=== PATIENT | male | born 1955 | race Caucasian/White ===

== ENCOUNTER 2018-08-06 02:43 | Day surgery (SDC) | payer OTHER ==
[~2018-08-06] VITALS: Ht 188 cm; Wt 107.0 kg
[~2018-08-06 02:43] MED LIST: ALBU90OI6; ASPI81CH; ATOR40TA; ATOR40TA PO; Apidra Sol100 UNIT/1; BUDE6HFA; BUME2; HYDCHL25; Humulin N100 UNIT/1 SC; INSR10I SC; INSULANPEN; Klor-Con 1010 MEQ PO; LEVSOD125 PO; METF500C PO; METO25ER; NORT25; Omeprazole20 M1; POTCHL10ER PO; PREG300; Requip3 MG PO; TAMS.4ER; TAMS.4ER PO; TRAZ50 PO
--- NOTE | 2018-08-06 08:44 | NUR ---
RIGHT GROIN SITE SOFT NON-TENDER WITH NO HEMATOMA AND NO PULSATILE BLEEDING. SLIGHT OOZING NOTED ON INTACT DRESSING. PT DENIES CP. PT A&O X 3. CALL LIGHT IN REACH.
[2018-08-06] MEDS ORDERED: METO25ER PO (09:15)
[2018-08-06] MEDS ORDERED: CLOP75 PO (09:58)
[2018-08-06] MEDS ORDERED: Isosorbide Mono30 MG PO (09:59)
--- NOTE | 2018-08-06 10:40 | NUR ---
PT DENIES CP. PT DESCRIBES "TENDERNESS" AT RIGHT GROIN SITE WITH PALPITATION, BUT DENIES ANY SHARP PAIN OTHERWISE RIGHT GROIN SITE SOFT WITH NO HEMATOMA AND NO PULSATILE BLEEDING. CALL LIGHT IN REACH.
--- NOTE | 2018-08-06 11:05 | NUR ---
HOB UP TO 30 DEGREES.
--- NOTE | 2018-08-06 11:52 | NUR ---
DR. CERVANTES HERE TO SEE PATIENT.
--- NOTE | 2018-08-06 12:23 | NUR ---
AT 0830 LANG HAD HEMOSTASIS THIS MORNING AFTER HOLDING MANUAL PRESSURE TO RIGHT FEMORAL GROIN SITE IN RECOVERY ROOM.
--- NOTE | 2018-08-06 12:35 | NUR ---
PT AMBULATED TO TO VOID. RIGHT GROIN SITE SOFT WITH NO HEMATOMA AND NO PULSATILE BLEEDING AND INTACT DRESSING. PT DENIES ANY SHARP PAIN IN RIGHT GROIN AREA OR RIGHT FLANK.
--- NOTE | 2018-08-06 13:14 | NUR ---
DISCHARGE INSTRUCTIONS REVIEWED AND ALL QUESTIONS ANSWERED.
--- NOTE | 2018-08-06 13:21 | NUR ---
20 G IV DISCONTINUED FROM LEFT FOREARM WITH INTACT CANNULA. NO CHANGES TO RIGHT GROIN SITE: SOFT WITH NO HEMATOMA AND NO PULSATILE BLEEDING.
--- NOTE | 2018-08-06 13:30 | NUR ---
PT ESCORTED OUT VIA WHEELCHAIR ESCORT.
[2018-08-07] MEDS ORDERED: Hydrocodone-Ap1 EA23 PO (15:25)
== END 2018-08-06 14:06 | disposition home or self-care (01) ==
LOC: MHTC 02:43
DX: I25.119 Atherosclerotic heart disease of native coronary artery with unspecified angina pectoris (principal); R94.39 Abnormal result of other cardiovascular function study; E11.42 Type 2 diabetes mellitus with diabetic polyneuropathy; I10 Essential (primary) hypertension; E78.5 Hyperlipidemia, unspecified; G25.81 Restless legs syndrome; E03.9 Hypothyroidism, unspecified; F32.9 Major depressive disorder, single episode, unspecified; J45.909 Unspecified asthma, uncomplicated; N40.0 Benign prostatic hyperplasia without lower urinary tract symptoms; Z79.4 Long term (current) use of insulin; Z87.891 Personal history of nicotine dependence; G47.33 Obstructive sleep apnea (adult) (pediatric); Z86.711 Personal history of pulmonary embolism
CPT/HCPCS: 82947; 93458; 99152; 99153; C1769; C1894; J0360; J0461; J1644; J2250; J3010; J7030; Q9967

== ENCOUNTER 2018-08-07 10:53 | Emergency (ER) | payer OTHER ==
[~2018-08-07] VITALS: Ht 180.3 cm; Wt 104.3 kg
[~2018-08-07 10:53] MED LIST changes: +CLOP75 PO; +Isosorbide Mono30 MG PO; +METO25ER PO
[2018-08-07 12:07] LABS: BASOPHILS ABSOLUTE AUTO 0.06 K/mm3 (0.00-0.23); BASOPHILS PERCENT AUTO 1 % (0-2); EOSINOPHILS ABSOLUTE AUTO 0.09 K/mm3 (0.00-0.68); EOSINOPHILS PERCENT AUTO 1 % (0-6); Hematocrit 35.8 % (37.0-53.0); IMMATURE GRAN ABSOLUTE AUTO 0.03 K/mm3 (0.00-0.10); IMMATURE GRAN PERCENT AUTO 0 % (0-1); LYMPHOCYTES ABSOLUTE AUTO 0.97 K/mm3 (0.84-5.20); LYMPHOCYTES PERCENT AUTO 12 % (21-46); MONOCYTES ABSOLUTE AUTO 0.37 K/mm3 (0.16-1.47); MONOCYTES PERCENT AUTO 5 % (4-13); Mean Corpuscular HGB 27.8 pg (26.0-34.0); Mean Corpuscular HGB Conc 33.5 g/dL (31.5-36.5); Mean Corpuscular Volume 83 fL (80-100); Mean Platelet Volume 10.8 fL (9.1-12.4); NEUTROPHILS ABSOLUTE AUTO 6.58 K/mm3 (1.96-9.15); NEUTROPHILS PERCENT AUTO 81 % (41-73); Platelet Count 173 K/mm3 (150-400); RDW Coefficient Variation 12.8 % (11.7-14.2); RDW Standard Deviation 38.7 fL (35.1-46.3); Red Blood Cell Count 4.32 M/mm3 (4.30-5.90)
[2018-08-07 12:25] LABS: International Normalized Ratio 1.08; Prothrombin Time Results 11.4 Sec (9.7-11.5)
[2018-08-07 12:29] LABS: Alanine Aminotransfer (ALT/SGP 56 U/L (12-78); Albumin, Blood 3.6 g/dL (3.4-5.0); Albumin/Globulin Ratio 1.1 (0.8-1.8); Alk Phos 140 U/L (50-136); Anion Gap 7 mmol/L (6-16); Aspartate Aminotrans (AST/SGOT 30 U/L (12-37); Bilirubin, Total 0.4 mg/dL (0.1-1.0); Blood Urea Nitrogen 29 mg/dL (8-24); Bun/Creatinine Ratio 25.4 (12.0-20.0); CO2, Blood 31 mmol/L (21-32); Calcium, Blood 9.3 mg/dL (8.5-10.1); Chloride, Blood 97 mmol/L (98-108); Creatinine, Blood 1.14 mg/dL (0.60-1.20); Globulin, Blood 3.4 g/dL (2.2-4.0); Glomerular Filtration Rate >60 (60-); Glucose, Blood 510 mg/dL (70-99); Potassium, Blood 4.1 mmol/L (3.5-5.5); Sodium, Blood 135 mmol/L (136-145); Troponin I <0.015 ng/mL (0.000-0.040)
[2018-08-07] MEDS ORDERED: Hydrocodone-Ap1 EA23 PO (15:25)
== END 2018-08-07 15:47 | disposition home or self-care (01) ==
LOC: ER 10:53
PROVIDERS: Emergency Medicine
DX: M54.5 Low back pain (principal); E11.65 Type 2 diabetes mellitus with hyperglycemia; I10 Essential (primary) hypertension; Z88.5 Allergy status to narcotic agent; Z88.8 Allergy status to other drugs, medicaments and biological substances; Z79.899 Other long term (current) drug therapy; Z79.4 Long term (current) use of insulin; Z79.82 Long term (current) use of aspirin; Z87.891 Personal history of nicotine dependence
CPT/HCPCS: 36415; 71275; 74175; 80053; 82947; 83880; 84484; 85025; 85610; 93005; 93010; 96360-59; 99284-25; J1815; J7030; Q9967

== ENCOUNTER 2018-08-13 12:00 | Emergency (ER) | payer OTHER ==
[~2018-08-13] VITALS: Ht 188 cm; Wt 108.9 kg
[~2018-08-13 12:00] MED LIST changes: +Hydrocodone-Ap1 EA23 PO
[2018-08-13] MEDS ORDERED: Norco 5-325 Ta1 EACH PO (14:07)
[2018-08-13] MEDS ORDERED: Naprosyn500 MG PO (14:07)
== END 2018-08-13 14:15 | disposition home or self-care (01) ==
LOC: ER 12:00
DX: R22.2 Localized swelling, mass and lump, trunk (principal); Z88.5 Allergy status to narcotic agent; Z88.8 Allergy status to other drugs, medicaments and biological substances; Z79.899 Other long term (current) drug therapy; Z79.4 Long term (current) use of insulin; Z79.82 Long term (current) use of aspirin; I10 Essential (primary) hypertension; E11.9 Type 2 diabetes mellitus without complications; Z87.891 Personal history of nicotine dependence
CPT/HCPCS: 93926

== ENCOUNTER 2018-10-21 15:50 | Inpatient (IN) | payer OTHER ==
[~2018-10-21] VITALS: Ht 188 cm; Wt 114.0 kg
[~2018-10-21 15:50] MED LIST changes: -ASPI81CH; +Aspirin EC81 MG PO; -BUME2; +BUME2 PO; +Glucophage1000 MG PO; +HUMULIN N100 UNIT/1 SC; -HYDCHL25; +HYDCHL25 PO; -Humulin N100 UNIT/1 SC; -METF500C PO; +Naprosyn500 MG PO; +Norco 5-325 Ta1 EACH PO; -PREG300; +PREG300 PO
[2018-10-21 17:07] LABS: BASOPHILS ABSOLUTE AUTO 0.07 K/mm3 (0.00-0.23); BASOPHILS PERCENT AUTO 1 % (0-2); EOSINOPHILS PERCENT AUTO 1 % (0-6); Hematocrit 26.8 % (37.0-53.0); Hemoglobin 8.8 g/dL (13.5-17.5); IMMATURE GRAN ABSOLUTE AUTO 0.21 K/mm3 (0.00-0.10); IMMATURE GRAN PERCENT AUTO 2 % (0-1); LYMPHOCYTES ABSOLUTE AUTO 1.23 K/mm3 (0.84-5.20); LYMPHOCYTES PERCENT AUTO 10 % (21-46); MONOCYTES ABSOLUTE AUTO 0.72 K/mm3 (0.16-1.47); MONOCYTES PERCENT AUTO 6 % (4-13); Mean Corpuscular HGB 28.5 pg (26.0-34.0); Mean Corpuscular HGB Conc 32.8 g/dL (31.5-36.5); Mean Corpuscular Volume 87 fL (80-100); Mean Platelet Volume 9.4 fL (9.1-12.4); NEUTROPHILS ABSOLUTE AUTO 10.46 K/mm3 (1.96-9.15); NEUTROPHILS PERCENT AUTO 82 % (41-73); NRBC ABSOLUTE 0.02 K/mm3 (0.00-0.02); NRBC Auto 0.2 /100 WBC (0.0-0.2); Platelet Count 345 K/mm3 (150-400); RDW Coefficient Variation 13.8 % (11.7-14.2); Red Blood Cell Count 3.09 M/mm3 (4.30-5.90); White Blood Cell Count 12.79 K/mm3 (4.00-11.30)
[2018-10-21 17:33] LABS: Albumin, Blood 2.8 g/dL (3.4-5.0); Albumin/Globulin Ratio 0.8 (0.8-1.8); Bilirubin, Total 0.5 mg/dL (0.1-1.0); Calcium, Blood 8.4 mg/dL (8.5-10.1); Creatinine, Blood 1.3 mg/dL (0.60-1.20); Globulin, Blood 3.6 g/dL (2.2-4.0); Potassium, Blood 3.9 mmol/L (3.5-5.5); Total Protein, Blood 6.4 g/dL (6.4-8.2); Troponin I 0.089 ng/mL (0.000-0.040)
[2018-10-21] MEDS ORDERED: Amiodarone HCl200 MG PO ×2 (17:35)
[2018-10-21] MEDS ORDERED: ELIQUIS5 MG PO ×2 (17:36)
[2018-10-21] MEDS ORDERED: METO50 PO ×2 (17:36)
[2018-10-21] MEDS ORDERED: ROXICODONE5 MG PO (17:37)
[2018-10-21] MEDS ORDERED: C Complex1000 MG PO ×2 (17:38)
[2018-10-21] MEDS ORDERED: Ferrous Sulfat325 MG PO ×2 (17:41)
[2018-10-21] MEDS ORDERED: FOLIC ACID0.8 MG PO ×2 (17:43)
[2018-10-21] MEDS ORDERED: MAGOXI400 PO ×2 (17:58)
[2018-10-21] MEDS ORDERED: BUDE6HFA INH ×4 (18:01→19:39)
[2018-10-21] MEDS ORDERED: ALBU90OI61 INH ×2 (18:02)
--- NOTE | 2018-10-22 04:12 | NUR ---
SHIFT SUMMARY: PT IS ALERT AND ORIENTED. PT IS CALM AND COOPERATIVE WITH CARE. PT CALLS APPROPRIATELY. PT IS INDEPENDENT IN THE ROOM. PT REPORTS LLE PAIN, MEDICATING PER EMAR. PT DENIES NAUSEA, VOMITING, AND SOB. PT SLEPT MUCH OF THE NIGHT WHEN NOT DISTURBED. NO ACUTE CHANGES OR COMPLICATIONS THIS SHIFT. BED IN LOW POSITION, CALL LIGHT WITHIN REACH. WILL REPORT TO DAY NURSE.
[2018-10-22 04:43] LABS: BASOPHILS PERCENT AUTO 1 % (0-2); EOSINOPHILS ABSOLUTE AUTO 0.22 K/mm3 (0.00-0.68); EOSINOPHILS PERCENT AUTO 2 % (0-6); Hematocrit 32.2 % (37.0-53.0); Hemoglobin 10.2 g/dL (13.5-17.5); IMMATURE GRAN ABSOLUTE AUTO 0.22 K/mm3 (0.00-0.10); IMMATURE GRAN PERCENT AUTO 2 % (0-1); LYMPHOCYTES ABSOLUTE AUTO 1.42 K/mm3 (0.84-5.20); LYMPHOCYTES PERCENT AUTO 11 % (21-46); MONOCYTES ABSOLUTE AUTO 0.69 K/mm3 (0.16-1.47); MONOCYTES PERCENT AUTO 6 % (4-13); Mean Corpuscular HGB 27.8 pg (26.0-34.0); Mean Corpuscular HGB Conc 31.7 g/dL (31.5-36.5); Mean Corpuscular Volume 88 fL (80-100); Mean Platelet Volume 9.4 fL (9.1-12.4); NEUTROPHILS PERCENT AUTO 79 % (41-73); NRBC ABSOLUTE 0.02 K/mm3 (0.00-0.02); NRBC Auto 0.2 /100 WBC (0.0-0.2); Platelet Count 382 K/mm3 (150-400); RDW Standard Deviation 43.2 fL (35.1-46.3); Red Blood Cell Count 3.67 M/mm3 (4.30-5.90); White Blood Cell Count 12.55 K/mm3 (4.00-11.30)
[2018-10-22 04:59] LABS: Alanine Aminotransfer (ALT/SGP 173 U/L (12-78); Albumin, Blood 3.1 g/dL (3.4-5.0); Albumin/Globulin Ratio 0.8 (0.8-1.8); Alk Phos 181 U/L (50-136); Anion Gap 7 mmol/L (6-16); Aspartate Aminotrans (AST/SGOT 38 U/L (12-37); Bilirubin, Total 0.6 mg/dL (0.1-1.0); Blood Urea Nitrogen 31 mg/dL (8-24); Bun/Creatinine Ratio 26.5 (12.0-20.0); CO2, Blood 33 mmol/L (21-32); Calcium, Blood 9.3 mg/dL (8.5-10.1); Chloride, Blood 97 mmol/L (98-108); Creatinine, Blood 1.17 mg/dL (0.60-1.20); Globulin, Blood 3.9 g/dL (2.2-4.0); Glomerular Filtration Rate >60 (60-); Glucose, Blood 236 mg/dL (70-99); Potassium, Blood 3.6 mmol/L (3.5-5.5); Sodium, Blood 137 mmol/L (136-145)
--- NOTE | 2018-10-22 18:12 | NUR ---
PATIENT A/O X4, UP INDEPENDENTLY IN ROOM. VSS THIS SHIFT. PAIN CONTROLLED WITH 2 OXYCODONE Q4 HOURS. PAIN IS IN CHEST FROM RECENT OPEN HEART SURGERY AND LLE CELLULITIS. VANCOMYCIN BID. ACHS BLOOD SUGARS, ADA DIET. TAKES PILLS WHOLE WITH WATER. CALM AND COOPERATIVW WITH CARE, CALLS APPROPRIATELY FOR ASSISTANCE.
[2018-10-23 04:51] LABS: BASOPHILS ABSOLUTE AUTO 0.08 K/mm3 (0.00-0.23); BASOPHILS PERCENT AUTO 1 % (0-2); EOSINOPHILS ABSOLUTE AUTO 0.22 K/mm3 (0.00-0.68); EOSINOPHILS PERCENT AUTO 2 % (0-6); Hematocrit 31.9 % (37.0-53.0); Hemoglobin 10.1 g/dL (13.5-17.5); IMMATURE GRAN ABSOLUTE AUTO 0.12 K/mm3 (0.00-0.10); IMMATURE GRAN PERCENT AUTO 1 % (0-1); LYMPHOCYTES ABSOLUTE AUTO 1.41 K/mm3 (0.84-5.20); LYMPHOCYTES PERCENT AUTO 10 % (21-46); MONOCYTES ABSOLUTE AUTO 0.75 K/mm3 (0.16-1.47); MONOCYTES PERCENT AUTO 5 % (4-13); Mean Corpuscular HGB 27.5 pg (26.0-34.0); Mean Corpuscular HGB Conc 31.7 g/dL (31.5-36.5); Mean Corpuscular Volume 87 fL (80-100); Mean Platelet Volume 9.5 fL (9.1-12.4); NEUTROPHILS ABSOLUTE AUTO 11.56 K/mm3 (1.96-9.15); NEUTROPHILS PERCENT AUTO 82 % (41-73); Platelet Count 396 K/mm3 (150-400); RDW Coefficient Variation 13.9 % (11.7-14.2); RDW Standard Deviation 42.7 fL (35.1-46.3); Red Blood Cell Count 3.67 M/mm3 (4.30-5.90); White Blood Cell Count 14.14 K/mm3 (4.00-11.30)
[2018-10-23 05:11] LABS: Anion Gap 6 mmol/L (6-16); Blood Urea Nitrogen 31 mg/dL (8-24); Bun/Creatinine Ratio 24.2 (12.0-20.0); CO2, Blood 33 mmol/L (21-32); Chloride, Blood 99 mmol/L (98-108); Creatinine, Blood 1.28 mg/dL (0.60-1.20); Glomerular Filtration Rate >60 (60-); Glucose, Blood 103 mg/dL (70-99); Phosphorus, Blood 3.6 mg/dL (2.5-4.9); Potassium, Blood 3.4 mmol/L (3.5-5.5); Sodium, Blood 138 mmol/L (136-145)
[2018-10-23 05:35] LABS: Vancomycin, Trough 21.5 ug/mL (5.0-10.0)
--- NOTE | 2018-10-23 07:16 | NUR ---
a+o, leg pain poorly controled with medication, call light in reach, saline locked, room air, walking rounds completed with day staff
--- NOTE | 2018-10-23 14:57 | NUR ---
NOTED TO HAVE PUSS COMING FROM THE INCISION SITE ON THE LEFT LEG. STATES THIS IS NEW. INFORMED
--- NOTE | 2018-10-23 17:02 | NUR ---
SHIFT SUMMARY PATIENT IS AMBULATING FONSECA. ABLE TO MAKE HIS NEEDS KNOWN. TOLERATING ANTIBIOTICS. WOUND CULTURE TAKEN OF OOZING SITE, PER DR. CORCORAN.
--- NOTE | 2018-10-24 18:30 | NUR ---
SHIFT SUMMARY PATIENT HAS ROSA ESPINOZA APPLIED. AMBULATES SELF THROUGHOUT FACILITY. SHOWERED TODAY.
--- NOTE | 2018-10-25 07:15 | NUR ---
a+o, walking in arndt, leg remains painful but improving, call light in reach, saline locked btwn abx, room air, walking rounds completed with day staff
[2018-10-25 08:17] LABS: BASOPHILS ABSOLUTE AUTO 0.08 K/mm3 (0.00-0.23); BASOPHILS PERCENT AUTO 1 % (0-2); EOSINOPHILS PERCENT AUTO 2 % (0-6); Hemoglobin 9.9 g/dL (13.5-17.5); IMMATURE GRAN ABSOLUTE AUTO 0.06 K/mm3 (0.00-0.10); IMMATURE GRAN PERCENT AUTO 1 % (0-1); LYMPHOCYTES PERCENT AUTO 10 % (21-46); MONOCYTES ABSOLUTE AUTO 0.71 K/mm3 (0.16-1.47); MONOCYTES PERCENT AUTO 6 % (4-13); Mean Corpuscular HGB 28.1 pg (26.0-34.0); Mean Corpuscular HGB Conc 31.9 g/dL (31.5-36.5); Mean Corpuscular Volume 88 fL (80-100); Mean Platelet Volume 9.4 fL (9.1-12.4); NEUTROPHILS PERCENT AUTO 81 % (41-73); Platelet Count 319 K/mm3 (150-400); RDW Coefficient Variation 14.1 % (11.7-14.2); RDW Standard Deviation 44.4 fL (35.1-46.3); Red Blood Cell Count 3.52 M/mm3 (4.30-5.90); White Blood Cell Count 11.85 K/mm3 (4.00-11.30)
[2018-10-25 08:55] LABS: Anion Gap 7 mmol/L (6-16); Blood Urea Nitrogen 32 mg/dL (8-24); Bun/Creatinine Ratio 24.6 (12.0-20.0); CO2, Blood 34 mmol/L (21-32); Chloride, Blood 95 mmol/L (98-108); Glomerular Filtration Rate 60 (60-); Glucose, Blood 122 mg/dL (70-99); Phosphorus, Blood 3.7 mg/dL (2.5-4.9); Potassium, Blood 3.5 mmol/L (3.5-5.5); Sodium, Blood 136 mmol/L (136-145)
[2018-10-25 08:58] LABS: Vancomycin, Trough 19.3 ug/mL (5.0-10.0)
--- NOTE | 2018-10-25 11:20 | NUR ---
PT C/O NONRADIATING CHESTPAIN REPRODUCIBLE WITH DEEP BREATH AND INCREASES WITH WALKING. DENIES SOB, NAUSEA NO DIAPHORESIS.
--- NOTE | 2018-10-25 15:45 | NUR ---
SWELLING NOTED TO RLE, COLOR WNL, PT DENIES PAIN TO SITE. STATES "IT DIDN'T LOOK THIS WAY YESTERDAY" DR. FAIR AWARE DOPPLER ORDERED.
--- NOTE | 2018-10-25 18:46 | NUR ---
SHIFT SUMMARY PATIENT REMAINS ALERT AND ORIENTED AND IN NO DISTRESS. HIS CHEST PAIN HAS IMPROVED AND RIGHT NOW HE IS IN BED WITH EYES CLOSED BREATHING DEEPLY. HE EATS WELL. HE HAS SOME INCREASED SWELLING IN HIS RIGHT LEG THAT HAS BEEN CHECKED BY DR. FAIR AND HE HAD A VENOUS DOPPLER DONE TO CHECK FOR DVT WHICH WAS RULED OUT.
--- NOTE | 2018-10-26 04:46 | NUR ---
SHIFT SUMMARY PT SLEPT WELL T/O NIGHT. AOX4. VSS. TELE STRETCHER OPERATOR REPORTS PT A. FLUTTER W/HR 69. DENIES SOB, NAUSEA, PALPATIONS OR DIZZINESS. REPORTS 7/10 PAIN IN BLE & CHEST @SURGICAL INCISION, MEDICATED 1X W/OXYCODONE PER ORDERS & NO FURTHER COMPLAINTS OF DISCOMFORT. RLE IS +3 W/PITTING EDEMA & LLE IS RED, WARM/TENDER TO TOUCH & HAS +2 PITTING EDEMA, REDNESS HAS NO GROWN OUT MARKED LINE. THIS AM PT ASKED FOR CBG TO BE CHECKED BEFORE A WALK & CBG WAS 68, OJ & SNACKS WERE PROVIDED. CALL LIGHT IN REACH & I WILL CONTINUE TO MONITOR.
[2018-10-26 04:53] LABS: BASOPHILS ABSOLUTE AUTO 0.07 K/mm3 (0.00-0.23); BASOPHILS PERCENT AUTO 1 % (0-2); EOSINOPHILS ABSOLUTE AUTO 0.21 K/mm3 (0.00-0.68); EOSINOPHILS PERCENT AUTO 2 % (0-6); Hematocrit 26.8 % (37.0-53.0); Hemoglobin 8.5 g/dL (13.5-17.5); IMMATURE GRAN ABSOLUTE AUTO 0.03 K/mm3 (0.00-0.10); IMMATURE GRAN PERCENT AUTO 0 % (0-1); LYMPHOCYTES ABSOLUTE AUTO 0.97 K/mm3 (0.84-5.20); LYMPHOCYTES PERCENT AUTO 10 % (21-46); MONOCYTES ABSOLUTE AUTO 0.64 K/mm3 (0.16-1.47); MONOCYTES PERCENT AUTO 7 % (4-13); Mean Corpuscular HGB 27.5 pg (26.0-34.0); Mean Corpuscular HGB Conc 31.7 g/dL (31.5-36.5); Mean Corpuscular Volume 87 fL (80-100); Mean Platelet Volume 9.5 fL (9.1-12.4); NEUTROPHILS ABSOLUTE AUTO 7.48 K/mm3 (1.96-9.15); NEUTROPHILS PERCENT AUTO 80 % (41-73); Platelet Count 276 K/mm3 (150-400); RDW Coefficient Variation 14.1 % (11.7-14.2); RDW Standard Deviation 42.9 fL (35.1-46.3); Red Blood Cell Count 3.09 M/mm3 (4.30-5.90)
[2018-10-26 05:08] LABS: Albumin, Blood 2.6 g/dL (3.4-5.0); Anion Gap 7 mmol/L (6-16); Blood Urea Nitrogen 32 mg/dL (8-24); Bun/Creatinine Ratio 24.4 (12.0-20.0); CO2, Blood 34 mmol/L (21-32); Calcium, Blood 8.5 mg/dL (8.5-10.1); Chloride, Blood 97 mmol/L (98-108); Creatinine, Blood 1.31 mg/dL (0.60-1.20); Glomerular Filtration Rate 59 (60-); Glucose, Blood 68 mg/dL (70-99); Magnesium, Blood 2.2 mg/dL (1.6-2.4); Phosphorus, Blood 4.2 mg/dL (2.5-4.9); Potassium, Blood 3.3 mmol/L (3.5-5.5); Sodium, Blood 138 mmol/L (136-145)
--- NOTE | 2018-10-26 18:23 | NUR ---
SHIFT SUMMARY PT AXO, PLEASANT AND COOPERATIVE WITH CARE. RUNNING A-FLUTTER IN 60'S PER SOLE BLACKER. PT COMPLAINED OF PAIN IN LEGS AND CHEST SIMILAR TO YESTERDAY AND STATED THAT THE CHEST PAIN WAS R/T INCISION. PT UP AD KEY IN HALLWAYS MULTIPLE TIMES THIS SHIFT. NURSE EDUCATED PT ON FALL PREVENTION AND PT AGREES TO CALL IF HE FEELS DIZZY, WEAK, ETC. NO ACUTE CHANGES THIS SHIFT. BED IN LOW POSITION, CALL LIGHT WITHIN REACH.
--- NOTE | 2018-10-27 04:55 | NUR ---
SHIFT SUMMARY PT SLEPT WELL T/O NIGHT. NO ACUTE CHANGES THIS SHIFT. VSS. AOX4. DENIES NAUSEA OR SOB. REPORTS PAIN/TENDERNESS IN LLE CALF & CHEST @SURGICAL INCISION, MEDICATED 2X W/OXYCODONE PER ORDERS. CBG THIS AM IS 160, BETTER THAN THE PAST 2 MORNINGS WHERE IT WAS IN THE 60'S. PT REPORTS SWELLING HAS GONE DOWN IN BLE & UPON ASSESSMENT LLE IS NO LONGER BRIGHT RED OR HOT TO TOUCH. PT STATES HE'S SCARED BECAUSE HE CAN'T FEEL TOUCH ON LLE & WONDERS IF HIS LEGS WILL EVER BE BACK TO "NORMAL," ENCOURAGED PT TO DISCUSS HIS CONCERNS. INDEPENDENT IN ROOM & CALL LIGHT IS IN REACH.
[2018-10-27 08:14] LABS: BASOPHILS PERCENT AUTO 1 % (0-2); EOSINOPHILS ABSOLUTE AUTO 0.25 K/mm3 (0.00-0.68); EOSINOPHILS PERCENT AUTO 3 % (0-6); Hematocrit 28.8 % (37.0-53.0); Hemoglobin 9.1 g/dL (13.5-17.5); IMMATURE GRAN ABSOLUTE AUTO 0.05 K/mm3 (0.00-0.10); IMMATURE GRAN PERCENT AUTO 1 % (0-1); LYMPHOCYTES ABSOLUTE AUTO 1.01 K/mm3 (0.84-5.20); LYMPHOCYTES PERCENT AUTO 11 % (21-46); MONOCYTES ABSOLUTE AUTO 0.72 K/mm3 (0.16-1.47); MONOCYTES PERCENT AUTO 8 % (4-13); Mean Corpuscular HGB 27.8 pg (26.0-34.0); Mean Corpuscular HGB Conc 31.6 g/dL (31.5-36.5); Mean Corpuscular Volume 88 fL (80-100); Mean Platelet Volume 9.5 fL (9.1-12.4); NEUTROPHILS ABSOLUTE AUTO 7.53 K/mm3 (1.96-9.15); NEUTROPHILS PERCENT AUTO 78 % (41-73); Platelet Count 258 K/mm3 (150-400); RDW Coefficient Variation 14.1 % (11.7-14.2); RDW Standard Deviation 44.2 fL (35.1-46.3); Red Blood Cell Count 3.27 M/mm3 (4.30-5.90); White Blood Cell Count 9.66 K/mm3 (4.00-11.30)
[2018-10-27 08:34] LABS: Albumin, Blood 2.9 g/dL (3.4-5.0); Anion Gap 2 mmol/L (6-16); Blood Urea Nitrogen 31 mg/dL (8-24); Bun/Creatinine Ratio 22.8 (12.0-20.0); CO2, Blood 36 mmol/L (21-32); Calcium, Blood 8.5 mg/dL (8.5-10.1); Chloride, Blood 97 mmol/L (98-108); Creatinine, Blood 1.36 mg/dL (0.60-1.20); Glomerular Filtration Rate 57 (60-); Glucose, Blood 178 mg/dL (70-99); Magnesium, Blood 2.2 mg/dL (1.6-2.4); Phosphorus, Blood 3.3 mg/dL (2.5-4.9); Potassium, Blood 3.6 mmol/L (3.5-5.5); Sodium, Blood 135 mmol/L (136-145); Troponin I 0.061 ng/mL (0.000-0.040)
[2018-10-27 08:44] LABS: Vancomycin, Trough 19.4 ug/mL (5.0-10.0)
--- NOTE | 2018-10-27 17:26 | NUR ---
SHIFT SUMMARY PT AXO, PLEASANT AND COOPERATIVE WITH CARE. PT CONTINUES TO COMPLAIN OF PAIN AT INCISION AND LLL. THOUGH REDNESS IMPROVING IN LLL. PT MEDICATED PER EMAR. IV PATENT AND SALINE LOCKED. PT AND SPOUSE ANXIOUS ABOUT IMPENDING DISCHARGE. DR FAIR AWARE. PT ABULATED AROUND UNIT WITH SBA DUE TO PT HAVING CONCERNS ABOUT THE TINGLING IN HIS FEET. PT CONTINUES TO RUN A-AFLUTTER IN THE 60'S SPOUSE PRESENT IN THE ROOM AT THIS TIME. BED IN LOW POSITION, CALL LIGHT WITHIN REACH.
--- NOTE | 2018-10-28 05:08 | NUR ---
SHIFT SUMMARY PT SLEPT WELL T/O NIGHT. NO ACUTE CHANGES THIS SHIFT. AOX4. VSS. DENIES SOB OR NAUSEA. REPORTS 7/10 PAIN IN BLE & MID-CHEST @SURGICAL INSICION, MEDICATED W/OXYCODONE PER ORDERS. PT REPORTS BLE EDEMA HAS GOTTEN BETTER, LLE DOES NOT APPEAR RED/HOT PREVIOUSLY ASSESSED. PER PCU TANYARD WORKER PT IS A. FLUTTER W/HR 61. CALL LIGHT IS IN REACH.
[2018-10-28 05:27] LABS: BASOPHILS ABSOLUTE AUTO 0.09 K/mm3 (0.00-0.23); BASOPHILS PERCENT AUTO 1 % (0-2); EOSINOPHILS ABSOLUTE AUTO 0.22 K/mm3 (0.00-0.68); EOSINOPHILS PERCENT AUTO 2 % (0-6); Hematocrit 30.6 % (37.0-53.0); Hemoglobin 9.5 g/dL (13.5-17.5); IMMATURE GRAN ABSOLUTE AUTO 0.06 K/mm3 (0.00-0.10); IMMATURE GRAN PERCENT AUTO 1 % (0-1); LYMPHOCYTES ABSOLUTE AUTO 1.15 K/mm3 (0.84-5.20); LYMPHOCYTES PERCENT AUTO 12 % (21-46); MONOCYTES ABSOLUTE AUTO 0.67 K/mm3 (0.16-1.47); MONOCYTES PERCENT AUTO 7 % (4-13); Mean Corpuscular HGB 27.3 pg (26.0-34.0); Mean Corpuscular Volume 88 fL (80-100); Mean Platelet Volume 9.6 fL (9.1-12.4); NEUTROPHILS ABSOLUTE AUTO 7.08 K/mm3 (1.96-9.15); NEUTROPHILS PERCENT AUTO 76 % (41-73); Platelet Count 265 K/mm3 (150-400); RDW Coefficient Variation 14.2 % (11.7-14.2); RDW Standard Deviation 45.1 fL (35.1-46.3); Red Blood Cell Count 3.48 M/mm3 (4.30-5.90); White Blood Cell Count 9.27 K/mm3 (4.00-11.30)
[2018-10-28 05:41] LABS: Anion Gap 6 mmol/L (6-16); Blood Urea Nitrogen 33 mg/dL (8-24); Bun/Creatinine Ratio 25.2 (12.0-20.0); CO2, Blood 35 mmol/L (21-32); Calcium, Blood 8.8 mg/dL (8.5-10.1); Chloride, Blood 98 mmol/L (98-108); Creatinine, Blood 1.31 mg/dL (0.60-1.20); Glomerular Filtration Rate 59 (60-); Glucose, Blood 98 mg/dL (70-99); Phosphorus, Blood 3.6 mg/dL (2.5-4.9); Potassium, Blood 3.6 mmol/L (3.5-5.5); Sodium, Blood 139 mmol/L (136-145)
[2018-10-28] MEDS ORDERED: DULERA 200 MCG/13 GM INH ×2 (10:08)
[2018-10-28] MEDS ORDERED: CHLO25B PO ×2 (10:17)
[2018-10-28] MEDS ORDERED: SPIR25 PO ×2 (10:27)
[2018-10-28] MEDS ORDERED: Cefpodoxime Pr200 MG PO ×2 (10:27)
[2018-10-28] MEDS ORDERED: VANCOMYCIN HCL750 MG IV ×2 (10:28)
[2018-10-28] MEDS ORDERED: BUDE6HFA INH ×2 (12:02)
--- NOTE | 2018-10-28 13:40 | NUR ---
PT BEING DISCHARGED HOME, WILL SEE PT TOMORROW IN [place] FOR DAILY VANCOMYCIN. TERRIE FAROOQ RN NOTIFIED OF PICC PLACEMENT.
--- NOTE | 2018-10-28 14:16 | NUR ---
DISCHARGE DISCHARGE INSTRUCTIONS, MEDICATION LIST AND FOLLOW UP APPOINTMENTS REVIEWED WITH PT AND SPOUSE. QUESTIONS/CONCERNS ANSWERED. BOTH PT AND SPOUSE VERBALLY INDICATED UNDERSTANDING OF ALL INSTRUCTIONS RECEIVED. APPOINT AT [facility] AT 1530 TOMORROW 10/29/18 SET WITH PT APPROVAL. ESCORTED OUT VIA W/C BY VOLUNTEER.
== END 2018-10-28 14:04 | disposition home or self-care (01) | DRG 863 ==
LOC: ER 15:50 → ERHOLD 19:11 → MEDS 19:11 → ENPENDDIS 10-28 07:37 → MEDS 10-28 14:04
PROVIDERS: Family Medicine; Internal Medicine Gastroenterology; Pharmacist; Physician Assistant; ADMIT Internal Medicine
DX: T81.49XA Infection following a procedure, other surgical site, initial encounter (principal); L03.116 Cellulitis of left lower limb; I48.92 Unspecified atrial flutter; Z95.1 Presence of aortocoronary bypass graft; I25.10 Atherosclerotic heart disease of native coronary artery without angina pectoris; E03.9 Hypothyroidism, unspecified; Z87.891 Personal history of nicotine dependence; E11.42 Type 2 diabetes mellitus with diabetic polyneuropathy; E78.5 Hyperlipidemia, unspecified; G25.81 Restless legs syndrome; J45.909 Unspecified asthma, uncomplicated; N40.0 Benign prostatic hyperplasia without lower urinary tract symptoms; Z79.82 Long term (current) use of aspirin; Z79.4 Long term (current) use of insulin; Z86.711 Personal history of pulmonary embolism; E78.00 Pure hypercholesterolemia, unspecified; G47.9 Sleep disorder, unspecified
CPT/HCPCS: 36415; 36569; 71045; 71260; 80053; 80069; 80202; 82947; 83735; 83880; 84484; 85025; 87040; 87070; 87205; 93005; 93010; 93971; 94640; 94760; 96365-59; 96366-59; 96375-59; 99285-25; A9270-GY; C1751; J0696; J1170; J1815; J2270; J3370; J7050; Q9967

== ENCOUNTER 2018-10-29 00:30 | Day surgery (SDC) | payer OTHER ==
[~2018-10-29 00:30] MED LIST changes: +ALBU90OI61 INH; +Amiodarone HCl200 MG PO; +BUDE6HFA INH; +C Complex1000 MG PO; +CHLO25B PO; +Cefpodoxime Pr200 MG PO; +DULERA 200 MCG/13 GM INH; +ELIQUIS5 MG PO; +FOLIC ACID0.8 MG PO; +Ferrous Sulfat325 MG PO; +MAGOXI400 PO; +METO50 PO; +ROXICODONE5 MG PO; +SPIR25 PO; +VANCOMYCIN HCL750 MG IV
== END 2018-10-29 22:48 | disposition home or self-care (01) ==
LOC: ATC 00:30
DX: L03.116 Cellulitis of left lower limb (principal); E11.42 Type 2 diabetes mellitus with diabetic polyneuropathy; I10 Essential (primary) hypertension; E03.9 Hypothyroidism, unspecified; E78.5 Hyperlipidemia, unspecified; F32.9 Major depressive disorder, single episode, unspecified; J45.909 Unspecified asthma, uncomplicated; Z79.899 Other long term (current) drug therapy; Z79.82 Long term (current) use of aspirin
CPT/HCPCS: J3370; J7050

== ENCOUNTER 2018-10-30 00:22 | Day surgery (SDC) | payer OTHER ==
[2018-10-30 11:13] LABS: Creatinine, Blood 1.17 mg/dL (0.60-1.20); Vancomycin, Trough 15.9 ug/mL (5.0-10.0)
== END 2018-10-30 22:48 | disposition home or self-care (01) ==
LOC: ATC 00:22
PROVIDERS: Family Medicine
DX: L03.116 Cellulitis of left lower limb (principal); I10 Essential (primary) hypertension; E11.42 Type 2 diabetes mellitus with diabetic polyneuropathy; F32.9 Major depressive disorder, single episode, unspecified; F41.9 Anxiety disorder, unspecified; E03.9 Hypothyroidism, unspecified; E78.5 Hyperlipidemia, unspecified; J45.909 Unspecified asthma, uncomplicated; Z79.899 Other long term (current) drug therapy; Z79.82 Long term (current) use of aspirin; Z79.4 Long term (current) use of insulin
CPT/HCPCS: 80202; 82565; 96365; 96366; J3370; J7050

== ENCOUNTER 2018-11-01 00:12 | Day surgery (SDC) | payer OTHER | END 2018-11-01 15:53 | disposition home or self-care (01) | LOC: ATC 00:12 | DX: L03.116 Cellulitis of left lower limb (principal); E11.40 Type 2 diabetes mellitus with diabetic neuropathy, unspecified; I10 Essential (primary) hypertension; I48.92 Unspecified atrial flutter; E03.9 Hypothyroidism, unspecified; E78.5 Hyperlipidemia, unspecified; F32.9 Major depressive disorder, single episode, unspecified; J45.909 Unspecified asthma, uncomplicated; N40.0 Benign prostatic hyperplasia without lower urinary tract symptoms; Z95.1 Presence of aortocoronary bypass graft | CPT/HCPCS: 96365; 96366; J3370; J7050 ==

== ENCOUNTER 2018-11-02 13:59 | Day surgery (SDC) | payer OTHER | END 2018-11-02 16:30 | disposition home or self-care (01) | LOC: ATC 13:59 | DX: L03.116 Cellulitis of left lower limb (principal); I10 Essential (primary) hypertension; E11.40 Type 2 diabetes mellitus with diabetic neuropathy, unspecified; J45.909 Unspecified asthma, uncomplicated; E03.9 Hypothyroidism, unspecified; E78.5 Hyperlipidemia, unspecified; F32.9 Major depressive disorder, single episode, unspecified; Z79.899 Other long term (current) drug therapy; Z79.82 Long term (current) use of aspirin; Z79.4 Long term (current) use of insulin; Z88.8 Allergy status to other drugs, medicaments and biological substances; Z88.5 Allergy status to narcotic agent | CPT/HCPCS: 96365; 96366; J3370; J7050 ==

== ENCOUNTER 2018-11-03 13:22 | Day surgery (SDC) | payer OTHER ==
[2018-11-03 14:36] LABS: Creatinine, Blood 1.36 mg/dL (0.60-1.20); Vancomycin, Trough 21.2 ug/mL (5.0-10.0)
--- NOTE | 2018-11-03 16:36 | NUR ---
INFUSION STOP TIME 1634. SWAB CAP PLACED, LINE FLUSHES EASILY
--- NOTE | 2018-11-03 16:51 | NUR ---
PT TEACHING ON FOLLOW UP WITH GROIN INFECTION. REPORTED TO PT THAT [facility] IS AN INFUSION CLINIC AND THAT WE DEAL WITH IV INFUSIONS, BUT WILL THAT WE MONITOR PT FOR ANY CHANGES IN SYMPTOMS, SUCH INCREASED PAIN/DIFFICULTY AMBULATING/FEVER AND SUCH AND WILL LOOK AT WOUND IF REQUESTED. PT/SPOUSE REPORTS THAT "NOBODY EVEN LOOKS @ HIS WOUND". TODAY IS THE FIRST DAY THIS RN HAS NOTED THAT WOUND HE WAS WEARING SHORTS TODAY. NO NOTED REDNESS/DRAINAGE AND INCISION APPEARS WELL APPROXIMATED. CHECKED INTO HIS DISCHARGE INSTRUCTIONS FROM LAST HOSPITAL STAY, AND IN DR NOTES, HE WAS TO FOLLOW UP WITH PCP IN 1-2 WEEKS. PT REPORTS THAT HE JUST SAW JENNY ARIAS CONTRACT NEGOTIATION SPECIALIST LAST WEEK BUT SHE DIDNT ADDRESS HIS WOUND. PT/SPOUSE REPORT THEY WILL CALL PCP IN AM TO ASK HER FOR FURTHER DIRECTION.
== END 2018-11-03 16:34 | disposition home or self-care (01) ==
LOC: ATC 13:22
PROVIDERS: Internal Medicine Gastroenterology
DX: L03.116 Cellulitis of left lower limb (principal); I10 Essential (primary) hypertension; E11.40 Type 2 diabetes mellitus with diabetic neuropathy, unspecified; J45.909 Unspecified asthma, uncomplicated; E03.9 Hypothyroidism, unspecified; E78.5 Hyperlipidemia, unspecified; F32.9 Major depressive disorder, single episode, unspecified; Z79.899 Other long term (current) drug therapy; Z79.82 Long term (current) use of aspirin
CPT/HCPCS: 80202; 82565; 96365; J3370; J7050

== ENCOUNTER 2018-11-04 14:41 | Day surgery (SDC) | payer OTHER | END 2018-11-04 16:35 | disposition home or self-care (01) | LOC: ATC 14:41 | DX: L03.116 Cellulitis of left lower limb (principal); I10 Essential (primary) hypertension; E11.40 Type 2 diabetes mellitus with diabetic neuropathy, unspecified; E03.9 Hypothyroidism, unspecified; E78.5 Hyperlipidemia, unspecified; F32.9 Major depressive disorder, single episode, unspecified; J45.909 Unspecified asthma, uncomplicated; N40.0 Benign prostatic hyperplasia without lower urinary tract symptoms; Z79.899 Other long term (current) drug therapy; Z79.82 Long term (current) use of aspirin | CPT/HCPCS: J3370; J7050 ==

== ENCOUNTER 2018-11-09 10:56 | Emergency (ER) | payer OTHER ==
[~2018-11-09] VITALS: Ht 182.9 cm; Wt 90.7 kg
[2018-11-09 11:35] LABS: BASOPHILS ABSOLUTE AUTO 0.04 K/mm3 (0.00-0.23); BASOPHILS PERCENT AUTO 1 % (0-2); EOSINOPHILS ABSOLUTE AUTO 0.01 K/mm3 (0.00-0.68); EOSINOPHILS PERCENT AUTO 0 % (0-6); Hematocrit 36.4 % (37.0-53.0); Hemoglobin 11.4 g/dL (13.5-17.5); IMMATURE GRAN ABSOLUTE AUTO 0.06 K/mm3 (0.00-0.10); IMMATURE GRAN PERCENT AUTO 1 % (0-1); LYMPHOCYTES ABSOLUTE AUTO 0.59 K/mm3 (0.84-5.20); LYMPHOCYTES PERCENT AUTO 8 % (21-46); MONOCYTES PERCENT AUTO 8 % (4-13); Mean Corpuscular HGB 27.6 pg (26.0-34.0); Mean Corpuscular HGB Conc 31.3 g/dL (31.5-36.5); Mean Corpuscular Volume 88 fL (80-100); NEUTROPHILS ABSOLUTE AUTO 6.13 K/mm3 (1.96-9.15); NEUTROPHILS PERCENT AUTO 83 % (41-73); Platelet Count 162 K/mm3 (150-400); RDW Coefficient Variation 14.4 % (11.7-14.2); RDW Standard Deviation 46.4 fL (35.1-46.3); Red Blood Cell Count 4.13 M/mm3 (4.30-5.90); White Blood Cell Count 7.43 K/mm3 (4.00-11.30)
[2018-11-09 11:53] LABS: Alanine Aminotransfer (ALT/SGP 43 U/L (12-78); Albumin, Blood 3.3 g/dL (3.4-5.0); Albumin/Globulin Ratio 0.8 (0.8-1.8); Alk Phos 104 U/L (50-136); Anion Gap 7 mmol/L (6-16); Aspartate Aminotrans (AST/SGOT 31 U/L (12-37); Bilirubin, Total 0.8 mg/dL (0.1-1.0); Blood Urea Nitrogen 33 mg/dL (8-24); Bun/Creatinine Ratio 29.7 (12.0-20.0); CO2, Blood 35 mmol/L (21-32); Calcium, Blood 9.1 mg/dL (8.5-10.1); Chloride, Blood 94 mmol/L (98-108); Creatinine, Blood 1.11 mg/dL (0.60-1.20); Globulin, Blood 4.2 g/dL (2.2-4.0); Glomerular Filtration Rate >60 (60-); Glucose, Blood 308 mg/dL (70-99); Potassium, Blood 3.6 mmol/L (3.5-5.5); Sodium, Blood 136 mmol/L (136-145); Total Protein, Blood 7.5 g/dL (6.4-8.2)
[2018-11-09] MEDS ORDERED: Zithromax250 MG PO (13:34)
== END 2018-11-09 13:52 | disposition home or self-care (01) ==
LOC: ER 10:56
PROVIDERS: Emergency Medicine
DX: J18.9 Pneumonia, unspecified organism (principal); I25.10 Atherosclerotic heart disease of native coronary artery without angina pectoris; E03.9 Hypothyroidism, unspecified; E11.42 Type 2 diabetes mellitus with diabetic polyneuropathy; E78.5 Hyperlipidemia, unspecified; E32.9 Disease of thymus, unspecified; J45.909 Unspecified asthma, uncomplicated; N40.0 Benign prostatic hyperplasia without lower urinary tract symptoms; Z88.5 Allergy status to narcotic agent; Z88.8 Allergy status to other drugs, medicaments and biological substances; Z79.82 Long term (current) use of aspirin; Z79.899 Other long term (current) drug therapy; Z79.84 Long term (current) use of oral hypoglycemic drugs; Z86.711 Personal history of pulmonary embolism; Z86.718 Personal history of other venous thrombosis and embolism; Z87.891 Personal history of nicotine dependence
CPT/HCPCS: 36415; 71045; 80053; 85025; 93005; 93010; 94640; 96365; 99284-25; J0696

== ENCOUNTER 2019-01-31 02:08 | Day surgery (SDC) | payer OTHER ==
[~2019-01-31 02:08] MED LIST changes: +Zithromax250 MG PO
== END 2019-02-01 00:21 | disposition home or self-care (01) ==
LOC: WOUND 02:08
DX: E11.622 Type 2 diabetes mellitus with other skin ulcer (principal); L97.821 Non-pressure chronic ulcer of other part of left lower leg limited to breakdown of skin; E11.42 Type 2 diabetes mellitus with diabetic polyneuropathy; I87.2 Venous insufficiency (chronic) (peripheral); Z79.4 Long term (current) use of insulin
CPT/HCPCS: G0463

== ENCOUNTER 2019-02-07 13:48 | Day surgery (SDC) | payer OTHER | END 2019-02-07 23:18 | disposition home or self-care (01) | LOC: WOUND 13:48 | DX: E11.622 Type 2 diabetes mellitus with other skin ulcer (principal); L97.821 Non-pressure chronic ulcer of other part of left lower leg limited to breakdown of skin; I87.2 Venous insufficiency (chronic) (peripheral); E11.40 Type 2 diabetes mellitus with diabetic neuropathy, unspecified; E03.9 Hypothyroidism, unspecified; I10 Essential (primary) hypertension; E78.5 Hyperlipidemia, unspecified; I25.10 Atherosclerotic heart disease of native coronary artery without angina pectoris; Z95.1 Presence of aortocoronary bypass graft | CPT/HCPCS: G0463 ==

== ENCOUNTER → 2019-04-01 | Outpatient (CLI) | payer OTHER | END | disposition home or self-care (01) | LOC: LAB EV 15:00 → LAB SHORT 15:00 | DX: S81.801A Unspecified open wound, right lower leg, initial encounter (principal) | CPT/HCPCS: 87070; 87205 ==

== ENCOUNTER 2019-04-04 14:17 | Day surgery (SDC) | payer OTHER | END 2019-04-04 23:52 | disposition home or self-care (01) | LOC: WOUND 14:17 | DX: E11.622 Type 2 diabetes mellitus with other skin ulcer (principal); L97.811 Non-pressure chronic ulcer of other part of right lower leg limited to breakdown of skin; L97.821 Non-pressure chronic ulcer of other part of left lower leg limited to breakdown of skin; E11.40 Type 2 diabetes mellitus with diabetic neuropathy, unspecified; I25.10 Atherosclerotic heart disease of native coronary artery without angina pectoris; Z95.1 Presence of aortocoronary bypass graft; Z88.5 Allergy status to narcotic agent; Z88.8 Allergy status to other drugs, medicaments and biological substances; Z87.891 Personal history of nicotine dependence | CPT/HCPCS: G0463 ==

== ENCOUNTER 2019-04-11 00:49 | Day surgery (SDC) | payer OTHER | END 2019-04-11 23:27 | disposition home or self-care (01) | LOC: WOUND 00:49 | DX: R23.4 Changes in skin texture (principal); I87.2 Venous insufficiency (chronic) (peripheral); E78.5 Hyperlipidemia, unspecified; E03.9 Hypothyroidism, unspecified; I10 Essential (primary) hypertension; E13.40 Other specified diabetes mellitus with diabetic neuropathy, unspecified; E13.59 Other specified diabetes mellitus with other circulatory complications; J44.9 Chronic obstructive pulmonary disease, unspecified; I25.10 Atherosclerotic heart disease of native coronary artery without angina pectoris; Z95.1 Presence of aortocoronary bypass graft | CPT/HCPCS: 11104; 88305; 88312; G0463 ==

== ENCOUNTER 2019-04-29 12:50 | Day surgery (SDC) | payer OTHER | END 2019-04-29 22:47 | disposition home or self-care (01) | LOC: WOUND | DX: E11.622 Type 2 diabetes mellitus with other skin ulcer (principal); L97.821 Non-pressure chronic ulcer of other part of left lower leg limited to breakdown of skin; E11.40 Type 2 diabetes mellitus with diabetic neuropathy, unspecified; I87.2 Venous insufficiency (chronic) (peripheral); E11.59 Type 2 diabetes mellitus with other circulatory complications; I10 Essential (primary) hypertension; J45.909 Unspecified asthma, uncomplicated; E78.5 Hyperlipidemia, unspecified; E03.9 Hypothyroidism, unspecified; Z79.82 Long term (current) use of aspirin; Z79.899 Other long term (current) drug therapy; Z79.4 Long term (current) use of insulin | CPT/HCPCS: G0463 ==

== ENCOUNTER 2019-05-06 14:00 | Day surgery (SDC) | payer OTHER | END 2019-05-06 22:45 | disposition home or self-care (01) | LOC: WOUND | DX: E11.622 Type 2 diabetes mellitus with other skin ulcer (principal); L97.822 Non-pressure chronic ulcer of other part of left lower leg with fat layer exposed; E11.59 Type 2 diabetes mellitus with other circulatory complications; E11.40 Type 2 diabetes mellitus with diabetic neuropathy, unspecified; I10 Essential (primary) hypertension; E78.5 Hyperlipidemia, unspecified; J45.909 Unspecified asthma, uncomplicated; E03.9 Hypothyroidism, unspecified; I87.2 Venous insufficiency (chronic) (peripheral); Z79.899 Other long term (current) drug therapy; Z79.82 Long term (current) use of aspirin; Z79.4 Long term (current) use of insulin | CPT/HCPCS: G0463 ==

== ENCOUNTER → 2019-06-16 | Outpatient (CLI) | payer OTHER ==
[~2019-06-16] MED LIST changes: +HUMULIN 70100 UNIT/2 SC; +HUMULIN 70100 UNIT/2 SQ
[2019-06-16 14:21] LABS: BASOPHILS ABSOLUTE AUTO 0.05 K/mm3 (0.00-0.23); BASOPHILS PERCENT AUTO 1 % (0-2); EOSINOPHILS ABSOLUTE AUTO 0.14 K/mm3 (0.00-0.68); EOSINOPHILS PERCENT AUTO 2 % (0-6); Hematocrit 38.7 % (37.0-53.0); Hemoglobin 12.9 g/dL (13.5-17.5); IMMATURE GRAN ABSOLUTE AUTO 0.05 K/mm3 (0.00-0.10); IMMATURE GRAN PERCENT AUTO 1 % (0-1); LYMPHOCYTES ABSOLUTE AUTO 1.05 K/mm3 (0.84-5.20); LYMPHOCYTES PERCENT AUTO 13 % (21-46); MONOCYTES PERCENT AUTO 5 % (4-13); Mean Corpuscular HGB 27.7 pg (26.0-34.0); Mean Corpuscular HGB Conc 33.3 g/dL (31.5-36.5); Mean Corpuscular Volume 83 fL (80-100); Mean Platelet Volume 10.3 fL (9.1-12.4); NEUTROPHILS ABSOLUTE AUTO 6.36 K/mm3 (1.96-9.15); NEUTROPHILS PERCENT AUTO 79 % (41-73); Platelet Count 202 K/mm3 (150-400); RDW Coefficient Variation 12.9 % (11.7-14.2); RDW Standard Deviation 39.3 fL (35.1-46.3); Red Blood Cell Count 4.65 M/mm3 (4.30-5.90); White Blood Cell Count 8.05 K/mm3 (4.00-11.30)
[2019-06-16 14:32] LABS: Alanine Aminotransfer (ALT/SGP 33 U/L (12-78); Albumin, Blood 3.5 g/dL (3.4-5.0); Alk Phos 146 U/L (40-126); Anion Gap 11 mmol/L (6-16); Aspartate Aminotrans (AST/SGOT 25 U/L (12-37); Bilirubin, Total 0.4 mg/dL (0.1-1.0); Blood Urea Nitrogen 20 mg/dL (8-24); Bun/Creatinine Ratio 17.2 (12.0-20.0); CO2, Blood 28 mmol/L (21-32); Chloride, Blood 99 mmol/L (98-108); Creatinine, Blood 1.16 mg/dL (0.60-1.20); Globulin, Blood 3.5 g/dL (2.2-4.0); Glomerular Filtration Rate >60 (60-); Glucose, Blood 360 mg/dL (70-99); Potassium, Blood 4.8 mmol/L (3.5-5.5); Sodium, Blood 138 mmol/L (136-145)
== END ==
LOC: LAB EV 14:17 → LAB SHORT 14:17
PROVIDERS: Emergency Medicine
DX: L03.116 Cellulitis of left lower limb (principal)
CPT/HCPCS: 80053; 85025

== ENCOUNTER 2019-06-24 07:30 | Day surgery (SDC) | payer OTHER ==
[~2019-06-24 07:30] MED LIST changes: -HUMULIN 70100 UNIT/2 SC; -HUMULIN 70100 UNIT/2 SQ
== END 2019-06-24 22:46 | disposition home or self-care (01) ==
LOC: WOUND 07:30
DX: E11.622 Type 2 diabetes mellitus with other skin ulcer (principal); L97.821 Non-pressure chronic ulcer of other part of left lower leg limited to breakdown of skin; I87.2 Venous insufficiency (chronic) (peripheral); I89.0 Lymphedema, not elsewhere classified; E11.40 Type 2 diabetes mellitus with diabetic neuropathy, unspecified; E11.36 Type 2 diabetes mellitus with diabetic cataract; H26.9 Unspecified cataract; E11.39 Type 2 diabetes mellitus with other diabetic ophthalmic complication; H40.9 Unspecified glaucoma; H42 Glaucoma in diseases classified elsewhere; D64.9 Anemia, unspecified; G47.30 Sleep apnea, unspecified; M19.90 Unspecified osteoarthritis, unspecified site; E78.5 Hyperlipidemia, unspecified; I10 Essential (primary) hypertension; J45.909 Unspecified asthma, uncomplicated; E03.9 Hypothyroidism, unspecified; I25.10 Atherosclerotic heart disease of native coronary artery without angina pectoris; Z86.718 Personal history of other venous thrombosis and embolism; Z79.01 Long term (current) use of anticoagulants; Z79.82 Long term (current) use of aspirin; Z79.4 Long term (current) use of insulin; Z79.899 Other long term (current) drug therapy; Z95.1 Presence of aortocoronary bypass graft
CPT/HCPCS: G0463

== ENCOUNTER 2019-06-27 14:10 | Emergency (ER) | payer OTHER ==
[~2019-06-27] VITALS: Ht 188 cm; Wt 112.0 kg
[2019-06-27] MEDS ORDERED: HUMULIN 70100 UNIT/2 SQ (14:47)
[2019-06-27] MEDS ORDERED: HUMULIN 70100 UNIT/2 SC (14:48)
[2019-06-27 15:22] LABS: BASOPHILS ABSOLUTE AUTO 0.09 K/mm3 (0.00-0.23); BASOPHILS PERCENT AUTO 1 % (0-2); EOSINOPHILS ABSOLUTE AUTO 0.13 K/mm3 (0.00-0.68); EOSINOPHILS PERCENT AUTO 1 % (0-6); Hematocrit 39.5 % (37.0-53.0); Hemoglobin 12.8 g/dL (13.5-17.5); IMMATURE GRAN ABSOLUTE AUTO 0.07 K/mm3 (0.00-0.10); IMMATURE GRAN PERCENT AUTO 1 % (0-1); LYMPHOCYTES ABSOLUTE AUTO 1.55 K/mm3 (0.84-5.20); LYMPHOCYTES PERCENT AUTO 17 % (21-46); MONOCYTES ABSOLUTE AUTO 0.53 K/mm3 (0.16-1.47); MONOCYTES PERCENT AUTO 6 % (4-13); Mean Corpuscular HGB 27.2 pg (26.0-34.0); Mean Corpuscular HGB Conc 32.4 g/dL (31.5-36.5); Mean Corpuscular Volume 84 fL (80-100); Mean Platelet Volume 10.7 fL (9.1-12.4); NEUTROPHILS ABSOLUTE AUTO 6.83 K/mm3 (1.96-9.15); NEUTROPHILS PERCENT AUTO 74 % (41-73); Platelet Count 192 K/mm3 (150-400); RDW Coefficient Variation 12.7 % (11.7-14.2); RDW Standard Deviation 38.7 fL (35.1-46.3)
[2019-06-27 15:36] LABS: Alanine Aminotransfer (ALT/SGP 33 U/L (12-78); Albumin, Blood 3.5 g/dL (3.4-5.0); Albumin/Globulin Ratio 0.9 (0.8-1.8); Alk Phos 147 U/L (50-136); Anion Gap 5 mmol/L (6-16); Aspartate Aminotrans (AST/SGOT 27 U/L (12-37); Bilirubin, Total 0.3 mg/dL (0.1-1.0); Blood Urea Nitrogen 28 mg/dL (8-24); Bun/Creatinine Ratio 28.1 (12.0-20.0); CO2, Blood 30 mmol/L (21-32); Calcium, Blood 9.3 mg/dL (8.5-10.1); Chloride, Blood 101 mmol/L (98-108); Globulin, Blood 3.7 g/dL (2.2-4.0); Glomerular Filtration Rate >60 (60-); Glucose, Blood 156 mg/dL (70-99); Potassium, Blood 4.5 mmol/L (3.5-5.5); Sodium, Blood 136 mmol/L (136-145); Total Protein, Blood 7.2 g/dL (6.4-8.2); Troponin I <0.015 ng/mL (0.000-0.040)
== END 2019-06-27 18:16 | disposition home or self-care (01) ==
LOC: ER 14:10
PROVIDERS: Physician Assistant
DX: R07.9 Chest pain, unspecified (principal); R09.89 Other specified symptoms and signs involving the circulatory and respiratory systems; I11.0 Hypertensive heart disease with heart failure; I50.9 Heart failure, unspecified; E11.9 Type 2 diabetes mellitus without complications; I25.10 Atherosclerotic heart disease of native coronary artery without angina pectoris; I48.92 Unspecified atrial flutter; Z88.5 Allergy status to narcotic agent; Z88.8 Allergy status to other drugs, medicaments and biological substances; Z79.82 Long term (current) use of aspirin; Z79.899 Other long term (current) drug therapy; Z79.4 Long term (current) use of insulin; Z95.1 Presence of aortocoronary bypass graft
CPT/HCPCS: 71046; 80053; 84484; 85025; 93005; 93010; 99285-25

== ENCOUNTER → 2019-07-08 | Outpatient (CLI) | payer OTHER ==
[~2019-07-08] MED LIST changes: +HUMULIN 70100 UNIT/2 SC; +HUMULIN 70100 UNIT/2 SQ
== END | disposition home or self-care (01) ==
LOC: LAB 18:16 → LAB SHORT 18:16
DX: L02.92 Furuncle, unspecified (principal)
CPT/HCPCS: 87070; 87075; 87205

== ENCOUNTER → 2019-07-30 | Outpatient (CLI) | payer OTHER ==
[2019-07-30 13:25] LABS: BASOPHILS ABSOLUTE AUTO 0.04 K/mm3 (0.00-0.23); BASOPHILS PERCENT AUTO 1 % (0-2); EOSINOPHILS ABSOLUTE AUTO 0.16 K/mm3 (0.00-0.68); EOSINOPHILS PERCENT AUTO 2 % (0-6); Hematocrit 34.5 % (37.0-53.0); Hemoglobin 11.3 g/dL (13.5-17.5); IMMATURE GRAN ABSOLUTE AUTO 0.04 K/mm3 (0.00-0.10); IMMATURE GRAN PERCENT AUTO 1 % (0-1); LYMPHOCYTES ABSOLUTE AUTO 1.26 K/mm3 (0.84-5.20); LYMPHOCYTES PERCENT AUTO 18 % (21-46); MONOCYTES PERCENT AUTO 6 % (4-13); Mean Corpuscular HGB 27.2 pg (26.0-34.0); Mean Corpuscular HGB Conc 32.8 g/dL (31.5-36.5); Mean Corpuscular Volume 83 fL (80-100); Mean Platelet Volume 9.7 fL (9.1-12.4); NEUTROPHILS ABSOLUTE AUTO 5.16 K/mm3 (1.96-9.15); NEUTROPHILS PERCENT AUTO 73 % (41-73); Platelet Count 185 K/mm3 (150-400); RDW Coefficient Variation 14.1 % (11.7-14.2); RDW Standard Deviation 43.2 fL (35.1-46.3); Red Blood Cell Count 4.15 M/mm3 (4.30-5.90); White Blood Cell Count 7.06 K/mm3 (4.00-11.30)
[2019-07-30 13:36] LABS: Alanine Aminotransfer (ALT/SGP 66 U/L (12-78); Albumin, Blood 3.4 g/dL (3.4-5.0); Albumin/Globulin Ratio 0.9 (0.8-1.8); Alk Phos 124 U/L (40-126); Anion Gap 5 mmol/L (6-16); Aspartate Aminotrans (AST/SGOT 44 U/L (12-37); Bilirubin, Total 0.4 mg/dL (0.1-1.0); Blood Urea Nitrogen 25 mg/dL (8-24); Bun/Creatinine Ratio 22.5 (12.0-20.0); CO2, Blood 32 mmol/L (21-32); Calcium, Blood 9.4 mg/dL (8.5-10.1); Chloride, Blood 102 mmol/L (98-108); Creatinine, Blood 1.11 mg/dL (0.60-1.20); Globulin, Blood 3.8 g/dL (2.2-4.0); Glomerular Filtration Rate >60 (60-); Glucose, Blood 139 mg/dL (70-99); Potassium, Blood 4.3 mmol/L (3.5-5.5); Sodium, Blood 139 mmol/L (136-145); Total Protein, Blood 7.2 g/dL (6.4-8.2)
[2019-07-30 14:28] LABS: Thyroid Stimulating Hormone 0.825 uIU/mL (0.360-4.800)
== END ==
LOC: LAB EV 13:21 → LAB SHORT 13:21
PROVIDERS: Physician Assistant
DX: E03.9 Hypothyroidism, unspecified (principal); R05 Cough
CPT/HCPCS: 80053; 83880; 84443; 85025

== ENCOUNTER 2019-09-25 22:58 | Emergency (ER) | payer OTHER ==
[~2019-09-25] VITALS: Ht 188 cm; Wt 131.5 kg
[2019-09-26 00:08] LABS: Source, Urine Clean Catch
[2019-09-26 00:13] LABS: Bilirubin, Urine Neg (Neg); Blood, Urine 2+ (Neg); Glucose Qualitative, Urine 4+ (Neg); Ketones, Urine Neg (Neg); Leukocyte Esterase, Urine Neg (Neg); Nitrite, Urine Neg (Neg); Protein, Urine Neg (Neg); Urobilinogen, Urine NORM (Normal)
[2019-09-26 00:20] LABS: Appearance, Urine Clear (Clear); Color, Urine Pale Yellow (P-Yellow)
[2019-09-26 00:21] LABS: Bacteria Not Seen /hpf; Squamous Epithelial Cells Few /hpf (Few); White Blood Cells, Urine Not Seen /hpf (0-5)
== END 2019-09-26 01:35 | disposition home or self-care (01) ==
LOC: ER 22:58
PROVIDERS: Emergency Medicine
DX: R31.9 Hematuria, unspecified (principal); I11.0 Hypertensive heart disease with heart failure; I50.9 Heart failure, unspecified; E11.9 Type 2 diabetes mellitus without complications; Z87.891 Personal history of nicotine dependence; Z79.82 Long term (current) use of aspirin; Z79.4 Long term (current) use of insulin; Z79.899 Other long term (current) drug therapy; Z88.5 Allergy status to narcotic agent; Z88.8 Allergy status to other drugs, medicaments and biological substances
CPT/HCPCS: 81001; 99283

== ENCOUNTER 2019-11-25 00:16 | Day surgery (SDC) | payer OTHER | END 2019-11-25 23:09 | disposition home or self-care (01) | LOC: WOUND 00:16 | DX: E11.622 Type 2 diabetes mellitus with other skin ulcer (principal); E11.40 Type 2 diabetes mellitus with diabetic neuropathy, unspecified; L97.821 Non-pressure chronic ulcer of other part of left lower leg limited to breakdown of skin; I87.2 Venous insufficiency (chronic) (peripheral); J45.909 Unspecified asthma, uncomplicated; E03.9 Hypothyroidism, unspecified; E78.5 Hyperlipidemia, unspecified; Z79.82 Long term (current) use of aspirin; Z79.01 Long term (current) use of anticoagulants; Z79.4 Long term (current) use of insulin | CPT/HCPCS: G0463 ==

== ENCOUNTER 2019-12-03 08:36 | Day surgery (SDC) | payer OTHER | END 2019-12-03 23:04 | disposition home or self-care (01) | LOC: WOUND 08:36 | DX: L97.822 Non-pressure chronic ulcer of other part of left lower leg with fat layer exposed (principal); L97.819 Non-pressure chronic ulcer of other part of right lower leg with unspecified severity; I87.2 Venous insufficiency (chronic) (peripheral); I25.10 Atherosclerotic heart disease of native coronary artery without angina pectoris; I10 Essential (primary) hypertension; E78.5 Hyperlipidemia, unspecified; E03.9 Hypothyroidism, unspecified; E11.40 Type 2 diabetes mellitus with diabetic neuropathy, unspecified | CPT/HCPCS: G0463 ==

== ENCOUNTER 2020-08-05 13:45 | Emergency (ER) | payer OTHER, SELFPAY ==
[~2020-08-05] VITALS: Ht 188 cm; Wt 113.4 kg
[~2020-08-05 13:45] MED LIST changes: +C COMPLEX PO; -C Complex1000 MG PO; +EUTHYROX125 MCG PO; -Glucophage1000 MG PO; -HUMULIN 70100 UNIT/2 SC; +HUMULIN 70100 UNIT/4 SC; -LEVSOD125 PO; +METF500 PO
[2020-08-05 15:19] LABS: BASOPHILS ABSOLUTE AUTO 0.01 K/mm3 (0.00-0.23); BASOPHILS PERCENT AUTO 0 % (0-2); EOSINOPHILS PERCENT AUTO 0 % (0-6); Hematocrit 35.5 % (37.0-53.0); Hemoglobin 11.3 g/dL (13.5-17.5); IMMATURE GRAN ABSOLUTE AUTO 0.04 K/mm3 (0.00-0.10); IMMATURE GRAN PERCENT AUTO 1 % (0-1); LYMPHOCYTES PERCENT AUTO 11 % (21-46); MONOCYTES ABSOLUTE AUTO 0.35 K/mm3 (0.16-1.47); MONOCYTES PERCENT AUTO 8 % (4-13); Mean Corpuscular HGB 24.7 pg (26.0-34.0); Mean Corpuscular HGB Conc 31.8 g/dL (31.5-36.5); Mean Corpuscular Volume 78 fL (80-100); Mean Platelet Volume 9.6 fL (9.1-12.4); NEUTROPHILS ABSOLUTE AUTO 3.47 K/mm3 (1.96-9.15); NEUTROPHILS PERCENT AUTO 80 % (41-73); Platelet Count 149 K/mm3 (150-400); RDW Coefficient Variation 15.6 % (11.7-14.2); RDW Standard Deviation 44.3 fL (35.1-46.3); Red Blood Cell Count 4.57 M/mm3 (4.30-5.90); White Blood Cell Count 4.37 K/mm3 (4.00-11.30)
[2020-08-05] MEDS ORDERED: Bystolic2.5 MG PO (15:20)
[2020-08-05] MEDS ORDERED: ZOLP5 PO (15:21)
[2020-08-05] MEDS ORDERED: ELIQUIS5 M3 PO (15:22)
[2020-08-05] MEDS ORDERED: IPRATROPIUM BRO30 ML (15:22)
[2020-08-05 15:50] LABS: Alanine Aminotransfer (ALT/SGP 38 U/L (12-78); Albumin, Blood 2.9 g/dL (3.4-5.0); Albumin/Globulin Ratio 0.6 (0.8-1.8); Alk Phos 149 U/L (50-136); Anion Gap 5 mmol/L (6-16); Aspartate Aminotrans (AST/SGOT 54 U/L (12-37); Bilirubin, Total 0.5 mg/dL (0.1-1.0); Blood Urea Nitrogen 25 mg/dL (8-24); Bun/Creatinine Ratio 22.3 (12.0-20.0); CO2, Blood 29 mmol/L (21-32); Calcium, Blood 8.7 mg/dL (8.5-10.1); Chloride, Blood 102 mmol/L (98-108); Creatinine, Blood 1.12 mg/dL (0.60-1.20); Globulin, Blood 4.7 g/dL (2.2-4.0); Glomerular Filtration Rate >60 (60-); Glucose, Blood 90 mg/dL (70-99); Potassium, Blood 3.8 mmol/L (3.5-5.5); Sodium, Blood 136 mmol/L (136-145); Total Protein, Blood 7.6 g/dL (6.4-8.2)
== END 2020-08-05 16:28 | disposition home or self-care (01) ==
LOC: ER 13:45
PROVIDERS: Emergency Medicine
DX: U07.1 COVID-19 (principal); J12.82 Pneumonia due to coronavirus disease 2019; I48.20 Chronic atrial fibrillation, unspecified; I10 Essential (primary) hypertension; E78.5 Hyperlipidemia, unspecified; E11.42 Type 2 diabetes mellitus with diabetic polyneuropathy; Z86.718 Personal history of other venous thrombosis and embolism
CPT/HCPCS: 36415; 71045; 80053; 84145; 85025; 86140; 99285-25

== ENCOUNTER 2020-08-18 21:50 | Emergency (ER) | payer OTHER, SELFPAY ==
[~2020-08-18] VITALS: Ht 175.3 cm; Wt 108.9 kg
[~2020-08-18 21:50] MED LIST changes: +Bystolic2.5 MG PO; +ELIQUIS5 M3 PO; +IPRATROPIUM BRO30 ML; +ZOLP5 PO
[2020-08-18 22:23] LABS: BASOPHILS ABSOLUTE AUTO 0.08 K/mm3 (0.00-0.23); BASOPHILS PERCENT AUTO 1 % (0-2); EOSINOPHILS ABSOLUTE AUTO 0.04 K/mm3 (0.00-0.68); EOSINOPHILS PERCENT AUTO 0 % (0-6); Hematocrit 30.4 % (37.0-53.0); Hemoglobin 9.6 g/dL (13.5-17.5); IMMATURE GRAN ABSOLUTE AUTO 0.12 K/mm3 (0.00-0.10); IMMATURE GRAN PERCENT AUTO 1 % (0-1); LYMPHOCYTES ABSOLUTE AUTO 0.85 K/mm3 (0.84-5.20); LYMPHOCYTES PERCENT AUTO 8 % (21-46); MONOCYTES ABSOLUTE AUTO 0.79 K/mm3 (0.16-1.47); MONOCYTES PERCENT AUTO 8 % (4-13); Mean Corpuscular HGB 24.5 pg (26.0-34.0); Mean Corpuscular HGB Conc 31.6 g/dL (31.5-36.5); Mean Corpuscular Volume 78 fL (80-100); Mean Platelet Volume 9.8 fL (9.1-12.4); NEUTROPHILS ABSOLUTE AUTO 8.57 K/mm3 (1.96-9.15); NEUTROPHILS PERCENT AUTO 82 % (41-73); Platelet Count 313 K/mm3 (150-400); RDW Coefficient Variation 15.5 % (11.7-14.2); RDW Standard Deviation 43.2 fL (35.1-46.3); Red Blood Cell Count 3.92 M/mm3 (4.30-5.90); White Blood Cell Count 10.45 K/mm3 (4.00-11.30)
[2020-08-18 22:43] LABS: Alanine Aminotransfer (ALT/SGP 39 U/L (12-78); Albumin, Blood 2.4 g/dL (3.4-5.0); Albumin/Globulin Ratio 0.6 (0.8-1.8); Alk Phos 210 U/L (50-136); Anion Gap 5 mmol/L (6-16); Aspartate Aminotrans (AST/SGOT 17 U/L (12-37); Bilirubin, Total 0.3 mg/dL (0.1-1.0); Blood Urea Nitrogen 22 mg/dL (8-24); Bun/Creatinine Ratio 21.2 (12.0-20.0); CO2, Blood 29 mmol/L (21-32); Calcium, Blood 8.6 mg/dL (8.5-10.1); Chloride, Blood 100 mmol/L (98-108); Creatinine, Blood 1.04 mg/dL (0.60-1.20); Globulin, Blood 4.3 g/dL (2.2-4.0); Glomerular Filtration Rate >60 (60-); Glucose, Blood 534 mg/dL (70-99); Potassium, Blood 5.3 mmol/L (3.5-5.5); Sodium, Blood 134 mmol/L (136-145); Total Protein, Blood 6.7 g/dL (6.4-8.2); Troponin I <0.015 ng/mL (0.000-0.040)
[2020-08-18] MEDS ORDERED: Levaquin750 MG PO (23:00)
== END 2020-08-19 00:48 | disposition home or self-care (01) ==
LOC: ER 21:50
PROVIDERS: Emergency Medicine
DX: R06.02 Shortness of breath (principal); E11.9 Type 2 diabetes mellitus without complications; I11.0 Hypertensive heart disease with heart failure; I50.9 Heart failure, unspecified; Z88.5 Allergy status to narcotic agent; Z79.4 Long term (current) use of insulin; Z79.01 Long term (current) use of anticoagulants; Z79.899 Other long term (current) drug therapy; Z87.891 Personal history of nicotine dependence
CPT/HCPCS: 71045; 80053; 84484; 85025; 93005; 93010; 96360; 99285-25; A9270; J7030

== ENCOUNTER 2020-09-14 17:34 | Inpatient (IN) | payer OTHER, MEDICARE ==
[~2020-09-14] VITALS: Ht 188 cm; Wt 100.9 kg
[~2020-09-14 17:34] MED LIST changes: +Levaquin750 MG PO
[2020-09-14 18:44] LABS: BASOPHILS ABSOLUTE AUTO 0.04 K/mm3 (0.00-0.23); BASOPHILS PERCENT AUTO 1 % (0-2); EOSINOPHILS ABSOLUTE AUTO 0.09 K/mm3 (0.00-0.68); EOSINOPHILS PERCENT AUTO 1 % (0-6); Hematocrit 31.1 % (37.0-53.0); Hemoglobin 9.8 g/dL (13.5-17.5); IMMATURE GRAN ABSOLUTE AUTO 0.08 K/mm3 (0.00-0.10); IMMATURE GRAN PERCENT AUTO 1 % (0-1); LYMPHOCYTES ABSOLUTE AUTO 0.89 K/mm3 (0.84-5.20); LYMPHOCYTES PERCENT AUTO 11 % (21-46); MONOCYTES ABSOLUTE AUTO 0.58 K/mm3 (0.16-1.47); MONOCYTES PERCENT AUTO 7 % (4-13); Mean Corpuscular HGB 24.7 pg (26.0-34.0); Mean Corpuscular HGB Conc 31.5 g/dL (31.5-36.5); Mean Corpuscular Volume 79 fL (80-100); Mean Platelet Volume 9.5 fL (9.1-12.4); NEUTROPHILS ABSOLUTE AUTO 6.34 K/mm3 (1.96-9.15); NEUTROPHILS PERCENT AUTO 79 % (41-73); Platelet Count 271 K/mm3 (150-400); RDW Coefficient Variation 16.9 % (11.7-14.2); RDW Standard Deviation 48.8 fL (35.1-46.3); Red Blood Cell Count 3.96 M/mm3 (4.30-5.90); White Blood Cell Count 8.02 K/mm3 (4.00-11.30)
[2020-09-14 19:23] LABS: Alanine Aminotransfer (ALT/SGP 42 U/L (12-78); Albumin, Blood 2.5 g/dL (3.4-5.0); Albumin/Globulin Ratio 0.5 (0.8-1.8); Alk Phos 192 U/L (50-136); Anion Gap 4 mmol/L (6-16); Aspartate Aminotrans (AST/SGOT 28 U/L (12-37); Bilirubin, Total 0.7 mg/dL (0.1-1.0); Blood Urea Nitrogen 25 mg/dL (8-24); Bun/Creatinine Ratio 26.4 (12.0-20.0); CO2, Blood 29 mmol/L (21-32); Calcium, Blood 8.9 mg/dL (8.5-10.1); Chloride, Blood 98 mmol/L (98-108); Creatinine, Blood 0.95 mg/dL (0.60-1.20); Globulin, Blood 4.8 g/dL (2.2-4.0); Glomerular Filtration Rate >60 (60-); Glucose, Blood 387 mg/dL (70-99); Potassium, Blood 4.6 mmol/L (3.5-5.5); Sodium, Blood 131 mmol/L (136-145); Total Protein, Blood 7.3 g/dL (6.4-8.2)
[2020-09-14 21:58] LABS: Influenza A, PCR NEGATIVE (NEGATIVE); Influenza B, PCR NEGATIVE (NEGATIVE); Resp Syncytial Virus, PCR NEGATIVE (NEGATIVE); SARS-Cov-2 (COVID-19) PCR, MMC NEGATIVE (NEGATIVE)
--- NOTE | 2020-09-15 04:05 | NUR ---
PT ADMITTED FROM ER AT APPROX 0045 FOR INFECTED DIABETIC FOOT ULCERS TO RT FOOT. PHOTOS TAKEN OF ULCERS AND PLACED IN CHART. FOOT WRAPPED IN GAUZE, KERLEX AND BAILEY WRAP. WOUNDS DRAINING A SMALL AMOUNT OF SS FLUID. PT A&O X4. VS WNL. PLAN FOR ANGIOGRAM AND POSS STENT PLACEMENT LATER TODAY.
--- NOTE | 2020-09-15 09:51 | NUR ---
PT TO [facility] [place] [id number]
--- NOTE | 2020-09-15 13:14 | NUR ---
ICU ARRIVAL PT ARRIVES TO ICU FROM [facility] AT 1220. REPORT FROM TANIA RN, REPORTED BALLOONING TO DP, NO OTHER INTERVENTIONS. PT c LEFT GROIN ACCESS, ANGIOSEAL. CHG DRESSING IN PLACE. NO SWELLING, BRUISING OR PAIN. REMINDED PT TO KEEP LEFT LEG STRAIGHT. PEDAL PULSES DOPPLERED. BILATERAL FEET P/W/D. WOUNDS ON RIGHT FOOT PHOTOGRAPHED, SEE CHART. DRESSING PLACED. VSS. WILL MAINTAIN PT SUPINE FOR 2 HOURS POST PROCEDURE AND MONITOR GROIN SITE.
--- NOTE | 2020-09-15 16:20 | NUR ---
GROIN REMAINS SOFT, NON TENDER. PT DENIES PAIN. PEDAL PULSES BY DOPPLER. HOB ELEVATED TO 45 DEGREES s DIFFICULTY. PLAN TO GO TO OR TOMORROW AM. PT TRANSFERRED TO SURGICAL FLOOR. ALL BELONGINGS c PT.
--- NOTE | 2020-09-15 18:39 | NUR ---
SHIFT SUMMARY PT POD 0 FOR ANGIOGRAM W/INTERVENTION TO RLE. ARTERIAL SITE L GROIN COVERED WITH TEGADERM, NO SWELLING OR BLEEDING NOTED OF 1834. PT IS A/O X'S 4. HAS MOMENTS WHERE HE BECOMES AGGITATED REGARDING RESTRICTIONS ON INDEPENDENTLY AMBULATING, EDUCATED ON THE NEED TO CALL FOR ASSISTANCE FOR SAFETY. PLAN FOR OR TOMORROW WITH DR SUMNER FOR I&D R FOOT FOR DM ULCERS X'S 2.
--- NOTE | 2020-09-16 04:03 | NUR ---
SHIFT SUMMARY: PT POD#1 FOR REVASCULARIZATION TO RLE. OPSITE TO LEFT GROIN APPEARS WNL W/O SIGNS OF BLEEDING. KERLEX TO RIGHT FOOT C/D/I. ULCER ON BOTTOM OF FOOT DRAINING A SMALL AMOUNT OF SEROUS FLUID. PT SBA TO BATHROOM PRN. VOIDING WELL. DENIES PAIN T/O SHIFT. PT HAS BEEN NPO SINCE MIDNIGHT FOR PLANNED I&D LATER TODAY.
[2020-09-16 04:35] LABS: BASOPHILS ABSOLUTE AUTO 0.06 K/mm3 (0.00-0.23); BASOPHILS PERCENT AUTO 1 % (0-2); EOSINOPHILS ABSOLUTE AUTO 0.13 K/mm3 (0.00-0.68); EOSINOPHILS PERCENT AUTO 2 % (0-6); Hematocrit 33.1 % (37.0-53.0); Hemoglobin 10.3 g/dL (13.5-17.5); IMMATURE GRAN ABSOLUTE AUTO 0.07 K/mm3 (0.00-0.10); IMMATURE GRAN PERCENT AUTO 1 % (0-1); LYMPHOCYTES ABSOLUTE AUTO 1.02 K/mm3 (0.84-5.20); LYMPHOCYTES PERCENT AUTO 13 % (21-46); MONOCYTES ABSOLUTE AUTO 0.67 K/mm3 (0.16-1.47); MONOCYTES PERCENT AUTO 9 % (4-13); Mean Corpuscular HGB 25.2 pg (26.0-34.0); Mean Corpuscular HGB Conc 31.1 g/dL (31.5-36.5); Mean Corpuscular Volume 81 fL (80-100); Mean Platelet Volume 9.4 fL (9.1-12.4); NEUTROPHILS ABSOLUTE AUTO 5.92 K/mm3 (1.96-9.15); NEUTROPHILS PERCENT AUTO 75 % (41-73); Platelet Count 288 K/mm3 (150-400); RDW Coefficient Variation 17.3 % (11.7-14.2); RDW Standard Deviation 50.7 fL (35.1-46.3); Red Blood Cell Count 4.09 M/mm3 (4.30-5.90); White Blood Cell Count 7.87 K/mm3 (4.00-11.30)
[2020-09-16 04:54] LABS: Anion Gap 3 mmol/L (6-16); Blood Urea Nitrogen 17 mg/dL (8-24); Bun/Creatinine Ratio 20.2 (12.0-20.0); CO2, Blood 30 mmol/L (21-32); Calcium, Blood 8.7 mg/dL (8.5-10.1); Chloride, Blood 105 mmol/L (98-108); Creatinine, Blood 0.84 mg/dL (0.60-1.20); Glomerular Filtration Rate >60 (60-); Glucose, Blood 158 mg/dL (70-99); Potassium, Blood 4.2 mmol/L (3.5-5.5); Sodium, Blood 138 mmol/L (136-145)
--- NOTE | 2020-09-16 15:23 | NUR ---
PATIENT TO OR AT APROX 1510.
--- NOTE | 2020-09-16 15:43 | NUR ---
Patient is sitting on EOB and alert. PAtient complains about his how hungry he is and how frustrated about the delays in surgery times. Patient gets emotional in talking about how he has had to be seperated from his for three months because of medical issues (she is in rehab. recovering from COVID-19). While patient was going around to complain about the delays again staff come to pick him up for surgery and hour and a half early. I provide therapeutic listening and pre-surgery prayer. I will continue to remain available to patient and family.
--- NOTE | 2020-09-16 18:25 | NUR ---
PATIENT RETURNED TO UNIT FROM THE OR. VITALS TAKEN. PATIENT WAS ABLE TO PIVOT TO TRANSFER FROM THE GERNY TO THE BED. PATIENT REPORTS NO NAUSEA OR PAIN AT THIS TIME. PATIENT ABLE TO WIGGLE TOES.
--- NOTE | 2020-09-16 18:42 | NUR ---
SHIFT SUMMARY PATIENT LEFT FOR I&D AT APROX 1530 RETURNED AT APROX 1800. NO ACUTE CHANGES SINCE PATIENT ARRIVED BACKTO THE UNIT. PATIENT IS NOT REPORTING ANY PAIN AT THIS TIME. PATIENT IS CURRENTLY EATING DINNER AND DOES NOT REPORT ANY NAUSEA AT THIS TIME. DRESSING REMAINS C/D/I AT THIS TIME. WILL GIVE REPORT TO THE ONCOMING RN.
--- NOTE | 2020-09-17 00:37 | NUR ---
PT IS AGREEABLE TO STUDENT PARTICIPATION IN CARE
--- NOTE | 2020-09-17 04:54 | NUR ---
SHIFT SUMMARY: PT A&OX4 UP ADLIB W/ BRP, VS WNL, RESPIRATIONS 14-16 T/O UNCHAGED EVEN UNLABORED, REPORTS INCREASED PAIN TO RLE TOES "PINS AND NEEDLES" 8/10W ELEVATED RLE ABOVE HIP PER PROVIDERS ORDER CAP REFILL PRESENT <3 SEC BLANCHES W/ TOUCH ABLE TO MOVE FREELY STATES LOSS OF SENSATION, RIGHT CALF WARM TO TOUCH, BAILEY WRAP TO RLE C/D/I, UP ADLIB W/ BRP USES FWW, SLOW STEADY GAITPT AWARE OF LIMITED WT BEARING WITH AMBULATION
--- NOTE | 2020-09-17 07:40 | NUR ---
pt stated he has questions for dr maldonado told him to write them down and i will call the office when it opens
--- NOTE | 2020-09-17 12:18 | NUR ---
Patient continues to express frustration about the his preceived lack of communication with his surgeon and about the COVID restrictions that his 's rehab. facility have in place. I listen empathically and then his calls him on the phone and I leave and let him take the call. I will continue to remain available to patient and family.
--- NOTE | 2020-09-17 17:10 | NUR ---
PT STATED EARLIER DR VOGEL CAME TO SEE HIM AND ANSWERED HIS QUESTIONS
--- NOTE | 2020-09-17 17:40 | NUR ---
meds given as sched pt eating dinner no insulin given
--- NOTE | 2020-09-18 08:00 | NUR ---
SHIFT SUMMARY: PT S/P REVASCULARIZATION AND I&D TO RLE. BULKY BAILEY WRAP DRESSING TO RT FOOT C/D/I. PT DENIES PAIN THROUGHOUT SHIFT. PRELIMINARY WOUND CULTURES GROWING MRSA-HOSPITALIST NOTIFIED AND PT NOW ON IV VANCO. SALINE LOCKED BETWEEN IV ABX. TOLERATING PO. DENIES N/V. VOIDING WELL. INDEPENDENT IN ROOM AND OCC AMBULATING HALLWAY. PLAN FOR A DRESSING CHANGE PER DR. SUMNER.
--- NOTE | 2020-09-18 18:18 | NUR ---
SUMMARY NO ACUTE CHANGES T/O SHIFT. PT INDEPENDENT IN ROOM. DRESSING TO RLE CDI. COVERED CBGS PER ORDERS. CALL LIGHT IN REACH.
[2020-09-18 21:11] LABS: Vancomycin, Trough 22.8 ug/mL (5.0-10.0)
--- NOTE | 2020-09-19 06:46 | NUR ---
SUMMARY PT VERB HIS DAUGHTER IS UPSET SHE HAS MANY QUESTIONS THAT NEED ANSWERING AND SHE HAS NOT RECEIVED PHONE CALL PER DOCTOR SHE HAS REQUESTED.MY CHARGE NURSE IS AND ADVISES PT AND DAUGHTER TO HAVE QUESTIONS WRITTEN OOUT TO PREPARE AND WHEN DR ARRIVES PT IS TO CALL DAUGHTER AND PLACE HER ON SPEAKERPHONE TO COMMUNICATE WITH DR.TIMA VERB UNDERSTANDING OF THIS.
--- NOTE | 2020-09-19 08:37 | NUR ---
PT TO CT
--- NOTE | 2020-09-19 13:57 | NUR ---
SPOKE TO DR SUMNER PLANNING TO ROUND ON PT ON 09/20/20. INSTRUCTED TO LEAVE SURGICAL DRESSING IN PLACE.
--- NOTE | 2020-09-19 18:17 | NUR ---
SUMMARY PT VERY PAINFUL WHEN CAME OF SHIFT. NOC RN OBTAINED ORDERS AND MEDICATED FOR PAIN. PT TO CT. PT REPORTED PAIN IMPROVED WHEN CAME BACK AND RESTED OFF AND ON T/O MORNING. THIS AFTERNOON, PAIN BEGAN INCREASING. PROVIDED ICE PACKS FOR COMFORT. MEDICATED PER ORDERS FOR PAIN. PT SITTING UP IN BED, EATING DINNER W/RLE ELEVATED ON PILLOWS AND ICE PACKS IN PLACE. HAD TELEPHONE CONVERSATION W/BODY BUILDER REGARDING DIABETIC MANAGEMENT AND WAS PROVIDED PRINTOUTS. PT STATED VERY HELPFUL. CALL LIGHT IN REACH.
--- NOTE | 2020-09-19 18:24 | NUR ---
PT GAVE STUDENT NURSE PERMISSION FOR CARE ON 09/19/20 AT 0700.
--- NOTE | 2020-09-20 04:51 | NUR ---
SHIFT ASSESSMENT POD4 I&D 4TH METATARSAL SPACE, A/O X4, VSS, TOLERATING PO, INDEPENDENT IN ROOM, C/O PAIN IN RLE INTERMITTENTLY W/ MINIMAL BENEFIT FROM ADMINISTERED SUBLIMAZE, ENCOURAGED TO KEEP LIMB ELEVATED WHICH APPEARS TO OFFER ADDITIONAL COMFORT/PAIN RELIEF. BAILEY WRAP REMOVED AND RE-WRAPPED WHICH ALSO APPEARED TO HAVE SOME LEVEL OF INCREASED COMFORT, ICE PROVIDED WELL THOUGH PT REPORTS NOT BEING ABLE TO TOLERATE IT FOR LONG. VOIDING WELL, PASSING FLATUS, NO ACUTE EVENTS THIS SHIFT. PT REPORTS DAUGHTER WANTING TO TALK TO DR SUMNER WHEN HE ROUNDS IN THE MORNING, WILL PASS ON TO DAY NURSE. CALL LIGHT IN REACH, WILL CONTINUE TO MONITOR AND REPORT TO ONCOMING DAY RN.
--- NOTE | 2020-09-20 07:31 | NUR ---
ASSUMED CARE: PT RESTING QUIETLY AT THIS TIME. NO ACUTE NEEDS OR CONCERNS IDENTIFIED
[2020-09-20 11:34] LABS: Creatinine, Blood 0.71 mg/dL (0.60-1.20)
--- NOTE | 2020-09-20 18:35 | NUR ---
SHIFT SUMMARY: DR SUMNER CAME TO SEE PT AND REVIEWED CT SCAN. PLAN IS FOR XRAY AND INFLAMMATORY MARKER LABS FOR TOMORROW TO DETERMINE FURTHER ACTION. STATES HE WILL BE BACK AFTER OFFICE HOURS TOMORROW TO REVIEW RESULTS. DR OTERO HAS BEEN UPDATED REGARDING DR SUMNER PLANS. PT'S DAUGHTER WAS AT BEDSIDE AND HAS BEEN UPDATED WELL.
--- NOTE | 2020-09-21 05:04 | NUR ---
SHIFT SUMMARY PT RESTED WELL T/O NIGHT. AAOX4. DISCOMFORT CONTROLLED WITH 2 PERCOCET Q4H. NO NAUSEA/EMESIS. DRESSING TO RIGHT FOOT C/D/I. UP TO RESTROOM HEAL TOUCH WEIGHT BEARING RLE WITH FWW. IVF + ABX PER ORDERS. NO ACUTE CHANGES OVERNIGHT. PT CURRENTLY RESTING IN BED WITH CALL LIGHT IN REACH.
--- NOTE | 2020-09-21 13:36 | NUR ---
TRANSFER TO MEDICAL FLOOR PATIENT TRANSFERED TO MEDICAL FLOOR VIA WHEELCHAIR. REPORT CALLED TO ANEL ALVAREZ.
--- NOTE | 2020-09-21 13:59 | NUR ---
TRANSFER PT TRANSFERRED UP TO ROOM 355 FROM SURGICAL FLOOR, ORIENTED PT TO ROOM AND CALL SYSTEM
--- NOTE | 2020-09-21 17:34 | NUR ---
SUMMARY PT AWAKE IN BED VISITING WITH HIS DAUGHTER, BURAK JUST CAME IN TO SEE THE PT, PT HAS BEEN ALERT AND ORIENTED, COOPERATIVE WITH CARE, INDEPENDENT IN THE ROOM, MED PER EMAR FOR PAIN, PT HAD A LOW CBG THIS AFTERNOON, SNACKS GIVEN, VSS, NO ACUTE CHANGES, WILL CONT TO MONITOR
--- NOTE | 2020-09-22 08:16 | NUR ---
SYSTEMS SOFTWARE MANAGER SUMMARY PATIENT WAS ANXIOUS AND QUITE LABILE MOST OF THE NIGHT. GIANFRANCO WAS VERY UPSET ABOUT NOT GETTING HIS POCKET KNIFE AND CLIPPERS BACK LAST NIGHT. AFTER GOING ROUND AND ROUND WITH THIS GENTLEMAN, HE AGREED TO TAKE SOME PAIN MEDICINE AND AN ATIVAN FROM THIS RN WITH A PROMISE THAT HE WOULD NOT HAVE TO BE BOTHERED ANY MORE UNTIL MORNING. MARCEL ONLY TOOK PAIN MEDICINE ONCE FOR ME LASTNIGHT, AND THE COMBINATION WITH HIS ANTIANXIETY ALLOWED HIM TO GET SOME REST. RIGHT FOOT DRESSING CLEAN DRY AND INTACT
[2020-09-22 09:06] LABS: Creatinine, Blood 0.71 mg/dL (0.60-1.20); Vancomycin, Trough 16.9 ug/mL (5.0-10.0)
--- NOTE | 2020-09-22 17:16 | NUR ---
SUMMARY PT RESTING QUIETLY IN BED, WAITING TO HAVE SURGERY, PT HAS BEEN NPO SINCE BREAKFAST FOR SURGERY, PT MED PER EMAR FOR PAIN, PT INDEPENDENT IN THE ROOM, DRESSING TO THE R FOOT CHANGED, PT CAMERON WELL, VSS, WILL CONT TO MONITOR
--- NOTE | 2020-09-22 17:26 | NUR ---
DR SUMNER HERE TO SEE THE PT
--- NOTE | 2020-09-22 17:46 | NUR ---
PT SURGERY CHANGED TO TOMORROW MORNING, PT TO BE NPO AFTER MIDNIGHT TONIGHT
--- NOTE | 2020-09-22 22:09 | NUR ---
CBG 406. PATIENT REPORTS HE ATE TWO DINNERS. HOSPITALIST KALIE SANTANA ORDERED ADDITIONAL HUMILIN R 5 UNITS X ONE. SCHEDULE HUMILIN 70-30 50 UNITS GIVEN PER EMAR.
--- NOTE | 2020-09-23 00:54 | NUR ---
CBG 304 ON RECHECK DOWN FROM 406. WILL CONTINUE TO MONITOR.
--- NOTE | 2020-09-23 04:03 | NUR ---
SHIFT SUMMARY PATIENT CBG 406 REPORTING HE ATE TWO DINNERS AND HAS HX OF NONCOMPLIANT WITH HIS DIABETES. RECHECK OF CBG 306 AFTER HUMILIN R 5 UNITS GIVEN X ONE PER HOSPITALIST KALIE [address] LANDSCAPE ARCHITECT. AXOX 4 AND INDEPENDENT. NPO FOR PROCEDURE. REPORTED RIGHT FOOT PAIN X TWO AND PERCOCET GIVEN PER EMAR. PIV REMAINS INTACT. LR INFUSING AT 75 mL/HR. IV ABXS INFUSED. CALL LIGHT IN REACH. BED IN LOWEST POSITION. WILL CONTINUE TO MONITOR UNTIL DAY SHIFT NURSE ASSUMES CARE.
--- NOTE | 2020-09-23 17:29 | NUR ---
PT STATED 20 GAUGE IV IN LEFT WRIST THAT HAS "BEEN IN FOR A LONG TIME" IS HURTING AND UNCOMFORTABLE. NEW IV INSERTED IN RIGHT WRIST 20 GAUGE AND LEFT WRIST IV WAS DC'D WN.L
--- NOTE | 2020-09-23 17:38 | NUR ---
SHIFT SUMMARY PT ALLOWED CLEAR LIQUID DIET FOR BREAKFAST & LUNCH TODAY IN PREP FOR SURGERY. NPO AFTER THIS. PT TAKEN TO DAY SURGERY AT 1645 FOR AMPUTATION OF 4TH&5TH TOES. NO ACUTE CHANGES IN ASSESSMENT PRIOR TO PT LEAVING THE FLOOR. VS REVIEWED & AFTERNOON COREG GIVEN PRIOR TO PT LEAVING THE UNIT. PT STATED HE UPDATED HIS DAUGHTER ON THE PLAN FOR THE DAY. PT ANXIOUS T/O THE DAY ABOUT SURGERY. THIS RN LISTENED TO PTS CONCERNS, WHICH SEEMED TO HELP ANXIETY. PLAN FOR PT TO RETURN TO UNIT AFTER RECOVERED IN PACU.
--- NOTE | 2020-09-23 19:26 | NUR ---
09/23/201925 Mariana Foy PT ON SCHEDULED ANTIBIOTICS
--- NOTE | 2020-09-23 20:14 | NUR ---
REPORT RECIEVED REPORT FROM DAY SURGERY ANTONIO PRAKASH. TRANSPORTED FROM PACU TO ROOM [facility]. MINIMAL ASSISTANCE WITH TX REQUIRED. RUNNING LR BY GRAVITY TO NEW 20G IV IN LFA. REPORTEDLY VERY HUNGRY. NO N/V NOTED BY SFrancois ALVAREZ.
--- NOTE | 2020-09-24 06:01 | NUR ---
SHIFT SUMMARY A/O, ABLE TO MAKE NEEDS KNOWN. COOPERATIVE WITH CARE. CALLS AND ANSWERS QUESTIONS APPROPRIATELY. C/O PAIN/DISCOMFORT TO RLE X2; MEDICATED PER EMAR. UP /c 1P ASSIST /c FWW TO BR; REMINDED TO HAVE MINIMAL WEIGHT BEARING TO R LEG. NOTED TO HAVE MINIMAL LEAKING FROM SX SITE. ELEVATED EXTREMITY. VSS/AFEBRILE. CONTINUES TO INFUSE LR WITHOUT COMPLICATIONS TO RFA. RECIEVED IV ABX. APPEARED TO HAVE MINIMAL SLEEP. NO ACUTE CHANGES NOTED OVERNIGHT. BED REMAINS IN LOWEST POSITION. CALL LIGHT AND BELONGINGS WITHIN REACH. CONTINUE WITH CURRENT PLAN OF CARE. REPORT TO ONCOMING RN.
[2020-09-24 08:52] LABS: Creatinine, Blood 0.82 mg/dL (0.60-1.20); Vancomycin, Trough 16.4 ug/mL (5.0-10.0)
--- NOTE | 2020-09-24 16:16 | NUR ---
SHIFT SUMMARY PT AWAKE DURING SHIFT REPORT. ASSISTED TO BTHRM TO VOID. 1P ASSIST WITH IV PUMP WHEN UP. PT C/O CONSTIPATION. DR MARCUS NOTIFIED FOR MIRALAX PER PT REQUEST. ORDERED AND GIVEN. PT MEDICATED FOR C/O PAIN TO R FOOT; D/T TOE AMPUTATIONS. DR MARCUS AND SURVEYOR HELPER IN TO SEE PT AND DISCUSS PLAN OF CARE. PT NOT WANTING TO GO HOME TODAY. DR SUMNER HERE TO ASSESS FOOT AND CHANGE DRSMargarita. PAULINE'S D/C'D. PT ABLE TO BE INDEPENDENT TO BTHRM USING FWW NOW THAT HE IS SL. CALL LT IN REACH. ABLE TO MAKE NEEDS KNOWN.
[2020-09-25 05:20] LABS: BASOPHILS PERCENT AUTO 1 % (0-2); EOSINOPHILS ABSOLUTE AUTO 0.27 K/mm3 (0.00-0.68); EOSINOPHILS PERCENT AUTO 3 % (0-6); Hematocrit 32.9 % (37.0-53.0); Hemoglobin 10.3 g/dL (13.5-17.5); IMMATURE GRAN ABSOLUTE AUTO 0.03 K/mm3 (0.00-0.10); IMMATURE GRAN PERCENT AUTO 0 % (0-1); LYMPHOCYTES ABSOLUTE AUTO 1.26 K/mm3 (0.84-5.20); LYMPHOCYTES PERCENT AUTO 15 % (21-46); MONOCYTES ABSOLUTE AUTO 0.68 K/mm3 (0.16-1.47); MONOCYTES PERCENT AUTO 8 % (4-13); Mean Corpuscular HGB 25.1 pg (26.0-34.0); Mean Corpuscular HGB Conc 31.3 g/dL (31.5-36.5); Mean Corpuscular Volume 80 fL (80-100); Mean Platelet Volume 9.2 fL (9.1-12.4); NEUTROPHILS ABSOLUTE AUTO 6.11 K/mm3 (1.96-9.15); NEUTROPHILS PERCENT AUTO 72 % (41-73); Platelet Count 255 K/mm3 (150-400); RDW Coefficient Variation 17.9 % (11.7-14.2); RDW Standard Deviation 51.8 fL (35.1-46.3); Red Blood Cell Count 4.11 M/mm3 (4.30-5.90); White Blood Cell Count 8.45 K/mm3 (4.00-11.30)
[2020-09-25 05:51] LABS: Alanine Aminotransfer (ALT/SGP 21 U/L (12-78); Albumin, Blood 2.5 g/dL (3.4-5.0); Albumin/Globulin Ratio 0.6 (0.8-1.8); Alk Phos 105 U/L (50-136); Anion Gap 4 mmol/L (6-16); Aspartate Aminotrans (AST/SGOT 21 U/L (12-37); Bilirubin, Total 0.4 mg/dL (0.1-1.0); Blood Urea Nitrogen 20 mg/dL (8-24); Bun/Creatinine Ratio 21.6 (12.0-20.0); CO2, Blood 28 mmol/L (21-32); Chloride, Blood 105 mmol/L (98-108); Creatinine, Blood 0.93 mg/dL (0.60-1.20); Globulin, Blood 4.5 g/dL (2.2-4.0); Glomerular Filtration Rate >60 (60-); Glucose, Blood 103 mg/dL (70-99); Potassium, Blood 3.7 mmol/L (3.5-5.5); Sodium, Blood 137 mmol/L (136-145)
--- NOTE | 2020-09-25 05:57 | NUR ---
SHIFT SUMMARY- PT. S/P AMPUTATION OF R FOOT 4TH&5TH TOES, POD2. A&O, PLEASANT AND COOPERATIVE WITH CARE. C/O PAIN TO R FOOT SEVERAL TIMES T/O THE NIGHT. MEDICATED PER EMAR WITH GOOD EFFECT. PT. ABLE TO ABULATE INDEPENDENTLY W/WALKER TO THE BATHROOM, TOLERATING WELL. NEW WOUND CARE ORDERS IN PLACE AND PT. TOLERATING IV ABXS WELL. PLAN FOR POSS D/C TO HOME ON PO ABX'S IN THE NEXT FEW DAYS. VSS. CALL LIGHT WITHIN REACH AND SIDE RAILS UPX2. WILL CONT TO MONITOR.
--- NOTE | 2020-09-25 14:01 | NUR ---
FOLLOWING DR WARD'S ORDER IN [facility], I CHANGED PT'S DRESSING THIS MORNING AROUND 1130. CLEANED WOUND, REPACKED, WRAPPED WITH ABD PAD, KERLIX, AND BAILEY WRAP. C/D/I, THEN PT WALKED TO AROUND 1300, STARTED LEAKING BLOOD THROUGH DRESSING ONTO FLOOR. DR MARCUS CALLED, HE ORDERED STOPPING LOVENOX. HE STATES TO KEEP PRESSURE ON IT AND MONITOR AND CALL DR SUMNER IF BLEEDING DOESN'T STOP. REDRESSED WOUND AT 1345, ELEVATED LEG, PT WILL ONLY USE URINAL IN BED FOR NOW. REINFORCED THE FACT THAT HE NEEDS TO MAINTAIN 50% WEIGHT BEARING ON RLE. HE STATES HE ONLY PUTS PRESSURE ON HIS HEEL. TM
--- NOTE | 2020-09-25 18:52 | NUR ---
SHIFT SUMMARY CHRISTINE REQUIRED OXY FOR PAIN THIS SHIFT. UP INDEPENDENTLY IN ROOM PRIOR TO DRESSING CHANGE. AFTER DRESSING CHANGE, WOUND BLEEDING THROUGH BANDAGING (SEE PREVIOUS NOTE), USING URINAL IN BED. PT TEARFUL THIS SHIFT, ANXIOUS. REASSURANCE GIVEN, PT CALMER THIS EVENING. TOOK MEDS PRESCRIBED, WCTM
--- NOTE | 2020-09-26 05:24 | NUR ---
SHIFT SUMMARY- PT. HAD NO ACUTE EVENTS OVERNIGHT. WOUND DSG C/D/I, NO BLEEDING NOTED. RLE ELEVATED ON PILLOWS ALL SHIFT. PT. C/O PAIN TO R FOOT, MEDICATED PER EMAR MULTIPLE TIMES THIS SHIFT WITH GOOD EFFECT, USING URINAL AT THE BEDSIDE. PT. STATED CONCERN THIS AM ABOUT BEING D/C TO HOME TOO SOON. INFORMED PT. D/C WILL HAPPEN WHEN STABLE AND PROPER ARRANGEMENTS IN PLACE. VERBALIZED UNDERSTANDING. DENIED ANY OTHER NEEDS DURING THE NIGHT, VSS. CALL LIGHT WITHIN REACH AND SIDE RAILS UPX2. WILL CONT TO MONITOR.
--- NOTE | 2020-09-26 19:12 | NUR ---
SHIFT SUMMARY CHRISTINE WAS UPSET THIS SHIFT DUE TO NOT FEELING SAFE TO DISCHARGE. DR MARCUS HELD DISCHARGE UNTIL TOMORROW WHEN HE CAN GET HIS DRESSING CHANGE DONE IN THE MORNING AND MAKE SURE IT WON'T BLEED MUCH IT HAD YESTERDAY NOW THAT HE IS OFF THE BLOOD THINNERS. DAUGHTER UPDATED ON PHONE. DRESSING C/D/I THIS SHIFT, PER ORDER, IT IS ONLY TO BE CHANGED EVERY OTHER DAY, AND IT WAS CHANGED YESTERDAY. ABX CHANGED TO PO, NO LONGER HAS A PIV. INDEP IN ROOM WITH WALKER, PT AWARE OF WEIGHT LIMITATIONS OF FOOT, HE WEARS THE POST-OP SHOE. PERCOCET GIVEN FOR PAIN. CALL LIGHT IN REACH, REPORT GIVEN TO NIGHT NURSE
--- NOTE | 2020-09-27 04:44 | NUR ---
SHIFT SUMMARY- PT. HAD NO ACUTE CHANGES DURING THE NIGHT. MEDICATED FOR PAIN TO R FOOT 2X WITH GOOD EFFECT. AMBULATED IN HALLWAY W/WALKER W/O DIFFICULTY. APEARED TO HAVE RESTED COMFORTABLY T/O THE NIGHT, NO APPARENT DISTRTESS NOTED. VSS, PLAN FOR D/C TODAY. CALL LIGHT WITHIN REACH AND SIDE RAILS UPX2. WILL CONT TO MONITOR.
[2020-09-27] MEDS ORDERED: Percocet 5-3251 EACH PO (15:48)
[2020-09-27] MEDS ORDERED: LINE600 PO (15:48)
--- NOTE | 2020-09-27 15:48 | NUR ---
Patient is sitting on EOB and alert. Patient immediately tells me about the frustrations he has had in his communication with doctors and staff members and prior communication with the wound center. I try to point patient to the positive things he has seen and the things he is able to do. He also tells me his struggles with orthodox and with [place]. I do find a softer side and a sense of humor which I try to draw out more. I reinforce helpful attitudes and provide therapeutic listening. Patient responds well and states that the visit was meaningful to him. I will continue to remain available to patient and family.
[2020-09-27] MEDS ORDERED: VISBIOME 112.51 EACH PO (15:49)
--- NOTE | 2020-09-27 18:43 | NUR ---
183 PT DISHCARGED HOME VIA PERSONAL VEHICLE ACCOMPANIED AND DRIVEN BY DAUGHTER. TRANSPORTED TO ENTRANCE VIA W/C BY CHEMISTRY TEACHER. D/C INSTRUCTIONS REVIEWED WITH PT AND COPY PROVIDED, HARD SCRIPT FOR PERCOCET WITH PT. EVENING DOSE OF PO ABX GIVEN PRIOR TO D/C PER DR. WILEY'S OK, ABX WONT BE AVAILABLE FROM OUTPATIENT PHARMACY TILL TOMORROW. DRESSING TO R FOOT CHANGED, WOUND MEASURED AND PHOTOGRAGHED, NO BLEEDING, SMALL AMOUNT OF SEROSANGANEOUS DRAINAGE, PT TOLERATED WELL. PAIN DURING SHIFT MANAGED WELL. NO SOB, N/V. DR. SUMNER IN TO SEE PT PRIOR TO D/C. NO OTHER CHANGES OR CONCERNS.
== END 2020-09-27 18:40 | disposition home health service (06) | DRG 240 ==
LOC: ER 17:34 → ICUE 09-15 00:33 → SURS 09-15 00:33 → ICUE 09-15 12:17 → SURS 09-15 16:35 → MEDS 09-17 14:58 → SURS 09-17 14:58 → MEDS 09-21 13:37 → ENPENDDIS 09-27 15:16 → MEDS 09-27 18:40
PROVIDERS: Emergency Medicine; Hospitalist; Internal Medicine; Pharmacist; Physician Assistant; Podiatrist; ADMIT Family Medicine
PROC: 047V3ZZ Dilation of Right Foot Artery, Percutaneous Approach (ICD-10-PCS; 2020-09-16)
PROC: B41F1ZZ Fluoroscopy of Right Lower Extremity Arteries using Low Osmolar Contrast (ICD-10-PCS; 2020-09-16)
PROC: 0J9Q3ZZ Drainage of Right Foot Subcutaneous Tissue and Fascia, Percutaneous Approach (ICD-10-PCS; 2020-09-16)
PROC: 0K9V0ZZ Drainage of Right Foot Muscle, Open Approach (ICD-10-PCS; 2020-09-16)
PROC: 0Y6M0ZF Detachment at Right Foot, Partial 5th Ray, Open Approach (ICD-10-PCS; 2020-09-23)
PROC: 0Y6N0ZD Detachment at Left Foot, Partial 4th Ray, Open Approach (ICD-10-PCS; principal; 2020-09-23 08:30)
DX: E11.52 Type 2 diabetes mellitus with diabetic peripheral angiopathy with gangrene (principal); L03.115 Cellulitis of right lower limb; E87.1 Hypo-osmolality and hyponatremia; R65.10 Systemic inflammatory response syndrome (SIRS) of non-infectious origin without acute organ dysfunction; I50.42 Chronic combined systolic (congestive) and diastolic (congestive) heart failure; L02.611 Cutaneous abscess of right foot; M86.8X7 Other osteomyelitis, ankle and foot; M84.674A Pathological fracture in other disease, right foot, initial encounter for fracture; E11.69 Type 2 diabetes mellitus with other specified complication; E11.628 Type 2 diabetes mellitus with other skin complications; I25.10 Atherosclerotic heart disease of native coronary artery without angina pectoris; E03.9 Hypothyroidism, unspecified; E11.42 Type 2 diabetes mellitus with diabetic polyneuropathy; E78.5 Hyperlipidemia, unspecified; Z20.822 Contact with and (suspected) exposure to COVID-19; G25.81 Restless legs syndrome; F32.9 Major depressive disorder, single episode, unspecified; J45.909 Unspecified asthma, uncomplicated; N40.0 Benign prostatic hyperplasia without lower urinary tract symptoms; E11.621 Type 2 diabetes mellitus with foot ulcer; E11.65 Type 2 diabetes mellitus with hyperglycemia; E11.649 Type 2 diabetes mellitus with hypoglycemia without coma; D63.8 Anemia in other chronic diseases classified elsewhere; B96.6 Bacteroides fragilis [B. fragilis] as the cause of diseases classified elsewhere; I11.0 Hypertensive heart disease with heart failure; L97.512 Non-pressure chronic ulcer of other part of right foot with fat layer exposed; B95.62 Methicillin resistant Staphylococcus aureus infection as the cause of diseases classified elsewhere; J44.9 Chronic obstructive pulmonary disease, unspecified; Z95.1 Presence of aortocoronary bypass graft; Z88.5 Allergy status to narcotic agent; Z88.8 Allergy status to other drugs, medicaments and biological substances; Z86.718 Personal history of other venous thrombosis and embolism; Z86.711 Personal history of pulmonary embolism; Z79.4 Long term (current) use of insulin; Z98.890 Other specified postprocedural states; Z87.891 Personal history of nicotine dependence; Z79.01 Long term (current) use of anticoagulants
CPT/HCPCS: 0241U; 36415; 37228; 73630; 73700; 75625; 75716; 75774; 76937; 80048; 80053; 80202; 82565; 82947; 85025; 85651; 87070; 87071; 87075; 87077; 87147; 87185; 87186; 87205; 88305; 88311; 88312; 93005; 93010; 94640; 94760; 96365; 97116; 97129; 97162; 97165; 97530; 97535; 99152; 99153; 99285-25; A9270; C1725; C1760; C1769; C1887; C1894; J0690; J0696; J1170; J1610; J1644; J1650; J1815; J2250; J2543; J2704; J3010; J3370; J7030; J7050; J7120; Q9967

== ENCOUNTER 2020-10-28 11:34 | Inpatient (IN) | payer OTHER, MEDICARE ==
[~2020-10-28] VITALS: Ht 188 cm; Wt 98.7 kg
[~2020-10-28 11:34] MED LIST changes: +LINE600 PO; +Percocet 5-3251 EACH PO; +VISBIOME 112.51 EACH PO
[2020-10-28] MEDS ORDERED: GLUCOPHAGE1000 M5 PO (12:02)
[2020-10-28] MEDS ORDERED: Loratadine10 MG PO (12:02)
[2020-10-28] MEDS ORDERED: BUPR75 PO (12:03)
[2020-10-28] MEDS ORDERED: OXYC5 PO (12:03)
[2020-10-28] MEDS ORDERED: MONT10T PO (12:04)
[2020-10-28] MEDS ORDERED: OMEP20ER PO (12:04)
[2020-10-28 12:28] LABS: BASOPHILS ABSOLUTE AUTO 0.03 K/mm3 (0.00-0.23); BASOPHILS PERCENT AUTO 1 % (0-2); Hemoglobin 7.3 g/dL (13.5-17.5); LYMPHOCYTES ABSOLUTE AUTO 0.65 K/mm3 (0.84-5.20); LYMPHOCYTES PERCENT AUTO 13 % (21-46); MONOCYTES ABSOLUTE AUTO 0.18 K/mm3 (0.16-1.47); MONOCYTES PERCENT AUTO 4 % (4-13); Mean Corpuscular HGB 25.7 pg (26.0-34.0); Mean Corpuscular HGB Conc 31.7 g/dL (31.5-36.5); Mean Corpuscular Volume 81 fL (80-100); Mean Platelet Volume 11.2 fL (9.1-12.4); RDW Coefficient Variation 16.7 % (11.7-14.2); RDW Standard Deviation 49.7 fL (35.1-46.3); Red Blood Cell Count 2.84 M/mm3 (4.30-5.90); White Blood Cell Count 4.96 K/mm3 (4.00-11.30)
[2020-10-28 12:39] LABS: International Normalized Ratio 1.51; Prothrombin Time Results 15.9 Sec (9.7-11.5)
[2020-10-28 12:50] LABS: Albumin, Blood 3.4 g/dL (3.4-5.0); Albumin/Globulin Ratio 0.9 (0.8-1.8); Bilirubin, Total 0.4 mg/dL (0.1-1.0); Bun/Creatinine Ratio 36.4 (12.0-20.0); Calcium, Blood 9.1 mg/dL (8.5-10.1); Creatinine, Blood 1.73 mg/dL (0.60-1.20); Globulin, Blood 3.8 g/dL (2.2-4.0); Potassium, Blood 5.6 mmol/L (3.5-5.5); Total Protein, Blood 7.2 g/dL (6.4-8.2)
[2020-10-28 12:53] LABS: EOSINOPHILS ABSOLUTE AUTO 0.02 K/mm3 (0.00-0.68); EOSINOPHILS PERCENT AUTO 0 % (0-6); IMMATURE GRAN ABSOLUTE AUTO 0.02 K/mm3 (0.00-0.10); IMMATURE GRAN PERCENT AUTO 0 % (0-1); NEUTROPHILS ABSOLUTE AUTO 4.06 K/mm3 (1.96-9.15); NEUTROPHILS PERCENT AUTO 82 % (41-73); Platelet Count 43 K/mm3 (150-400)
[2020-10-28 17:21] LABS: Hematocrit 21.4 % (37.0-53.0); Hemoglobin 6.9 g/dL (13.5-17.5)
[2020-10-28 17:45] LABS: Bun/Creatinine Ratio 36.7 (12.0-20.0); Calcium, Blood 8.6 mg/dL (8.5-10.1); Creatinine, Blood 1.58 mg/dL (0.60-1.20); Potassium, Blood 5.2 mmol/L (3.5-5.5)
[2020-10-28 19:04] LABS: Adenovirus F 40/41 Not Detected (NOT DETECT); Astrovirus Not Detected (NOT DETECT); Campylobacter Sp Not Detected (NOT DETECT); Cryptosporidium Not Detected (NOT DETECT); Cyclospora Cayetanensis Not Detected (NOT DETECT); E. Coli O157 Not Detected (NOT DETECT); Entamoeba Histolytica Not Detected (NOT DETECT); Enteroaggregative E. coli-EAEC Not Detected (NOT DETECT); Enteropathogenic E. coli-EPEC Not Detected (NOT DETECT); Enterotoxigenic E. coli-ETEC Not Detected (NOT DETECT); Giardia Lamblia Not Detected (NOT DETECT); Norovirus GI/GII Not Detected (NOT DETECT); Plesiomonas Shigelloides Not Detected (NOT DETECT); Rotavirus A Not Detected (NOT DETECT); Salmonella Sp Not Detected (NOT DETECT); Sapovirus Not Detected (NOT DETECT); Shiga Toxin-prod E. coli-STEC Not Detected (NOT DETECT); Shigella/Enteroin E. coli-EIEC Not Detected (NOT DETECT); Vibrio Cholerae Not Detected (NOT DETECT); Vibrio Sp Not Detected (NOT DETECT); Yersinia Enterocolitica Not Detected (NOT DETECT)
--- NOTE | 2020-10-28 19:26 | NUR ---
ADMIT PT ARRIVED TO ICU 15 VIA ER BED AT 181. PT IS AWAKE, ALERT, AND ORIENTED. PT STOOD UP TO TRANSFER TO ICU BED. PT DENIES DIZZINESS. VITAL SIGNS STABLE AT THIS TIME. SBP 90'S. PT WITH PROTONIX INFUSING AT 10 ML/HR AND SANDOSTATIN AT 25 ML/HR. PT WITH RECENT TOE AMPUTATIONS TO RIGHT FOOT. DRESSING IS C/D/I. PICC LINE PLACED SHORTLY AFTER ARRIVAL TO [facility]. WILL CONTINUE TO MONITOR AND REPORT OFF TO ONCOMING RN.
--- NOTE | 2020-10-28 20:00 | NUR ---
ASSUMED CARE OF PT AT 1915. REPORT RECEIVED AT BEDSIDE. PT PRESENTS IN BED. REQUESTING TO BE UP TO COMMODE FOR BM. REFUSES BEDSIDE COMMODE BECAUSE HE STATES IS TO UNCOMFORTABLE ON THE SEAT OF COMMODE. COMPLAINS OF BEING COLD AND WANTING MULTIPLE BLANKETS AND FOR THE TEMP IN THE ROOM TO BE PLACE TO HIGHEST. ALL THIS DONE FOR THE PT. UP TO COMMODE WITH 1 PERSON ASSIST. PT NEEDS ASSISTS WITH LINES. PT HAS HAD RECENT AMPUTATION OF SEVERAL DIGITS FROM RIGHT FOOT. HE STATES THAT HE HAS HAD DRESSING CHANGED YESTERDAY BY HOME HEALTH. WILL REMOVE DRESSING AND ASSESS WHEN ABLE. PT GOOD HISTORIAN WITH ADMISSION PROCESS. WILL REVIEW CHART AND PLAN OF CARE FOR THIS PT.
[2020-10-28] MEDS ORDERED: FOLI1 PO (20:04)
[2020-10-28 22:03] LABS: Hematocrit 20.7 % (37.0-53.0); Hemoglobin 6.8 g/dL (13.5-17.5)
--- NOTE | 2020-10-28 22:58 | NUR ---
CALL RECEIVED FROM INCIDENT MANAGER - HOSPITALIST ESTHER SCRUGGS UPDATE GIVEN. ORDERS RECEIVED. PT IN PROCESS OF RECEIVING A UNIT OF PRBC'S. AT THIS TIME, THERE IS NO S/S RANSFUSION REACTION. PT HAS BEEN UP TO TOILET FOUR TIMES SINCE ASSUMING CARE. ORDER RECEIVED FOR IMMODIUM TO BE GIVEN. DID ADMINISTER 4 MG IMMODIUM. EACH STOOL WAS LOOSE AND HAD NO COREY BLOOD. WILL CONTINUE TO MONITOR. PT HAS HAD MULTIPLE REQUESTS FOR SMALL TASKS.
--- NOTE | 2020-10-29 01:23 | NUR ---
PT HAS COMPLETED UNIT OF PRBC'S. NO S/S TRANSFUSION REACTIONS TO NOTE. PT TO HAVE 1 HOUR POST LACTIC ACID DRAWN PER ORDERS. WILL INCORPORATE AM LABS WITH DRAW. PT HAS HAD DECREASE IN AMOUNT OF LOOSE STOOL AFTER RECEIVING IMMODIUM. WILL CONTINUE TO MONITOR PT.
[2020-10-29 02:32] LABS: BASOPHILS ABSOLUTE AUTO 0.02 K/mm3 (0.00-0.23); BASOPHILS PERCENT AUTO 1 % (0-2); Hematocrit 21.1 % (37.0-53.0); Hemoglobin 7.1 g/dL (13.5-17.5); LYMPHOCYTES ABSOLUTE AUTO 0.42 K/mm3 (0.84-5.20); LYMPHOCYTES PERCENT AUTO 10 % (21-46); MONOCYTES ABSOLUTE AUTO 0.26 K/mm3 (0.16-1.47); MONOCYTES PERCENT AUTO 6 % (4-13); Mean Corpuscular HGB 26.5 pg (26.0-34.0); Mean Corpuscular HGB Conc 33.6 g/dL (31.5-36.5); Mean Corpuscular Volume 79 fL (80-100); Mean Platelet Volume 11.6 fL (9.1-12.4); Platelet Count 55 K/mm3 (150-400); RDW Standard Deviation 45.7 fL (35.1-46.3); Red Blood Cell Count 2.68 M/mm3 (4.30-5.90)
[2020-10-29 02:34] LABS: EOSINOPHILS ABSOLUTE AUTO 0.09 K/mm3 (0.00-0.68); EOSINOPHILS PERCENT AUTO 2 % (0-6); IMMATURE GRAN ABSOLUTE AUTO 0.01 K/mm3 (0.00-0.10); IMMATURE GRAN PERCENT AUTO 0 % (0-1); NEUTROPHILS PERCENT AUTO 81 % (41-73)
[2020-10-29 02:44] LABS: International Normalized Ratio 1.4; Prothrombin Time Results 14.8 Sec (9.7-11.5)
[2020-10-29 02:48] LABS: Albumin, Blood 2.8 g/dL (3.4-5.0); Albumin/Globulin Ratio 0.9 (0.8-1.8); Bilirubin, Total 0.5 mg/dL (0.1-1.0); Bun/Creatinine Ratio 36.4 (12.0-20.0); Creatinine, Blood 1.4 mg/dL (0.60-1.20); Globulin, Blood 3.1 g/dL (2.2-4.0); Magnesium, Blood 1.6 mg/dL (1.6-2.4); Potassium, Blood 4.7 mmol/L (3.5-5.5); Total Protein, Blood 5.9 g/dL (6.4-8.2)
[2020-10-29 03:33] LABS: Source, Urine Clean Catch
[2020-10-29 03:36] LABS: Bilirubin, Urine Neg (Neg); Blood, Urine Neg (Neg); Glucose Qualitative, Urine Neg (Neg); Ketones, Urine Neg (Neg); Leukocyte Esterase, Urine Neg (Neg); Nitrite, Urine Neg (Neg); Protein, Urine 1+ (Neg); Specific Gravity, Urine 1.015 (1.003-1.022); Urobilinogen, Urine NORM (Normal)
[2020-10-29 03:44] LABS: Appearance, Urine Clear (Clear); Color, Urine Yellow (P-Yellow)
--- NOTE | 2020-10-29 06:30 | NUR ---
PT HAS DROP IN HIS BLOOD GLUCOSE LEVEL THIS MORNING. LOWEST VALUE BEING 28. DID ADMINISTER 1 AMP D50W. PT'S BLOOD GLUCOSE INCREASES. TEACHING DONE WITH PT ON DIABETES. PT HAS HAD DECREASE IN STOOLING AFTER IMMODIUM. WILL CONTINUE TO MONITOR PT, AND WILL REPORT OFF TO ONCOMING RN.
[2020-10-29 10:19] LABS: SARS-Cov-2 (COVID-19) PCR, MMC NEGATIVE (NEGATIVE)
--- NOTE | 2020-10-29 12:45 | NUR ---
REASSESSMENT PT ALERT AND ORIENTEDx4. TOLERATING 1PERSON ASSIST TO TOILET. CONTINUES TO HAVE DIARRHEA REDDISH BROWN. PRN IMODIUM GIVEN. CBG IMPROVED AFTER INITIAL LOWS THIS AM. MONITOR SHOWS A-FIB/FLUTTER. VITALS REMAIN STABLE.
--- NOTE | 2020-10-29 15:52 | NUR ---
IN ICU ROOM 15 PREPARING FOR EGD VSS
--- NOTE | 2020-10-29 16:00 | NUR ---
REASSESMENT EGD AND FLEX SIGNMOID AT BEDSIDE BY DAY SURGERY, ANESTHESIA, AND DR GUILLEN. PROCEDURAL SEDATION HYPOTENSION NOTED, ANESTHESIA MANAGING. PRIOR TO PROCEDURE PT HAD MULTIPLE EPISODES OF DIRRHEA. BP STABLE PRIOR TO PROCEDURE. MONITOR SHOWS PT TO BE IN A-FIB/FLUTTER, RATES 70'S.
--- NOTE | 2020-10-29 16:09 | NUR ---
10/29/20 1609 Brandon Murphy See Anesthesia record. Bite Block Placed. History, Chart, Medications and Allergies reviewed before start of procedure. MONITOR INTACT WITH CONTINUOUS PULSE OXIMETRY AND INTERMITTENT BP.
--- NOTE | 2020-10-29 18:32 | NUR ---
SHIFT SUMMARY PT ALERT AND ORIENTEDx4. CHANGED TO PCU STATUS THIS EVENING. DR GUILLEN REPORTED NO SIGNS OF ACTIVE BLEEDING DURING SCOPES. VITALS HAVE REMAINED STABLE. CBG INTIALLY LOW THIS MORNING, HAS IMRPOVED AND MAINTAINED SINCE MID MORNING. PT HAS TOLERATED FULL LIQUID DINNER AND HAS REQUESTED TO ADVANCE PER ORDERS. TRAY REQUESTED. PROCEDURAL HYPOTENSION HAS RESOLVED. PT HAS TOLERATED UP TO BATHROOM WITH ONE PERSON ASSIST. PT STILL C/O DIARRHEA, SEE EMAR FOR PRN IMODIUM. FOOT DRESSING C/D/I. MONITOR SHOWS A-FLUTTER ON THE MONITOR.
[2020-10-29 18:44] LABS: Anion Gap 9 mmol/L (6-16); Blood Urea Nitrogen 36 mg/dL (8-24); Bun/Creatinine Ratio 28.3 (12.0-20.0); CO2, Blood 21 mmol/L (21-32); Calcium, Blood 8.7 mg/dL (8.5-10.1); Chloride, Blood 110 mmol/L (98-108); Creatinine, Blood 1.27 mg/dL (0.60-1.20); Glomerular Filtration Rate >60 (60-); Glucose, Blood 226 mg/dL (70-99); Potassium, Blood 4.7 mmol/L (3.5-5.5); Sodium, Blood 140 mmol/L (136-145)
--- NOTE | 2020-10-29 20:00 | NUR ---
ASSUMED CARE OF PT AT 1915. REPORT RECEIVED AT BEDSIDE. PT PRESENTS IN ROOM. ALERT AND ORIENTED. ALERT AND ORIENTED. PLEASANT AND COOPERATIVE WITH CARE AND ASSESSMENT. PT STATES HE NEEDED TO BE UP TO TOILET. HAD PT DEMONSTRATE GETTING UP OUT OF BED ON HIS OWN WHILE PROTECTING IV LINE AND CORDS. PT DEMONSTRATES GOOD TECHNIQUE AND WAS SAFE WHILE DOING THIS. WILL ALLOW PT TO GET UP INDEPENDENTLY. EXPRESSED TO PT THAT IF HE FELT THAT HE WAS DIZZY, OR HAD ISSUES WITH LINES HE SHOULD CALL FOR ASSISTANCE. PT VERBALIZES UNDERSTANDING. WILL REVIEW CHART AND PLAN OF CARE FOR THIS PT.
--- NOTE | 2020-10-30 | NUR ---
DRESSING CHANGE DONE TO RIGHT FOOT AMPUTATION SITE. AFTER REMOVING DRESSING NOTED HAD NU-GAUZE TYPE PACKING INTO WOUND BED AT ANTERIOR LATERAL ASPECT OF TARSAL. SURROUNDING EDGES NOT ATTACHED. AFTER CLEANSING WITH WOUND CLENSER, AND NORMAL SALINE RINSE, NOTED THAT WOUND BED WITH GRANULATION. APPLIED 3 M NO STING BARRIER TO SURROUNDING SKIN. PLACE NEW PACKING OF NU-GAUZE IN WOUND BED. COVERED WITH TEGRADERM DRESSING. EXUDERM DRESSING APPLIED TO DORSAL ASPECT OF FOOT WHERE SMALL WOUND EXISTS. NO S/S INFECTION. NO FOUL ODORS TO NOTE. WRAPPED AND SECURED WITH 4 INCH CONFORM GAUZE. BAILEY BANDAGE APPLIED TO HOLD ALL THIS IN PLACE. PT TOLERATES DRESSING CHANGE WELL. HAVE MEDICATED PT WITH OXYCODONE 5 MG PRIOR TO DRESSING CHANGE.
[2020-10-30 05:39] LABS: BASOPHILS ABSOLUTE AUTO 0.03 K/mm3 (0.00-0.23); BASOPHILS PERCENT AUTO 1 % (0-2); Hematocrit 22.2 % (37.0-53.0); Hemoglobin 7.4 g/dL (13.5-17.5); LYMPHOCYTES ABSOLUTE AUTO 0.68 K/mm3 (0.84-5.20); LYMPHOCYTES PERCENT AUTO 25 % (21-46); MONOCYTES ABSOLUTE AUTO 0.17 K/mm3 (0.16-1.47); MONOCYTES PERCENT AUTO 6 % (4-13); Mean Corpuscular HGB 26.9 pg (26.0-34.0); Mean Corpuscular HGB Conc 33.3 g/dL (31.5-36.5); Mean Corpuscular Volume 81 fL (80-100); Mean Platelet Volume 11.5 fL (9.1-12.4); RDW Coefficient Variation 16.3 % (11.7-14.2); RDW Standard Deviation 48.2 fL (35.1-46.3); Red Blood Cell Count 2.75 M/mm3 (4.30-5.90); White Blood Cell Count 2.77 K/mm3 (4.00-11.30)
[2020-10-30 05:54] LABS: EOSINOPHILS ABSOLUTE AUTO 0.12 K/mm3 (0.00-0.68); EOSINOPHILS PERCENT AUTO 4 % (0-6); IMMATURE GRAN ABSOLUTE AUTO 0.01 K/mm3 (0.00-0.10); IMMATURE GRAN PERCENT AUTO 0 % (0-1); NEUTROPHILS ABSOLUTE AUTO 1.76 K/mm3 (1.96-9.15); NEUTROPHILS PERCENT AUTO 64 % (41-73)
[2020-10-30 05:55] LABS: Platelet Count 46 K/mm3 (150-400)
--- NOTE | 2020-10-30 06:31 | NUR ---
PT HAS BEEN UP INDEPENDENTLY IN ROOM. DENIES COMPLAINTS EXCEPT FOR HAVING MORE LOOSE STOOLS. DID ADMINISTER 2MG IMMODIUM. PENDING RESULTS. NO S/S BLEEDING. WILL CONTINUE TO MONITOR PT, AND WILL REPORT OFF TO ONCOMING RN.
[2020-10-30 07:09] LABS: HBSAG SCREEN Negative (Negative); HEP A AB, IGM Negative (Negative); HEP B CORE AB, IGM Negative (Negative); HEP B CORE AB, TOT Positive (Negative); HEP C VIRUS AB <0.1 (0.0-0.9)
--- NOTE | 2020-10-30 07:40 | NUR ---
ASSUMED CARE RECEIVED REPORT FROM ANTONIO QUIÑONEZ. PT IS AWAKE, SITTING UPRIGHT IN THE BED, DANGLING HIS FEET - ALERT AND ORIENTED X 4. VSS, MAP > 65. AFLUTTER WITH CONTROLLED RATE 70s. DRESSING/WRAP AROUND FOOT LOOKS CDI. PT DENIES PAIN OR ANY DISCOMFORT IN FOOT CURRENTLY. HE IS INDEPENDENT IN THE ROOM. BED LOW AND LOCKED. CALL LIGHT WITHIN REACH.
[2020-10-30 07:43] LABS: Vancomycin, Trough 18.6 ug/mL (5.0-10.0)
--- NOTE | 2020-10-30 10:01 | NUR ---
PERIPHERAL IV PT HAS A 20G P-IV IN LEFT HAND AND ITS INSERTION WAS NEVER CHARTED ON. FLUSHES WITHOUT RESISTANCE, NO SIGNS OF INFILTRATION. SITE WNL.
--- NOTE | 2020-10-30 10:37 | NUR ---
UPDATE-INSULIN DUE TO PT HAVING ISSUES WITH LOW BLOOD SUGARS, THIS AM IT WAS 98 AND HIS 70/30 HUMILIN AT [address] HOLBROOK, INSTEAD 5 UNITS OF NPH WAS GIVEN X 1 DOSE. SUGAR TO BE REEVALUATED BEFORE LUNCH. PT ASYMPTOMATIC OF HYPOGLYCEMIA CURRNETLY. BED LOW AND LOCKED. PT TO BE TRANSFERRED TO THE MEDICAL FLOOR. REPORT GIVEN TO ANTONIO SIM.
--- NOTE | 2020-10-30 18:30 | NUR ---
SHIFT SUMMARY PT IS A&O AND ABLE TO MAKE NEEDS KNOWN. PT IS INDEPENDENT IN ROOM. HE COMPLAINED OF PICC LINE BEING UNCOMFORTABLE, KENJI RN LOOKED AT DRESSING AND CHANGED IT, PT STATED IT DID HELP. PT COMPLAINED OF BED BEING TO SHORT FOR HIM, NOTIFED CHARGE NURSE OF REQUEST OF LONGER BED ONE IS NOT AVAILABLE. PT COMPLAINED OF PAIN IN FOOT AND WAS MEDICATED WITH PRN ROXICODONE. PT STATED IT DID HELP BUT PAIN WAS STILL PRESENT BUT MIGHT BE DUE TO HIM UP AND MOVING AROUND. PT CURENTLY SITTING IN CHAIR NEXT TO WINDOW. WILL CONTINUE TO MONITOR UNTIL SHIFT CHANGE.
--- NOTE | 2020-10-30 19:20 | NUR ---
ASSUMED CARE RECEIVED REPORT FROM ANTONIO KRAMER. PT RESTING IN CHAIR, IN NO ACUTE DISTRESS. DENIES NEEDS AT THIS TIME. CALL LIGHT, POSSESSIONS IN REACH.
--- NOTE | 2020-10-31 07:15 | NUR ---
RANGE MASTER SUMMARY PT UP IN ROOM AD KEY, IN NO ACUTE DISTRESS. VS REVIEWED,WNL. PAIN MANAGED WITH MEDS PER EMAR, WITH GOOD RELIEF. DRSG TO RT LEG C/D/I, NO DRAINAGE NOTED. PT INDEPENDENT T/O NIGHT, SLEPT ON AND OFF. NO ACUTE CHANGES IN CONDITION TO REPORT OVERNIGHT. DENIES NEEDS. CALL LIGHT, POSSESSIONS IN REACH. REPORT GIVEN TO ANTONIO FRANK.
[2020-10-31 08:13] LABS: Hematocrit 21.4 % (37.0-53.0); Hemoglobin 7.1 g/dL (13.5-17.5)
[2020-10-31] MEDS ORDERED: SULTRIDS PO (12:40)
--- NOTE | 2020-10-31 15:05 | NUR ---
SHIFT SUMMARY PT DISCHARGED @ APPROX 1450 VIA WHEELCHAIR. DISCHARGE INSTRUCTIONS REVIEWED WITH PT, HE HAD NO FURTHER QUESTIONS @ THIS TIME. IV AND PICC LINE BOTH REMOVED PRIOR TO DC, BOTH WNL. PICC NO LONGER BLEEDING AT TIME OF DC. NEEDED RX FAXED TO PHARMACY. PT STATED HE HAD ALL OF HIS BELONGINGS.
== END 2020-10-31 14:51 | disposition home or self-care (01) | DRG 378 ==
LOC: ER 11:34 → ICUW 14:53 → MEDS 10-30 10:50
PROVIDERS: Emergency Medicine; Family Medicine; Nurse Practitioner Acute Care; Pharmacist; Physician Assistant; Student in an Organized Health Care Education/Training Program; ADMIT Hospitalist
PROC: 30233R1 Transfusion of Nonautologous Platelets into Peripheral Vein, Percutaneous Approach (ICD-10-PCS; 2020-10-28)
PROC: 30233N1 Transfusion of Nonautologous Red Blood Cells into Peripheral Vein, Percutaneous Approach (ICD-10-PCS; 2020-10-28)
PROC: 02HV33Z Insertion of Infusion Device into Superior Vena Cava, Percutaneous Approach (ICD-10-PCS; 2020-10-28)
PROC: 0DJ08ZZ Inspection of Upper Intestinal Tract, Via Natural or Artificial Opening Endoscopic (ICD-10-PCS; principal; 2020-10-29 16:45)
PROC: 0DJD8ZZ Inspection of Lower Intestinal Tract, Via Natural or Artificial Opening Endoscopic (ICD-10-PCS; 2020-10-29 16:45)
DX: K62.5 Hemorrhage of anus and rectum (principal); D62 Acute posthemorrhagic anemia; N17.9 Acute kidney failure, unspecified; E87.2 Acidosis; M86.171 Other acute osteomyelitis, right ankle and foot; K52.1 Toxic gastroenteritis and colitis; D69.59 Other secondary thrombocytopenia; Z20.822 Contact with and (suspected) exposure to COVID-19; I25.10 Atherosclerotic heart disease of native coronary artery without angina pectoris; E11.65 Type 2 diabetes mellitus with hyperglycemia; E78.5 Hyperlipidemia, unspecified; E03.9 Hypothyroidism, unspecified; F32.9 Major depressive disorder, single episode, unspecified; G25.81 Restless legs syndrome; M79.7 Fibromyalgia; F41.1 Generalized anxiety disorder; I48.91 Unspecified atrial fibrillation; E11.69 Type 2 diabetes mellitus with other specified complication; B95.62 Methicillin resistant Staphylococcus aureus infection as the cause of diseases classified elsewhere; E86.0 Dehydration; K70.31 Alcoholic cirrhosis of liver with ascites; E11.51 Type 2 diabetes mellitus with diabetic peripheral angiopathy without gangrene; J45.909 Unspecified asthma, uncomplicated; T36.8X5A Adverse effect of other systemic antibiotics, initial encounter; N40.0 Benign prostatic hyperplasia without lower urinary tract symptoms; I11.0 Hypertensive heart disease with heart failure; T36.95XA Adverse effect of unspecified systemic antibiotic, initial encounter; E11.42 Type 2 diabetes mellitus with diabetic polyneuropathy; I50.9 Heart failure, unspecified; Z86.711 Personal history of pulmonary embolism; Z86.718 Personal history of other venous thrombosis and embolism; Z95.1 Presence of aortocoronary bypass graft; Z98.890 Other specified postprocedural states; Z88.5 Allergy status to narcotic agent; Z88.8 Allergy status to other drugs, medicaments and biological substances; Z79.4 Long term (current) use of insulin; Z79.01 Long term (current) use of anticoagulants; Z79.82 Long term (current) use of aspirin; Z79.899 Other long term (current) drug therapy
CPT/HCPCS: 0097U; 36415; 36430; 36569; 71045; 76705; 80048; 80053; 80074; 80202; 82550; 82947; 83605; 83735; 83880; 85014; 85018; 85025; 85610; 86317; 86704; 86708; 86803; 86850; 86900; 86901; 86923; 87040; 87340; 93005; 93010; 96365; 96366; 96375; 96376; 99285-25; A9270; C1751; C9113; J0171; J0696; J1430; J1815; J2354; J2704; J3370; J3475; J7030; J7040; J7042; J7050; J7120; P9016; P9035; U0004

== ENCOUNTER 2021-06-10 11:49 | Emergency (ER) | payer OTHER ==
[~2021-06-10] VITALS: Ht 188 cm; Wt 100.2 kg
[~2021-06-10 11:49] MED LIST changes: +BUPR75 PO; +FOLI1 PO; +GLUCOPHAGE1000 M5 PO; +Loratadine10 MG PO; +MONT10T PO; +OMEP20ER PO; +OXYC5 PO; +SULTRIDS PO
[2021-06-10 12:31] LABS: BASOPHILS ABSOLUTE AUTO 0.07 K/mm3 (0.00-0.23); BASOPHILS PERCENT AUTO 1 % (0-2); EOSINOPHILS ABSOLUTE AUTO 0.14 K/mm3 (0.00-0.68); EOSINOPHILS PERCENT AUTO 2 % (0-6); Hematocrit 34.1 % (37.0-53.0); Hemoglobin 10.5 g/dL (13.5-17.5); IMMATURE GRAN ABSOLUTE AUTO 0.03 K/mm3 (0.00-0.10); IMMATURE GRAN PERCENT AUTO 0 % (0-1); LYMPHOCYTES ABSOLUTE AUTO 0.94 K/mm3 (0.84-5.20); LYMPHOCYTES PERCENT AUTO 11 % (21-46); MONOCYTES ABSOLUTE AUTO 0.58 K/mm3 (0.16-1.47); MONOCYTES PERCENT AUTO 7 % (4-13); Mean Corpuscular HGB 24.2 pg (26.0-34.0); Mean Corpuscular HGB Conc 30.8 g/dL (31.5-36.5); Mean Corpuscular Volume 79 fL (80-100); Mean Platelet Volume 9.8 fL (9.1-12.4); NEUTROPHILS ABSOLUTE AUTO 6.94 K/mm3 (1.96-9.15); NEUTROPHILS PERCENT AUTO 80 % (41-73); Platelet Count 135 K/mm3 (150-400); RDW Standard Deviation 48.3 fL (35.1-46.3); Red Blood Cell Count 4.34 M/mm3 (4.30-5.90)
[2021-06-10] MEDS ORDERED: KLOR-CON 1010 ME5 PO (12:36)
[2021-06-10] MEDS ORDERED: DULOXETINE HCL60 M1 PO (12:37)
[2021-06-10 13:12] LABS: Alanine Aminotransfer (ALT/SGP 34 U/L (12-78); Albumin, Blood 3.3 g/dL (3.4-5.0); Alk Phos 172 U/L (50-136); Anion Gap 6 mmol/L (6-16); Aspartate Aminotrans (AST/SGOT 26 U/L (12-37); Bilirubin, Total 0.5 mg/dL (0.1-1.0); Blood Urea Nitrogen 25 mg/dL (8-24); Bun/Creatinine Ratio 25.8 (12.0-20.0); CO2, Blood 29 mmol/L (21-32); Calcium, Blood 9.4 mg/dL (8.5-10.1); Chloride, Blood 104 mmol/L (98-108); Creatinine, Blood 0.97 mg/dL (0.60-1.20); Globulin, Blood 3.4 g/dL (2.2-4.0); Glomerular Filtration Rate >60 (60-); Glucose, Blood 222 mg/dL (70-99); Potassium, Blood 4.9 mmol/L (3.5-5.5); Sodium, Blood 139 mmol/L (136-145); Total Protein, Blood 6.7 g/dL (6.4-8.2)
[2021-06-10] MEDS ORDERED: SULTRIDS PO (19:44)
== END 2021-06-10 20:24 | disposition home or self-care (01) ==
LOC: ER 11:49
PROVIDERS: Physician Assistant
DX: S92.324A Nondisplaced fracture of second metatarsal bone, right foot, initial encounter for closed fracture (principal); S92.334A Nondisplaced fracture of third metatarsal bone, right foot, initial encounter for closed fracture; L03.116 Cellulitis of left lower limb; L03.115 Cellulitis of right lower limb; E11.621 Type 2 diabetes mellitus with foot ulcer; L97.519 Non-pressure chronic ulcer of other part of right foot with unspecified severity; E11.40 Type 2 diabetes mellitus with diabetic neuropathy, unspecified; X58.XXXA Exposure to other specified factors, initial encounter
CPT/HCPCS: 36415; 73701; 80053; 85025; A9270; J0696; J3370; J7030; J7050; Q9967

== ENCOUNTER 2021-06-21 09:32 | Inpatient (IN) | payer OTHER ==
[~2021-06-21] VITALS: Ht 188 cm; Wt 110.0 kg
[~2021-06-21 09:32] MED LIST changes: +DULOXETINE HCL60 M1 PO; +GLUCOPHAGE1000 M3 PO; -GLUCOPHAGE1000 M5 PO; +KLOR-CON 1010 ME5 PO
[2021-06-21 10:54] LABS: BASOPHILS ABSOLUTE AUTO 0.09 K/mm3 (0.00-0.23); BASOPHILS PERCENT AUTO 1 % (0-2); EOSINOPHILS PERCENT AUTO 2 % (0-6); Hematocrit 33.5 % (37.0-53.0); Hemoglobin 10.4 g/dL (13.5-17.5); IMMATURE GRAN ABSOLUTE AUTO 0.07 K/mm3 (0.00-0.10); IMMATURE GRAN PERCENT AUTO 1 % (0-1); LYMPHOCYTES ABSOLUTE AUTO 0.94 K/mm3 (0.84-5.20); LYMPHOCYTES PERCENT AUTO 12 % (21-46); MONOCYTES ABSOLUTE AUTO 0.44 K/mm3 (0.16-1.47); MONOCYTES PERCENT AUTO 5 % (4-13); Mean Corpuscular HGB 24.5 pg (26.0-34.0); Mean Corpuscular Volume 79 fL (80-100); Mean Platelet Volume 10.1 fL (9.1-12.4); NEUTROPHILS ABSOLUTE AUTO 6.44 K/mm3 (1.96-9.15); NEUTROPHILS PERCENT AUTO 79 % (41-73); Platelet Count 171 K/mm3 (150-400); RDW Coefficient Variation 17.2 % (11.7-14.2); Red Blood Cell Count 4.25 M/mm3 (4.30-5.90); White Blood Cell Count 8.18 K/mm3 (4.00-11.30)
[2021-06-21 11:15] LABS: C-REACTIVE PROTEIN, EXT RANGE 0.459 mg/dL (0.000-0.300); Magnesium, Blood 2.2 mg/dL (1.6-2.4)
[2021-06-21 11:23] LABS: Alanine Aminotransfer (ALT/SGP 41 U/L (12-78); Albumin, Blood 3.4 g/dL (3.4-5.0); Albumin/Globulin Ratio 0.8 (0.8-1.8); Alk Phos 159 U/L (50-136); Anion Gap 2 mmol/L (6-16); Aspartate Aminotrans (AST/SGOT 33 U/L (12-37); Bilirubin, Total 0.4 mg/dL (0.1-1.0); Blood Urea Nitrogen 23 mg/dL (8-24); Bun/Creatinine Ratio 19.3 (12.0-20.0); CO2, Blood 25 mmol/L (21-32); Calcium, Blood 9.6 mg/dL (8.5-10.1); Chloride, Blood 108 mmol/L (98-108); Creatinine, Blood 1.19 mg/dL (0.60-1.20); Globulin, Blood 4.1 g/dL (2.2-4.0); Glomerular Filtration Rate >60 (60-); Glucose, Blood 210 mg/dL (70-99); Sodium, Blood 135 mmol/L (136-145); Total Protein, Blood 7.5 g/dL (6.4-8.2)
[2021-06-21 11:24] LABS: Potassium, Blood 6.8 mmol/L (3.5-5.5)
[2021-06-21 11:40] LABS: Calcium, Ionized (POC) 1.24 mmol/L (1.10-1.46); Chloride (POC) 105 mmol/L (98-108); Creatinine (POC) 1.2 mg/dL (0.8-1.3); Glucose (ISTAT POC) 193 mg/dL (70-99); Hemoglobin (POC) 10.2 g/dL (13.5-17.5); Potassium (POC) 6.8 mmol/L (3.5-5.5); Sodium (POC) 134 mmol/L (135-148); Total CO2 (POC) 23 mmol/L (21-32)
[2021-06-21] MEDS ORDERED: ROPINIROLE HCL3 M3 PO (21:50)
[2021-06-21] MEDS ORDERED: IPRATROPIUM BRO30 ML (21:53)
[2021-06-21] MEDS ORDERED: ELIQUIS5 M2 PO (21:58)
[2021-06-21] MEDS ORDERED: Loratadine10 MG PO (22:00)
--- NOTE | 2021-06-22 05:49 | NUR ---
PATIENT WAS ALERT AND ORIENTED X4, STABLE VITAL SIGNS, NO ACUTE CHANGES. PATIENT DENIES ANY PAIN. PATIENT DID NOT SLEPT MUCH. CALL LIGHT WITHIN REACH, BED DOWN TO THE LOWEST POSITION. WILL CONTINUE TO MONITOR UNTIL HAND OFF
[2021-06-22 05:51] LABS: Alanine Aminotransfer (ALT/SGP 37 U/L (12-78); Albumin, Blood 3.3 g/dL (3.4-5.0); Albumin/Globulin Ratio 0.9 (0.8-1.8); Alk Phos 143 U/L (50-136); Anion Gap 7 mmol/L (6-16); Aspartate Aminotrans (AST/SGOT 35 U/L (12-37); Bilirubin, Total 0.5 mg/dL (0.1-1.0); Blood Urea Nitrogen 24 mg/dL (8-24); Bun/Creatinine Ratio 20.2 (12.0-20.0); CO2, Blood 23 mmol/L (21-32); Calcium, Blood 9.6 mg/dL (8.5-10.1); Chloride, Blood 107 mmol/L (98-108); Creatinine, Blood 1.19 mg/dL (0.60-1.20); Globulin, Blood 3.8 g/dL (2.2-4.0); Glomerular Filtration Rate >60 (60-); Glucose, Blood 249 mg/dL (70-99); Potassium, Blood 5.7 mmol/L (3.5-5.5); Sodium, Blood 137 mmol/L (136-145); Total Protein, Blood 7.1 g/dL (6.4-8.2)
[2021-06-22 05:56] LABS: BASOPHILS PERCENT AUTO 1 % (0-2); EOSINOPHILS ABSOLUTE AUTO 0.21 K/mm3 (0.00-0.68); EOSINOPHILS PERCENT AUTO 3 % (0-6); Hematocrit 33.7 % (37.0-53.0); Hemoglobin 10.6 g/dL (13.5-17.5); IMMATURE GRAN ABSOLUTE AUTO 0.05 K/mm3 (0.00-0.10); IMMATURE GRAN PERCENT AUTO 1 % (0-1); LYMPHOCYTES ABSOLUTE AUTO 0.86 K/mm3 (0.84-5.20); LYMPHOCYTES PERCENT AUTO 10 % (21-46); MONOCYTES ABSOLUTE AUTO 0.47 K/mm3 (0.16-1.47); MONOCYTES PERCENT AUTO 6 % (4-13); Mean Corpuscular HGB 24.4 pg (26.0-34.0); Mean Corpuscular HGB Conc 31.5 g/dL (31.5-36.5); Mean Corpuscular Volume 78 fL (80-100); Mean Platelet Volume 10.1 fL (9.1-12.4); NEUTROPHILS ABSOLUTE AUTO 6.85 K/mm3 (1.96-9.15); NEUTROPHILS PERCENT AUTO 80 % (41-73); Platelet Count 183 K/mm3 (150-400); RDW Coefficient Variation 17.1 % (11.7-14.2); RDW Standard Deviation 47.7 fL (35.1-46.3); Red Blood Cell Count 4.35 M/mm3 (4.30-5.90); White Blood Cell Count 8.54 K/mm3 (4.00-11.30)
[2021-06-23 01:07] LABS: BASOPHILS ABSOLUTE AUTO 0.09 K/mm3 (0.00-0.23); BASOPHILS PERCENT AUTO 1 % (0-2); EOSINOPHILS ABSOLUTE AUTO 0.22 K/mm3 (0.00-0.68); EOSINOPHILS PERCENT AUTO 3 % (0-6); Hematocrit 34.4 % (37.0-53.0); Hemoglobin 10.8 g/dL (13.5-17.5); IMMATURE GRAN ABSOLUTE AUTO 0.04 K/mm3 (0.00-0.10); IMMATURE GRAN PERCENT AUTO 1 % (0-1); LYMPHOCYTES ABSOLUTE AUTO 1.18 K/mm3 (0.84-5.20); LYMPHOCYTES PERCENT AUTO 15 % (21-46); MONOCYTES ABSOLUTE AUTO 0.63 K/mm3 (0.16-1.47); MONOCYTES PERCENT AUTO 8 % (4-13); Mean Corpuscular HGB 24.1 pg (26.0-34.0); Mean Corpuscular HGB Conc 31.4 g/dL (31.5-36.5); Mean Corpuscular Volume 77 fL (80-100); Mean Platelet Volume 9.5 fL (9.1-12.4); NEUTROPHILS ABSOLUTE AUTO 5.58 K/mm3 (1.96-9.15); NEUTROPHILS PERCENT AUTO 72 % (41-73); Platelet Count 210 K/mm3 (150-400); RDW Standard Deviation 46.8 fL (35.1-46.3); Red Blood Cell Count 4.49 M/mm3 (4.30-5.90); White Blood Cell Count 7.74 K/mm3 (4.00-11.30)
[2021-06-23 01:24] LABS: Albumin, Blood 3.2 g/dL (3.4-5.0); Anion Gap 7 mmol/L (6-16); Blood Urea Nitrogen 29 mg/dL (8-24); CO2, Blood 27 mmol/L (21-32); Calcium, Blood 9.1 mg/dL (8.5-10.1); Chloride, Blood 105 mmol/L (98-108); Creatinine, Blood 1.38 mg/dL (0.60-1.20); Glomerular Filtration Rate 52 (60-); Glucose, Blood 179 mg/dL (70-99); Phosphorus, Blood 4.5 mg/dL (2.5-4.9); Potassium, Blood 4.6 mmol/L (3.5-5.5); Sodium, Blood 139 mmol/L (136-145)
[2021-06-23 01:26] LABS: Vancomycin, Trough 19.4 ug/mL (5.0-10.0)
--- NOTE | 2021-06-23 04:27 | NUR ---
PATIENT WAS ALERT AND OREIENTED X4, STABLE VITAL SIGNS, NO ACUTE CHANGES. PATIENT COMPLAINED AND WAS TREATED. PATIENT ONLY SLEPT A FEW HOURS. CALL LIGHT WITH IN REACH AND BED DOWN TO THE LOWEST POSITION. WILL CONTINUE TO MONITOR UNTIL HAND OFF.
[2021-06-23 20:43] LABS: Vancomycin, Trough 14.2 ug/mL (5.0-10.0)
[2021-06-24 05:08] LABS: BASOPHILS ABSOLUTE AUTO 0.11 K/mm3 (0.00-0.23); BASOPHILS PERCENT AUTO 1 % (0-2); EOSINOPHILS ABSOLUTE AUTO 0.24 K/mm3 (0.00-0.68); EOSINOPHILS PERCENT AUTO 2 % (0-6); Hematocrit 37.6 % (37.0-53.0); Hemoglobin 11.6 g/dL (13.5-17.5); IMMATURE GRAN ABSOLUTE AUTO 0.07 K/mm3 (0.00-0.10); IMMATURE GRAN PERCENT AUTO 1 % (0-1); LYMPHOCYTES ABSOLUTE AUTO 0.99 K/mm3 (0.84-5.20); LYMPHOCYTES PERCENT AUTO 9 % (21-46); MONOCYTES PERCENT AUTO 7 % (4-13); Mean Corpuscular HGB 23.9 pg (26.0-34.0); Mean Corpuscular HGB Conc 30.9 g/dL (31.5-36.5); Mean Corpuscular Volume 78 fL (80-100); NEUTROPHILS ABSOLUTE AUTO 9.48 K/mm3 (1.96-9.15); NEUTROPHILS PERCENT AUTO 81 % (41-73); Platelet Count 242 K/mm3 (150-400); RDW Coefficient Variation 16.9 % (11.7-14.2); RDW Standard Deviation 47.2 fL (35.1-46.3); Red Blood Cell Count 4.85 M/mm3 (4.30-5.90); White Blood Cell Count 11.69 K/mm3 (4.00-11.30)
--- NOTE | 2021-06-24 05:31 | NUR ---
PATIENT WAS ALERT AND ORIENTED X4, STABLE VITAL SIGNS, NO ACUTE CHANGES. PATIENT DENIES ANY PAIN. PATIENT WAS AWAKE MOST OF THE NIGHT. CALL LIGHT WITHIN REACH AND BED DOWN TO THE LOWEST POSITION. WILL CONTINUE TO MONITOL UNTIL HAND OFF.
[2021-06-24 06:31] LABS: Albumin, Blood 3.6 g/dL (3.4-5.0); Anion Gap 9 mmol/L (6-16); Blood Urea Nitrogen 30 mg/dL (8-24); Bun/Creatinine Ratio 23.4 (12.0-20.0); CO2, Blood 26 mmol/L (21-32); Calcium, Blood 9.8 mg/dL (8.5-10.1); Chloride, Blood 106 mmol/L (98-108); Creatinine, Blood 1.28 mg/dL (0.60-1.20); Glomerular Filtration Rate 57 (60-); Glucose, Blood 36 mg/dL (70-99); Phosphorus, Blood 5.1 mg/dL (2.5-4.9); Sodium, Blood 141 mmol/L (136-145)
[2021-06-24] MEDS ORDERED: AMOCLA875 PO (16:05)
[2021-06-24] MEDS ORDERED: ATOR40TA PO (16:05)
[2021-06-24] MEDS ORDERED: Acidophilus1 EAC1 PO (16:06)
--- NOTE | 2021-06-24 17:15 | NUR ---
DISCHARGE SUMMARY PATIENT DISCHARGED HOME WITH HOME HEALTH. DISCHARGE PAPERWORK REVEIWED WITH PATIENT AND ALL QUESTIONS ANSWERED. PHARMACY REVIEWED MEDICATIONS WITH PATIENT AND PATIENT'S . PATIENT AND BELONGINGS TAKEN VIA WHEELCHAIR TO PERSONAL VEHICLE. MEDICATIONS FAXED TO PATIENT'S PREFERRED PHARMACY.
== END 2021-06-24 17:11 | disposition home health service (06) | DRG 565 ==
LOC: ER 09:32 → MEDS 12:52 → ERHOLD 12:52 → MEDS 18:16
PROVIDERS: Nurse Practitioner Acute Care; Student in an Organized Health Care Education/Training Program; ADMIT Internal Medicine
DX: T87.43 Infection of amputation stump, right lower extremity (principal); L02.611 Cutaneous abscess of right foot; L03.115 Cellulitis of right lower limb; L03.116 Cellulitis of left lower limb; I48.20 Chronic atrial fibrillation, unspecified; F11.20 Opioid dependence, uncomplicated; N17.9 Acute kidney failure, unspecified; E11.42 Type 2 diabetes mellitus with diabetic polyneuropathy; E78.5 Hyperlipidemia, unspecified; E03.9 Hypothyroidism, unspecified; E87.5 Hyperkalemia; I25.10 Atherosclerotic heart disease of native coronary artery without angina pectoris; J45.909 Unspecified asthma, uncomplicated; G25.81 Restless legs syndrome; Z23 Encounter for immunization; N40.0 Benign prostatic hyperplasia without lower urinary tract symptoms; I11.0 Hypertensive heart disease with heart failure; I50.9 Heart failure, unspecified; F32.A Depression, unspecified; K74.60 Unspecified cirrhosis of liver; K75.81 Nonalcoholic steatohepatitis (NASH); G89.4 Chronic pain syndrome; Z88.5 Allergy status to narcotic agent; Z88.8 Allergy status to other drugs, medicaments and biological substances; Z86.718 Personal history of other venous thrombosis and embolism; Z86.711 Personal history of pulmonary embolism; Z79.01 Long term (current) use of anticoagulants; Z79.4 Long term (current) use of insulin; Z79.899 Other long term (current) drug therapy; Z98.890 Other specified postprocedural states; Z95.1 Presence of aortocoronary bypass graft; Z89.421 Acquired absence of other right toe(s); Y83.8 Other surgical procedures as the cause of abnormal reaction of the patient, or of later complication, without mention of misadventure at the time of the procedure
CPT/HCPCS: 36415; 73701; 80047; 80053; 80069; 80202; 82947; 83036; 83735; 84132; 84145; 85014; 85025; 85651; 86140; 87040; 90686; 93005; 93010; 94644; 96365; 96368; 96375; 96376; 99285-25; A9270; J0610; J0690; J0696; J1815; J3370; J7040; J7050; J7799; Q9967

== ENCOUNTER 2021-07-16 12:22 | Inpatient (IN) | payer OTHER ==
[~2021-07-16] VITALS: Ht 188 cm; Wt 119.6 kg
[~2021-07-16 12:22] MED LIST changes: +AMOCLA875 PO; +Acidophilus1 EAC1 PO; +ELIQUIS5 M2 PO; +ROPINIROLE HCL3 M3 PO
[2021-07-16 13:49] LABS: BASOPHILS ABSOLUTE AUTO 0.05 K/mm3 (0.00-0.23); BASOPHILS PERCENT AUTO 1 % (0-2); EOSINOPHILS ABSOLUTE AUTO 0.07 K/mm3 (0.00-0.68); EOSINOPHILS PERCENT AUTO 1 % (0-6); Hematocrit 32.1 % (37.0-53.0); Hemoglobin 9.7 g/dL (13.5-17.5); IMMATURE GRAN ABSOLUTE AUTO 0.04 K/mm3 (0.00-0.10); IMMATURE GRAN PERCENT AUTO 1 % (0-1); LYMPHOCYTES ABSOLUTE AUTO 0.72 K/mm3 (0.84-5.20); LYMPHOCYTES PERCENT AUTO 11 % (21-46); MONOCYTES ABSOLUTE AUTO 0.62 K/mm3 (0.16-1.47); MONOCYTES PERCENT AUTO 9 % (4-13); Mean Corpuscular HGB 24.3 pg (26.0-34.0); Mean Corpuscular HGB Conc 30.2 g/dL (31.5-36.5); Mean Corpuscular Volume 80 fL (80-100); Mean Platelet Volume 10.6 fL (9.1-12.4); NEUTROPHILS ABSOLUTE AUTO 5.36 K/mm3 (1.96-9.15); NEUTROPHILS PERCENT AUTO 78 % (41-73); Platelet Count 158 K/mm3 (150-400); RDW Standard Deviation 49.1 fL (35.1-46.3); White Blood Cell Count 6.86 K/mm3 (4.00-11.30)
[2021-07-16 14:17] LABS: Alanine Aminotransfer (ALT/SGP 41 U/L (12-78); Albumin, Blood 3.2 g/dL (3.4-5.0); Albumin/Globulin Ratio 0.8 (0.8-1.8); Alk Phos 146 U/L (50-136); Anion Gap 4 mmol/L (6-16); Aspartate Aminotrans (AST/SGOT 49 U/L (12-37); Bilirubin, Total 0.6 mg/dL (0.1-1.0); Blood Urea Nitrogen 27 mg/dL (8-24); Bun/Creatinine Ratio 23.7 (12.0-20.0); CO2, Blood 28 mmol/L (21-32); Calcium, Blood 9.1 mg/dL (8.5-10.1); Chloride, Blood 103 mmol/L (98-108); Creatinine, Blood 1.14 mg/dL (0.60-1.20); Globulin, Blood 3.8 g/dL (2.2-4.0); Glomerular Filtration Rate >60 (60-); Glucose, Blood 378 mg/dL (70-99); Potassium, Blood 5.6 mmol/L (3.5-5.5); Sodium, Blood 135 mmol/L (136-145); Troponin I <0.015 ng/mL (0.000-0.040)
[2021-07-16 16:02] LABS: Source, Urine Foley catheter
[2021-07-16 16:07] LABS: Bilirubin, Urine Neg (Neg); Blood, Urine 2+ (Neg); Glucose Qualitative, Urine 4+ (Neg); Ketones, Urine Neg (Neg); Leukocyte Esterase, Urine Neg (Neg); Nitrite, Urine Neg (Neg); Protein, Urine 2+ (Neg); Specific Gravity, Urine 1.015 (1.003-1.022); Urobilinogen, Urine NORM (Normal)
[2021-07-16 16:10] LABS: Appearance, Urine Clear (Clear); Color, Urine Pale Yellow (P-Yellow)
[2021-07-16 16:11] LABS: Bacteria Rare /hpf; Squamous Epithelial Cells Rare /hpf (Few); White Blood Cells, Urine 0-2 /hpf (0-5)
--- NOTE | 2021-07-16 19:16 | NUR ---
RECIEVED REPORT FROM MIGDALIA OWEN RN @ 0934. PATIENT ARRIVED TO ROOM 301 @ 1820. GOT PATIENT SETTLED INTO BED, FED AND CULTURED TO R/O HX OF MRSA PER PROTOCOL. PATIENT DOES NOT HAVE AN ACTIVE INFECTION SO ISOLATION DISCONTINUED. rEPORT PASSED ON TO ANTONIO SPARKS WHO IS TO ASSUME PATIENTS CARE AT THIS TIME. CALL LIGHT WITHIN REACH.
--- NOTE | 2021-07-17 04:05 | NUR ---
SHIFT SUMMARY NO ACUTE CHANGES TO REPORT THIS SHIFT. PT SCROTUM STILL REMAINS SWOLLEN. PT STILL DOES NOT KNOW THE RESULTS OF THE ULTRASOUND DONE, AND IS HOPING TO TALK WITH THE DRLeonarda REGARDING THOSE RESULTS TODAY. PT HAS SLEPT OFF AND ON T/O THE SHIFT. MINIMAL ASSIST TO THE BATHROOM, VITALS ARE STABLE. BED IN LOWEST POSITION, CALL LIGHT WITHIN REACH.
[2021-07-17 05:04] LABS: Hematocrit 33.1 % (37.0-53.0); Mean Corpuscular HGB Conc 30.2 g/dL (31.5-36.5); Mean Corpuscular Volume 80 fL (80-100); Mean Platelet Volume 10.8 fL (9.1-12.4); Platelet Count 164 K/mm3 (150-400); RDW Coefficient Variation 17.1 % (11.7-14.2); RDW Standard Deviation 48.9 fL (35.1-46.3); Red Blood Cell Count 4.16 M/mm3 (4.30-5.90); White Blood Cell Count 8.08 K/mm3 (4.00-11.30)
[2021-07-17 06:04] LABS: Anion Gap 7 mmol/L (6-16); Blood Urea Nitrogen 28 mg/dL (8-24); Bun/Creatinine Ratio 25.5 (12.0-20.0); CO2, Blood 31 mmol/L (21-32); Calcium, Blood 9.1 mg/dL (8.5-10.1); Chloride, Blood 98 mmol/L (98-108); Glomerular Filtration Rate >60 (60-); Glucose, Blood 362 mg/dL (70-99); Potassium, Blood 4.2 mmol/L (3.5-5.5); Sodium, Blood 136 mmol/L (136-145)
--- NOTE | 2021-07-17 18:17 | NUR ---
SHIFT SUMMARY PT AXO, PLEASANT AND COOPERATIVE WITH CARE. VSS. PATIENT COMPLAINED OF PAIN AND DISCOMFORT RELATED TO SCROTAL SWELLING. PAIN RELIEVED SOMEWHAT WITH PILLOWCASE SLING. PT OFTEN TIMES STANDING BECAUSE HE COULDN'T GET COMFORTABLE LAYING OR SITTING. PATIENT EAGER TO DISCUSS RESULTS WITH DR. FAROOQ AND AT [address] FAROOQ TO MAKE SURE SHE SAW ED ULTRASOUND RESULTS. SEE NEW ORDERS. THIS NURSE ALSO MADE SURE SHE WAS AWARE OF HIS ABDOMINAL DISTENTION AND SCROTAL PAIN. AFTER COMPLETION OF SECOND SCROTAL ULTRASOUND, THIS NURSE TOLD DR FAROOQ PER RONEY CARLISLE THAT "THERE WAS BLOODFLOW." SEE IMAGING RESULTS. PATIENT HAS HAD 2600 MLS OF URINE OUT THIS SHIFT. ALBUMIN INFUSING NOW PER EMAR AND THEN LASIX DRIP WILL BE INITIATED. IV PATENT. ECHO COMPLETED THIS SHIFT. BED IN LOW POSITION, CALL LIGHT WITHIN REACH.
--- NOTE | 2021-07-17 22:42 | NUR ---
HYPOGLYCEMIA PT HYPOGLYCEMIC WITH HS BLOOD SUGAR CHECK. PT COULD FEEL THAT HIS BLOOD SUGAR WAS LOW, AND WAS DIAPHORETI. PT WAS AWAKE AND ALERT AT THE TIME. BG CHECKED AND CAME BACK AT 51. SNACKS PROVIDED TO PT IN AN EFFORT TO INCREASE BG. GAVE A WHOLE ROAST BEEF SANDWHICH AND TWO CUPS OF APPLE JUICE. PT FINISHED THE TWO CUPS OF APPLE JUICE BUT WAS NOT ABLE TO FINISH THE WHOLE SANDWHICH BEFORE BECOMING DROWSY AND DRITIFING OFF TO SLEEP. PT FINISHED HALF OF THE ROAST BEEF SANDWHICH. WE RECHEKCED BG AGAIN ABOUT HALF AN HOUR AFTER PT FINISHED EATING AND BG ONLY INCREASED BY ONE POINT TO [address] VAUGHN CALLED AND NOTIFIED THAT PT BG DID NOT INCREASE DESPITE NURSING INTERVENTIONS. PT REMAINS DROWSY. SHE ORDERED 1/2 AMP OF D5O. DEXTROSE ADMINISTERED AND BG RECHEKED AGAIN, BG ONLY INCREASED BY ONE POINT TO 53 AT 2228. PT REMAINS DROWSY BUT IS AROUSABLE. DR. VAUGHN CALLED AND NOTIFIED THAT BG BARELY INCREASED. SHE ORDERED ANOTHER WHOLE AMP OF D50. PT RECEIVED 80 UNITS IF NPH AT DINNER, AND HAD RECEIVED 60 UNITS EARLIER AT BREAKFAST ORDERED. DR. VAUGHN ORDERED TO DC THOSE INSULIN ORDERS AND TO CHANGE TO 50 UNITS BID INSTEAD. ORDERS PLACED. WILL ADMINISTER AND MONITOR BG CLOSELY.
--- NOTE | 2021-07-18 00:03 | NUR ---
BLOOD SUGAR BLOOD SUGAR NOW 108 AFTER ANOTHER AMP OF D50. PT IS NOW MORE AWAKE AND ALERT.
[2021-07-18 04:44] LABS: Hematocrit 31.2 % (37.0-53.0); Hemoglobin 9.6 g/dL (13.5-17.5); Mean Corpuscular HGB 24.4 pg (26.0-34.0); Mean Corpuscular HGB Conc 30.8 g/dL (31.5-36.5); Mean Corpuscular Volume 79 fL (80-100); Mean Platelet Volume 9.8 fL (9.1-12.4); Platelet Count 159 K/mm3 (150-400); RDW Coefficient Variation 16.9 % (11.7-14.2); RDW Standard Deviation 48.4 fL (35.1-46.3); Red Blood Cell Count 3.94 M/mm3 (4.30-5.90); White Blood Cell Count 7.73 K/mm3 (4.00-11.30)
[2021-07-18 05:00] LABS: Albumin, Blood 3.2 g/dL (3.4-5.0); Albumin/Globulin Ratio 0.9 (0.8-1.8); Bilirubin, Total 0.8 mg/dL (0.1-1.0); Bun/Creatinine Ratio 23.4 (12.0-20.0); Calcium, Blood 9.6 mg/dL (8.5-10.1); Creatinine, Blood 1.24 mg/dL (0.60-1.20); Globulin, Blood 3.5 g/dL (2.2-4.0); Potassium, Blood 3.6 mmol/L (3.5-5.5); Total Protein, Blood 6.7 g/dL (6.4-8.2)
--- NOTE | 2021-07-18 05:06 | NUR ---
SHIFT SUMMARY PT HAD SOME HYPOGLYCEMIA THIS SHIFT AFTER RECEIVING HIS LONG ACTING INSULIN AT DINNER. INSULIN ORDERS CHANGED BY DR. VAUGHN. HYPOGLCEMIA CORRECTED WITH 1.5 AMPS OF D50. PT STILL COMPLAINING OF SCROTAL PAIN D/T SEVERE SWELLING, PT MEDICATED WITH TYLENOL, TYLENOL HAS BEEN EFFECTIVE FOR PAIN CONTROL. PT ALSO REPOSITIONS HIMSELF IN BED NEEDED FOR COMFORT. LASIK GTT INFUSING PER ORDERS. GOLDEN IN PLACE PATENT AND DRAINING WITH ADEQUATE OUTPUT. PT A/OX4, PLESANT WITH CARE. VITALS STABLE. RESTFUL NIGHT OVERALL FOR PT. BED IN LOWEST POSITION, CALL LIGHT WITHIN REACH.
--- NOTE | 2021-07-18 11:35 | NUR ---
PT GOLDEN CATH LEAKING AROUND INSERTION ADDED 5 CC TO BALLOON.
--- NOTE | 2021-07-18 15:12 | NUR ---
UPDATED PT'S SPOUSE PER HIS REQUEST.
--- NOTE | 2021-07-18 18:18 | NUR ---
SUMMARY NO ACUTE CHANGES T/O SHIFT. PT GOLDEN PUTTING OUT LIGHT YELLOW URINE. ADDED 5 CC TO GOLDEN CATH BALLOON DUE TO LEAKING. PT'S SCROTUM CONTINUES TO BE EDEMATOUS AND PAINFUL. MEDICATED PER ORDERS FOR PAIN. DAVID Vieyra RN STARTED NEW IV TO LFA THIS SHIFT. INFUSING PER ORDERS W/O DIFFICULTY. CALL LIGHT IN REACH.
--- NOTE | 2021-07-18 21:14 | NUR ---
HS CBG 350, DR VAUGHN NOTIFIED. HSS MADE AC/HS W/1ST DOSE HS INSULIN COVERAGE TO BE GIVEN NOW. 4 UNITS TO BE RECIEVED PER HSS.
--- NOTE | 2021-07-19 03:15 | NUR ---
SUMMARY: PT A/OX3-4 BUT FORGETFULL AT TIMES W/REMINDERS PROVIDED PRN. HE'S PLEASANT COOPERATIVE W/CARE, STABLE ON FEET AND UP AD KEY IN ROOM. LASIX GTT CONT'S INFUSING AND SCROTUM REMAINS EDEMATOUS AND PAINFUL, PRN MORPHINE RECIEVED PER EMAR FOR TOLERABLE RELIEF. GOLDEN PATENT/DRAINING ADEQUATE AMOUNT OF LIGHT YELLOW URINE. HSS CHANGED TO AC/HS D/T ELEVATED CBG AT BEDTIME W/DOSE RECIVED PER EMAR. NO ACTUE CHANGES, VSS/AFEBRILE. WCTM AND REPORT TO DAY RN.
[2021-07-19 04:35] LABS: Hematocrit 31.7 % (37.0-53.0); Hemoglobin 9.7 g/dL (13.5-17.5); Mean Corpuscular HGB 23.8 pg (26.0-34.0); Mean Corpuscular HGB Conc 30.6 g/dL (31.5-36.5); Mean Corpuscular Volume 78 fL (80-100); Mean Platelet Volume 9.9 fL (9.1-12.4); Platelet Count 145 K/mm3 (150-400); RDW Coefficient Variation 16.7 % (11.7-14.2); RDW Standard Deviation 47.5 fL (35.1-46.3); Red Blood Cell Count 4.07 M/mm3 (4.30-5.90); White Blood Cell Count 6.72 K/mm3 (4.00-11.30)
[2021-07-19 05:43] LABS: Magnesium, Blood 1.8 mg/dL (1.6-2.4)
[2021-07-19 05:47] LABS: Albumin, Blood 3.5 g/dL (3.4-5.0); Bilirubin, Total 0.9 mg/dL (0.1-1.0); Bun/Creatinine Ratio 20.8 (12.0-20.0); Calcium, Blood 9.2 mg/dL (8.5-10.1); Creatinine, Blood 1.3 mg/dL (0.60-1.20); Globulin, Blood 3.5 g/dL (2.2-4.0)
--- NOTE | 2021-07-19 17:23 | NUR ---
NO ACUTE CHANGES At THIS TIME. PT IS A STANBY ASSIST. PT CALLS APPROPRIATELY. PT TREATED FOR SCROTAL PAIN PER EMAR. SWELLING CONTINUES, BUT PT STATES IT IS A BIT BETTER. PT HAS A LOT OF DISCOMFORT DUE TO THIS. GOLDEN IS PATIENT AND FLOWING. NO DISTRESS NOTED AND PT IS COOPERATING WITH ALL CARE. CALL LIGHT WITHIN REACH WILL CONTINUE TO MONITOR.
--- NOTE | 2021-07-20 04:41 | NUR ---
PT IS A/OX4. HE IS A SBA TO THE BR. HIS HS CBG WAS 394, THE MD WAS NOTIFIED AND HIS LANTUS WAS INCREASED AND SS WAS SHIFTED TO HIGH SS. HIS GOLDEN IS PATENT AND PRODUCING YELLOW/CLEAR OUTPUT. TELE: SR/88. NO OTHER CHANGES TO REPORT.
[2021-07-20 04:52] LABS: Hematocrit 32.6 % (37.0-53.0); Mean Corpuscular HGB 23.9 pg (26.0-34.0); Mean Corpuscular HGB Conc 30.7 g/dL (31.5-36.5); Mean Corpuscular Volume 78 fL (80-100); Mean Platelet Volume 10.9 fL (9.1-12.4); Platelet Count 161 K/mm3 (150-400); RDW Coefficient Variation 16.7 % (11.7-14.2); RDW Standard Deviation 46.7 fL (35.1-46.3); Red Blood Cell Count 4.19 M/mm3 (4.30-5.90); White Blood Cell Count 7.82 K/mm3 (4.00-11.30)
[2021-07-20 05:07] LABS: Albumin, Blood 3.8 g/dL (3.4-5.0); Albumin/Globulin Ratio 1.1 (0.8-1.8); Bilirubin, Total 1.1 mg/dL (0.1-1.0); Bun/Creatinine Ratio 25.8 (12.0-20.0); Calcium, Blood 9.7 mg/dL (8.5-10.1); Creatinine, Blood 1.24 mg/dL (0.60-1.20); Globulin, Blood 3.4 g/dL (2.2-4.0); Potassium, Blood 4.3 mmol/L (3.5-5.5); Total Protein, Blood 7.2 g/dL (6.4-8.2)
[2021-07-20] MEDS ORDERED: Lyrica300 MG PO (07:18)
--- NOTE | 2021-07-20 17:26 | NUR ---
NO ACUTE CHANGES AT THIS TIME. PT HAS LESS EDEMA IN SCROTAL AREA AND REPORTS HE IS FEELING MUCH BETTER. PT DOES WELL A STAND BY ASSIST AND CBGS ARE BETTER CONTROLLED TO DAY. NO DISTRESS NOTED AND CALL LIGHT WITHIN REACH WILL CONTINUE TO MONTIOR.
[2021-07-21 05:04] LABS: Hemoglobin 10.6 g/dL (13.5-17.5); Mean Corpuscular HGB 23.5 pg (26.0-34.0); Mean Corpuscular HGB Conc 30.3 g/dL (31.5-36.5); Mean Corpuscular Volume 78 fL (80-100); Mean Platelet Volume 10.4 fL (9.1-12.4); Platelet Count 179 K/mm3 (150-400); RDW Coefficient Variation 16.3 % (11.7-14.2); RDW Standard Deviation 46.5 fL (35.1-46.3); Red Blood Cell Count 4.51 M/mm3 (4.30-5.90); White Blood Cell Count 7.42 K/mm3 (4.00-11.30)
--- NOTE | 2021-07-21 05:18 | NUR ---
SHIFT SUMMARY: PT IS A/OX4. WE'RE CONTINUING TO DIURESIS AND HIS EDEMA IS MUCH BETTER. TELE: AFIB/85. HIS BLOOD GLUCOSE REMAINS HIGH AND INSULIN WAS ADMINISTERED VIA HIGH SLIDING SCALE. HE IS INDEPENDENT IN THE ROOM AND USES HIS CALL LIGHT FOR NEEDS.
[2021-07-21 05:41] LABS: Albumin, Blood 4.2 g/dL (3.4-5.0); Albumin/Globulin Ratio 1.1 (0.8-1.8); Bilirubin, Total 0.9 mg/dL (0.1-1.0); Bun/Creatinine Ratio 25.8 (12.0-20.0); Calcium, Blood 9.9 mg/dL (8.5-10.1); Creatinine, Blood 1.32 mg/dL (0.60-1.20); Globulin, Blood 3.7 g/dL (2.2-4.0); Potassium, Blood 3.9 mmol/L (3.5-5.5); Total Protein, Blood 7.9 g/dL (6.4-8.2)
--- NOTE | 2021-07-21 17:55 | NUR ---
SHIFT SUMMARY PATIENT MEDICATED FOR PAIN X1. PATIENT DENIES NAUSEA AND SHORTNESS OF BREATH. PATIENT IS INDEPENDENT IN ROOM. GOLDEN IS PATENT AND DRAINING. BLOOD SUGAR THIS AFTERNOON WAS 378, DR. FAROOQ NOTIFIED. NEW ORDERS. PER DR. FAROOQ NOTE, PATIENT IS POSSIBLY DISCHARGING TOMORROW. PATIENT IS EATING AND DRINKING WELL. PATIENT IS PLEASANT AND COOPERATIVE WITH CARE.
--- NOTE | 2021-07-22 04:07 | NUR ---
SHIFT SUMMARY: PT IS A/OX4. THE PT DID DROP HIS GOLDEN BAG ON AMBULATION, WHICH CAUSED A SMALL LEAK FROM THE TUBING TO THE BAG. THE NURSE WAS ABLE TO REMOVE PARTIAL TUBING AND REPLACE WITH NEW TUBING WITHOUT ANY ISSUES. THE PT IS RESTING AND NO OTHER CHANGES TO REPORT. THE PT IS A POSSIBLE DC TODAY.
[2021-07-22 04:51] LABS: Hematocrit 35.2 % (37.0-53.0); Hemoglobin 10.8 g/dL (13.5-17.5); Mean Corpuscular HGB 23.8 pg (26.0-34.0); Mean Corpuscular HGB Conc 30.7 g/dL (31.5-36.5); Mean Corpuscular Volume 78 fL (80-100); Mean Platelet Volume 10.1 fL (9.1-12.4); Platelet Count 184 K/mm3 (150-400); RDW Coefficient Variation 16.2 % (11.7-14.2); RDW Standard Deviation 45.6 fL (35.1-46.3); Red Blood Cell Count 4.54 M/mm3 (4.30-5.90); White Blood Cell Count 9.22 K/mm3 (4.00-11.30)
[2021-07-22 05:09] LABS: Bun/Creatinine Ratio 27.9 (12.0-20.0); Calcium, Blood 9.7 mg/dL (8.5-10.1); Creatinine, Blood 1.4 mg/dL (0.60-1.20); Potassium, Blood 4.2 mmol/L (3.5-5.5)
[2021-07-22 05:25] LABS: Source, Urine Foley catheter
[2021-07-22 05:39] LABS: Appearance, Urine Hazy (Clear); Bilirubin, Urine Neg (Neg); Blood, Urine 5+ (Neg); Color, Urine Amber (P-Yellow); Glucose Qualitative, Urine 3+ (Neg); Ketones, Urine Neg (Neg); Leukocyte Esterase, Urine 3+ (Neg); Nitrite, Urine Neg (Neg); Protein, Urine 3+ (Neg); Urobilinogen, Urine NORM (Normal)
[2021-07-22 05:56] LABS: Bacteria Rare /hpf; Red Blood Cells, Urine TNTC /hpf (0-2); Squamous Epithelial Cells Rare /hpf (Few)
[2021-07-22] MEDS ORDERED: CARV3.125 PO (11:51)
[2021-07-22] MEDS ORDERED: ROPI1 PO (11:51)
[2021-07-22] MEDS ORDERED: GLIP5 PO (11:52)
[2021-07-22] MEDS ORDERED: SEMGLEE (Y100 UNIT/1 SC (11:54)
[2021-07-22] MEDS ORDERED: VITAMIN D5000 UNIT PO (11:57)
[2021-07-22] MEDS ORDERED: HUMALOG KW100 UNIT/1 SC (11:57)
--- NOTE | 2021-07-22 13:15 | NUR ---
DISCHARGE PATIENT TRANSPORTED VIA WHEELCHAIR TO PRIVATE VEHICLE. DISCHARGE INSTRUCTIONS EXPLAINED TO PATIENT. PATIENT STATED UNDERSTANDING. PACKET SENT WITH PATIENT. BELONGINGS SENT WITH PATIENT. IV REMOVED WITHOUT DIFFICULTY. TELE REMOVED WITHOUT DIFFICULTY. MEDICATIONS FAXED TO PREFERRED PHARMACY. PATIENT TO SCHEDULE FOLLOW UP APPOINTMENT.
== END 2021-07-22 13:06 | disposition home or self-care (01) | DRG 433 ==
LOC: ER 12:22 → MEDS 16:52
PROVIDERS: Internal Medicine; Physician Assistant; Student in an Organized Health Care Education/Training Program; ADMIT Internal Medicine
DX: K70.30 Alcoholic cirrhosis of liver without ascites (principal); N17.9 Acute kidney failure, unspecified; I50.32 Chronic diastolic (congestive) heart failure; I48.20 Chronic atrial fibrillation, unspecified; N44.00 Torsion of testis, unspecified; I25.10 Atherosclerotic heart disease of native coronary artery without angina pectoris; K59.00 Constipation, unspecified; E03.9 Hypothyroidism, unspecified; E11.51 Type 2 diabetes mellitus with diabetic peripheral angiopathy without gangrene; Z88.5 Allergy status to narcotic agent; Z88.8 Allergy status to other drugs, medicaments and biological substances; Z79.84 Long term (current) use of oral hypoglycemic drugs; Z79.899 Other long term (current) drug therapy; N40.0 Benign prostatic hyperplasia without lower urinary tract symptoms; G89.4 Chronic pain syndrome; F32.A Depression, unspecified; E66.9 Obesity, unspecified; Z86.718 Personal history of other venous thrombosis and embolism; Z86.711 Personal history of pulmonary embolism; G25.81 Restless legs syndrome; J45.20 Mild intermittent asthma, uncomplicated; M79.7 Fibromyalgia; F41.1 Generalized anxiety disorder; D50.9 Iron deficiency anemia, unspecified; Z95.1 Presence of aortocoronary bypass graft; Z89.421 Acquired absence of other right toe(s); Z87.891 Personal history of nicotine dependence; Z79.4 Long term (current) use of insulin; E78.00 Pure hypercholesterolemia, unspecified; E11.42 Type 2 diabetes mellitus with diabetic polyneuropathy; E87.5 Hyperkalemia
CPT/HCPCS: 36415; 51702; 71045; 74177; 76857; 76870; 80048; 80053; 81001; 82140; 82947; 83735; 83880; 84484; 85025; 85027; 87081; 93005; 93010; 93306; 94760; 96374-59; 99285-25; A9270; J1815; J1940; J2270; J7050; P9046; Q9967

== ENCOUNTER → 2021-08-11 | Outpatient (CLI) | payer OTHER ==
[~2021-08-11] MED LIST changes: +CARV3.125 PO; +GLIP5 PO; +HUMALOG KW100 UNIT/1 SC; +Lyrica300 MG PO; +ROPI1 PO; +SEMGLEE (Y100 UNIT/1 SC; +VITAMIN D5000 UNIT PO
== END | disposition home or self-care (01) ==
LOC: LAB SHORT 06:35 → LAB FUT 08-09 13:25
PROVIDERS: Internal Medicine Nephrology
DX: N18.30 Chronic kidney disease, stage 3 unspecified (principal); D63.1 Anemia in chronic kidney disease; D50.9 Iron deficiency anemia, unspecified; N25.81 Secondary hyperparathyroidism of renal origin; E55.9 Vitamin D deficiency, unspecified; E78.00 Pure hypercholesterolemia, unspecified; D51.8 Other vitamin B12 deficiency anemias; D52.8 Other folate deficiency anemias; R76.9 Abnormal immunological finding in serum, unspecified; R94.5 Abnormal results of liver function studies; R94.6 Abnormal results of thyroid function studies
CPT/HCPCS: 81050; 82570; 84156

== ENCOUNTER 2021-08-17 01:17 | Day surgery (SDC) | payer OTHER | END 2021-08-17 23:28 | disposition home or self-care (01) | LOC: WOUND 01:17 | DX: E11.621 Type 2 diabetes mellitus with foot ulcer (principal); E11.622 Type 2 diabetes mellitus with other skin ulcer; L97.412 Non-pressure chronic ulcer of right heel and midfoot with fat layer exposed; L97.512 Non-pressure chronic ulcer of other part of right foot with fat layer exposed; L97.222 Non-pressure chronic ulcer of left calf with fat layer exposed; L97.812 Non-pressure chronic ulcer of other part of right lower leg with fat layer exposed; L97.822 Non-pressure chronic ulcer of other part of left lower leg with fat layer exposed; L89.894 Pressure ulcer of other site, stage 4; E11.59 Type 2 diabetes mellitus with other circulatory complications; E11.40 Type 2 diabetes mellitus with diabetic neuropathy, unspecified; I87.2 Venous insufficiency (chronic) (peripheral); I25.10 Atherosclerotic heart disease of native coronary artery without angina pectoris; E78.5 Hyperlipidemia, unspecified; I10 Essential (primary) hypertension; E03.9 Hypothyroidism, unspecified; G25.81 Restless legs syndrome; E66.01 Morbid (severe) obesity due to excess calories; Z95.1 Presence of aortocoronary bypass graft; Z87.891 Personal history of nicotine dependence; Z68.29 Body mass index [BMI] 29.0-29.9, adult | CPT/HCPCS: A9270; G0463 ==

== ENCOUNTER 2021-08-31 01:09 | Day surgery (SDC) | payer OTHER ==
[~2021-08-31 01:09] MED LIST changes: +BUME1 PO; -BUME2 PO
[2021-10-07] MEDS ORDERED: HYDROCODONE-AC1 EA17 PO (11:33)
[2021-10-07] MEDS ORDERED: BUPR100 PO (11:45)
[2021-10-07] MEDS ORDERED: INSULANI SC (11:49)
[2021-10-11] MEDS ORDERED: AMOCLA875 PO (15:43)
[2021-11-20] MEDS ORDERED: SULTRIDS PO (11:11)
== END 2021-08-31 23:22 | disposition home or self-care (01) ==
LOC: WOUND 01:09
DX: E11.622 Type 2 diabetes mellitus with other skin ulcer (principal); L97.812 Non-pressure chronic ulcer of other part of right lower leg with fat layer exposed; E11.621 Type 2 diabetes mellitus with foot ulcer; L97.412 Non-pressure chronic ulcer of right heel and midfoot with fat layer exposed; L97.519 Non-pressure chronic ulcer of other part of right foot with unspecified severity; I10 Essential (primary) hypertension; I25.10 Atherosclerotic heart disease of native coronary artery without angina pectoris; E78.5 Hyperlipidemia, unspecified; E03.9 Hypothyroidism, unspecified
CPT/HCPCS: A9270

== ENCOUNTER 2021-09-14 00:20 | Day surgery (SDC) | payer OTHER ==
[~2021-09-14 00:20] MED LIST changes: -BUME1 PO; +BUME2 PO
== END 2021-09-14 23:09 | disposition home or self-care (01) ==
LOC: WOUND 00:20
DX: E11.621 Type 2 diabetes mellitus with foot ulcer (principal); L97.412 Non-pressure chronic ulcer of right heel and midfoot with fat layer exposed; E11.622 Type 2 diabetes mellitus with other skin ulcer; L97.812 Non-pressure chronic ulcer of other part of right lower leg with fat layer exposed; L97.822 Non-pressure chronic ulcer of other part of left lower leg with fat layer exposed; E11.59 Type 2 diabetes mellitus with other circulatory complications; E11.51 Type 2 diabetes mellitus with diabetic peripheral angiopathy without gangrene; E11.40 Type 2 diabetes mellitus with diabetic neuropathy, unspecified; I87.2 Venous insufficiency (chronic) (peripheral); I25.10 Atherosclerotic heart disease of native coronary artery without angina pectoris; I10 Essential (primary) hypertension; J45.909 Unspecified asthma, uncomplicated
CPT/HCPCS: A9270

== ENCOUNTER 2021-09-21 01:46 | Day surgery (SDC) | payer OTHER | END 2021-09-21 23:23 | disposition home or self-care (01) | LOC: WOUND 01:46 | DX: E11.621 Type 2 diabetes mellitus with foot ulcer (principal); L97.412 Non-pressure chronic ulcer of right heel and midfoot with fat layer exposed; E11.622 Type 2 diabetes mellitus with other skin ulcer; L97.812 Non-pressure chronic ulcer of other part of right lower leg with fat layer exposed; L97.822 Non-pressure chronic ulcer of other part of left lower leg with fat layer exposed; L03.115 Cellulitis of right lower limb; L89.894 Pressure ulcer of other site, stage 4; E11.59 Type 2 diabetes mellitus with other circulatory complications; I87.2 Venous insufficiency (chronic) (peripheral); E11.51 Type 2 diabetes mellitus with diabetic peripheral angiopathy without gangrene; I25.10 Atherosclerotic heart disease of native coronary artery without angina pectoris; E78.5 Hyperlipidemia, unspecified; I10 Essential (primary) hypertension; J45.909 Unspecified asthma, uncomplicated; E11.40 Type 2 diabetes mellitus with diabetic neuropathy, unspecified; E03.9 Hypothyroidism, unspecified; Z95.1 Presence of aortocoronary bypass graft; Z86.718 Personal history of other venous thrombosis and embolism | CPT/HCPCS: A9270 ==

== ENCOUNTER 2021-09-23 14:04 | Inpatient (IN) | payer OTHER ==
[~2021-09-23] VITALS: Ht 188 cm; Wt 108.0 kg
[~2021-09-23 14:04] MED LIST changes: -HUMALOG KW100 UNIT/1 SC; +INSULIN AS100 UNIT/8 SC
[2021-09-23 15:09] LABS: BASOPHILS ABSOLUTE AUTO 0.07 K/mm3 (0.00-0.23); BASOPHILS PERCENT AUTO 1 % (0-2); EOSINOPHILS ABSOLUTE AUTO 0.14 K/mm3 (0.00-0.68); EOSINOPHILS PERCENT AUTO 1 % (0-6); Hemoglobin 8.8 g/dL (13.5-17.5); IMMATURE GRAN ABSOLUTE AUTO 0.11 K/mm3 (0.00-0.10); IMMATURE GRAN PERCENT AUTO 1 % (0-1); LYMPHOCYTES ABSOLUTE AUTO 0.45 K/mm3 (0.84-5.20); LYMPHOCYTES PERCENT AUTO 4 % (21-46); MONOCYTES ABSOLUTE AUTO 0.94 K/mm3 (0.16-1.47); MONOCYTES PERCENT AUTO 8 % (4-13); Mean Corpuscular HGB 22.4 pg (26.0-34.0); Mean Corpuscular HGB Conc 30.3 g/dL (31.5-36.5); Mean Corpuscular Volume 74 fL (80-100); Mean Platelet Volume 9.7 fL (9.1-12.4); NEUTROPHILS ABSOLUTE AUTO 10.01 K/mm3 (1.96-9.15); NEUTROPHILS PERCENT AUTO 86 % (41-73); Platelet Count 204 K/mm3 (150-400); RDW Coefficient Variation 16.3 % (11.7-14.2); RDW Standard Deviation 43.6 fL (35.1-46.3); Red Blood Cell Count 3.92 M/mm3 (4.30-5.90); White Blood Cell Count 11.72 K/mm3 (4.00-11.30)
[2021-09-23 15:41] LABS: Albumin, Blood 2.6 g/dL (3.4-5.0); Albumin/Globulin Ratio 0.6 (0.8-1.8); Bilirubin, Total 0.7 mg/dL (0.1-1.0); Calcium, Blood 8.9 mg/dL (8.5-10.1); Creatinine, Blood 1.27 mg/dL (0.60-1.20); Globulin, Blood 4.6 g/dL (2.2-4.0); Total Protein, Blood 7.2 g/dL (6.4-8.2)
[2021-09-23 20:29] LABS: Glucose, Blood 566 mg/dL (70-99)
[2021-09-23 21:14] LABS: Source, Urine Clean Catch
[2021-09-23] MEDS ORDERED: BASAGLAR K100 UNIT/3 SC (21:16)
[2021-09-23 21:17] LABS: Appearance, Urine Clear (Clear); Bilirubin, Urine Neg (Neg); Blood, Urine 1+ (Neg); Color, Urine Yellow (P-Yellow); Glucose Qualitative, Urine 4+ (Neg); Ketones, Urine Neg (Neg); Leukocyte Esterase, Urine Neg (Neg); Nitrite, Urine Neg (Neg); Protein, Urine 2+ (Neg); Urobilinogen, Urine NORM (Normal)
[2021-09-23 21:23] LABS: Bacteria Rare /hpf; Squamous Epithelial Cells Rare /hpf (Few); White Blood Cells, Urine 0-2 /hpf (0-5)
[2021-09-23] MEDS ORDERED: LORA10ER PO (21:28)
[2021-09-23] MEDS ORDERED: NEBIVOLOL HCL2.5 MG PO (21:30)
[2021-09-23] MEDS ORDERED: MONT10T PO (21:31)
[2021-09-23] MEDS ORDERED: SULFAMETHOXAZO1 EAC1 PO (21:41)
[2021-09-24 00:15] LABS: Source, Urine Clean Catch
[2021-09-24 00:18] LABS: Bilirubin, Urine Neg (Neg); Blood, Urine 1+ (Neg); Glucose Qualitative, Urine 4+ (Neg); Ketones, Urine Neg (Neg); Leukocyte Esterase, Urine Neg (Neg); Nitrite, Urine Neg (Neg); Protein, Urine 2+ (Neg); Urobilinogen, Urine NORM (Normal)
[2021-09-24 00:27] LABS: Appearance, Urine Clear (Clear); Color, Urine Yellow (P-Yellow)
[2021-09-24 00:28] LABS: Bacteria Not Seen /hpf; Red Blood Cells, Urine 0-2 /hpf (0-2); Squamous Epithelial Cells Not Seen /hpf (Few); U Amphetamine Screen Not Detected; U Barbituate Screen Not Detected; U Benzodiazapine Screen Not Detected; U Buprenorphine Screen Not Detected; U Cannabinoids Screen DETECTED; U Cocaine Screen Not Detected; U Methadone Screen Not Detected; U Methamphetamine Screen Not Detected; U Opiates Screen Not Detected; U Oxycodone Screen Not Detected; U Phencyclidine Screen Not Detected; U Propoxyphene Screen Not Detected; White Blood Cells, Urine Not Seen /hpf (0-5)
--- NOTE | 2021-09-24 03:29 | NUR ---
SHIFT SUMMARY: PT A/OX3 DISORIENTED TO TIME. INDEPENDENT AMBULATION. WOUND ON FOOT DRESSED AND COVERED. CONTINUED EDUCATION PROVIDED ON INFECTION PREVENTION DUE TO OPEN FOOT WOUND. PT COMPLAINS OF RESTLESS LEG SYNDROME AT BASELINE AND CAN BE RESTLESS AT TIMES DUE TO THIS CONDITION. BED IN LOW POSITION, CALL GRAHAM IN REACH. PAIN MANAGEMENT EFFECTIVE- REVIEW EMAR
[2021-09-24 05:35] LABS: Hematocrit 27.7 % (37.0-53.0); Hemoglobin 8.7 g/dL (13.5-17.5); Mean Corpuscular HGB 22.4 pg (26.0-34.0); Mean Corpuscular HGB Conc 31.4 g/dL (31.5-36.5); Mean Corpuscular Volume 71 fL (80-100); RDW Coefficient Variation 16.2 % (11.7-14.2); RDW Standard Deviation 41.9 fL (35.1-46.3); Red Blood Cell Count 3.88 M/mm3 (4.30-5.90); White Blood Cell Count 10.02 K/mm3 (4.00-11.30)
[2021-09-24 05:52] LABS: Mean Platelet Volume 10.3 fL (9.1-12.4)
[2021-09-24 06:15] LABS: Alanine Aminotransfer (ALT/SGP 34 U/L (12-78); Albumin, Blood 2.4 g/dL (3.4-5.0); Albumin/Globulin Ratio 0.5 (0.8-1.8); Alk Phos 196 U/L (50-136); Anion Gap 10 mmol/L (6-16); Aspartate Aminotrans (AST/SGOT 28 U/L (12-37); Bilirubin, Total 0.8 mg/dL (0.1-1.0); Blood Urea Nitrogen 38 mg/dL (8-24); Bun/Creatinine Ratio 35.5 (12.0-20.0); CO2, Blood 22 mmol/L (21-32); Chloride, Blood 98 mmol/L (98-108); Creatinine, Blood 1.07 mg/dL (0.60-1.20); Globulin, Blood 4.7 g/dL (2.2-4.0); Glomerular Filtration Rate >60 (60-); Glucose, Blood 417 mg/dL (70-99); Potassium, Blood 4.7 mmol/L (3.5-5.5); Sodium, Blood 130 mmol/L (136-145); Total Protein, Blood 7.1 g/dL (6.4-8.2)
[2021-09-24 06:49] LABS: BAND PERCENT MAN 2 % (0-8); BASOPHILS PERCENT MAN 2 % (0-2); EOSINOPHILS PERCENT MAN 5 % (0-6); LYMPHOCYTES PERCENT MAN 3 % (21-46); MONOCYTES PERCENT MAN 7 % (4-13); NEUTROPHILS ABSOLUTE MAN 8.31 K/mm3 (1.96-9.15); SEG NEUTROPHILS PERCENT MAN 81 % (41-73); TOTAL CELLS COUNTED 100
--- NOTE | 2021-09-24 08:15 | NUR ---
DR. PONCE CONTACTED PT NPO, MEDICATIONS VERIFIED W/ DR. PONCE. OK'ED TO ADMIN ALL MEDICATIONS INCLUDING INSULIN. AWAITING ACADEMIC PHYSICIAN CONSULT @ THIS TIME FOR VERIFICATION ON LOVENOX SQ ADMIN. ACADEMIC PHYSICIAN CONSULT CALLED IN @ THIS TIME, PLAN TO SEE PT NICOLE.
--- NOTE | 2021-09-24 13:39 | NUR ---
PT TO MRI @ THIS TIME
--- NOTE | 2021-09-24 16:27 | NUR ---
SHIFT SUMMARY PT A&O X4 AND IN PLEASENT MOOD T/O SHIFT. PT VOICED FRUSTRATION W/ NPO STATUS T/O SHIFT. TRAY ON WAY @ THIS TIME- NPO STATUS DC'ED, ADA DIET ORDERED. PLAN FOR SURGERY TUE. PER OIL TRUCK DRIVER- PENDING MRI OF R FOOT. PT RECIEVED XRAY OF R FOOT AND WOUND CULTURE THIS SHIFT. @ BEDSIDE DURING VISITING HOURS. VSS. BLOOD GLUCOSE MEDICATED PER EMAR T/O SHIFT. PT AMBULATES W/ STEADY GAIT INDEPENDENT IN ROOM. VSS. CALL LIGHT W/IN REACH. WOUND DRESSED THIS SHIFT-PLAN TO PHOTOGRAPH W/ NEXT DRESSING CHANGE FOR PT CHART.
--- NOTE | 2021-09-25 02:34 | NUR ---
SHIFT SUMMARY: A/OX4- INDEPENDENT AMBULATION IN ROOM. PATIENT HAVING INCREASED PAIN IN RIGHT LOWER EXTREMITY TONIGHT MANAGED WITH PRN PAIN MED- PER EMAR. RIGHT FOOT WAS RE-DRESSED WITH ABD PAD,KERLEX AND BAILEY BANDAGE. CONTINUED EDUCATION ON INFECTION PREVENTION AND CARING FOR FOOT WOUND. PATIENT CALLS APPROPRIATELY, BED IN LOW POSITION, CALL GRAHAM AND BELONGINGS IN REACH.
[2021-09-25 04:19] LABS: BASOPHILS ABSOLUTE AUTO 0.08 K/mm3 (0.00-0.23); BASOPHILS PERCENT AUTO 1 % (0-2); EOSINOPHILS ABSOLUTE AUTO 0.22 K/mm3 (0.00-0.68); EOSINOPHILS PERCENT AUTO 3 % (0-6); Hematocrit 28.4 % (37.0-53.0); Hemoglobin 8.6 g/dL (13.5-17.5); IMMATURE GRAN ABSOLUTE AUTO 0.07 K/mm3 (0.00-0.10); IMMATURE GRAN PERCENT AUTO 1 % (0-1); LYMPHOCYTES ABSOLUTE AUTO 0.68 K/mm3 (0.84-5.20); LYMPHOCYTES PERCENT AUTO 8 % (21-46); MONOCYTES ABSOLUTE AUTO 0.62 K/mm3 (0.16-1.47); MONOCYTES PERCENT AUTO 7 % (4-13); Mean Corpuscular HGB 22.5 pg (26.0-34.0); Mean Corpuscular HGB Conc 30.3 g/dL (31.5-36.5); Mean Corpuscular Volume 74 fL (80-100); Mean Platelet Volume 10.1 fL (9.1-12.4); NEUTROPHILS ABSOLUTE AUTO 7.26 K/mm3 (1.96-9.15); NEUTROPHILS PERCENT AUTO 81 % (41-73); Platelet Count 184 K/mm3 (150-400); RDW Coefficient Variation 16.5 % (11.7-14.2); RDW Standard Deviation 44.4 fL (35.1-46.3); Red Blood Cell Count 3.82 M/mm3 (4.30-5.90); White Blood Cell Count 8.93 K/mm3 (4.00-11.30)
[2021-09-25 04:34] LABS: Anion Gap 4 mmol/L (6-16); Blood Urea Nitrogen 33 mg/dL (8-24); Bun/Creatinine Ratio 29.7 (12.0-20.0); CO2, Blood 26 mmol/L (21-32); Calcium, Blood 8.8 mg/dL (8.5-10.1); Chloride, Blood 104 mmol/L (98-108); Creatinine, Blood 1.11 mg/dL (0.60-1.20); Glomerular Filtration Rate >60 (60-); Glucose, Blood 300 mg/dL (70-99); Potassium, Blood 4.4 mmol/L (3.5-5.5); Sodium, Blood 134 mmol/L (136-145)
[2021-09-25 04:37] LABS: Vancomycin, Trough 16.1 ug/mL (5.0-10.0)
--- NOTE | 2021-09-25 15:40 | NUR ---
PT WOUND CLEANED, DRESSED, AND PHOTO DOC TO CHART. PT TOLERATED WELL.
--- NOTE | 2021-09-25 19:52 | NUR ---
SHIFT SUMMARY PT A&O X4 AND IN PLEASENT MOOD T/O SHIFT. WOUND CARE PROVIDED, DRESSING CHANGED-CDI, PHOTO DOC IN PT CHART. C/O PAIN MEDICATED PER EMAR. INDEPENDENT IN ROOM. VSS. CALL LIGHT W/IN REACH. AWAITING SURGERY TUE PER , BOX SPRING FRAME BUILDER.
[2021-09-26 04:47] LABS: BASOPHILS ABSOLUTE AUTO 0.11 K/mm3 (0.00-0.23); BASOPHILS PERCENT AUTO 1 % (0-2); EOSINOPHILS ABSOLUTE AUTO 0.28 K/mm3 (0.00-0.68); EOSINOPHILS PERCENT AUTO 4 % (0-6); Hematocrit 31.1 % (37.0-53.0); Hemoglobin 9.3 g/dL (13.5-17.5); IMMATURE GRAN ABSOLUTE AUTO 0.04 K/mm3 (0.00-0.10); IMMATURE GRAN PERCENT AUTO 1 % (0-1); LYMPHOCYTES ABSOLUTE AUTO 0.99 K/mm3 (0.84-5.20); LYMPHOCYTES PERCENT AUTO 13 % (21-46); MONOCYTES ABSOLUTE AUTO 0.54 K/mm3 (0.16-1.47); MONOCYTES PERCENT AUTO 7 % (4-13); Mean Corpuscular HGB 22.1 pg (26.0-34.0); Mean Corpuscular HGB Conc 29.9 g/dL (31.5-36.5); Mean Corpuscular Volume 74 fL (80-100); Mean Platelet Volume 9.3 fL (9.1-12.4); NEUTROPHILS ABSOLUTE AUTO 5.98 K/mm3 (1.96-9.15); NEUTROPHILS PERCENT AUTO 75 % (41-73); Platelet Count 250 K/mm3 (150-400); RDW Coefficient Variation 16.7 % (11.7-14.2); RDW Standard Deviation 44.5 fL (35.1-46.3); Red Blood Cell Count 4.21 M/mm3 (4.30-5.90); White Blood Cell Count 7.94 K/mm3 (4.00-11.30)
[2021-09-26 05:05] LABS: Anion Gap 4 mmol/L (6-16); Blood Urea Nitrogen 28 mg/dL (8-24); Bun/Creatinine Ratio 30.6 (12.0-20.0); CO2, Blood 29 mmol/L (21-32); Calcium, Blood 8.8 mg/dL (8.5-10.1); Chloride, Blood 105 mmol/L (98-108); Creatinine, Blood 0.92 mg/dL (0.60-1.20); Glomerular Filtration Rate >60 (60-); Glucose, Blood 110 mg/dL (70-99); Sodium, Blood 138 mmol/L (136-145)
[2021-09-26 05:54] LABS: Vancomycin, Trough 20.6 ug/mL (5.0-10.0)
--- NOTE | 2021-09-26 08:30 | NUR ---
DR CHACON NOTIFIED OF BLOOD GLUCOSE OF 93, PLAN TO HOLD SHORT ACTING INSULIN, OK TO ADMINISTER LONG ACTING INSULIN. HOLD LOVENOX UNTIL FURTHER NOTICE DUE TO PLANNED SURGERY IN AM.
--- NOTE | 2021-09-26 17:49 | NUR ---
SHIFT SUMMARY PT A&O X4 AND IN PLEASENT MOOD T/O SHIFT. PT INDEPENDENT IN ROOM. WOUND DRESSED. DR. HOLGUIN IN TO SEE PT THIS SHIFT, PRE-OP APPT. PLAN TO FOLLOW NURSING ORDERS FOR PRE SURG- NPO @ 0000, HOLD LOVENOX, TRANSFUSE PRB (HGB>10). VSS. CALL LIGHT W/ IN REACH. IN DURING VISITING HOURS. TOLERATING ORAL INTAKE WELL @ THIS TIME.
[2021-09-27 02:03] LABS: Hematocrit 31.1 % (37.0-53.0); Hemoglobin 9.7 g/dL (13.5-17.5)
[2021-09-27 05:08] LABS: BASOPHILS PERCENT AUTO 2 % (0-2); EOSINOPHILS ABSOLUTE AUTO 0.17 K/mm3 (0.00-0.68); EOSINOPHILS PERCENT AUTO 3 % (0-6); Hematocrit 32.5 % (37.0-53.0); Hemoglobin 10.1 g/dL (13.5-17.5); IMMATURE GRAN ABSOLUTE AUTO 0.07 K/mm3 (0.00-0.10); IMMATURE GRAN PERCENT AUTO 1 % (0-1); LYMPHOCYTES ABSOLUTE AUTO 0.73 K/mm3 (0.84-5.20); LYMPHOCYTES PERCENT AUTO 11 % (21-46); MONOCYTES PERCENT AUTO 9 % (4-13); Mean Corpuscular HGB 23.1 pg (26.0-34.0); Mean Corpuscular HGB Conc 31.1 g/dL (31.5-36.5); Mean Corpuscular Volume 74 fL (80-100); Mean Platelet Volume 9.9 fL (9.1-12.4); NEUTROPHILS ABSOLUTE AUTO 5.03 K/mm3 (1.96-9.15); NEUTROPHILS PERCENT AUTO 75 % (41-73); Platelet Count 252 K/mm3 (150-400); RDW Coefficient Variation 16.6 % (11.7-14.2); RDW Standard Deviation 44.1 fL (35.1-46.3); Red Blood Cell Count 4.38 M/mm3 (4.30-5.90)
--- NOTE | 2021-09-27 05:14 | NUR ---
SHIFT SUMMARY: PATIENT RECEIVED 1PRBC PER DR. HOLGUIN PRE SURGERY. RECHECK OF HGB 9.7 (WAS 9.[address] HOLGUIN NOTIFIED IT WAS <10. NO NEW ORDERS. AM CBC REVEALED HGB OF 10.1. PATIENT HAS BEEN NPO SINCE MIDNIGHT IN ANTICPATION OF METATARSAL AMP TODAY. COMPLAINTS OF PAIN TO RIGHT FOOT TREATED PER EMAR. LEFT PEDAL PULSE WEAK, KEVIN RIGHT PEDAL PULSE DUE TO FOOT BEING WRAPPED. REDNESS TO BLE. SCATTERED ABRASIONS T/O, ABRASION TO LEFT RIB CAGE SCABBED OVER. +1 PITTING EDEMA BLE. COMPLIANT WITH MEDICATIONS, ASSESSMENT, AND PLAN OF CARE.
[2021-09-27 05:35] LABS: Anion Gap 4 mmol/L (6-16); Blood Urea Nitrogen 29 mg/dL (8-24); Bun/Creatinine Ratio 31.2 (12.0-20.0); CO2, Blood 27 mmol/L (21-32); Calcium, Blood 8.3 mg/dL (8.5-10.1); Chloride, Blood 105 mmol/L (98-108); Creatinine, Blood 0.93 mg/dL (0.60-1.20); Glomerular Filtration Rate >60 (60-); Glucose, Blood 311 mg/dL (70-99); Potassium, Blood 4.5 mmol/L (3.5-5.5); Sodium, Blood 136 mmol/L (136-145)
[2021-09-27 12:02] LABS: Influenza A, PCR NEGATIVE (NEGATIVE); Influenza B, PCR NEGATIVE (NEGATIVE); Resp Syncytial Virus, PCR NEGATIVE (NEGATIVE); SARS-Cov-2 (COVID-19) PCR, MMC NEGATIVE (NEGATIVE)
--- NOTE | 2021-09-27 14:31 | NUR ---
09/27/21 1431 Milka Moses PATIENT ON SCHEDULED ANTIBIOTICS--VANCO AND UNASYN GIVEN ON FLOOR
--- NOTE | 2021-09-27 17:52 | NUR ---
SHIFT SUMMARY PATIENT IS ALERT AND ORIENTED X4. PATIENT MAINTAINED NPO UNTIL SURGERY THIS AFTERNOON. PATIENT WENT DOWN TO DAY SURGERY AT 1200. PATIENT TOLERATED SURGERY WELL. PATIENT BACK IN ROOM. PATIENT MEDICATED FOR PAIN PER EMAR IN RIGHT FOOT. PATIENT HAS NOT COMPLAINED OF NAUSEA, SOB OR VOMMITING THIS SHIFT. NO OTHER ACUTE EVENTS THIS SHIFT. VITAL SIGNS REVIEWED. BED IN LOCKED AND LOWEST POSITION. CALL LIGHT IN PLACE. WILL MONITOR UNTIL SHIFT CHANGE.
--- NOTE | 2021-09-28 06:06 | NUR ---
SHIFT SUMMARY: NO SIGNIFICANT EVENTS ON NOC. HAD SURGERY TODAY, HAS BEEN USING URINAL IN BED. AMBULATED TO BATHROOM ONCE THIS AM. USED FWW AND NWB DURING TRANSFER. PAIN TREATED PER EMAR. PATIENT COMPLAINED OF ONGOING MUSCLE CRAMPS AND REQUESTED MAGNESIUM. MD CONTACTED AND ORDER OBTAINED. PATIENT AWARE MEDICATION IS AVAILBLE BUT DECIDED TO WAIT CRAMPING STOPPED WITH PAIN MEDICATION ADMINISTRATION. WCTM.
[2021-09-28 08:13] LABS: Hematocrit 28.4 % (37.0-53.0); Hemoglobin 8.7 g/dL (13.5-17.5)
--- NOTE | 2021-09-28 16:18 | NUR ---
SHIFT SUMMARY PATIENT IS ALERT AND ORIENTED X4. PATIENT IS ONE DAY POST TOE AMPUTATION. PATIENT SAW PODATRIST THIS AFTERNOON AND STATED THAT PATIENT IS PARTIAL WEIGHT BEARING ON HIS SURGICAL FOOT. PATIENT HAS HAD PAIN MEDICATED PER EMAR. PATIENT HAS NO COMPLAINTS OF SOB, NAUSEA, VOMITTING THIS SHIFT. PATIENT IS A POSSIBLE DISCHARGE TOMORROW. PATIENT HAS HAD NO ACUTE EVENTS THIS SHIFT. VITAL SIGNS REVIEWED. WILL MONITOR UNTIL SHIFT CHANGE.
[2021-09-28] MEDS ORDERED: Amoxicillin500 MG PO (18:04)
[2021-09-28] MEDS ORDERED: VISBIOME 112.51 EACH PO (18:05)
--- NOTE | 2021-09-28 18:45 | NUR ---
DISCHARGE SUMMARY PATIENT IS ALERT AND ORIENTED. PATIENT HAD NO ACUTE EVENTS THIS SHIFT. VITAL SIGNS REVIEWED. PATIENT DISCHARGED TO AWAITING IN CAR AT PATIENT ENTRANCE.
== END 2021-09-28 18:44 | disposition home or self-care (01) | DRG 854 ==
LOC: ER 14:04 → MEDS 18:32
PROVIDERS: Emergency Medicine; Family Medicine; Hospitalist; Physician Assistant; Podiatrist Foot & Ankle Surgery; Student in an Organized Health Care Education/Training Program; ADMIT Internal Medicine
PROC: 3E03329 Introduction of Other Anti-infective into Peripheral Vein, Percutaneous Approach (ICD-10-PCS; 2021-09-25)
PROC: 0Y6M0ZB Detachment at Right Foot, Partial 2nd Ray, Open Approach (ICD-10-PCS; 2021-09-27)
PROC: 0Y6M0ZC Detachment at Right Foot, Partial 3rd Ray, Open Approach (ICD-10-PCS; 2021-09-27)
PROC: 0Y6M0ZD Detachment at Right Foot, Partial 4th Ray, Open Approach (ICD-10-PCS; 2021-09-27)
PROC: 0Y6M0ZF Detachment at Right Foot, Partial 5th Ray, Open Approach (ICD-10-PCS; 2021-09-27)
PROC: 0Y6M0Z9 Detachment at Right Foot, Partial 1st Ray, Open Approach (ICD-10-PCS; principal; 2021-09-27 12:00)
DX: A41.9 Sepsis, unspecified organism (principal); E87.1 Hypo-osmolality and hyponatremia; I50.32 Chronic diastolic (congestive) heart failure; L02.611 Cutaneous abscess of right foot; L03.115 Cellulitis of right lower limb; M86.8X7 Other osteomyelitis, ankle and foot; I13.0 Hypertensive heart and chronic kidney disease with heart failure and stage 1 through stage 4 chronic kidney disease, or unspecified chronic kidney disease; E03.9 Hypothyroidism, unspecified; G25.81 Restless legs syndrome; E11.42 Type 2 diabetes mellitus with diabetic polyneuropathy; Z20.822 Contact with and (suspected) exposure to COVID-19; Z79.899 Other long term (current) drug therapy; E11.65 Type 2 diabetes mellitus with hyperglycemia; E11.621 Type 2 diabetes mellitus with foot ulcer; L97.519 Non-pressure chronic ulcer of other part of right foot with unspecified severity; E11.22 Type 2 diabetes mellitus with diabetic chronic kidney disease; N40.0 Benign prostatic hyperplasia without lower urinary tract symptoms; F32.A Depression, unspecified; K74.60 Unspecified cirrhosis of liver; K75.81 Nonalcoholic steatohepatitis (NASH); Z88.5 Allergy status to narcotic agent; Z95.1 Presence of aortocoronary bypass graft; Z98.890 Other specified postprocedural states; E78.00 Pure hypercholesterolemia, unspecified; Z86.718 Personal history of other venous thrombosis and embolism; Z86.711 Personal history of pulmonary embolism; J45.909 Unspecified asthma, uncomplicated; B95.2 Enterococcus as the cause of diseases classified elsewhere
CPT/HCPCS: 0241U; 36415; 36430; 73630; 73718; 80048; 80053; 80202; 81001; 82140; 82947; 83605; 83880; 84484; 85014; 85018; 85025; 86850; 86900; 86901; 86923; 87040; 87070; 87075; 87077; 87086; 87147; 87186; 87205; 88307; 88311; 93005; 93010; 94640; 94664; 94760; 96365; 96366; 96367; 99284-25; A9270; J0295; J0692; J1650; J1815; J2250; J2704; J3010; J3370; J7030; J7050; J7120; P9016

== ENCOUNTER 2021-10-07 08:50 | Inpatient (IN) | payer OTHER ==
[~2021-10-07] VITALS: Ht 188 cm; Wt 113.3 kg
[~2021-10-07 08:50] MED LIST changes: +Amoxicillin500 MG PO; +BASAGLAR K100 UNIT/3 SC; +LORA10ER PO; +NEBIVOLOL HCL2.5 MG PO; +SULFAMETHOXAZO1 EAC1 PO
[2021-10-07 09:44] LABS: Source, Urine Clean Catch
[2021-10-07 09:47] LABS: Appearance, Urine Clear (Clear); Bilirubin, Urine Neg (Neg); Blood, Urine Neg (Neg); Color, Urine Yellow (P-Yellow); Glucose Qualitative, Urine 4+ (Neg); Ketones, Urine Neg (Neg); Leukocyte Esterase, Urine Neg (Neg); Nitrite, Urine Neg (Neg); Protein, Urine 2+ (Neg); Urobilinogen, Urine NORM (Normal)
[2021-10-07 09:55] LABS: Bacteria Rare /hpf; Red Blood Cells, Urine 0-2 /hpf (0-2); Squamous Epithelial Cells Rare /hpf (Few); White Blood Cells, Urine 0-2 /hpf (0-5)
[2021-10-07 10:25] LABS: BASOPHILS ABSOLUTE AUTO 0.06 K/mm3 (0.00-0.23); BASOPHILS PERCENT AUTO 1 % (0-2); EOSINOPHILS ABSOLUTE AUTO 0.03 K/mm3 (0.00-0.68); EOSINOPHILS PERCENT AUTO 0 % (0-6); Hematocrit 24.3 % (37.0-53.0); Hemoglobin 7.5 g/dL (13.5-17.5); IMMATURE GRAN PERCENT AUTO 1 % (0-1); LYMPHOCYTES ABSOLUTE AUTO 0.17 K/mm3 (0.84-5.20); LYMPHOCYTES PERCENT AUTO 1 % (21-46); MONOCYTES ABSOLUTE AUTO 0.52 K/mm3 (0.16-1.47); MONOCYTES PERCENT AUTO 4 % (4-13); Mean Corpuscular HGB 22.5 pg (26.0-34.0); Mean Corpuscular HGB Conc 30.9 g/dL (31.5-36.5); Mean Corpuscular Volume 73 fL (80-100); Mean Platelet Volume 9.7 fL (9.1-12.4); NEUTROPHILS ABSOLUTE AUTO 11.53 K/mm3 (1.96-9.15); NEUTROPHILS PERCENT AUTO 93 % (41-73); Platelet Count 203 K/mm3 (150-400); RDW Coefficient Variation 17.2 % (11.7-14.2); RDW Standard Deviation 45.1 fL (35.1-46.3); Red Blood Cell Count 3.34 M/mm3 (4.30-5.90); White Blood Cell Count 12.41 K/mm3 (4.00-11.30)
[2021-10-07 10:48] LABS: Albumin, Blood 2.5 g/dL (3.4-5.0); Albumin/Globulin Ratio 0.6 (0.8-1.8); Bilirubin, Total 0.7 mg/dL (0.1-1.0); Bun/Creatinine Ratio 27.6 (12.0-20.0); Creatinine, Blood 1.27 mg/dL (0.60-1.20); Globulin, Blood 4.4 g/dL (2.2-4.0); Potassium, Blood 5.4 mmol/L (3.5-5.5); Total Protein, Blood 6.9 g/dL (6.4-8.2)
[2021-10-07] MEDS ORDERED: HYDROCODONE-AC1 EA17 PO ×2 (11:33)
[2021-10-07] MEDS ORDERED: Bupropion HCl75 MG PO ×2 (11:45)
[2021-10-07] MEDS ORDERED: INSULANI SC ×2 (11:49)
--- NOTE | 2021-10-07 16:36 | NUR ---
Spiritual Referral by Dr. Guan. Pt is in ED waiting for transport to Medical floor. Pt. welcomes my visit. Pt. is unsettled by why a die repairer forging was called. With a calming presence I began to establish rapport. Significant time was spent facilitating a life review. Through theraputic listening Pt. displayed evidence of trust and openness. Pt. was very interested in showing photographs of his foot surgeries. Talked about miesha and belief and the people in his life who have pursued him. With permission Prayed for Pt. Pt. vebralized gratitude for spending the time and the spiritual care.
--- NOTE | 2021-10-07 17:59 | NUR ---
PER DR MOSELEY, RE CBG 363, GIVE 6 UNITS SHORT ACTING INS. REVIEWED B/P AND PULSE, OKAY GIVE COREG
--- NOTE | 2021-10-07 18:08 | NUR ---
PT ADMITTED TO ROOM 1630 ADMIT STARTED BUT PENDING PIC AND HISTORY. CLOSED SCAR WOUND ON LEFT SIDE ABD. ALSO RT FOOT WRAPPED FROM FOOT DR. HOLGUIN. DID JUST HAVE COUGHING SPELL. STATES SOMETIMES HAPPENS ON SPUTUM AND SOMETIMES ON MINOR THINGS LIKE PEPPER OR WHATEVER. LASTED OVER 5 MIN OF COUGHING. ORDERED SPEACH/SWALLOW EVAL. PT STATES CAN AMBULATE TO BATHROOM WITH FWW. A/O X3. DENIES PAIN AT THIS TIME. H/R IRREG. HX AFIB. NO MURMUR NOTED. NO TELE. LUNGS CLEAR UPPER DIM BASES. PLACED ON 2L O2 TO KEEP O2 OVER 95%. ABD ROUND LARGE. PT STATES NEW NORM. PRESENTS SOME JAUNDICED UPPER BODY. VIODS BATHROOM. SBA. FWW. BED IN LOW POSITOIN, CALL LITE IN REACH, CALLS APPRP
--- NOTE | 2021-10-07 18:09 | NUR ---
PT ARRIVED FROM ED TO ROOM AT 1427. A/O X4. C/O CHRONIC PAIN. H/R IRREGULAR. IN 100'S. NO TELE. NO MURMUR PRESENT. UPPER AND MID LUNGS CLEAR. LOWER LOBES DIMINISHED. 91% ON RA. 2L/MIN VIA NASAL CANNULA INITIATED. OXYGEN UP TO 97%. BREATHING IS LABORED. ABDOMEN IS DISTENDED. PT STATES IS NORMAL, BUT HAS INCREASED IN SIZE RECENTLY. HAS NOT SPOKE TO HIS PROVIDER ABOUT THIS. TENDER TO TOUCH. PT STATES LAST BM WAS THIS MORNING. URINATES IN URINAL, AND CAN AMBULATE TO RESTROOM WITH STANDY ASSISTANCE. GAIT WHEN TRANSFERING TO BED WAS WEAK. RT 4TH AND 5TH TOES WERE AMPUTATED LAST WEEK. PT STATES HE SAW SURGEON THIS AM AND THE DRESSINGS WERE CHANGED. DID NOT UNWRAPP DRESSINGS TO LOOK AT FOOT. LEGS HAVE BILATERAL +1 EDEMA. LOWER EXTREMITIES ARE RED/PURPLE AND HARD TO THE TOUCH. PEDAL PULSE IN LT LEG IS FAINT DID NOT CHECK RIGHT DUE TO WOUND DRESSINGS. PT WAS EATING DINNER WHEN HE BEGAN COUGHING. HE STATED HE WAS CHOKING ON HIS SPIT. RT WAS REQUESTED FOR A BREATHING TREATMENT WELL A SPEECH EVALUATION. BS WAS 363. DR CHACON STATED TO GIVE 1 EXTRA UNIT OF INSULIN ADDED TO HIS EVENING DOSE OF 5 (LOW SLIDING SCALE). CALL LIGHT IN REACH, BED IN LOW POSITIONS, CALLS APPROPRIATLY. TOUCH.
[2021-10-08 05:50] LABS: Albumin, Blood 2.8 g/dL (3.4-5.0); Albumin/Globulin Ratio 0.6 (0.8-1.8); Bilirubin, Total 0.6 mg/dL (0.1-1.0); Calcium, Blood 9.4 mg/dL (8.5-10.1); Creatinine, Blood 1.23 mg/dL (0.60-1.20); Potassium, Blood 4.9 mmol/L (3.5-5.5); Total Protein, Blood 7.8 g/dL (6.4-8.2)
--- NOTE | 2021-10-08 08:00 | NUR ---
SHIFT SUMMARY PT ADMITTED FOR PNEUMO W/ HYPOXIA. PT ON 2L N/C. SATS WNL. PT VOIDS FREQUENTLY. MULTIPLE TIMES THAT HE HAD LEAK/SPILL OF URINE ON THE FLOOR T/O SHIFT. PT HAS ATTENDS IN PLACE. AT FIRST HE REFUSE TO USE A BSC, URINAL AND BRIEFS. PROVIDE EDUCATION REGARDING SAFETY WHEN GETTING UP BECAUSE HE HAS BEEN UNSTABLE WITH WALKING. ATTENDS IN PLACE. PT ALSO HAD BEEN TRYING TO CLEAR HIS THROAT MULTIPLE TIMES T/O SHIFT. REQUESTED FOR BREATHING TX. CBG HAS BEEN ELEVATED. PT ALSO REPORTS CHEST PAIN NOTIFIED DR. NUNES. SHE CAME IN TO SEE THE PATIENT. CALL LIGHT WITHIN REACH. WILL CONTINUE TO MONITOR AND PROVIDE REPORT TO ONCOMING NURSE.
--- NOTE | 2021-10-08 10:27 | NUR ---
PT HAS BEEN IN SOME RESPIRATORY DISTRESS THIS AM. HE HAS VERY THICK MUCUS AND FEELS THOUGH HE CANT BREATHE RESPIRATORY CALLED. BOLUS OF FLUIDS ORDERED, EKG, AND TROP LEVELS. DOCTORS NOTIFIED OF HIGH HEART RATE, CONFUSION, ELEVATED TEMP AND CHEST PAIN. WILL CONTINUE TO MONITOR PT CLOSELY.
[2021-10-08 14:29] LABS: Hematocrit 24.5 % (37.0-53.0); Hemoglobin 7.6 g/dL (13.5-17.5)
--- NOTE | 2021-10-08 17:49 | NUR ---
WOUND NOTE PT HAD HIS TOES AMPUTATED BYT DOCTOR HOLGUIN ON HIS RIGHT FOOT, HE WAS TOLD BY THE DOCTOR TO NOT LET ANYONE TOUCH IT OR UNWRAP IN BECAUSE IT WAS DEHISCING. SO BANDAID IS SEEPING IN THROUGH. BOTH DOCTORS CONSULTED AND DECIDED TO LEAVE THE BANDAGE UNTIL IT COULD BE ADRESSED BY EZIO. WILL CONTINUE TO MONITOR.
--- NOTE | 2021-10-09 03:57 | NUR ---
0358 PT TAKEN OUT OF JONO VEST. PT AOX4 AND COOPERATIVE WITH CARE. TAB ALARM PLACED ON PT. PT REMAINS A HIGH FALL RISK. PT AGREES TO STAY OFF HIS FOOT.
--- NOTE | 2021-10-09 05:19 | NUR ---
SUMMARY PT SLEPT ON AND OFF T/O THE NIGHT. REMAINED IN GOOD SPIRITS T/O THE SHIFT, COMPLIED WELL WITH CARE. JONO WAS REMOVED AND PT REMAINED IN BED WITH NO EPISODES OF TRYING TO GET OOB. NO ACUTE CHANGED NOTED. WCTM
[2021-10-09 05:55] LABS: BASOPHILS ABSOLUTE AUTO 0.07 K/mm3 (0.00-0.23); BASOPHILS PERCENT AUTO 1 % (0-2); EOSINOPHILS ABSOLUTE AUTO 0.05 K/mm3 (0.00-0.68); EOSINOPHILS PERCENT AUTO 1 % (0-6); Hematocrit 25.8 % (37.0-53.0); Hemoglobin 7.7 g/dL (13.5-17.5); IMMATURE GRAN ABSOLUTE AUTO 0.05 K/mm3 (0.00-0.10); IMMATURE GRAN PERCENT AUTO 1 % (0-1); LYMPHOCYTES ABSOLUTE AUTO 0.45 K/mm3 (0.84-5.20); LYMPHOCYTES PERCENT AUTO 8 % (21-46); MONOCYTES ABSOLUTE AUTO 0.42 K/mm3 (0.16-1.47); MONOCYTES PERCENT AUTO 8 % (4-13); Mean Corpuscular HGB 21.7 pg (26.0-34.0); Mean Corpuscular HGB Conc 29.8 g/dL (31.5-36.5); Mean Corpuscular Volume 73 fL (80-100); Mean Platelet Volume 9.8 fL (9.1-12.4); NEUTROPHILS ABSOLUTE AUTO 4.56 K/mm3 (1.96-9.15); NEUTROPHILS PERCENT AUTO 81 % (41-73); Platelet Count 130 K/mm3 (150-400); RDW Coefficient Variation 17.2 % (11.7-14.2); RDW Standard Deviation 45.1 fL (35.1-46.3); Red Blood Cell Count 3.55 M/mm3 (4.30-5.90)
[2021-10-09 06:29] LABS: Anion Gap 6 mmol/L (6-16); Blood Urea Nitrogen 32 mg/dL (8-24); Bun/Creatinine Ratio 26.7 (12.0-20.0); CO2, Blood 28 mmol/L (21-32); Calcium, Blood 8.5 mg/dL (8.5-10.1); Chloride, Blood 99 mmol/L (98-108); Glomerular Filtration Rate >60 (60-); Glucose, Blood 150 mg/dL (70-99); Potassium, Blood 3.8 mmol/L (3.5-5.5); Sodium, Blood 133 mmol/L (136-145)
[2021-10-09 15:14] LABS: IMMATURE RETIC FRACTION 31.8 % (2.3-16.0); RETIC HGB EQUIVALENT 20.4 pg (28.20-36.60); RETICULOCYTE ABSOLUTE 0.1208 M/mm3 (0.0200-0.1100); RETICULOCYTE COUNT PERCENT 3.45 % (0.50-2.50)
[2021-10-09 16:05] LABS: Percent Saturation 5.3 % (20.0-50.0)
--- NOTE | 2021-10-09 16:37 | NUR ---
SHIFT SUMMARY PATIENT IS ALERT AND ORIENTED X4, PLEASANT AND COOPERATIVE WITH CARE. PATIENT RECEIVED IV ANTIBIOTICS. PATIENT HAS BEEN ON RA MOST OF TODAY. ADDED 1LPM OF 02 FOR COMFORT THIS EVENING. ON TELE: RUNNING SINUS RHYTHM. PATIENT'S DRESSING STILL INTACT ON LEFT LOWER EXTREMITY. DRESSING IS TO BE CHANGED BY DR. HOLGUIN ONLY DUE TO PREVIOUS DEHISCING. MEDICATED X1 FOR PAIN PER AUG. PATIENT CALLS APPROPRIATELY. NO ACUTE CHANGES. CALL LIGHT WITHIN REACH. BED IN LOWEST POSITION.
--- NOTE | 2021-10-10 03:58 | NUR ---
SHIFT SUMMARY PT IS VERY PLEASANT AND COOPERATIVE WITH CARE. ALERT AND ORIENTED, ON TELE WITH AFIB, AND 1 L O2 VIA NC. R TOES AMPUTATED AND WRAPPED. DR IS ONLY ONE TO CHANGE THE DRESSING AT THIS POINT. PT MEDICATED FOR PAIN PER EMAR. CALL LIGHT WITHIN REACH AND PT CALLS APPROPRIATELY. WILL CONTINUE TO MONITOR.
[2021-10-10 05:56] LABS: BASOPHILS ABSOLUTE AUTO 0.08 K/mm3 (0.00-0.23); BASOPHILS PERCENT AUTO 1 % (0-2); EOSINOPHILS ABSOLUTE AUTO 0.07 K/mm3 (0.00-0.68); EOSINOPHILS PERCENT AUTO 1 % (0-6); Hematocrit 25.5 % (37.0-53.0); Hemoglobin 7.6 g/dL (13.5-17.5); IMMATURE GRAN ABSOLUTE AUTO 0.04 K/mm3 (0.00-0.10); IMMATURE GRAN PERCENT AUTO 1 % (0-1); LYMPHOCYTES PERCENT AUTO 14 % (21-46); MONOCYTES PERCENT AUTO 11 % (4-13); Mean Corpuscular HGB 21.6 pg (26.0-34.0); Mean Corpuscular HGB Conc 29.8 g/dL (31.5-36.5); Mean Corpuscular Volume 72 fL (80-100); Mean Platelet Volume 10.3 fL (9.1-12.4); NEUTROPHILS ABSOLUTE AUTO 4.11 K/mm3 (1.96-9.15); NEUTROPHILS PERCENT AUTO 72 % (41-73); Platelet Count 165 K/mm3 (150-400); RDW Coefficient Variation 17.4 % (11.7-14.2); RDW Standard Deviation 45.5 fL (35.1-46.3); Red Blood Cell Count 3.52 M/mm3 (4.30-5.90)
[2021-10-10 06:15] LABS: Calcium, Blood 8.1 mg/dL (8.5-10.1); Creatinine, Blood 1.24 mg/dL (0.60-1.20); Potassium, Blood 4.5 mmol/L (3.5-5.5)
--- NOTE | 2021-10-10 15:03 | NUR ---
SHIFT SUMMARY PT AWAKE AT START OF SHIFT, RESTING QUIETLY IN BED. DR NUNES AND LATER DR HOLBROOK HERE TO SEE PT AND DISCUSS PLAN OF CARE. CONSULT TO DR HOLGUIN ORDERED AND CALLED FOR R FOOT DRSG CHANGE. DR HOLGUIN LATER TO FOR WOUND CARE; PT TOLERATED WELL. PT TO FOLLOW UP ON SUN IN DR HOLGUIN'S OFFICE FOR NEXT DRSG CHANGE AND WOUND VAC PLACEMENT. POSSIBLE D/C TOMORROW PT DID NOT WANT TO GO HOME TODAY. P/T ORDERED AND TO TO ASSESS PT. PT ABLE TO GET OOB AND TO CHAIR WITH HEEL WT BEARING ONLY ON R FOOT. PT WANTING DIET TO BE ADVANCED TO REG ADA AGAIN. DR HOLBROOK OK'D DIET CHANGE AND SPEECH TO LATER TO VERIFY PT OK TO ADVANCE. NEW ORDERS PLACED. CBG'S REVIEWED BY DR NUNES; NEW ORDERS PLACED FOR ADDITIONAL INSULIN COVERAGE. USING URINAL AT BS. DENIED FURTHER NEEDS AT THIS TIME. CALL LT IN REACH.
--- NOTE | 2021-10-10 17:39 | NUR ---
PT HAS BEEN PLEASANT THROUGHOUT SHIFT. PT TOOK MEDS WHOLE WITH WATER WELL. PT DIET WAS ADVANCED TO REGULAR TEXTURED AND THIN LIQUIDS. PT TOLERATED REGULAR TEXTURE WELL.PT HAD WOUND DRESSING COMPLETED BY DR. HOLGUIN. PT HAS BEEN SEEN BY PHYSICAL THERAPIST AND CAN TRANSFER 1 PERSON WITH FWW WITH HEEL WEIGHT BEARING TO RIGHT FOOT. PT IS CONTIENT OF BOWEL AND BLADDER. PT CALL LIGHT WITHIN REACH.
[2021-10-11 06:21] LABS: BASOPHILS ABSOLUTE AUTO 0.06 K/mm3 (0.00-0.23); BASOPHILS PERCENT AUTO 1 % (0-2); EOSINOPHILS ABSOLUTE AUTO 0.12 K/mm3 (0.00-0.68); EOSINOPHILS PERCENT AUTO 2 % (0-6); Hemoglobin 7.6 g/dL (13.5-17.5); IMMATURE GRAN ABSOLUTE AUTO 0.05 K/mm3 (0.00-0.10); IMMATURE GRAN PERCENT AUTO 1 % (0-1); LYMPHOCYTES ABSOLUTE AUTO 1.03 K/mm3 (0.84-5.20); LYMPHOCYTES PERCENT AUTO 16 % (21-46); MONOCYTES ABSOLUTE AUTO 0.67 K/mm3 (0.16-1.47); MONOCYTES PERCENT AUTO 11 % (4-13); Mean Corpuscular HGB 21.4 pg (26.0-34.0); Mean Corpuscular HGB Conc 29.2 g/dL (31.5-36.5); Mean Corpuscular Volume 73 fL (80-100); Mean Platelet Volume 10.2 fL (9.1-12.4); NEUTROPHILS ABSOLUTE AUTO 4.47 K/mm3 (1.96-9.15); NEUTROPHILS PERCENT AUTO 70 % (41-73); Platelet Count 154 K/mm3 (150-400); RDW Coefficient Variation 17.2 % (11.7-14.2); RDW Standard Deviation 46.2 fL (35.1-46.3); Red Blood Cell Count 3.55 M/mm3 (4.30-5.90)
--- NOTE | 2021-10-11 06:30 | NUR ---
SHIFT SUMMARY PATIENT ALERT AND ORIENTED. MEDICATED PER EMAR FOR PAIN. HAD NO COMPLAINTS OF SHORTNESS OF BREATH. NO ACUTE ISSUES NOTED OVERNIGHT. CALL LIGHT WITHIN REACH. REPORT GIVEN TO ONCOMING RN.
[2021-10-11 06:31] LABS: Anion Gap 6 mmol/L (6-16); Blood Urea Nitrogen 29 mg/dL (8-24); Bun/Creatinine Ratio 26.9 (12.0-20.0); CO2, Blood 27 mmol/L (21-32); Calcium, Blood 8.1 mg/dL (8.5-10.1); Chloride, Blood 100 mmol/L (98-108); Creatinine, Blood 1.08 mg/dL (0.60-1.20); Glomerular Filtration Rate >60 (60-); Glucose, Blood 267 mg/dL (70-99); Potassium, Blood 4.3 mmol/L (3.5-5.5); Sodium, Blood 133 mmol/L (136-145)
--- NOTE | 2021-10-11 14:39 | NUR ---
PT WAS PLEASANT AND HAPPY THROUGHOUT SHIFT. PT IS BEING DISCHARGED HOME WITH . PT WILL BE DISCHARGED WITH BARIATRIC WALKER. PT WAS ABLE TO AMBULATE, TRANSFER, AND GET DRESSED IN THE ROOM WITH FWW INDEPENDANTLY. PT CALL LIGHT WITHIN REACH.
[2021-10-11] MEDS ORDERED: AMOCLA875 PO ×2 (15:43)
--- NOTE | 2021-10-11 17:23 | NUR ---
SHIFT SUMMARY NO ACUTE CHANGES TO PRESENT THIS SHIFT. PT BECOMING MORE MOBILE EACH DAY. TO BE D/C TO HOME TODAY WITH H/H. ASSOCIATE FIELD SERVICE ENGINEER TO TO DISCUSS D/C PLANS. PT TO F/U WITH DR HOLGUIN IN AM FOR DRSG CHANGE AND WOUND VAC PLACEMENT. PT REPORTED THAT HE HAS AN APPOINTMENT FOR 10:30 AM. FWW AND BSC DELIVERED TO 342 TODAY TO GO HOME WITH PT. D/C INSTRUCTIONS REVIEWED WITH PT; VERBALIZED UNDERSTANDING. PT'S NOTIFIED TO COME AND FUEL QUALITY TECH PT AND WILL CALL WHEN HERE. PT ABLE TO DRESS HIMSELF AND GATHER HIS BELONGINGS. SITTING TO EOB, WAITING FOR TO GET HERE. IV SITE D/C'D WNL'S. DENIES FURTHER NEEDS AT THIS TIME.
== END 2021-10-11 17:45 | disposition home health service (06) | DRG 871 ==
LOC: ER 08:50 → MEDS 14:26
PROVIDERS: Emergency Medicine; Family Medicine; Student in an Organized Health Care Education/Training Program; ADMIT Hospitalist
DX: A41.50 Gram-negative sepsis, unspecified (principal); J15.6 Pneumonia due to other Gram-negative bacteria; N17.9 Acute kidney failure, unspecified; I50.32 Chronic diastolic (congestive) heart failure; I25.10 Atherosclerotic heart disease of native coronary artery without angina pectoris; E03.9 Hypothyroidism, unspecified; E11.42 Type 2 diabetes mellitus with diabetic polyneuropathy; E78.00 Pure hypercholesterolemia, unspecified; D64.9 Anemia, unspecified; G25.81 Restless legs syndrome; J45.909 Unspecified asthma, uncomplicated; F32.A Depression, unspecified; N40.0 Benign prostatic hyperplasia without lower urinary tract symptoms; I11.0 Hypertensive heart disease with heart failure; Z79.4 Long term (current) use of insulin; Z86.718 Personal history of other venous thrombosis and embolism; Z86.711 Personal history of pulmonary embolism; Z98.890 Other specified postprocedural states; Z89.421 Acquired absence of other right toe(s); Z79.890 Hormone replacement therapy; Z88.8 Allergy status to other drugs, medicaments and biological substances; Z88.5 Allergy status to narcotic agent; Z79.2 Long term (current) use of antibiotics; Z79.84 Long term (current) use of oral hypoglycemic drugs; Z79.899 Other long term (current) drug therapy
CPT/HCPCS: 36415; 71045; 80048; 80053; 81001; 82607; 82728; 82746; 82947; 83540; 83550; 83605; 84484; 85014; 85018; 85025; 85045; 87040; 92526; 92610; 93005; 93010; 94640; 94664; 94760; 96374; 96375; 97110; 97116; 97162; 97530; 99284-25; A9270; J0456; J0696; J1815; J7030; J7050

== ENCOUNTER 2021-10-19 16:49 | Emergency (ER) | payer OTHER ==
[~2021-10-19] VITALS: Ht 188 cm; Wt 111.1 kg
[~2021-10-19 16:49] MED LIST changes: -DULO60 PO; -Vitamin D1000 UNI1 PO
[2021-10-19 18:22] LABS: BASOPHILS ABSOLUTE AUTO 0.08 K/mm3 (0.00-0.23); BASOPHILS PERCENT AUTO 1 % (0-2); EOSINOPHILS ABSOLUTE AUTO 0.31 K/mm3 (0.00-0.68); EOSINOPHILS PERCENT AUTO 3 % (0-6); Hemoglobin 6.8 g/dL (13.5-17.5); IMMATURE GRAN ABSOLUTE AUTO 0.09 K/mm3 (0.00-0.10); IMMATURE GRAN PERCENT AUTO 1 % (0-1); LYMPHOCYTES PERCENT AUTO 6 % (21-46); MONOCYTES ABSOLUTE AUTO 0.72 K/mm3 (0.16-1.47); MONOCYTES PERCENT AUTO 7 % (4-13); Mean Corpuscular HGB 20.9 pg (26.0-34.0); Mean Corpuscular HGB Conc 28.3 g/dL (31.5-36.5); Mean Corpuscular Volume 74 fL (80-100); Mean Platelet Volume 9.9 fL (9.1-12.4); NEUTROPHILS ABSOLUTE AUTO 8.33 K/mm3 (1.96-9.15); NEUTROPHILS PERCENT AUTO 82 % (41-73); Platelet Count 266 K/mm3 (150-400); RDW Coefficient Variation 17.7 % (11.7-14.2); Red Blood Cell Count 3.26 M/mm3 (4.30-5.90); White Blood Cell Count 10.13 K/mm3 (4.00-11.30)
[2021-10-19 18:56] LABS: Alanine Aminotransfer (ALT/SGP 31 U/L (12-78); Albumin, Blood 2.5 g/dL (3.4-5.0); Albumin/Globulin Ratio 0.6 (0.8-1.8); Alk Phos 175 U/L (50-136); Anion Gap 6 mmol/L (6-16); Aspartate Aminotrans (AST/SGOT 24 U/L (12-37); Bilirubin, Direct 0.2 mg/dL (0.0-0.3); Bilirubin, Indirect 0.3 mg/dL (0.1-0.7); Bilirubin, Total 0.5 mg/dL (0.1-1.0); Blood Urea Nitrogen 35 mg/dL (8-24); Bun/Creatinine Ratio 41.1 (12.0-20.0); CO2, Blood 25 mmol/L (21-32); Calcium, Blood 8.7 mg/dL (8.5-10.1); Chloride, Blood 104 mmol/L (98-108); Creatinine, Blood 0.85 mg/dL (0.60-1.20); Globulin, Blood 4.2 g/dL (2.2-4.0); Glomerular Filtration Rate >60 (60-); Glucose, Blood 249 mg/dL (70-99); Sodium, Blood 135 mmol/L (136-145); Total Protein, Blood 6.7 g/dL (6.4-8.2)
[2021-10-19 20:37] LABS: Source, Urine Clean Catch
[2021-10-19 20:44] LABS: Appearance, Urine Clear (Clear); Bilirubin, Urine Neg (Neg); Blood, Urine Neg (Neg); Color, Urine Yellow (P-Yellow); Glucose Qualitative, Urine 3+ (Neg); Ketones, Urine Neg (Neg); Leukocyte Esterase, Urine Neg (Neg); Nitrite, Urine Neg (Neg); Protein, Urine 2+ (Neg); Urobilinogen, Urine NORM (Normal)
[2021-10-19 20:53] LABS: Bacteria Rare /hpf; Red Blood Cells, Urine 0-2 /hpf (0-2); Squamous Epithelial Cells Rare /hpf (Few); White Blood Cells, Urine 0-2 /hpf (0-5)
== END 2021-10-20 00:11 | disposition home or self-care (01) ==
LOC: ER 16:49
PROVIDERS: Physician Assistant
DX: G89.18 Other acute postprocedural pain (principal); M79.671 Pain in right foot; D64.9 Anemia, unspecified; I25.10 Atherosclerotic heart disease of native coronary artery without angina pectoris; E03.9 Hypothyroidism, unspecified; E11.42 Type 2 diabetes mellitus with diabetic polyneuropathy; E78.00 Pure hypercholesterolemia, unspecified; F32.A Depression, unspecified; I11.0 Hypertensive heart disease with heart failure; I50.9 Heart failure, unspecified; J45.909 Unspecified asthma, uncomplicated; Z88.5 Allergy status to narcotic agent; Z88.8 Allergy status to other drugs, medicaments and biological substances; Z79.01 Long term (current) use of anticoagulants; Z79.4 Long term (current) use of insulin; Z79.899 Other long term (current) drug therapy
CPT/HCPCS: 36415; 36430; 80048; 80076; 81001; 82140; 83605; 85025; 86850; 86900; 86901; 86923; 96374; 96375; 99283-25; A9270; J1170; J2405; J7030; P9016

== ENCOUNTER → 2021-10-19 | Outpatient (CLI) | payer OTHER ==
[~2021-10-19] MED LIST changes: +Bupropion HCl75 MG PO; +DULO60 PO; +HYDROCODONE-AC1 EA17 PO; +INSULANI SC; +Vitamin D1000 UNI1 PO
== END | disposition home or self-care (01) ==
LOC: LAB 08:16 → LAB SHORT 08:16 → PLD 08:16
DX: M86.171 Other acute osteomyelitis, right ankle and foot (principal); Z89.431 Acquired absence of right foot
CPT/HCPCS: 88305; 88311

== ENCOUNTER 2021-10-26 14:41 | Inpatient (IN) | payer OTHER ==
[~2021-10-26] VITALS: Ht 188 cm; Wt 106.6 kg
[~2021-10-26 14:41] MED LIST changes: -DULO60 PO; -Vitamin D1000 UNI1 PO
[2021-10-26 16:07] LABS: BASOPHILS ABSOLUTE AUTO 0.09 K/mm3 (0.00-0.23); BASOPHILS PERCENT AUTO 1 % (0-2); EOSINOPHILS ABSOLUTE AUTO 0.08 K/mm3 (0.00-0.68); EOSINOPHILS PERCENT AUTO 1 % (0-6); Hematocrit 28.5 % (37.0-53.0); Hemoglobin 8.2 g/dL (13.5-17.5); IMMATURE GRAN PERCENT AUTO 1 % (0-1); LYMPHOCYTES ABSOLUTE AUTO 0.68 K/mm3 (0.84-5.20); LYMPHOCYTES PERCENT AUTO 7 % (21-46); MONOCYTES ABSOLUTE AUTO 0.65 K/mm3 (0.16-1.47); MONOCYTES PERCENT AUTO 6 % (4-13); Mean Corpuscular HGB 21.1 pg (26.0-34.0); Mean Corpuscular HGB Conc 28.8 g/dL (31.5-36.5); Mean Corpuscular Volume 73 fL (80-100); Mean Platelet Volume 9.2 fL (9.1-12.4); NEUTROPHILS ABSOLUTE AUTO 8.59 K/mm3 (1.96-9.15); NEUTROPHILS PERCENT AUTO 84 % (41-73); NRBC ABSOLUTE 0.02 K/mm3 (0.00-0.02); NRBC Auto 0.2 /100 WBC (0.0-0.2); Platelet Count 256 K/mm3 (150-400); RDW Coefficient Variation 19.3 % (11.7-14.2); RDW Standard Deviation 50.8 fL (35.1-46.3); Red Blood Cell Count 3.89 M/mm3 (4.30-5.90); White Blood Cell Count 10.19 K/mm3 (4.00-11.30)
[2021-10-26 16:25] LABS: Albumin, Blood 2.7 g/dL (3.4-5.0); Albumin/Globulin Ratio 0.6 (0.8-1.8); Bilirubin, Total 0.4 mg/dL (0.1-1.0); Bun/Creatinine Ratio 29.6 (12.0-20.0); Calcium, Blood 8.5 mg/dL (8.5-10.1); Creatinine, Blood 1.35 mg/dL (0.60-1.20); Globulin, Blood 4.8 g/dL (2.2-4.0); Potassium, Blood 5.3 mmol/L (3.5-5.5); Total Protein, Blood 7.5 g/dL (6.4-8.2)
[2021-10-26 18:03] LABS: Source, Urine Straight Cath
[2021-10-26 18:06] LABS: Appearance, Urine Clear (Clear); Bilirubin, Urine Neg (Neg); Blood, Urine Neg (Neg); Glucose Qualitative, Urine Neg (Neg); Ketones, Urine Neg (Neg); Leukocyte Esterase, Urine Neg (Neg); Nitrite, Urine Neg (Neg); Protein, Urine Neg (Neg); Urobilinogen, Urine NORM (Normal)
[2021-10-26 18:15] LABS: Color, Urine Pale Yellow (P-Yellow)
[2021-10-26] MEDS ORDERED: SULFAMETHOXAZO1 EAC1 PO (22:27)
[2021-10-26] MEDS ORDERED: DULO60 PO (22:28)
[2021-10-26] MEDS ORDERED: Vitamin D1000 UNI1 PO (22:39)
[2021-10-27 05:25] LABS: BASOPHILS ABSOLUTE AUTO 0.11 K/mm3 (0.00-0.23); BASOPHILS PERCENT AUTO 1 % (0-2); EOSINOPHILS ABSOLUTE AUTO 0.21 K/mm3 (0.00-0.68); EOSINOPHILS PERCENT AUTO 2 % (0-6); Hematocrit 28.4 % (37.0-53.0); IMMATURE GRAN ABSOLUTE AUTO 0.07 K/mm3 (0.00-0.10); IMMATURE GRAN PERCENT AUTO 1 % (0-1); LYMPHOCYTES ABSOLUTE AUTO 0.64 K/mm3 (0.84-5.20); LYMPHOCYTES PERCENT AUTO 6 % (21-46); MONOCYTES ABSOLUTE AUTO 0.65 K/mm3 (0.16-1.47); MONOCYTES PERCENT AUTO 6 % (4-13); Mean Corpuscular HGB 20.6 pg (26.0-34.0); Mean Corpuscular HGB Conc 28.2 g/dL (31.5-36.5); Mean Corpuscular Volume 73 fL (80-100); Mean Platelet Volume 9.3 fL (9.1-12.4); NEUTROPHILS ABSOLUTE AUTO 8.83 K/mm3 (1.96-9.15); NEUTROPHILS PERCENT AUTO 84 % (41-73); Platelet Count 248 K/mm3 (150-400); RDW Coefficient Variation 19.2 % (11.7-14.2); RDW Standard Deviation 49.9 fL (35.1-46.3); Red Blood Cell Count 3.89 M/mm3 (4.30-5.90); White Blood Cell Count 10.51 K/mm3 (4.00-11.30)
--- NOTE | 2021-10-27 05:50 | NUR ---
SHIFT SUMMARY 66 YR M ADMITTED ON 10/26/21 FOR SWOLLEN LEFT TESTICLE AND POSSIBLE RIGHT BKA. FULL CODE. PT HAD RECENT AMPUTATION OF 5 TOES FROM RIGHT FOOT AND WILL BE CONSULTING ON POSSIBLE BKA. HIS GROIN AREA IS SWOLLEN MAKING IT DIFFICULT FOR HIM TO URINATE W/O "SPRAYING" IT EVERYWHERE. HE IS NOT HAPPY ABOUT HAVING INCONTINENT EPISODES. HIS BELLY IS DISTENDED AND PT STATES THAT HE HAS BEEN TOLD HE HAS A HERNIA. HIS R FOOT IS HEAVELY BANDAGED, BUT HE IS ABLE TO AMBULATE ON IT. PT IS GENERALLY PLEASANT AND COOPERSTIVE W/ CARE, BUT HE CAN GET GRUMPY AT TIMES.
[2021-10-27 05:53] LABS: Albumin, Blood 2.7 g/dL (3.4-5.0); Albumin/Globulin Ratio 0.6 (0.8-1.8); Bilirubin, Total 0.6 mg/dL (0.1-1.0); Bun/Creatinine Ratio 27.8 (12.0-20.0); Calcium, Blood 8.6 mg/dL (8.5-10.1); Creatinine, Blood 1.33 mg/dL (0.60-1.20); Globulin, Blood 4.8 g/dL (2.2-4.0); Potassium, Blood 4.7 mmol/L (3.5-5.5); Total Protein, Blood 7.5 g/dL (6.4-8.2)
[2021-10-27 11:02] LABS: International Normalized Ratio 1.42; Prothrombin Time Results 14.6 Sec (9.7-11.5)
--- NOTE | 2021-10-27 17:41 | NUR ---
SHIFT SUMMARY PATIENT MEDICATED X1 FOR PAIN. PATIENT DENIES NAUSEA AND SHORTNESS OF BREATH. PATIENT IS A SBA WITH A FWW. PATIENT ABLE TO AMBULATE TO BATHROOM. PATIENT REPORTS HAVING SOME TROUBLE URINATING DUE TO THE SWELLING IN HIS SCROTUM. ISOLATION PRECAUTIONS MAINTAINED THROUGHOUT SHIFT. DR. FLANNERY CONSULTED. PLAN FOR SURGERY TOMORROW. NPO AT MIDNIGHT. VISITED IN AFTERNOON. PATIENT IS EATING AND DRINKING WELL. PATIENT IS PLEASANT AND COOPERATIVE WITH CARE.
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
[2021-10-28 08:54] LABS: Hematocrit 27.1 % (37.0-53.0); Hemoglobin 7.8 g/dL (13.5-17.5); Mean Corpuscular HGB 20.9 pg (26.0-34.0); Mean Corpuscular HGB Conc 28.8 g/dL (31.5-36.5); Mean Corpuscular Volume 73 fL (80-100); Mean Platelet Volume 9.9 fL (9.1-12.4); Platelet Count 217 K/mm3 (150-400); RDW Coefficient Variation 18.9 % (11.7-14.2); RDW Standard Deviation 49.3 fL (35.1-46.3); Red Blood Cell Count 3.74 M/mm3 (4.30-5.90); White Blood Cell Count 7.59 K/mm3 (4.00-11.30)
[2021-10-28 09:13] LABS: Albumin, Blood 2.5 g/dL (3.4-5.0); Anion Gap 6 mmol/L (6-16); Blood Urea Nitrogen 32 mg/dL (8-24); Bun/Creatinine Ratio 24.6 (12.0-20.0); CO2, Blood 29 mmol/L (21-32); Calcium, Blood 8.7 mg/dL (8.5-10.1); Chloride, Blood 101 mmol/L (98-108); Glomerular Filtration Rate 61 (60-); Glucose, Blood 185 mg/dL (70-99); Phosphorus, Blood 3.5 mg/dL (2.5-4.9); Potassium, Blood 4.7 mmol/L (3.5-5.5); Sodium, Blood 136 mmol/L (136-145)
[2021-10-28 09:27] LABS: Vancomycin, Trough 21.7 ug/mL (5.0-10.0)
--- NOTE | 2021-10-28 14:41 | NUR ---
10/28/21 1441 Gema Guadalupe PATIENT ON SCHEDULED ANTIBIOTICS, RECEIVED ZOSYN 4.5G TODAY AT 1128. RECEIVED VANCOMYCIN 1.25G TODAY AT 1233.
--- NOTE | 2021-10-28 16:02 | NUR ---
RECIEVED PATIENT AND REPORT VSS DRESSING INTACT ON RIGHT STUMP BELOW KNEE
--- NOTE | 2021-10-28 18:24 | NUR ---
SHIFT SUMMARY PATIENT MEDICATED FOR PAIN X2. PATIENT DENIES NAUSEA AND SHORTNESS OF BREATH. PATIENT WAS A SBA AT THE BEGINNING OF MY SHIFT. PATIENT HAD BEEN NPO SINCE MIDNIGHT. PATINT TAKEN FOR PROCEDURE AT 1300. PATIENT BACK TO ROOM AT 1700. PATIENT GROANING IN PAIN. PATIENT NOT FULLY AWAKE, NOT ANSWERING QUESTIONS, BUT RESPONDING TO PAIN. AFTER BEING ON THE FLOOR FOR ABOUT AN HOUR, PATIENT STARTED TO WAKE UP. ABLE TO ANSWER A&O QUESTIONS APPROPRIATELY. PATIENT YELLING OUT IN PAIN CONSISTENTLY. DR. WILEY NOTIFIED. NEW ORDERS FOR DILAUDID 0.5MG IV Q2 PRN. DOSE GIVEN. SOME AFFECT NOTED DUE TO LESS GROANING. PATIENT AT BEDSIDE MOST OF DAY. PATIENT STARTING TO REGAIN APPETITE. PATIENT IS PLEASANT AND COOPERATIVE WITH CARE.
--- NOTE | 2021-10-29 03:51 | NUR ---
PT A/O X 4. PT IN SEVERE PAIN FROM POST OP R BKA. MEDICATED PER EMAR. PT BP/HR WERE ELEVATED DUE TO ANXIETY AND PAIN. PT IS ON BEDREST. PT LABS FROM PREVIOUS SHIFT SHOWED LOW H/H. PT HAS STANDING ORDER FOR BLOOD TRANSFUSION. PT SHORT AND LONG ACTING INSULIN HELD BECAUSE CBG OF 123 HS. PT HAS STUMP SOCK OVER R BKA WITH NO SEEPAGE COMING THROUGH. PT IS CURRENTLY WATCHING A MOVIE ON HIS LAPTOP WITH CALL LIGHT WITHIN REACH AND BED IN LOW POSITION.
[2021-10-29 05:49] LABS: BASOPHILS ABSOLUTE AUTO 0.03 K/mm3 (0.00-0.23); BASOPHILS PERCENT AUTO 0 % (0-2); EOSINOPHILS PERCENT AUTO 0 % (0-6); Hemoglobin 7.6 g/dL (13.5-17.5); IMMATURE GRAN ABSOLUTE AUTO 0.08 K/mm3 (0.00-0.10); IMMATURE GRAN PERCENT AUTO 1 % (0-1); LYMPHOCYTES ABSOLUTE AUTO 0.58 K/mm3 (0.84-5.20); LYMPHOCYTES PERCENT AUTO 6 % (21-46); MONOCYTES ABSOLUTE AUTO 0.67 K/mm3 (0.16-1.47); MONOCYTES PERCENT AUTO 7 % (4-13); Mean Corpuscular HGB 20.7 pg (26.0-34.0); Mean Corpuscular HGB Conc 29.2 g/dL (31.5-36.5); Mean Corpuscular Volume 71 fL (80-100); Mean Platelet Volume 9.4 fL (9.1-12.4); NEUTROPHILS ABSOLUTE AUTO 8.97 K/mm3 (1.96-9.15); NEUTROPHILS PERCENT AUTO 87 % (41-73); Platelet Count 251 K/mm3 (150-400); RDW Coefficient Variation 18.9 % (11.7-14.2); RDW Standard Deviation 48.3 fL (35.1-46.3); Red Blood Cell Count 3.67 M/mm3 (4.30-5.90); White Blood Cell Count 10.33 K/mm3 (4.00-11.30)
[2021-10-29 06:05] LABS: Bun/Creatinine Ratio 25.2 (12.0-20.0); Calcium, Blood 8.7 mg/dL (8.5-10.1); Creatinine, Blood 1.31 mg/dL (0.60-1.20); Potassium, Blood 4.3 mmol/L (3.5-5.5)
--- NOTE | 2021-10-29 06:47 | NUR ---
I AM IN AGREEMENT WITH NURSE STUDENT NOTES AND ASSESSMENT
--- NOTE | 2021-10-29 12:38 | NUR ---
PT DC'D AT 1211 TRANSPORT WHEELCHAIR. PT HAS BEEN AOX4 AND COOPERATIVE OF ALL CARE. PT HAS HAD MULTIPLE LOOSE STOOL TODAY DUE TO STOOL SOFTNERS GIVEN YESTERDAY SHE HAD NOT HAD A BM FOR 5 DAYS. PT WAS TREATED FOR A HEADACE PER EMAR. PT'S BP WAS UP AND DR ECHOLS ADDED BP MEDS LAST BP WAS 158/[address] ECHOLS WAS CALLED PRIOR TO DISCHARGE. PT WAS TAKEN OUT WITH AID TO ESCORT. SON STOPPED THE AT N ENTRANCE PT TOLD HIM SHE FELT BAD AND HAD SO MANY STOOL SHE MUST BE DEHYDRATED. DR ECHOLS WAS NOTIFIED AND CAME TO COUNTS INCLUDE 234 BEDS AT THE [facility] TO SEE PT AND TALK TO SON. SON WAS THEN IN AGREEMENT TO LET PT GO TO [facility]. REPORT WAS CALLED OVER TO [facility] PRIOR TO DISCHARGE.
--- NOTE | 2021-10-29 17:43 | NUR ---
PT AOX3 MILD CONFUSION. PT WAS HAVING EXTREME PAIN TO HIS NEW R BKA AT START OF SHIFT. PT HAS BEEN TREATED PER EMAR AND PAIN SEEMS CONTROLLED AT THIS TIME. PT CAN CALL APPROPRIATELY AND HAS CALL LIGHT WITHIN REACH. WILL CONTINUE TO MONITOR.
--- NOTE | 2021-10-30 03:45 | NUR ---
PT A/O X 4. PT STILL EXPERIENCING SEVERE PAIN IN R BKA FROM 10/28/21. PAIN HAS BEEN MANAGED BETTER PER EMAR ACCORDING TO PT. AT BEGINNING OF SHIFT THE PT REQUESTED TO USE THE COMMODE AND WAS A 2PA WITH FWW. PT TOLERATED AMBULATION FAIRLY WELL BUT TIRED EASILY AFTERWARDS. PT IS IN GOOD SPIRITS AND WANTS TO BEGIN PT/OT SOON POSSIBLE TO BEGIN REHAB. CURRENTLY THE PT PN IS WELL CONTROLLED AND PT IS SLEEPING WITH CALL LIGHT WITHIN REACH AND BED IN LOW POSITION.
[2021-10-30 05:12] LABS: BASOPHILS ABSOLUTE AUTO 0.04 K/mm3 (0.00-0.23); BASOPHILS PERCENT AUTO 0 % (0-2); EOSINOPHILS ABSOLUTE AUTO 0.01 K/mm3 (0.00-0.68); EOSINOPHILS PERCENT AUTO 0 % (0-6); Hematocrit 26.1 % (37.0-53.0); Hemoglobin 7.4 g/dL (13.5-17.5); IMMATURE GRAN ABSOLUTE AUTO 0.07 K/mm3 (0.00-0.10); IMMATURE GRAN PERCENT AUTO 1 % (0-1); LYMPHOCYTES ABSOLUTE AUTO 0.74 K/mm3 (0.84-5.20); LYMPHOCYTES PERCENT AUTO 8 % (21-46); MONOCYTES ABSOLUTE AUTO 1.02 K/mm3 (0.16-1.47); MONOCYTES PERCENT AUTO 11 % (4-13); Mean Corpuscular HGB 20.3 pg (26.0-34.0); Mean Corpuscular HGB Conc 28.4 g/dL (31.5-36.5); Mean Corpuscular Volume 72 fL (80-100); Mean Platelet Volume 9.9 fL (9.1-12.4); NEUTROPHILS ABSOLUTE AUTO 7.38 K/mm3 (1.96-9.15); NEUTROPHILS PERCENT AUTO 80 % (41-73); NRBC ABSOLUTE 0.04 K/mm3 (0.00-0.02); NRBC Auto 0.4 /100 WBC (0.0-0.2); Platelet Count 238 K/mm3 (150-400); RDW Coefficient Variation 18.9 % (11.7-14.2); RDW Standard Deviation 48.7 fL (35.1-46.3); Red Blood Cell Count 3.64 M/mm3 (4.30-5.90); White Blood Cell Count 9.26 K/mm3 (4.00-11.30)
[2021-10-30 05:31] LABS: Bun/Creatinine Ratio 23.5 (12.0-20.0); Calcium, Blood 8.5 mg/dL (8.5-10.1); Creatinine, Blood 1.79 mg/dL (0.60-1.20); Potassium, Blood 5.1 mmol/L (3.5-5.5)
--- NOTE | 2021-10-30 06:13 | NUR ---
FINAL INSPECTOR TRUCK TRAILER NOTES AND ASSESSMENT REVIEWED AND ACCEPTED.
--- NOTE | 2021-10-30 16:49 | NUR ---
PT AOX4 WITH SOME CONFUSION OFF AND ON. PT COOPERATIVE OF CARE AND HAS HAD MUCH BETTER PAIN CONTROL TODAY. PT TREATED FOR PAIN IN R BKA PER EMAR. PT WORKED WELL WITH PT AND WILL WALKER CAN BE A ONE PERSON PIVOT TO BEDSIDE COMMODE. CALL LIGHT IS WITHIN REACH WILL CONTINUE TO MONITOR.
--- NOTE | 2021-10-31 04:17 | NUR ---
SHIFT SUMMARY PATIENT HAD NO ACUTE CHANGES OBSERVED. AXOX 3 WITH CONFUSION. INCONTINENT OF URINE. CBG 165. POWERGLIDE BERYL INTACT. HEAVY TWO ASSIST PIVOT TO BSC. NOT ABLE TO STAND LONG. REPORTED RIGHT STUMP PAIN X ONE AND NORCO GIVEN PER EMAR. VSS/AFEBRILE. DENIES SOB AND N/V. CALL LIGHT IN REACH. BED IN LOWEST POSITION. WILL CONTINUE TO MONITOR UNTIL DAY SHIFT NURSE ASSUMES CARE.
[2021-10-31 04:50] LABS: Hematocrit 27.4 % (37.0-53.0); Hemoglobin 7.9 g/dL (13.5-17.5); Mean Corpuscular HGB 20.5 pg (26.0-34.0); Mean Corpuscular HGB Conc 28.8 g/dL (31.5-36.5); Mean Corpuscular Volume 71 fL (80-100); Mean Platelet Volume 9.4 fL (9.1-12.4); NRBC ABSOLUTE 0.04 K/mm3 (0.00-0.02); NRBC Auto 0.5 /100 WBC (0.0-0.2); Platelet Count 234 K/mm3 (150-400); Red Blood Cell Count 3.85 M/mm3 (4.30-5.90); White Blood Cell Count 8.08 K/mm3 (4.00-11.30)
[2021-10-31 05:08] LABS: Bun/Creatinine Ratio 26.3 (12.0-20.0); Calcium, Blood 8.3 mg/dL (8.5-10.1); Creatinine, Blood 1.98 mg/dL (0.60-1.20); Potassium, Blood 4.3 mmol/L (3.5-5.5)
--- NOTE | 2021-11-01 03:45 | NUR ---
SUMMARY: PT A/OX3-4 W/OCCASIONAL CONFUSION BUT REORIENTS EASILY W/REMINDERS. R.BKA STUMP DX AND SOCK ARE INTACT AND HE'S A 2P HEAVY PIVOT T/F WHEN OOB. SAURABHCO RECIEVED PRN FOR TOLERABLE RELIEF OF PHANTOM LIMB PAIN. HE USED URINAL W/ASSISTANCE T/O NOCTE AND CALLS APPROPRIATELY TO SPECIFY NEEDS. BERYL JENKINS IS RUNNING TKVO. NO ACUTE CHANGES, VSS/AFEBRILE. POSSIBLE D/C TO [facility] TODAY PENDING BED AVAILIBILITY. WCTM AND REPORT TO DAY RN.
[2021-11-01 17:17] LABS: Influenza A, PCR NEGATIVE (NEGATIVE); Influenza B, PCR NEGATIVE (NEGATIVE); Resp Syncytial Virus, PCR NEGATIVE (NEGATIVE); SARS-Cov-2 (COVID-19) PCR, MMC NEGATIVE (NEGATIVE)
--- NOTE | 2021-11-01 19:33 | NUR ---
DISCHARGE SUMMARY PT A/O X3 AND PLEASANT. POD #4 FOR R BKA. STUMP SOCK AND BAILEY WRAP DRESSING IN PLACE. DRESSING CHANGED TODAY AND CDI. 1-2 ASSIST WITH THE FWW/GB TO GET UP. NEED TO REMIND PT TO CALL FOR ASSISTANCE. PT FELL ABOUT 5 MINUTES PRIOR TO DISCHARGE. INCISION INSPECTED AND VITALS TAKEN, WNL. PT HAD NO C/O ADDITIONAL PAIN OR ABNORMALITIES. DIRECTOR CONTENT MARKETING INFORMED THE PHYSICIAN AND PT WAS CLEARED BY PHYSICIAN TO DISCHARGE. PT REPORTED THAT HE WAS TRYING TO REACH AN OBJECT THAT WAS TOO FAR AWAY WHILE SITTING IN BED AND LOST HIS BALANCE. REPORT CALLED TO [facility] AND ONCOMING NURSE INFORMED OF THE INCIDENT.
== END 2021-11-01 19:00 | DRG 474 ==
LOC: ER 14:41 → MEDS 18:17 → ENPENDDIS 11-01 18:41 → MEDS 11-01 19:00
PROVIDERS: Internal Medicine; Orthopaedic Surgery; Physician Assistant; Student in an Organized Health Care Education/Training Program; ADMIT Internal Medicine
PROC: 3E03329 Introduction of Other Anti-infective into Peripheral Vein, Percutaneous Approach (ICD-10-PCS; 2021-10-26)
PROC: 0Y6H0Z3 Detachment at Right Lower Leg, Low, Open Approach (ICD-10-PCS; principal; 2021-10-28 14:15)
DX: T87.43 Infection of amputation stump, right lower extremity (principal); G92.8 Other toxic encephalopathy; N17.9 Acute kidney failure, unspecified; I50.32 Chronic diastolic (congestive) heart failure; L03.115 Cellulitis of right lower limb; M86.671 Other chronic osteomyelitis, right ankle and foot; I13.0 Hypertensive heart and chronic kidney disease with heart failure and stage 1 through stage 4 chronic kidney disease, or unspecified chronic kidney disease; E11.52 Type 2 diabetes mellitus with diabetic peripheral angiopathy with gangrene; I96 Gangrene, not elsewhere classified; D63.1 Anemia in chronic kidney disease; I25.10 Atherosclerotic heart disease of native coronary artery without angina pectoris; K70.30 Alcoholic cirrhosis of liver without ascites; Z20.822 Contact with and (suspected) exposure to COVID-19; E03.9 Hypothyroidism, unspecified; I48.91 Unspecified atrial fibrillation; D63.8 Anemia in other chronic diseases classified elsewhere; Z88.5 Allergy status to narcotic agent; Z88.8 Allergy status to other drugs, medicaments and biological substances; E11.42 Type 2 diabetes mellitus with diabetic polyneuropathy; E78.00 Pure hypercholesterolemia, unspecified; G25.81 Restless legs syndrome; J45.909 Unspecified asthma, uncomplicated; N40.0 Benign prostatic hyperplasia without lower urinary tract symptoms; F32.A Depression, unspecified; Z95.1 Presence of aortocoronary bypass graft; Z98.890 Other specified postprocedural states; Z79.899 Other long term (current) drug therapy; Z79.4 Long term (current) use of insulin; E11.22 Type 2 diabetes mellitus with diabetic chronic kidney disease; E11.69 Type 2 diabetes mellitus with other specified complication
CPT/HCPCS: 0241U; 36415; 71046; 73620; 74176; 80048; 80053; 80069; 80202; 81003; 82947; 83690; 83880; 85025; 85027; 85610; 85651; 85730; 86140; 86850; 86900; 86901; 86923; 88307; 93005; 93010; 94640; 94664; 94760; 96374; 97110; 97116; 97162; 97166; 97530; 97535; 99285-25; A9270; C1751; J1100; J1170; J1815; J2250; J2405; J2543; J2704; J3010; J3370; J7040; J7060

== ENCOUNTER → 2021-10-26 | Outpatient (CLI) | payer OTHER ==
[~2021-10-26] MED LIST changes: +DULO60 PO; +Vitamin D1000 UNI1 PO
== END | disposition home or self-care (01) ==
LOC: LAB SHORT 14:00
DX: L97.521 Non-pressure chronic ulcer of other part of left foot limited to breakdown of skin (principal)
CPT/HCPCS: 87070; 87075; 87077; 87147; 87186; 87205

== ENCOUNTER 2021-11-12 23:20 | Emergency (ER) | payer OTHER ==
[~2021-11-12] VITALS: Ht 188 cm; Wt 108.9 kg
[~2021-11-12 23:20] MED LIST changes: +DULO60 PO; +Vitamin D1000 UNI1 PO
== END 2021-11-13 01:02 | disposition home or self-care (01) ==
LOC: ER 23:20
DX: T87.89 Other complications of amputation stump (principal); M79.604 Pain in right leg; I11.0 Hypertensive heart disease with heart failure; I50.30 Unspecified diastolic (congestive) heart failure; E11.42 Type 2 diabetes mellitus with diabetic polyneuropathy; I25.10 Atherosclerotic heart disease of native coronary artery without angina pectoris; E03.9 Hypothyroidism, unspecified; Z86.711 Personal history of pulmonary embolism; Z79.4 Long term (current) use of insulin; Z79.01 Long term (current) use of anticoagulants; Z79.899 Other long term (current) drug therapy; Z88.5 Allergy status to narcotic agent; Z88.8 Allergy status to other drugs, medicaments and biological substances; Z95.1 Presence of aortocoronary bypass graft
CPT/HCPCS: A9270

== ENCOUNTER 2021-11-20 07:03 | Emergency (ER) | payer OTHER ==
[~2021-11-20] VITALS: Ht 188 cm; Wt 106.6 kg
[2021-11-20 08:34] LABS: Hematocrit 26.8 % (37.0-53.0); Hemoglobin 7.4 g/dL (13.5-17.5); Mean Corpuscular HGB 18.6 pg (26.0-34.0); Mean Corpuscular HGB Conc 27.6 g/dL (31.5-36.5); Mean Corpuscular Volume 67 fL (80-100); Mean Platelet Volume 9.9 fL (9.1-12.4); Platelet Count 171 K/mm3 (150-400); RDW Coefficient Variation 18.9 % (11.7-14.2); RDW Standard Deviation 45.7 fL (35.1-46.3); Red Blood Cell Count 3.98 M/mm3 (4.30-5.90); White Blood Cell Count 7.14 K/mm3 (4.00-11.30)
[2021-11-20 08:55] LABS: C-REACTIVE PROTEIN, EXT RANGE 1.65 mg/dL (0.000-0.300)
[2021-11-20 08:57] LABS: Albumin, Blood 2.8 g/dL (3.4-5.0); Albumin/Globulin Ratio 0.7 (0.8-1.8); Bilirubin, Total 0.8 mg/dL (0.1-1.0); Bun/Creatinine Ratio 35.4 (12.0-20.0); Calcium, Blood 8.9 mg/dL (8.5-10.1); Creatinine, Blood 0.99 mg/dL (0.60-1.20); Globulin, Blood 4.1 g/dL (2.2-4.0); Total Protein, Blood 6.9 g/dL (6.4-8.2)
[2021-11-20] MEDS ORDERED: SULTRIDS PO ×2 (11:11)
== END 2021-11-20 12:49 | disposition home or self-care (01) ==
LOC: ER 07:03
PROVIDERS: Student in an Organized Health Care Education/Training Program
DX: D64.9 Anemia, unspecified (principal); M96.89 Other intraoperative and postprocedural complications and disorders of the musculoskeletal system; L03.115 Cellulitis of right lower limb; Y83.8 Other surgical procedures as the cause of abnormal reaction of the patient, or of later complication, without mention of misadventure at the time of the procedure; R00.0 Tachycardia, unspecified; I11.0 Hypertensive heart disease with heart failure; I50.30 Unspecified diastolic (congestive) heart failure; E11.42 Type 2 diabetes mellitus with diabetic polyneuropathy; E03.9 Hypothyroidism, unspecified; I25.10 Atherosclerotic heart disease of native coronary artery without angina pectoris; Z79.4 Long term (current) use of insulin; Z79.01 Long term (current) use of anticoagulants; Z88.5 Allergy status to narcotic agent; Z88.8 Allergy status to other drugs, medicaments and biological substances; Z79.899 Other long term (current) drug therapy
CPT/HCPCS: 36415; 73560-RT; 80053; 85027; 85651; 86140; 86850; 86900; 86901; A9270; J7030

== ENCOUNTER 2021-11-24 22:12 | Inpatient (IN) | payer OTHER, MEDICARE ==
[~2021-11-24] VITALS: Ht 180.3 cm; Wt 89.1 kg
[~2021-11-24 22:12] MED LIST changes: +BUME1 PO; -BUME2 PO; +BUPR100 PO; -Bupropion HCl75 MG PO; +HUMALOG KW100 UNIT/1 SC; -INSULIN AS100 UNIT/8 SC
[2021-11-24 22:35] LABS: BASOPHILS ABSOLUTE AUTO 0.06 K/mm3 (0.00-0.23); BASOPHILS PERCENT AUTO 1 % (0-2); EOSINOPHILS ABSOLUTE AUTO 0.02 K/mm3 (0.00-0.68); EOSINOPHILS PERCENT AUTO 0 % (0-6); Hematocrit 24.7 % (37.0-53.0); IMMATURE GRAN ABSOLUTE AUTO 0.03 K/mm3 (0.00-0.10); IMMATURE GRAN PERCENT AUTO 0 % (0-1); LYMPHOCYTES ABSOLUTE AUTO 0.48 K/mm3 (0.84-5.20); LYMPHOCYTES PERCENT AUTO 5 % (21-46); MONOCYTES ABSOLUTE AUTO 0.74 K/mm3 (0.16-1.47); MONOCYTES PERCENT AUTO 8 % (4-13); Mean Corpuscular HGB 18.4 pg (26.0-34.0); Mean Corpuscular HGB Conc 28.3 g/dL (31.5-36.5); Mean Corpuscular Volume 65 fL (80-100); Mean Platelet Volume 9.9 fL (9.1-12.4); NEUTROPHILS ABSOLUTE AUTO 7.93 K/mm3 (1.96-9.15); NEUTROPHILS PERCENT AUTO 86 % (41-73); NRBC ABSOLUTE 0.03 K/mm3 (0.00-0.02); NRBC Auto 0.3 /100 WBC (0.0-0.2); Platelet Count 248 K/mm3 (150-400); RDW Standard Deviation 43.8 fL (35.1-46.3); Red Blood Cell Count 3.81 M/mm3 (4.30-5.90); White Blood Cell Count 9.26 K/mm3 (4.00-11.30)
[2021-11-24 22:52] LABS: Albumin, Blood 2.8 g/dL (3.4-5.0); Albumin/Globulin Ratio 0.7 (0.8-1.8); Bilirubin, Total 1.1 mg/dL (0.1-1.0); C-REACTIVE PROTEIN, EXT RANGE 3.36 mg/dL (0.000-0.300); Calcium, Blood 8.9 mg/dL (8.5-10.1); Creatinine, Blood 1.27 mg/dL (0.60-1.20); Globulin, Blood 3.8 g/dL (2.2-4.0); Magnesium, Blood 2.1 mg/dL (1.6-2.4); Potassium, Blood 4.9 mmol/L (3.5-5.5); Total Protein, Blood 6.6 g/dL (6.4-8.2)
[2021-11-25] MEDS ORDERED: IPRATROPIUM BRO30 ML (05:13)
[2021-11-25] MEDS ORDERED: CEPH500 PO (05:14)
[2021-11-25] MEDS ORDERED: LACT10SY PO (05:15)
[2021-11-25] MEDS ORDERED: Norco 5-325 Ta1 EACH PO (05:18)
[2021-11-25] MEDS ORDERED: LORA.5 PO (05:18)
[2021-11-25 05:22] LABS: Hematocrit 25.8 % (37.0-53.0); Hemoglobin 7.2 g/dL (13.5-17.5)
--- NOTE | 2021-11-25 07:32 | NUR ---
SHIFT SUMMARY PT ARRIVE TO MED UNIT RM 351 AT 0430. APPEARS TO BE VERY CONFUSE. AOX1. CAN ANSWER SOME QUESTION BUT WOULD MUMBLE CONSTANTLY. PT HAS SLURRED SPEECH WELL, SOMETIMES HARD TO UNDERSTAND. PT APPEARS TO BE RESTLESS. S/P R BKA LAST OCTOBER 2021. R STUMP APPEAST TO HAVE SOME MILD SEROSANG DRAINAGE. WOUND CLEANSE AND WRAP WITH GAUZE AND BAILEY WRAP BUT PT PULLED THE DRESSING. PT ALSO ATTEMP TO PULL IV AND CLIMBING ON THE SIDE OF BED RAIL. CALL DR. KEYS FOR RESTRAINTS ORDER TO SECURE IV LINES/CORDS AND DRESSING AND FALL PREVENTION. VEST AND 2 BUE SOFT WRIST RESTRAINTS IN PLACE. ATTENDS IN PLACE. IV ABX INFUSING WITH NS (KVO). MEPLEX PLACED ON BUTTOCK, COCCYX AREA APPEARS TO BE RED. NPO. CALL LIGHT WITHIN REACH. REPORT GIVEN TO DAY SHIFT NURSE.
[2021-11-25 10:40] LABS: Influenza A, PCR NEGATIVE (NEGATIVE); Influenza B, PCR NEGATIVE (NEGATIVE); Resp Syncytial Virus, PCR NEGATIVE (NEGATIVE); SARS-Cov-2 (COVID-19) PCR, MMC NEGATIVE (NEGATIVE)
[2021-11-25 11:24] LABS: Hematocrit 26.6 % (37.0-53.0); Hemoglobin 7.4 g/dL (13.5-17.5)
--- NOTE | 2021-11-25 13:17 | NUR ---
PT RECENTLY TO [facility] BY BED WITH OTHER STAFF. PT CONFUSED WITH 2LO2NC IN PLACE DURING TRANSPORT. FAMILY PRESENT. PT REPORTED TO BE NPO. PT REPORTED THAT HE WOULD NOT TAKE HIS COREG EARLIER PER MEDICAL FLOOR NURSE. PT HEART RATE LOW 100'S PER TELE. LS APPEAR CLEAR FROM WHAT THIS RN CAN HERE IN BETWEEN PT RAMBLING/TALKING. History, Chart, Medications and Allergies reviewed before start of procedure.Patient confirms NPO status and agrees with scheduled surgery. Pre-Op teaching done. Pt verbalizes understanding.
--- NOTE | 2021-11-25 14:30 | NUR ---
11/25/21 1430 Harman ClaytonNSS 1G VANCO POWDER DIRECTLY TO RIGHT LOWER EXTREMITY STUMP WOUND AT 1430.
--- NOTE | 2021-11-25 19:44 | NUR ---
SHIFT SUMMARY; PATIENT WENT TO SURGERY TODAY. HE HAD I AND D BY FOR POSSIBLE INFECTION OF HIS RBKA. PATIENT RETURNED TO ROOM WITH WOUND VAC IN PLACE. RED COREY BLOOD IS NOTED IN COLLECTION CONTAINER. APPROX 1/3 FULL AFTER 3 HOURS. IS CALLED AND ORDER TO PUT BAILEY WRAP TIGHTLY AROUND STUMP. TURN OFF WOUND VAC AND THEN TURN BACK ON ONE HOUR LATER TO SEE IF BLEEDING IS MORE CONTROLLED. PASSED ON IN REPORT TO FLORINDA AT SHIFT CHANGE.
[2021-11-26 02:09] LABS: BASOPHILS ABSOLUTE AUTO 0.02 K/mm3 (0.00-0.23); BASOPHILS PERCENT AUTO 0 % (0-2); EOSINOPHILS PERCENT AUTO 0 % (0-6); Hematocrit 27.5 % (37.0-53.0); Hemoglobin 7.7 g/dL (13.5-17.5); IMMATURE GRAN ABSOLUTE AUTO 0.06 K/mm3 (0.00-0.10); IMMATURE GRAN PERCENT AUTO 1 % (0-1); LYMPHOCYTES ABSOLUTE AUTO 0.23 K/mm3 (0.84-5.20); LYMPHOCYTES PERCENT AUTO 4 % (21-46); MONOCYTES PERCENT AUTO 2 % (4-13); Mean Corpuscular HGB 18.5 pg (26.0-34.0); Mean Corpuscular Volume 66 fL (80-100); NEUTROPHILS ABSOLUTE AUTO 5.71 K/mm3 (1.96-9.15); NEUTROPHILS PERCENT AUTO 93 % (41-73); NRBC ABSOLUTE 0.02 K/mm3 (0.00-0.02); NRBC Auto 0.3 /100 WBC (0.0-0.2); Platelet Count 258 K/mm3 (150-400); RDW Coefficient Variation 18.9 % (11.7-14.2); RDW Standard Deviation 44.2 fL (35.1-46.3); Red Blood Cell Count 4.17 M/mm3 (4.30-5.90); White Blood Cell Count 6.12 K/mm3 (4.00-11.30)
[2021-11-26 02:33] LABS: Alanine Aminotransfer (ALT/SGP 36 U/L (12-78); Albumin, Blood 2.6 g/dL (3.4-5.0); Albumin/Globulin Ratio 0.7 (0.8-1.8); Alk Phos 124 U/L (50-136); Anion Gap 10 mmol/L (6-16); Aspartate Aminotrans (AST/SGOT 52 U/L (12-37); Bilirubin, Total 1.1 mg/dL (0.1-1.0); Blood Urea Nitrogen 37 mg/dL (8-24); Bun/Creatinine Ratio 33.6 (12.0-20.0); CO2, Blood 23 mmol/L (21-32); Calcium, Blood 8.4 mg/dL (8.5-10.1); Chloride, Blood 104 mmol/L (98-108); Globulin, Blood 3.6 g/dL (2.2-4.0); Glomerular Filtration Rate 75 (60-); Glucose, Blood 250 mg/dL (70-99); Potassium, Blood 5.1 mmol/L (3.5-5.5); Sodium, Blood 137 mmol/L (136-145); Total Protein, Blood 6.2 g/dL (6.4-8.2); Vancomycin, Trough 16.8 ug/mL (5.0-10.0)
--- NOTE | 2021-11-26 02:41 | NUR ---
SPOKE WITH HOSPITALIST REGARDING PATIENTS ANXIETY AND INCREASING AGITATION. ORDER FOR ZYPREXA RECEIVED. SPOKE WITH PHARMACIST REGARDING WARNING OF POSSIBLE SEVERE REACTION WITH ROPINIROLE. RECOMMENDATION TO ASK FOR OTHER MEDICATION RECEIVED. NIGHT HOSPITALIST INFORMED OF POSSIBLE REACTION. NO ALTERNATIVE ORDER RECEIVED. WILL RETAIN ORDER FOR ONE TIME ZYPREXA PER 2ND PHONE CONVERSATION WITH HOSPITALIST
--- NOTE | 2021-11-26 07:35 | NUR ---
FINANCIAL MANAGEMENT SUMMARY PATIENT AWAKE MOST OF NIGHT SHUFFLING ALL OVER THE BED, AND USING RIGHT LEG STUMP TO PUSH HIMSELF AROUND ON THE BED. PATIENT IS ALERT ONLY TO SELF. PLEASANT AND DOES TRY TO COOPERATE, HOWEVER, HE GETS SO WORKED UP THAT HE CANNOT STOP TALKING TO FOLLOW COMMANDS. VERY MINIMAL OUTPUT (IMMEASURABLE) FROM WOUND VAC. TOO LITTLE TO MEASURE. STILL APPEARS TO BE COREY BLOOD.
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
[2021-11-27 02:22] LABS: Hematocrit 24.9 % (37.0-53.0); Mean Corpuscular HGB 18.5 pg (26.0-34.0); Mean Corpuscular HGB Conc 28.1 g/dL (31.5-36.5); Mean Corpuscular Volume 66 fL (80-100); Mean Platelet Volume 9.6 fL (9.1-12.4); Platelet Count 278 K/mm3 (150-400); RDW Coefficient Variation 18.9 % (11.7-14.2); RDW Standard Deviation 44.6 fL (35.1-46.3); Red Blood Cell Count 3.79 M/mm3 (4.30-5.90); White Blood Cell Count 14.04 K/mm3 (4.00-11.30)
[2021-11-27 02:42] LABS: Bun/Creatinine Ratio 38.2 (12.0-20.0); Calcium, Blood 8.5 mg/dL (8.5-10.1); Creatinine, Blood 1.1 mg/dL (0.60-1.20); Potassium, Blood 4.8 mmol/L (3.5-5.5)
[2021-11-27 02:43] LABS: Vancomycin, Trough 24.8 ug/mL (5.0-10.0)
--- NOTE | 2021-11-27 07:08 | NUR ---
PATIENT RESTLESS ALL NIGHT DESPITE THE ADDITION OF A ONE TIME DOSE OF SEROQUEL. HE REFUSED TO STOP SWINGING HIS LEFT LEG INTO AND OVER THE RAILS OF HIS BED. PILLOWS AND BLANKETS WERE PLACED BETWEEN THE PATIENT AND THE LEFT FOOT RAIL, HOWEVER, THESE WOULD BE ON THE FLOOR WITHIN 2-3 MINUTES EACH TIME. NO OUTPUT FROM THE WOUND OVERNIGHT, OUTER DRESSING REMAINS INTACT AND AND VACUUM SEAL WITHOUT LEAKS. JONO CLARKE DC'D THIS MORNING, ONLY [address] PATIENT NO LONGER PULLING AT IV OR VACUUM TUBE.
--- NOTE | 2021-11-27 18:32 | NUR ---
SHIFT SUMMARY PT NOT CONFUSED TODAY. SLEPT THROUGH BFSportilia, DID EAT LUNCH & DINNER. HIS CAME TO VISIT HIM TODAY FOR A FEW HOURS. VSS. WOUND VAC SXN AT 120 WITH SCANT RED DRAINAGE IN CANISTER. DRESSING TO R STUMP CLEAN DRY & INTACT. RT REMOVED O2, SATS WERE RANGING 98-100%. BI-OX REMOVED. O2 SATS ON RA RANGING 92-95%. SURGEON CAME TO SEE PT & STATES THAT HE WILL TAKE PT BACK TO THE OR LIKELY ON . NO ORDERS RECEIVED.
[2021-11-28 04:36] LABS: BASOPHILS ABSOLUTE AUTO 0.03 K/mm3 (0.00-0.23); BASOPHILS PERCENT AUTO 0 % (0-2); EOSINOPHILS ABSOLUTE AUTO 0.15 K/mm3 (0.00-0.68); EOSINOPHILS PERCENT AUTO 2 % (0-6); Hematocrit 25.1 % (37.0-53.0); IMMATURE GRAN ABSOLUTE AUTO 0.04 K/mm3 (0.00-0.10); IMMATURE GRAN PERCENT AUTO 1 % (0-1); LYMPHOCYTES ABSOLUTE AUTO 0.71 K/mm3 (0.84-5.20); LYMPHOCYTES PERCENT AUTO 8 % (21-46); MONOCYTES ABSOLUTE AUTO 0.58 K/mm3 (0.16-1.47); MONOCYTES PERCENT AUTO 7 % (4-13); Mean Corpuscular HGB 18.3 pg (26.0-34.0); Mean Corpuscular HGB Conc 27.9 g/dL (31.5-36.5); Mean Corpuscular Volume 66 fL (80-100); Mean Platelet Volume 9.5 fL (9.1-12.4); NEUTROPHILS ABSOLUTE AUTO 7.11 K/mm3 (1.96-9.15); NEUTROPHILS PERCENT AUTO 83 % (41-73); Platelet Count 238 K/mm3 (150-400); RDW Coefficient Variation 18.8 % (11.7-14.2); RDW Standard Deviation 44.1 fL (35.1-46.3); Red Blood Cell Count 3.82 M/mm3 (4.30-5.90); White Blood Cell Count 8.62 K/mm3 (4.00-11.30)
[2021-11-28 05:10] LABS: Bun/Creatinine Ratio 33.7 (12.0-20.0); Calcium, Blood 8.5 mg/dL (8.5-10.1); Creatinine, Blood 1.04 mg/dL (0.60-1.20); Potassium, Blood 4.4 mmol/L (3.5-5.5)
--- NOTE | 2021-11-28 05:41 | NUR ---
SHIFT SUMMARY NOC: PT WOUND VAC POWER CORD DISCONNECTED AND OFF AT START OF SHIFT. WOUND VAC RESTARTED WITH GOOD SEAL. SCANT SEROSANGINEOUS DRAINAGE. PT HAVING PAIN TO RIGHT STUMP. PRN MEDICATION GIVEN WITH POSITIVE RESULT. PT HAS BEEN COOPERATIVE, ORIENTATED, AND APPROPRIATE. 3 SIDE RAILS DOWN NO RESTRAINTS. PT ABLE TO TURN FROM SIDE TO SIDE WHEN CHANGING PATIENT. PT VERY EDEMETOUS. VOIDING IN URINAL.
[2021-11-28 12:40] LABS: Percent Saturation 3.6 % (20.0-50.0)
[2021-11-28 12:41] LABS: IMMATURE RETIC FRACTION 37.4 % (2.3-16.0); RETIC HGB EQUIVALENT 17.9 pg (28.20-36.60); RETICULOCYTE ABSOLUTE 0.0865 M/mm3 (0.0200-0.1100); RETICULOCYTE COUNT PERCENT 2.32 % (0.50-2.50)
--- NOTE | 2021-11-28 16:50 | NUR ---
SHIFT SUMMARY PT A&O X4 AND IN PLEASENT MOOD T/O SHIFT. PT RESTING COMFORTABLE IN BED T/O SHIFT. PAIN MEDICATED PER EMAR AND REPOSITION. WOUND VAC IN PLACE, DRAINING COREY RED FLUID. TELE IN PLACE. VSS. CALL LIGHT W/IN REACH. PLAN TO RETURN TO SURGERY TO CLOSE AND REMOVE WOUND VAC TOMORROW.
[2021-11-29 05:31] LABS: BASOPHILS ABSOLUTE AUTO 0.05 K/mm3 (0.00-0.23); BASOPHILS PERCENT AUTO 1 % (0-2); EOSINOPHILS ABSOLUTE AUTO 0.15 K/mm3 (0.00-0.68); EOSINOPHILS PERCENT AUTO 2 % (0-6); Hematocrit 25.6 % (37.0-53.0); IMMATURE GRAN ABSOLUTE AUTO 0.04 K/mm3 (0.00-0.10); IMMATURE GRAN PERCENT AUTO 1 % (0-1); LYMPHOCYTES ABSOLUTE AUTO 0.67 K/mm3 (0.84-5.20); LYMPHOCYTES PERCENT AUTO 8 % (21-46); MONOCYTES ABSOLUTE AUTO 0.54 K/mm3 (0.16-1.47); MONOCYTES PERCENT AUTO 7 % (4-13); Mean Corpuscular HGB 18.1 pg (26.0-34.0); Mean Corpuscular HGB Conc 27.3 g/dL (31.5-36.5); Mean Corpuscular Volume 66 fL (80-100); Mean Platelet Volume 9.8 fL (9.1-12.4); NEUTROPHILS ABSOLUTE AUTO 6.56 K/mm3 (1.96-9.15); NEUTROPHILS PERCENT AUTO 82 % (41-73); NRBC ABSOLUTE 0.02 K/mm3 (0.00-0.02); NRBC Auto 0.2 /100 WBC (0.0-0.2); Platelet Count 228 K/mm3 (150-400); RDW Standard Deviation 44.5 fL (35.1-46.3); Red Blood Cell Count 3.87 M/mm3 (4.30-5.90); White Blood Cell Count 8.01 K/mm3 (4.00-11.30)
[2021-11-29 05:44] LABS: Bun/Creatinine Ratio 31.1 (12.0-20.0); Calcium, Blood 8.2 mg/dL (8.5-10.1); Creatinine, Blood 1.03 mg/dL (0.60-1.20); Potassium, Blood 4.6 mmol/L (3.5-5.5)
--- NOTE | 2021-11-29 06:19 | NUR ---
SHIFT SUMMARY NOC: PT NPO SINCE MIDNIGHT FOR SURGERY TODAY. PT HAVING PAIN TO RIGHT STUMP, PRN NORCO GIVEN WITH MINIMAL RESULT. WOUND VAC IN PLACE AND WORKING, SCANT SAROSANGINEOUS DRAINAGE, DRESSING INTACT. PT ON BEDREST.
--- NOTE | 2021-11-29 08:15 | NUR ---
DR. DISLA CONTACTED FOR CLARIFICATION ON NPO MEDS, ADVISED TO HOLD INSULIN. BLOOD GLUCOSE 299.
--- NOTE | 2021-11-29 13:03 | NUR ---
THE PATIENT WAS BROUGHT TO DAY SURGERY FOR HIS PROCEDURE.
--- NOTE | 2021-11-29 14:35 | NUR ---
11/29/21 1435 Harman Clayton PT ON SCHEDULED ANTIBIOTICS 1X PIECE BLACK FOAM WAS REMOVED IN OR BEFORE PREPPING FOR SURGERY.
--- NOTE | 2021-11-29 16:05 | NUR ---
PT RETURNED FROM PACU @ THIS TIME. VSS. CALL LIGHT W/IN REACH. 3L NC. @ BEDSIDE. WOUND VAC IN PLACE, 120 SUCTION-C/D/I. TELE IN PLACE AFIB 90'S. LUNGS CLEAR. REQUESTING FOOD AND WATER, DENIES PAIN.
[2021-11-29 16:57] LABS: Hematocrit 26.5 % (37.0-53.0); Hemoglobin 7.3 g/dL (13.5-17.5)
--- NOTE | 2021-11-29 17:12 | NUR ---
SHIFT SUMMARY PT A&O X4 AND IN PLEASENT MOOD T/O SHIFT. RETURNED FROM PACU APPROX 1605, POD #0 I&D. WOUND VAC IN PLACE. VSS. @ BEDSIDE, TOLERATING PO INTAKE @ THIS TIME. TELE IN PLACE, AFIB 90'S. CONT. IV ABX. CALL LIGHT W/IN REACH. 2L NC, PLAN TO ATTEMPT WEAN BACK TO BASELINE RA.
[2021-11-29 17:23] LABS: Vancomycin, Trough 18.1 ug/mL (5.0-10.0)
[2021-11-30 05:06] LABS: Hematocrit 27.2 % (37.0-53.0); Hemoglobin 7.5 g/dL (13.5-17.5); Mean Corpuscular HGB 18.4 pg (26.0-34.0); Mean Corpuscular HGB Conc 27.6 g/dL (31.5-36.5); Mean Corpuscular Volume 67 fL (80-100); Mean Platelet Volume 9.8 fL (9.1-12.4); NRBC ABSOLUTE 0.04 K/mm3 (0.00-0.02); NRBC Auto 0.5 /100 WBC (0.0-0.2); Platelet Count 236 K/mm3 (150-400); RDW Coefficient Variation 19.1 % (11.7-14.2); Red Blood Cell Count 4.08 M/mm3 (4.30-5.90); White Blood Cell Count 7.74 K/mm3 (4.00-11.30)
[2021-11-30 05:38] LABS: Bun/Creatinine Ratio 35.8 (12.0-20.0); Calcium, Blood 8.9 mg/dL (8.5-10.1); Creatinine, Blood 0.84 mg/dL (0.60-1.20); Potassium, Blood 4.7 mmol/L (3.5-5.5)
--- NOTE | 2021-11-30 06:39 | NUR ---
SHIFT SUMMARY NOC: CBG 387 AT BEDTIME. NOVOLOG 5 UNITS SQ GIVEN PER SLIDING SCALE. MD UPDATED, NEW ORDERS. LANTUS 10 UNITS ONCE AT BEDTIME GIVEN. PT A&O*4. WOUND VAC TO RIGHT STUMP, SCANT SANGINEOUS DRAINAGE. PAIN WELL CONTROLLED WITH CURRENT PRN MEDICATIONS. PT ON BEDPAN MULTIPLE TIMES PASSING GAS. ACCORDING TO CHART LAST BM 11/23/21.
--- NOTE | 2021-11-30 17:10 | NUR ---
SHIFT SUMMARY PT POD #1 FOR I&D OF PREVIOUS R BKA WITH PARTIAL CLOSURE. WOUND VAC IN PLACE AND DRAINING SS FLUID. WOUND VAC DRESSING CHANGED TODAY AFTER SEAL WAS BROKEN. CURRENT DRESSING IN PLACE AND CDI. PATIENT WORKED WITH PHYSICAL/OCCUPATIONAL THERAPY AND GETS UP TO THE CHAIR WITH A PATTI LIFT. VSS.
--- NOTE | 2021-12-01 04:39 | NUR ---
A&OX4. V/S WNL. MECHANICAL SOFT/ADA DIET. PILLS WHOLE IN APPLE SAUCE. ACUCHECKS AC&HS. HS ACUCHECK 254. 1 UNIT OF SLIDING SCALE INSULIN GIVEN PER EMAR. DRESSING TO R)LOWER EXTREMITY STUMP C/D/I WITH WOUND VACUUM WITH PARTIAL CLOSURE. MODERATE SEROSANGUINEOUS EXUDATE IN VACUUM NOTED. INCONTINENT OF URINE/BOWEL DUE TO MOBILITY ISSUES. FOYER LIFT. NO BM THIS SHIFT. A CONDOM PLACE PLACED AND DRAINING YELLOW URINE. CONTACT PRECAUTIONS FOR MRSA. PT ROLLS SIDE TO SIDE WELL. DRESSING TO COCCYX C/D/I. SWELLING TO L) EXTREMITY AND SCROTUM. BOTH ELEVATED. PRN NORCO AND MORPHINE GIVEN FOR PAIN PER EMAR. WILL CONTINUE TO MONITOR.
[2021-12-01 05:04] LABS: Hematocrit 26.8 % (37.0-53.0); Hemoglobin 7.3 g/dL (13.5-17.5); Mean Corpuscular HGB 18.3 pg (26.0-34.0); Mean Corpuscular HGB Conc 27.2 g/dL (31.5-36.5); Mean Corpuscular Volume 67 fL (80-100); Mean Platelet Volume 9.7 fL (9.1-12.4); NRBC ABSOLUTE 0.02 K/mm3 (0.00-0.02); NRBC Auto 0.2 /100 WBC (0.0-0.2); Platelet Count 222 K/mm3 (150-400); RDW Coefficient Variation 20.1 % (11.7-14.2); RDW Standard Deviation 45.2 fL (35.1-46.3); White Blood Cell Count 8.93 K/mm3 (4.00-11.30)
[2021-12-01 05:23] LABS: Bun/Creatinine Ratio 32.6 (12.0-20.0); Calcium, Blood 8.9 mg/dL (8.5-10.1); Creatinine, Blood 0.83 mg/dL (0.60-1.20); Potassium, Blood 4.2 mmol/L (3.5-5.5)
--- NOTE | 2021-12-01 06:21 | NUR ---
PRUNE GIVEN FOR CONSTIPATION.
[2021-12-01] MEDS ORDERED: METO2.5 PO (15:16)
[2021-12-01 15:44] LABS: Vancomycin, Trough 19.1 ug/mL (5.0-10.0)
--- NOTE | 2021-12-01 18:37 | NUR ---
SHIFT SUMMARY POD #2 FOR I&D TO R BKA SITE WITH PARTIAL CLOSURE. WOUND VAC IN PLACE AND CDI. GOLDEN INSERTED THIS SHIFT DUE TO PATIENT'S EDEMA AND HAVING DIFFICULTY VOIDING IN THE URINAL. LARGE URINE OUTPUT THIS SHIFT. VSS. NEXT WOUND VAC CHANGE TO BE DONE ON SUNDAY.
--- NOTE | 2021-12-02 04:09 | NUR ---
A&OX4. V/S WNL. IV TO L) AC. INCONTINENT OF BOWEL. GOLDEN CATHETER IN SITU AND DRAINING LARGE AMOUNTS OF URINE. NO BM THIS SHIFT. ROLLS WELL. STUMP TO R) LOWER EXTREMITY, PARTIALLY CLOSED WITH WOUND VACUUM DRAINING MODERATE AMOUNT OF SANGUINEOUS EXUDATE. CONTACT PRECAUTIONS: MRS. MECHANICAL SOFT/ADA DIET. ACUCHECKS AC&HS. HS ACUCHECK 247; NO SLIDING SCALE INSULIN REQUIRED. WILL CONTINUE TO MONITOR.
[2021-12-02 05:58] LABS: Hematocrit 25.2 % (37.0-53.0); Hemoglobin 7.2 g/dL (13.5-17.5); Mean Corpuscular HGB 18.7 pg (26.0-34.0); Mean Corpuscular HGB Conc 28.6 g/dL (31.5-36.5); Mean Corpuscular Volume 66 fL (80-100); Mean Platelet Volume 9.3 fL (9.1-12.4); Platelet Count 199 K/mm3 (150-400); RDW Coefficient Variation 20.5 % (11.7-14.2); RDW Standard Deviation 43.7 fL (35.1-46.3); Red Blood Cell Count 3.85 M/mm3 (4.30-5.90); White Blood Cell Count 8.46 K/mm3 (4.00-11.30)
[2021-12-02 06:28] LABS: Bun/Creatinine Ratio 28.5 (12.0-20.0); Calcium, Blood 8.6 mg/dL (8.5-10.1); Creatinine, Blood 0.84 mg/dL (0.60-1.20)
--- NOTE | 2021-12-02 12:38 | NUR ---
MD CALL PT ON [facility] SOFT DIET, NOT ADA. DR DISLA CALLED AND TELEPHONE ORDER TO CHANGE DIET TO ADA [facility] SOFT. ORDER PLACED IN [facility].
--- NOTE | 2021-12-02 14:08 | NUR ---
MD CALL MR ALBERTA VERBALISED HIS ANNOYANCE THAT HE IS ON A MECHANICAL SOFT DIET AND SAID HE WANTS TO EAT SOLID FOOD. DR DISLA CALLED AND REGULAR ADA DIET ORDERED. TELEPHONE ORDER GIVEN AND PLACED IN [employer]
--- NOTE | 2021-12-02 18:33 | NUR ---
SHIFT SUMMARY MR PINZON IS ALERT, ORIENTATED X 4. C/O RIGHT LEG DISCOMFORT, BUT HAS NOT WANTED TO TAKE ANALGESIA TODAY. NO RESP DISTRESS ON ROOM AIR, DID REQUEST INHALER AND RT CAME TO ADMINISTER. RIGHT LEG WOUND WOUND VAC DRESSING CHANGED BY MD. MINIMAL SANGUINOUS OUTPUT TO WOUND VAC. LARGE AMOUNT OF URINE OUTPUT TO GOLDEN CATHETER. GOOD PO INTAKE, GOOD APPETITE. C/O CONSTIPATION, GIVEN ORAL MEDS TODAY WITH +VE FLATUS, NO BM YET. SAT OUT IN CHAIR TODAY, 2 PERSON ASSIST WITH GAIT BELT AND WALKER BACK INTO BED. PIVOT ONLY. MEPILEX TO SACRUM - PREVENTATIVE. BED LOW, CALL LIGHT IN REACH.
--- NOTE | 2021-12-03 05:21 | NUR ---
SHIFT SUMMARY AOX4. VSS. TELE A FLUTTER HR 92. REPORTS PAIN IN R STUMP & LLE. STATES CHRONIC N/T TO BLE. MEDICATED 1X c NORCO & PT ABLE TO REST WELL T/O NIGHT. DENIES DYSPNEA, N/V. HS CBG @159. SCATTERED EDEMA T/O BODY. NONPITTING EDEMA SCATTERED T/O. WOUND VAC DRESSING C/D/I, PER REPORT DRESSING CHANGED 12/02/21 DAY SHIFT. CHICO PATENT & DRAINING. CALL LIGHT IN REACH & PT ABLE TO MAKE NEEDS KNOWN. WILL MONITOR.
[2021-12-03 06:14] LABS: Hematocrit 26.4 % (37.0-53.0); Hemoglobin 7.3 g/dL (13.5-17.5); Mean Corpuscular HGB 18.6 pg (26.0-34.0); Mean Corpuscular HGB Conc 27.7 g/dL (31.5-36.5); Mean Corpuscular Volume 67 fL (80-100); Mean Platelet Volume 9.9 fL (9.1-12.4); Platelet Count 210 K/mm3 (150-400); RDW Coefficient Variation 22.3 % (11.7-14.2); RDW Standard Deviation 45.4 fL (35.1-46.3); Red Blood Cell Count 3.92 M/mm3 (4.30-5.90); White Blood Cell Count 6.32 K/mm3 (4.00-11.30)
[2021-12-03 06:34] LABS: Bun/Creatinine Ratio 28.9 (12.0-20.0); Creatinine, Blood 0.87 mg/dL (0.60-1.20); Magnesium, Blood 2.1 mg/dL (1.6-2.4)
--- NOTE | 2021-12-03 15:21 | NUR ---
RN NOTE MR PINZON IS A&O X4. NORCO EFFECTIVE TO TAKE THE EDGE OFF HIS LEG PAIN THIS MORNING. RESP CALLED FOR INHALER PER PT REQUEST HE SAID HE FELT SOB, BIT NO DISTRESS NOTED, TALKING IN FULL SENTENCES WITH RESP RATE IN THE TEENS. NO FURTHER C/O FEELING SOB. NON-PRODUCTIVE COUGH. NO BM YET, HAS TAKEN MIRILAX THIS AM. R STUMP DRESSING LEFT UNCHANGED, C,D,I TO WOUND VAC. GOOD APPETITE, REQUESTING DOUBLE TRAYS. BLOOD SUGARS 148 AND 292 SO FAR THIS SHIFT. WORKED WITH PT TODAY. SAT UP ON THE EDGE OF THE BED AND TURNING IN BED BETTER THAN YESTERDAY. BED LOW, CALL LIGHT IN REACH.
--- NOTE | 2021-12-03 18:32 | NUR ---
SHIFT SUMMARY PLEASE SEE RN NOTE FROM 1530. NO MAJOR CHANGES SINCE NOTE. TELE AFLUTTER PER TELETECH. BED LOW, CALL LIGHT IN REACH.
--- NOTE | 2021-12-04 05:04 | NUR ---
SHIFT SUMMARY AOX4. VSS. TELE AFLUTTER HR 80. REPORTS PAIN IN R STUMP/ALLOVER BODY, MEDICATED 1X c NORCO & PT SLEPT WELL T/O NIGHT. DENIES N/V OR DYSPNEA. +1 EDEMA SCATTERED T/O BODY. R BKA WOUND VAC PATENT c SM AMOUNT SANGINOUS DRAINAGE. HS CBG @222. UP TO BSC c 2PER ASSIST GB FWW, STAND PIVOT TRANSFER. HAD XXL FORMED BM TONIGHT. CALL LIGHT IN REACH, WILL MONITOR.
--- NOTE | 2021-12-04 10:29 | NUR ---
AM NOTE PT A&OX4. R STUMP DRESSING C,D&I TO WOUND VAC WITH SMALL S/S OUTPUT. C/O PAIN WHEN ASKED TO R LEG, NO ANALGESIS DESIRED SO FAR THIS SHIFT. RT CALLED FOR INHALERS, PT TALKING IN FULL SENTENCES, SATS GOOD ON RA, FEELING LIKE HE NEEDED INHALERS. ON TELE AFLUTTER/BBB PER LAST POSTED STRIP [id number]. BED LOW, CALL LIGHT IN REACH.
[2021-12-04 13:03] LABS: Bun/Creatinine Ratio 33.9 (12.0-20.0); Calcium, Blood 9.1 mg/dL (8.5-10.1); Creatinine, Blood 0.83 mg/dL (0.60-1.20)
--- NOTE | 2021-12-04 18:22 | NUR ---
SHIFT SUMMARY MR PINZON IS A&OX4. REQUESTED INHALER THIS AM, BUT NO FURTHER C/O NEED FOR INHALER OR SOB. ON TELE IN AFLUTTER, NO ALERTS FROM TT. GOLDEN IN PLACE WITH LARGE CLEAR YELLOW OUTPUT, PT STILL HAS GENERALISED EDEMA AND SCROTAL EDEMA. GOOD APPETITE, ACCUCHECKS 170-246 THIS SHIFT. R STUMP DRESSING LEFT UNDISTURBED, C,D,I CONNECTED TO WOUND VAC W SMALL SS DRAINAGE. 2 PERSON SB ASSIST WITH WALKER AND GAIT BELT TO THE CHAIR TODAY, HE STOOD AND TRANSFERED WELL. BED LOW, CALL LIGHT IN REACH.
[2021-12-04 19:13] LABS: Vancomycin, Trough 15.8 ug/mL (5.0-10.0)
--- NOTE | 2021-12-05 05:22 | NUR ---
SHIFT SUMMARY NO ACUTE CHANGES THIS SHIFT. AOX4. VSS. TELE NSR @87. REPORTS PAIN IN R BKA & ALLOVER BODY, MEDICATED 1X c NORCO & PT ABLE TO REST WELL T/O NIGHT. DENIES N/V OR DYSPNEA. WOUND VAC DRESSING ON R BKA PATENT & C/D/I c SMALL AMOUNT SANGUINOUS DRAINAGE. TRACE TO +1 EDEMA IN R BKA, HAS DECREASED FROM PREVIOUS DAY. DEPENDENT EDEMA TO BILAT HIPS. GOLDEN PATENT c MOD AMOUNT YELLOW URINE. PT STATES HE FEELS STRONGER THEN PREVIOUS DAY. AWAITING SNF PLACEMENT. CALL LIGHT & BED ALARM IN PLACE. WILL MONITOR.
[2021-12-05 09:06] LABS: Bun/Creatinine Ratio 25.4 (12.0-20.0); Calcium, Blood 9.1 mg/dL (8.5-10.1); Creatinine, Blood 0.87 mg/dL (0.60-1.20)
--- NOTE | 2021-12-05 17:09 | NUR ---
SHIFT SUMMARY PT WORKED WITH PT/OR TODAY. UP TO CHAIR FOR A FEW HOURS TODAY. 2P ASSIST STAND PIVOT. WOUND VAC CHANGED TODAY BY DR. SKINNER. PT AWAITING PLACEMENT AT [facility]. GOLDEN IN PLACE AND PATENT. DR. HOLBROOK WILL REEVAL NEED FOR IT TOMORROW. NO OTHER ACUTE CHANGES IN ASSESSMENT AT THIS TIME. VS REVIEWED. CALL LIGHT IN REACH.
--- NOTE | 2021-12-06 04:37 | NUR ---
SHIFT SUMMARY AOX4. VSS. TELE A FLUTTER c BBB @107. REPORTS 01/25 PAIN IN R STUMP, MEDICATED 1X c NORCO & PAIN LEVEL DECREASED TO 11/25. WOUND VAC DRESSING CHANGE PER MD ON DAY SHIFT YESTERDAY, STILL C/D/I, CHANGED CANISTER-SMALL AMOUNT SANGUINOUS DRAINAGE. 2 ASSIST c GB/FWW STAND PIVOT TO [facility], HAD XL BM TONIGHT. AWAITING SNF PLACEMENT. WILL MONITOR.
[2021-12-06 05:42] LABS: Bun/Creatinine Ratio 29.5 (12.0-20.0); Creatinine, Blood 0.85 mg/dL (0.60-1.20); Potassium, Blood 3.7 mmol/L (3.5-5.5)
--- NOTE | 2021-12-06 16:47 | NUR ---
SHIFT SUMMARY PT AxOx4. PT REPORTS DECREASED SWELLING OVERALL. PHYSICAL AND OCCUPATIONAL THERAPY IN TO WORK WITH PATIENT THIS SHIFT. TELE RUNNING SINUS TACH AT 110. DR ORDERED DC GOLDEN TODAY AND DC TELE. PT RESISTENT TO TAKE GOLDEN OUT D/T HIGH VOLUME OF URINE OUTPUT. APPROVED ONE MORE NIGHT WITH GOLDEN CATHETER AND WILL RE-EVALUATE IN THE AM. DR SKINNER IN FOR FOLLOW UP, WILL CHANGE DRESSING ON WOUND VAC TOMORROW. PT HAD BED BATH THIS SHIFT. PT DECLINES PAIN MEDS THIS SHIFT. PT RECEIVING IV ANTIBIOTICS. PT CURRENTLY SITTING IN BED WITH CALL LIGHT IN REACH. DENIES ANY NEEDS AT THIS TIME.
--- NOTE | 2021-12-07 04:54 | NUR ---
SHIFT SUMMARY A/OX4, 2P ASSIST WITH FWW AND GB TO BSC. GOLDEN PATENT AND DRAINING CLEAR YELLOW URINE. C/O PHANTOM PAIN TO R. STUMP, MEDICATED PER EMAR. VSS, NO ACUTE CHANGES AT THIS TIME. BED IN LOWEST POSITION WITH CALL LIGHT IN REACH. WILL CONTINUE TO MONITOR AND REPORT TO ONCOMING RN.
[2021-12-07 06:03] LABS: Bun/Creatinine Ratio 32.4 (12.0-20.0); Creatinine, Blood 0.86 mg/dL (0.60-1.20)
--- NOTE | 2021-12-07 18:44 | NUR ---
PATIENT A/OX4, UP WITH PIVOT TRANSFER TO CHAIR WITH FWW, GB AND 2 ASSIST. WOUND VAC CHANGED THIS EVENING BY DR. SKINNER AND DRESSING REMAINS C/D/I. GOLDEN D/C'D THIS AM AND PATIENT IS VOIDING. TOLERATING ADA DIET. ACHS BLOOD SUGARS, INSULIN ADJUSTED THIS SHIFT FOR BETTER CONTROL. DENIES ANY NEED FOR PAIN MEDICATION THIS SHIFT. CALM AND COOPERATIVE WITH CARE.
[2021-12-07 19:23] LABS: Vancomycin, Trough 15.6 ug/mL (5.0-10.0)
--- NOTE | 2021-12-08 04:44 | NUR ---
SHIFT SUMMARY A/OX4, 2P ASSIST WITH GB AND FWW TO BSC/CHAIR. IND WITH URINAL. C/O PHANTOM PAIN TO R. STUMP, MEDICATED PER EMAR. WOUND VAC IN PLACE. VSS, NO ACUTE CHANGES AT THIS TIME. BED IN LOWEST POSITION WITH CALL LIGHT IN REACH. WILL CONTINUE TO MONITOR AND REPORT TO ONCOMING RN.
[2021-12-08 06:15] LABS: Bun/Creatinine Ratio 35.7 (12.0-20.0); Calcium, Blood 9.2 mg/dL (8.5-10.1); Creatinine, Blood 0.92 mg/dL (0.60-1.20); Potassium, Blood 3.8 mmol/L (3.5-5.5)
--- NOTE | 2021-12-08 17:37 | NUR ---
PATIENT A/OX4, UP WITH FWW AND 1-2 ASSIST TO CHAIR. NO ACUTE CHANGES THIS SHIFT. VSS, ON RA. WOUND VAC DRESSING REMAINS C/D/I. DR. SKINNER DOING DRESSING CHANGES. LAST DRESSING CHANGE WAS ON 12/07/21. GOLDEN D/C'D YESTERDAY AND PATIENT IS USING A URINAL TO VOID. ACHS BLOOD SUGARS, CBG'S BETTER CONTROLLED TODAY. PATIENT IS AWAITING PLACEMENT AT A SNF.
[2021-12-09 05:06] LABS: Bun/Creatinine Ratio 37.5 (12.0-20.0); Calcium, Blood 9.4 mg/dL (8.5-10.1); Creatinine, Blood 1.04 mg/dL (0.60-1.20); Potassium, Blood 3.9 mmol/L (3.5-5.5)
--- NOTE | 2021-12-09 07:39 | NUR ---
PT C/O PAIN TO THE R STUMP. MEDICATED PER AUG. PT ALSO C/O FEELING LIKE HE HAS A "COLD." NO FEVER NOTED. WOUND VAC IN PLACE. PER PT TO CHANGE DRESSING TODAY.
--- NOTE | 2021-12-09 12:27 | NUR ---
Mid Shift Summary A/Ox4, pleasant and cooperative. Up to EOB independenty. Calls for needs appropriately. Good appetite. Medicated for RLE pain per EMAR with good effect. Voiding well, using urinal independently. Wound vac on continuous suction, dressing planned to be changed by Dr. Roche this afternoon. R BKA still appears swollen and ecchymotic.
--- NOTE | 2021-12-09 17:17 | NUR ---
AFTERNOON SHIFT SUMMARY- PT DANGLE ON SIDE OF BED. PT VOIDING OFTEN WITH FEMALE URINAL FOR COMFORT, SEE EMAR FOR AMOUNT. PT WITH IN ROOM. VSS. PT TALKATIVE AND COOPERATIVE WITH ALL CARE. A&O X3. PT RESTING IN BED WITH CALL LIGHT IN REACH, SIDE RAILS UP.
[2021-12-10 05:18] LABS: Bun/Creatinine Ratio 36.9 (12.0-20.0); Calcium, Blood 9.3 mg/dL (8.5-10.1); Creatinine, Blood 1.03 mg/dL (0.60-1.20); Potassium, Blood 3.8 mmol/L (3.5-5.5)
--- NOTE | 2021-12-10 06:43 | NUR ---
PT C/O DRY COUGH AND REQUESTING SOMETHING FOR IT. NOTIFIED WITH ORDER PER AUG. PT WITH PAIN TO RBKA AND MEDICATED PER AUG. PT HAD ONE EPISODE OF INCONTINENCE DUE TO NOT BEING ABLE TO GET THE URINAL FAST ENOUGH. PT AT THIS TIME STATING THAT THIS IS THE REASON HE DIDN'T WANT HIS GOLDEN PULLED OUT. PT EDUCATED ON RISK OF CAUTI AND IMPORTANCE OF GETTING HIS BLADDER TO FUNCTION W/O GOLDEN. PT UNDERSTANDING HOWEVER FRUSTRATED.
--- NOTE | 2021-12-10 16:25 | NUR ---
PT CAN MAKE NEEDS KNOWN, REQUIRES ASSISTANCE WITH SOME NEEDS D/T RBKA. COOPERATING WITH MEDICATION AND CARE. NO SIGNS OF PAIN, ANXIETY, OR AGGRESSION. NO ACUTE CHANGES. CALL LIGHT WITHIN REACH, BED IN LOWEST POSITION.
--- NOTE | 2021-12-10 17:25 | NUR ---
PT IS REFUSING AFTERNOON VITAL SIGNS, BG MEASUREMENT, AND MEDICATION. PT WILL NOT STATE WHY, HE IS CURRENTLY REFUSING TO TALK WITH STAFF.
[2021-12-10 19:41] LABS: Vancomycin, Trough 17.1 ug/mL (5.0-10.0)
[2021-12-11 05:05] LABS: Hemoglobin 8.1 g/dL (13.5-17.5); Mean Corpuscular HGB Conc 27.9 g/dL (31.5-36.5); Mean Corpuscular Volume 71 fL (80-100); Platelet Count 109 K/mm3 (150-400); RDW Coefficient Variation 27.6 % (11.7-14.2); RDW Standard Deviation 67.2 fL (35.1-46.3); Red Blood Cell Count 4.06 M/mm3 (4.30-5.90); White Blood Cell Count 6.35 K/mm3 (4.00-11.30)
[2021-12-11 05:18] LABS: Mean Platelet Volume 10.4 fL (9.1-12.4)
[2021-12-11 05:22] LABS: Bun/Creatinine Ratio 40.9 (12.0-20.0); Calcium, Blood 9.2 mg/dL (8.5-10.1); Creatinine, Blood 0.98 mg/dL (0.60-1.20); Potassium, Blood 4.1 mmol/L (3.5-5.5)
--- NOTE | 2021-12-11 05:47 | NUR ---
PT A/OX4 AND ABLE TO MAKE NEEDS KNOWN. PT EXPRESSING CONCERN REGARDING RIGHT STUMP "LOOKING MORE SWOLLEN, RED AND LOOKING INFECTED." PT REQUESTING THAT PREFERABLY ORTHOPEDIC MD BE ABLE TO TAKE A LOOK AT LEG SOMETIME TODAY. OTHERWISE PT W/O ANY NEW COMPLAINS. CONTINUES TO HAVE DRY COUGH AND MEDICATED PER AUG.
--- NOTE | 2021-12-11 20:51 | NUR ---
PT TRANSFERED TO ROOM 330. PT A/OX4, WITH NO NEW COMPLAINS. MEDICATED PER AUG.
--- NOTE | 2021-12-12 05:33 | NUR ---
REPORT RECIEVED FROM JIM, PT MOVED TO ROOM 330. WOUND VAC WNL, VSS. 0500 PT CALLED NURSE INTO ROOM STATING HE HAD FALLEN WHILE USING THE URINAL. PT WAS SITTING AT THE SIDE OF THE BED AND FELL ASLEEP. PT HAD BEEN SITTING AT THE SIDE OF THE BED INDEPENDENTLY FOR THE LAST FEW DAYS. PT STATED PAIN PRIOR TO FALL WAS 8/10 AND 10/10 POST FALL. LARGE AMOUNT OF BLOOD NOTED ON FLOOR AND DRESSING WAS TORN. CHARGE NURSE BECKY REDRESSED WOUND VAC, PHOTO TAKEN OF LEG FOR CHART. PT STATES HIS WOUND IS MORE OPEN SINCE THE LAST DRESSING CHANGE. DR SANDS CALLED. POST FALL ASSESSMENT DONE.
[2021-12-12 09:32] LABS: BASOPHILS ABSOLUTE AUTO 0.04 K/mm3 (0.00-0.23); BASOPHILS PERCENT AUTO 1 % (0-2); EOSINOPHILS ABSOLUTE AUTO 0.03 K/mm3 (0.00-0.68); EOSINOPHILS PERCENT AUTO 1 % (0-6); Hematocrit 29.8 % (37.0-53.0); Hemoglobin 8.4 g/dL (13.5-17.5); IMMATURE GRAN ABSOLUTE AUTO 0.03 K/mm3 (0.00-0.10); IMMATURE GRAN PERCENT AUTO 1 % (0-1); LYMPHOCYTES ABSOLUTE AUTO 0.46 K/mm3 (0.84-5.20); LYMPHOCYTES PERCENT AUTO 8 % (21-46); MONOCYTES ABSOLUTE AUTO 0.53 K/mm3 (0.16-1.47); MONOCYTES PERCENT AUTO 10 % (4-13); Mean Corpuscular HGB 20.2 pg (26.0-34.0); Mean Corpuscular HGB Conc 28.2 g/dL (31.5-36.5); Mean Corpuscular Volume 72 fL (80-100); NEUTROPHILS ABSOLUTE AUTO 4.36 K/mm3 (1.96-9.15); NEUTROPHILS PERCENT AUTO 80 % (41-73); Platelet Count 98 K/mm3 (150-400); RDW Coefficient Variation 27.5 % (11.7-14.2); RDW Standard Deviation 67.7 fL (35.1-46.3); Red Blood Cell Count 4.15 M/mm3 (4.30-5.90); White Blood Cell Count 5.45 K/mm3 (4.00-11.30)
[2021-12-12 09:47] LABS: Calcium, Blood 9.2 mg/dL (8.5-10.1); Creatinine, Blood 0.83 mg/dL (0.60-1.20); Potassium, Blood 3.7 mmol/L (3.5-5.5)
--- NOTE | 2021-12-12 17:59 | NUR ---
PATIENTS MOOD IS LABILE. PATIENT IS SHORT WITH STAFF AND BECOMES RUDE IF HE ISN'T GIVEN WHAT HE WANTS. HE REQUESTED IV PAIN MEDICATION. HE WAS TOLD THAT THE PROVIDER NEEDED TO BE CONTACTED BECAUSE THE ORDER FOR IV PAIN MED IS OLD. A CALL WAS PLACED TO DR. DISLA AND ANSWERING SERVICE PICKED UP. MESSAGE WAS LEFT ON FOR A CALL BACK. HE WAS OFFERED PO PAIN MED AND STATED IF HE COULDN'T HAVE THE IV PAIN MEDICINE, HE DID NOT WANT ANYTHING. AFTER PATIENT REQUESTED THE IV PAIN MEDICINE, AND DENIED IT, HE WENT TO SLEEP. HE WAS NOT SHOWING SIGNS OF PAIN SUCH GRIMMACING, GRUNTING, GUARDING, POSITIONING. BLOOD SUGARS WITH EACH MEAL HAVE NEEDED COVERAGE. PATIENT SAT UP IN HIS CHAIR DURING THE MORNING, AND THEN LAID BACK DOWN IN THE AFTERNOON. HE REQUESTED EXTRA AND SPECIFIC FOOD AFTER SERVED BREAKFAST AND DINNER TRAYS. HE IS CURRENTLY EATING DINNER, WAITING FOR HIS EXTRA SALAD. MOOD IS SOMEWHAT PARANOID HE TALKS ABOUT STAFF "GOSSIPING" ABOUT HIM IN THE HALLWAY. HE WAS REASSURED THAT THIS WAS NOT THE CASE, BUT DOES NOT BELIEVE STAFF.
--- NOTE | 2021-12-13 05:54 | NUR ---
PT HAVING AUDITORY AND VISUAL HALLUCINATIONS THIS AM STATING THAT "HE'S HEARING AND SEEING BUGS FALLING FROM HIS HAIR". CBG CHECKED, NOW 83 SO SNACK WAS PROVDIDED. WCTM AND REEVALUATE.
--- NOTE | 2021-12-13 06:08 | NUR ---
SUMMARY: PT CONT'S ORIENTED W/INTERMITTENT CONFUSION, BIZARRE SPEECH AND LABILE MOOD. HE CAN BE IRRITABLE AND SHORT W/STAFF AT TIMES WHILE OTHERWISE IS PLEASANT AND COOPERATIVE. HE HAD HALLUCINATIONS THIS AM POSSIBLY R/T CBG 83, SNACK PROVIDED AND WILL REEVALUATE. AntonioBKA WOUND VAC DX W/SUCTION REMAINS C/D/I AND HEMOSANGUINOUS DRAINAGE OBSERVED. ROUNDED AND SAID SHE'D PERFORM NEXT DX CHANGE ON SUNDAY. SAMIRA RECIEVED X2 DOSES FOR TOLERABLE RELIEF OF STUMP PAIN AND IV ABX PROVIDED PER EMAR. BED ALARM REMAINED ON T/O NOCTE D/T FALL YESTERDAY MORNING. STAFF ASSISTED WHENEVER PT WAS OOB AND BEDBATH WAS PROVIDED THIS SHIFT. ATTENDS CHANGED PRN AND HE USED URINAL INDEPENDENTLY AT EOB. NO ACUTE CHANGES, VSS/AFEBRILE. WCTM/REPORT TO DAY RN.
[2021-12-13 06:11] LABS: Bun/Creatinine Ratio 39.4 (12.0-20.0); Calcium, Blood 9.1 mg/dL (8.5-10.1); Creatinine, Blood 0.84 mg/dL (0.60-1.20); Potassium, Blood 3.6 mmol/L (3.5-5.5)
--- NOTE | 2021-12-13 16:36 | NUR ---
SHIFT SUMMARY PT A&O X4 AND MOOD UP AND DOWN T/O SHIFT. PT IRRITATED WHEN ARRIVING THIS AM, PT C/O CARE PROVIDED OVERNIGHT, NOT HAVING GOOD PAIN COVERAGE, NOT HAPPY W/ FOOD PROVIDED/ REQUEST FOR DIFFERENT FOOD ON PREVIOUS SHIFT, BUT DENIED. PT STATES HE FEELS BETTER AFTER VENTING. COMPRESSION STOCKING APPLIED TO LLE. VSS. CALL LIGHT W/IN REACH. BED ALARM ON. IN TO SEE PT T/O VISITING HOURS. WORKED W/ PHYSICAL THERAPY, MEDICATED FOR PAIN PRIOR.
[2021-12-13 19:27] LABS: Vancomycin, Trough 16.6 ug/mL (5.0-10.0)
--- NOTE | 2021-12-14 04:58 | NUR ---
A&OX4. TACHY AT TIMES; ALL OTHER V/S WNL. IV TO R) FOREARM. 2-ASSIST WITH FWW &GB. VERBALLY ABUSIVE OR INNAPROPRIATE TOWARD STAFF AT TIMES. IMPULSIVE. VOIDS PER URINAL W/O DIFFICULTY. NORMAL BM THIS SHIFT. PRN ATARAX FOR ANXIETY & PRN MORPHINE X2 FOR PAIN TO STUMP PER EMAR. CONTACT PRECAUTIONS: MRSA. DRESSING TO R) STUMP CDI WITH WOUND VAC. WOUND VAC CANNISTER REPLACED. ADA DIET. ACELIZABETH AC&HS; HS ACUCHECK: 199. WILL CONTINUE TO MONITOR.
--- NOTE | 2021-12-14 18:43 | NUR ---
NO ACUTE CHANGES THIS SHIFT, PATIENT CONTINUES TO AWAIT PLACEMENT. WOUND VAC CHANGED THIS SHIFT, AND REMAINS C/D/I WITH GOOD SUCTION. PATIENT IRRITABLE AND UP SET THIS AM ABOUT HIS DIURETIC AND VOIDING. CALMED THIS AFTERNOON AND HAS BEEN PLEASANT AND COOPERATIVE. 20G IV TO L FA WNL AND SL. BLOOS SUGARS ACHS, COVERAGE PER SS AND MEAL COVERAGE. VSS, ON RA. FALL PRECAUTION IN PLACE.
--- NOTE | 2021-12-15 04:41 | NUR ---
A&OX4. V/S WNL. 2-ASSIST WITH FWW & GB. IV TO L)FA. ADA DIET. ACUCHECKS AC&HS. HS ACUCHECK: 288. 1 UNIT OF HUMALOG GIVEN PER SLIDING SCALE. CONTINENT/INCONTINENT OF URINE AT TIMES. BRIEFS IN PLACE. DRESSING TO R) STUMP C/D/I WITH WOUND VAC IN SITU AND SUCTIONING. MODERATE SANGUINEOUS EXUDATE. NO BM THIS SHIFT. PRN MORPHINE IV MORPHINE GIVEN X2P FOR PAIN. PRN ATARAX GIVEN FOR ANXIETY. WILL CONTINUE TO MONITOR.
[2021-12-15 06:28] LABS: Bun/Creatinine Ratio 39.1 (12.0-20.0); Calcium, Blood 9.1 mg/dL (8.5-10.1); Creatinine, Blood 1.15 mg/dL (0.60-1.20); Potassium, Blood 5.1 mmol/L (3.5-5.5)
--- NOTE | 2021-12-15 17:16 | NUR ---
LOW BLOOD SUGAR PT'S BG PRIOR TO DINNER WAS 66. GAVE 1 OJ AND WILL RE-CHECK IN 15 MINS.
--- NOTE | 2021-12-15 17:23 | NUR ---
BLOOD SUGAR BG AFTER 2 OJ'S CAME UP TO 73 15 MINS AFTER TREATING BG 0F 66.
--- NOTE | 2021-12-15 17:48 | NUR ---
SHIFT SUMMARY & BLOOD SUGAR PT'S BG IS NOW UP TO 122. HE IS NOW EATING HIS DINNER SITTING ON EDGE OF BED. PT IS A&O X 3. IS CONFUSED & FORGETFUL AT TIMES. IS PLEASANT & COOPERATIVE WITH HIS CARE. WOUND VAC DRESSING C/D/I/PATENT, NO AIR LEAKS TO WOUND VAC SXN AT 120. SCANT AMOUNT OF SEROUSANGUINOUS DRAINAGE IN CANISTER. HE PARTICIPATED WITH PT & OT TODAY AND SAT UP IN THE CHAIR FOR A FEW HOURS TODAY. HE IS 1 PERSON MIN ASSIST WITH WALKER TO [facility]. HE MANUEVERING & REPOSITIONING HIMSELF IN THE BED TO SATISFY HIS COMFORT.
[2021-12-16 05:37] LABS: Calcium, Blood 9.3 mg/dL (8.5-10.1); Creatinine, Blood 1.04 mg/dL (0.60-1.20)
--- NOTE | 2021-12-16 05:39 | NUR ---
PT IS A/O, MEDICATED FOR PAIN THIS SHIFT FROM RBKA, WOUNDVAC IN PLACE TO SWOLLEN RED STUMP. PT USES BSC OR URINAL, PLEASANT THIS SHIFT.
--- NOTE | 2021-12-16 13:06 | NUR ---
Called to pt room by physician. Pt requested to know what behavior he was displaying that was causing issues with the nursing staff. He states he is concerned that medications may be causing him to hallucinate and have no recollection of behaviors. Will follow up with both nurse and physician.
--- NOTE | 2021-12-16 19:01 | NUR ---
SHIFT SUMMARY PT A&O X 4. VSS. WOUND VAC DRESSING CHANGED TODAY. NO AIR LEAKS. DRESSING C/D/I/PATENT. PLAN IS FOR POSSIBLE DC WITH NEXT WEEK.
[2021-12-16 19:26] LABS: Vancomycin, Trough 17.7 ug/mL (5.0-10.0)
--- NOTE | 2021-12-16 19:55 | NUR ---
PT IS REFUSING NORCO FOR PAIN, YELLING THAT HE WANTS "HIS SHOT" DR PHILIP CALLED TO NOTIFY AND VERBAL OK IS GIVEN TO GIVE PT IV MORPHINE INSTEAD OF NORCO FOR PAIN AT THIS TIME.
--- NOTE | 2021-12-17 05:38 | NUR ---
PT WAS IRRITABLE AT START OF SHIFT REFUSING NORCO AND DEMANDING IV MORPHINE INSTEAD. MORE PLEASANT AND AGREEABLE T/O SHIFT. WOUNDVAC TO RBKA LAST CHANGED 12/16. PT HAS MEPILEX TO SACRUM. CM PLANNING TO D/C WITH HH.
--- NOTE | 2021-12-17 11:42 | NUR ---
MR ALBERTA TOLD ME THAT HE HAS EXPERIENCED VISUAL HALLUCINATIONS THAT HE ASSOCIATES WITH [employer]. HE TOLD MD THIS MORNING WHO SPENT TIME TALKING WITH HIM. HE DENIES HALLUCINATIONS TODAY. C/O R STUMP CONTINUOUS PAIN, BUT HAS NOT WANTED PAIN MEDS YET THIS SHIFT. WOUND VAC TO STUMP WOUND. BOTH LEGS ARE DARK RED IN COLOR WITH FIRM LE SWELLING BELOW KNEES. GOOD APPETITE. MOVING INDEPENDENTLY IN BED. ENCOURAGED TO USE THE CALL LIGHT AND ASK FOR ASSISTANCE TO PREVENT FALLS. BED LOW, CALL LIGHT IN REACH.
--- NOTE | 2021-12-17 12:09 | NUR ---
PT SAID THAT HE JUST HAD A VISUAL HALLUCINATION, SAW STAFF MEMBER IN HIS ROOM, THEN REALISED THAT NOONE WAS THERE. GIVEN TORADOL IV NAD SCHEDULED TYLENOL FOR 8/10 STUMP PAIN.
--- NOTE | 2021-12-17 19:24 | NUR ---
SHIFT SUMMARY MR PINZON IS ALERT, ORIENTATED X4. RIGHT STUMP DRESSING C,D&I TO WOUND VAC. BLE SWELLING AND REDNESS PER PRIOR NOTE. PAIN TO R STUMP, DISCUSSED WITH MD TODAY AND PAIN REGIME CHANGED. TYLENOL GIVEN SCHEDULED AND TORADOL GIVEN AT NOON. HE SAID HIS PAIN IS DOWN TO 6/10 WHICH HE SAID IS GOOD FOR HIM. HE WAS CONCERNED ABOUT HALLUCINATIONS AND DID HAVE HALLUCINATIONS THIS MORNING ( NOTED) BUT NONE THIS AFTERNOON OR EVENING. BED LOW, CALL LIGHT IN REACH, PT ENCOURAGED TO CALL FOR ASSISTANCE FOR SAFETY.
[2021-12-18 05:39] LABS: Albumin, Blood 2.8 g/dL (3.4-5.0); Albumin/Globulin Ratio 0.7 (0.8-1.8); Bilirubin, Total 0.6 mg/dL (0.1-1.0); Bun/Creatinine Ratio 40.6 (12.0-20.0); Calcium, Blood 8.8 mg/dL (8.5-10.1); Creatinine, Blood 1.28 mg/dL (0.60-1.20); Globulin, Blood 3.8 g/dL (2.2-4.0); Potassium, Blood 3.9 mmol/L (3.5-5.5); Total Protein, Blood 6.6 g/dL (6.4-8.2)
--- NOTE | 2021-12-18 06:19 | NUR ---
SHIFT SUMMARY NO ACUTE CHANGES THIS SHIFT. AOX4. VSS. REPORTS 8-10 PAIN IN R BKA, MEDICATED c SCHEDULED TYLENOL & PRN TORADOL, PT ABLE TO REST WELL. WOUND VAC PATENT & C/D/I c SCANT AMOUNT SANGUINOUS DRAINAGE IN CANISTER. PT ABLE TO STAND UP IND c FWW, GB & MOVE 3-4 STEPS ON L FOOT THEN MOVE BACK TO BED & SIT. SBY TO 1 ASSIST. AWAITING SAFE DC PLAN. CALL LIGHT IN REACH & PT ABLE TO MAKE NEEDS KNOWN. WILL MONITOR.
--- NOTE | 2021-12-18 18:00 | NUR ---
SHIFT SUMMARY PT ALERT AND ORIENTED, FOLLOWS COMMANDS. WOUND VAC IN PLACE. PT RECEIVED SCHEDULED AND PRN PAIN MEDICATION FOR R BKA WOUND. PENDING H/H ARRANGEMENTS TO BE SET UP. WILL CONTINUE TO MONITOR.
[2021-12-19 05:38] LABS: BASOPHILS ABSOLUTE AUTO 0.04 K/mm3 (0.00-0.23); BASOPHILS PERCENT AUTO 1 % (0-2); EOSINOPHILS ABSOLUTE AUTO 0.15 K/mm3 (0.00-0.68); EOSINOPHILS PERCENT AUTO 3 % (0-6); Hematocrit 28.7 % (37.0-53.0); Hemoglobin 8.5 g/dL (13.5-17.5); IMMATURE GRAN ABSOLUTE AUTO 0.02 K/mm3 (0.00-0.10); IMMATURE GRAN PERCENT AUTO 0 % (0-1); LYMPHOCYTES ABSOLUTE AUTO 1.02 K/mm3 (0.84-5.20); LYMPHOCYTES PERCENT AUTO 19 % (21-46); MONOCYTES ABSOLUTE AUTO 0.35 K/mm3 (0.16-1.47); MONOCYTES PERCENT AUTO 6 % (4-13); Mean Corpuscular HGB 20.1 pg (26.0-34.0); Mean Corpuscular HGB Conc 29.6 g/dL (31.5-36.5); Mean Corpuscular Volume 68 fL (80-100); Mean Platelet Volume 9.2 fL (9.1-12.4); NEUTROPHILS ABSOLUTE AUTO 3.88 K/mm3 (1.96-9.15); NEUTROPHILS PERCENT AUTO 71 % (41-73); Platelet Count 177 K/mm3 (150-400); RDW Coefficient Variation 25.2 % (11.7-14.2); RDW Standard Deviation 60.9 fL (35.1-46.3); Red Blood Cell Count 4.22 M/mm3 (4.30-5.90); White Blood Cell Count 5.46 K/mm3 (4.00-11.30)
[2021-12-19 06:13] LABS: Anion Gap 5 mmol/L (6-16); Blood Urea Nitrogen 54 mg/dL (8-24); Bun/Creatinine Ratio 46.6 (12.0-20.0); CO2, Blood 30 mmol/L (21-32); Calcium, Blood 9.1 mg/dL (8.5-10.1); Chloride, Blood 101 mmol/L (98-108); Creatinine, Blood 1.16 mg/dL (0.60-1.20); Glomerular Filtration Rate 70 (60-); Glucose, Blood 223 mg/dL (70-99); Phosphorus, Blood 2.9 mg/dL (2.5-4.9); Potassium, Blood 3.9 mmol/L (3.5-5.5); Sodium, Blood 136 mmol/L (136-145)
--- NOTE | 2021-12-19 06:25 | NUR ---
SHIFT SUMMARY NO ACUTE CHANGES THIS SHIFT. AOX4. HR SLIGHTLY TACHY 115-117, OTHERWISE VSS. REPORTS 7-8/10 PAIN IN R BKA, MEDICATED 2X c SCHEDULED TYLENOL & PT ABLE TO REST. DENIES N/V OR DYSPNEA. R BKA +1 EDEMA c WOUND VAC DRESSING C/D/I & SET TO CONT SUCTION. CALL LIGHT IN REACH & PT ABLE TO MAKE NEEDS KNOWN. WILL MONITOR.
--- NOTE | 2021-12-19 17:02 | NUR ---
SHIFT SUMMARY PT ALERT AND ORIENTED, FOLLOWS COMMANDS. PT UP OOB WITH PT WITH WALKER TODAY. WOUND VAC DRESSING CHANGED TODAY. SCHEDULED AND PRN PAIN MEDICATIONS ADMINISTERED THROUGHOUT DAY. PAIN AT COMFORTABLE LEVEL. WILL CONTINUE TO MONITOR.
[2021-12-19 19:44] LABS: Vancomycin, Trough 19.8 ug/mL (5.0-10.0)
--- NOTE | 2021-12-20 06:00 | NUR ---
SHIFT SUMMARY: A/OX4, STANDBY ASSIST TO BEDSIDE COMMODE. PATIENT HAD LARGE BOWEL MOVEMENT TONIGHT. CONTINUED DISCOMFORT IN RIGHT STUMP, TRAMADOL PROVIDED SOME RELIEF. REPOSITIONS SELF IN BED, CALLS APPROPRIATELY. WOUND VAC IN PLACE AND DRAINING.
--- NOTE | 2021-12-20 16:45 | NUR ---
NO VOID IN 4 HRS, COMPLETED BLADDER SCAN. PT WITH ONLY 161ML. WILL CONTINUE TO MONITOR.
--- NOTE | 2021-12-20 17:53 | NUR ---
SHIFT SUMMARY PT ALERT AND ORIENTED, FOLLOWS COMMANDS. WOUND VAC IN PLACE, CDI. SCHEDULED AND PRN PAIN MEDICATIONS ADMINISTERED. PENDING H/H, WOUND CARE, PREPARATION FOR D/C. WILL CONTINUE TO MONITOR.
--- NOTE | 2021-12-21 06:10 | NUR ---
SHIFT SUMMARY NO ACUTE CHANGES OVERNIGHT. AOX4. COOPERATIVE WITH CARE. WOUND VAC IN SUCTIONING WELL N R STUMP. VSS. DENIES CP, SOB, DIZZINESS, NUMBNESS AND TINGLING SENSATION. WOUND CARE SCHEDULED FORT TODAY. PLAN: PREPARING PT FOR DC WITH HOME HEALTH. PT SBA WITH FWW, USE BSC LAST NIGHT. PT REPORT PAIN ON R STUMP. PAIN MANAGED WITH TORADOL AND TYLENOL. CALL LIGHT WITHIN REACH. WILL PROVIDE REPORT TO ONCOMING NURSE.
--- NOTE | 2021-12-21 16:25 | NUR ---
SHIFT SUMMARY- PT A&O X3. PT IRRITATED AND CONFUSED AT TIMES. PT EASY TO REDIRECT DURING THIS SHIFT. PT AMBULATED WITH OT. PT UP IN CHAIR FOR HALF OF SHIFT. PT COMPLIANT WITH MEDS GIVEN. PT C/O PAIN TREATED PER EMAR. VSS. PT RESTING NOW WITH CALL LIGHT IN REACH.
--- NOTE | 2021-12-22 05:49 | NUR ---
SHIFT SUMMARY PT ALERT AND ORIENTED X4. BP STABLE. AFEBRILE. ON RA SATS OVER 98%. C/O R BKA PAIN, RELIEF PER EMAR. PT ATTEMPTS TO MOVE ON HIS OWN FREQUENTY, SPILLED COFFEE AND URINAL THIS EVENING. PT STATED HE ONLY SLEPT FROM MIDNIGHT TO 2 AND THIS IS HIS BASELINE. IN BED RESTING WITH CALL ALARM AT SIDE, WILL CONTINUE TO MONITOR UNTIL REPORT GIVEN TO DAYSHIFT RN
--- NOTE | 2021-12-22 17:59 | NUR ---
Met with pt today to discuss his return home tomorrow. He initially stated he thinks he hasn't been kept here in the hospital long enough. However, he also readily admits he doesn't want to stay here longer. Unfortunatly, the pt has been declined by SNF due to a previous stay. Pt's has filed an appeal, as she feels he needs more supervised PT, and states her health won't allow her to assist. Pt is agreeable to return home with PT if the appeal is denied, and I will make a referral to [facility] for this pt and his .
--- NOTE | 2021-12-22 18:44 | NUR ---
DAY SHIFT SUMMARY 66 YR OLD MALE PT WITH POST INFECTION OP SEPSIS. WOUND VAC IN PLACE AND PATENT. CALL LIGHT WITHIN REACH AND ABLE TO CALL APPROPRIATELY. PT TO D/C TOMORROW. HOME HEALTH TO START WITH PT AT HOME ON SUNDAY. PT HAD A FALL THIS SHIFT. STATES HE WAS SITTING ON SIDE OF BED AND REACHED BACK TO OTHER SIDE OF BED TO REACH FOR URINAL AND SLID OFF BED TO THE FLOOR. PT FOUND BY OT WHO WAS IN THE [place] RIGHT OUTSIDE OF DOOR WHEN FALL HAPPENED. PT FOUND DOWN ON ALL FOURS. VITALS TAKEN, POST FALL ASSESSMENT PERFORMED, MD AND CHARGE NURSE NOTIFIED.
[2021-12-22 19:36] LABS: Creatinine, Blood 1.19 mg/dL (0.60-1.20); Vancomycin, Trough 17.3 ug/mL (5.0-10.0)
--- NOTE | 2021-12-23 05:52 | NUR ---
OVERNIGHT PT WITH NO NEW EVENTS. PT A/OX4 AND BLAKE TO MAKE NEEDS KNOWN. PT STATING HE DOES NOT FEEL READY TO BE D/C HIS IS NOT BLAKE TO TAKE CARE OF HIM. PT ALSO STATES THAT HIS APPEALED THE DECISION.
--- NOTE | 2021-12-24 07:24 | NUR ---
PT C/O OF SEVERE PAIN AND REQUESTING PAIN MEDICATION. DR. CASTANEDA NOTIFIED WITH ORDER FOR TRAMADOL. MEDICATION GIVEN AND PT VERBALIZED RELIEF. PT WITH NO NEW CHANGES OVERNIGHT.
--- NOTE | 2021-12-24 08:00 | NUR ---
pt sitting on side of bed eating breakfast, a/ox3, tells nurse exactly how he takes his fede, asking for another breakfast tray, lungs clear dim in bases, resp even and unlabored, no cough noted, hrirr, iv is 22g to lwrist, site is clear and patent, btx4, abd soft notender, voids via urinal silvano urine, skin has wound vac to right stump, with dressing intact, wound vac was changed yesterday, julio, PT in to work with him this am, was cooperative with him, took po meds without diff, amara kim, call light in reach.
--- NOTE | 2021-12-24 18:31 | NUR ---
Pt slept most of the day in his chair, was told by cyanide case hardener today that his appeal was denied and will be discharged tomorrow. He asked this nurse to have her come back in and speak with him, but she had already left. he says if im leaving tomorrow then we need to make some conscessions, unclear what he meant. medicated for pain, is asking about something stronger for pain. no further changes, call light in reach.
--- NOTE | 2021-12-24 20:46 | NUR ---
patient setting off alarm sitting on edge of bed leaning stretched forward to "put his stuff in nightstand drawers" multiple times since start of shift. Explained to patient, and reiterrated several times, that all he needed to do was use his call light and we would assist him with whatever he needs. That my concern was utmost his safety, especially since he has fallen twice this week from the bed instead of falling. Patient stated that if he was not allowed to move around in his room unasissted, that he could not possibly be safe to discharge tommorow. Again, I explained that while he is in our care, he needs to call for assistance instead of putting himself in danger leaning out of the bed or "moving around the room" without help.. Spoke with admission discharge rn and clearing house clerk about possibility of using a XL clari vest to keep patient from falling. Unfortunately, this would not be possible. patient was told even if he let himself down to the floor, he would likely still be discharged. Floor staff and charges all aware of patient issues, and are assisting with very close monitoring as patient does not want to heed instructions or comply with safety practices. bed locked and low, both bed alarm as well as chair alarm on for safety. Will continue close monitoring
--- NOTE | 2021-12-25 00:24 | NUR ---
PATIENT CONTINUING TO SET ALARM OFF. STILL REFUSING TO LISTEN TO STAFF CONCERNS FOR HIS SAFETY. STATES "I MUST BE FINE YOU'RE SENDING ME HOME". THIS RN REMOVED CHAIR ALARM FROM UNDER INCONTINENT PAD BECAUSE PATIENT KEPT DELIBERATELY LIFTING HIS BOTTOM TO SET IT OFF. WHEN STAFF RAN IN, HE SAID "JUST TESTING YOU ".
--- NOTE | 2021-12-25 03:33 | NUR ---
PATIENT AWAKE MOST OF THE NIGHT. HE DID SLEEP FOR ABOUT 1.5 HOURS AFTER RECEIVING TRAMADOL. THEN HE WOKE, SWUNG TO THE EDGE OF THE BED AND BEGAN SETTING OFF ALARM AGAIN. PATIENT IS VERY UNAWARE OF THE SUCTION TUBING FROM THE WOUND VAC. TWICE HE HAD IT STUCK IN THE BED FRAME. RIGHT LEG STUMP DRESSING IS CLEAN,DRY AND INTACT WITHOUT REDNESS OR WARMTH. VERY SCANT PINK DRAINAGE. AT THIS TIME, PATIENT HAS SPILLED EVERY DRINK HE HAS BEEN GIVEN. BED AND GOWN CHANGES MULTIPLE TIMES. WE TALKED ABOUT PATIENT SAFETY AGAIN, HOW IT MIGHT BE SAFER TO SIT UP IN BED WITH TABLE IN FRONT OF HIM. PATIENT REFUSED, BUT SAID "THIS IS ONE OF THE REASONS HE SHOULD NOT GO HOME." PATIENT HAS MANAGED TO HOLD ONTO ALL OF THE FINGER FOOD SNACKS, PUDDINGS AND JELLO WITHOUT SPILLING. RECOMMENDED SIPPY CUP TO PATIENT TO AVOID SPILL. AMBULATED ONCE TO BATHROOM WITH ONE ASSIST, GAIT BELT AND FRONT WHEELED WALKER. PATIENT WAS SLOW, BUT STEADY. A LITTLE NERVOUS AND TENATIVE, BUT ONCE STANDING, AND WITH A LOT OF CUEING DID WELL ON AND OFF THE TOILET AND BACK TO BED THIS RN RECOMMENDED A SIPPY CUP TO PREVENT SPILLS. THROUGHOUT THE
[2021-12-25] MEDS ORDERED: JUVEN PACKET1 EAC3 PO (07:15)
[2021-12-25] MEDS ORDERED: DOCU100 PO (07:15)
[2021-12-25] MEDS ORDERED: LACT PO (07:16)
--- NOTE | 2021-12-25 07:55 | NUR ---
NURSE NOTE PATIENT REFUSED CARE FROM THIS RN. PATIENT WILL NOT TAKE MEDICATIONS. PATIENT IS AWAITING DISCHARGE.
[2021-12-25] MEDS ORDERED: MIRALAX17 GM PO (08:01)
--- NOTE | 2021-12-25 08:29 | NUR ---
DISCHARGE SUMMARY PATIENT IS ALERT AND ORIENTED. PATIENT WAS DISCHARGED USING TRANSPORT SERVICE TO AWAITING AT HOME. SECURITY WAS ON HAND FOR SAFETY. PATIENT REFUSED ALL CARE BEFORE DISCHARGE. PATIENT WAS READ DISCHARGE INFORMATION. PATIENT WAS GIVEN HARD SCRIPTS FOR MEDICATIONS NEEDED.
== END 2021-12-25 08:28 | disposition home health service (06) | DRG 856 ==
LOC: ER 22:12 → MEDS 11-25 02:55
PROVIDERS: Emergency Medicine; Family Medicine; Hospitalist; Orthopaedic Surgery; Pharmacist; ADMIT Internal Medicine
PROC: 0QBG0ZZ Excision of Right Tibia, Open Approach (ICD-10-PCS; 2021-11-25)
PROC: 3E03329 Introduction of Other Anti-infective into Peripheral Vein, Percutaneous Approach (ICD-10-PCS; principal; 2021-11-25 14:00)
PROC: 0JQN0ZZ Repair Right Lower Leg Subcutaneous Tissue and Fascia, Open Approach (ICD-10-PCS; 2021-11-29)
DX: T81.49XA Infection following a procedure, other surgical site, initial encounter (principal); G92.8 Other toxic encephalopathy; R65.20 Severe sepsis without septic shock; I50.33 Acute on chronic diastolic (congestive) heart failure; N17.9 Acute kidney failure, unspecified; T87.43 Infection of amputation stump, right lower extremity; E87.1 Hypo-osmolality and hyponatremia; I48.92 Unspecified atrial flutter; M86.8X7 Other osteomyelitis, ankle and foot; Z20.822 Contact with and (suspected) exposure to COVID-19; T81.44XA Sepsis following a procedure, initial encounter; I11.0 Hypertensive heart disease with heart failure; I25.10 Atherosclerotic heart disease of native coronary artery without angina pectoris; G25.81 Restless legs syndrome; T87.81 Dehiscence of amputation stump; N40.0 Benign prostatic hyperplasia without lower urinary tract symptoms; I48.91 Unspecified atrial fibrillation; K59.03 Drug induced constipation; T40.2X5A Adverse effect of other opioids, initial encounter; D50.9 Iron deficiency anemia, unspecified; F32.A Depression, unspecified; E11.69 Type 2 diabetes mellitus with other specified complication; E11.40 Type 2 diabetes mellitus with diabetic neuropathy, unspecified; Z87.19 Personal history of other diseases of the digestive system; Z95.1 Presence of aortocoronary bypass graft; Z98.890 Other specified postprocedural states; Z86.711 Personal history of pulmonary embolism; Z88.5 Allergy status to narcotic agent; Z88.8 Allergy status to other drugs, medicaments and biological substances; Z79.4 Long term (current) use of insulin; Z79.01 Long term (current) use of anticoagulants; Z79.899 Other long term (current) drug therapy; Y83.5 Amputation of limb(s) as the cause of abnormal reaction of the patient, or of later complication, without mention of misadventure at the time of the procedure
CPT/HCPCS: 0241U; 36415; 73560-RT; 73701; 80048; 80053; 80069; 80202; 82565; 82607; 82728; 82746; 82947; 83540; 83550; 83605; 83735; 84443; 85014; 85018; 85025; 85027; 85045; 85651; 86140; 87040; 87070; 87071; 87075; 87077; 87147; 87186; 87205; 93005; 93010; 94640; 94664; 94760; 94762; 96365; 96366; 96375; 97110; 97112; 97116; 97162; 97166; 97530; 97535; 99285-25; A9270; J0696; J1100; J1815; J1885; J1956; J2250; J2270; J2370; J2405; J2543; J2704; J2916; J3010; J3370; J7030; J7040; J7060; J7120; Q9967

== ENCOUNTER 2022-02-13 18:32 | Emergency (ER) | payer OTHER ==
[~2022-02-13] VITALS: Ht 188 cm; Wt 84.4 kg
[~2022-02-13 18:32] MED LIST changes: +CEPH500 PO; +DOCU100 PO; +JUVEN PACKET1 EAC3 PO; +LACT PO; +LACT10SY PO; +LORA.5 PO; +METO2.5 PO; +MIRALAX17 GM PO
[2022-02-13 19:16] LABS: Base Excess Venous 1.4 mmol/L; Bicarbonate Venous 25.7 mmol/L (24.0-30.0); PCO2 Venous 39.1 mmHg (38-42); pH Blood Venous 7.43 (7.34-7.37)
[2022-02-13 19:17] LABS: BASOPHILS ABSOLUTE AUTO 0.06 K/mm3 (0.00-0.23); BASOPHILS PERCENT AUTO 1 % (0-2); EOSINOPHILS ABSOLUTE AUTO 0.15 K/mm3 (0.00-0.68); EOSINOPHILS PERCENT AUTO 2 % (0-6); Hematocrit 32.1 % (37.0-53.0); Hemoglobin 9.9 g/dL (13.5-17.5); IMMATURE GRAN ABSOLUTE AUTO 0.04 K/mm3 (0.00-0.10); IMMATURE GRAN PERCENT AUTO 1 % (0-1); LYMPHOCYTES ABSOLUTE AUTO 0.64 K/mm3 (0.84-5.20); LYMPHOCYTES PERCENT AUTO 8 % (21-46); MONOCYTES ABSOLUTE AUTO 0.68 K/mm3 (0.16-1.47); MONOCYTES PERCENT AUTO 8 % (4-13); Mean Corpuscular HGB 21.4 pg (26.0-34.0); Mean Corpuscular HGB Conc 30.8 g/dL (31.5-36.5); Mean Corpuscular Volume 70 fL (80-100); Mean Platelet Volume 9.2 fL (9.1-12.4); NEUTROPHILS ABSOLUTE AUTO 6.96 K/mm3 (1.96-9.15); NEUTROPHILS PERCENT AUTO 82 % (41-73); Platelet Count 201 K/mm3 (150-400); RDW Coefficient Variation 21.1 % (11.7-14.2); RDW Standard Deviation 53.1 fL (35.1-46.3); Red Blood Cell Count 4.62 M/mm3 (4.30-5.90); White Blood Cell Count 8.53 K/mm3 (4.00-11.30)
[2022-02-13 19:36] LABS: Albumin, Blood 2.8 g/dL (3.4-5.0); Albumin/Globulin Ratio 0.6 (0.8-1.8); Bilirubin, Total 0.3 mg/dL (0.1-1.0); Bun/Creatinine Ratio 23.6 (12.0-20.0); Calcium, Blood 9.1 mg/dL (8.5-10.1); Creatinine, Blood 0.85 mg/dL (0.60-1.20); Globulin, Blood 4.4 g/dL (2.2-4.0); Potassium, Blood 4.6 mmol/L (3.5-5.5); Total Protein, Blood 7.2 g/dL (6.4-8.2)
[2022-02-14] MEDS ORDERED: DOXY100 PO (01:58)
== END 2022-02-14 02:20 | disposition home or self-care (01) ==
LOC: ER 18:32
PROVIDERS: Student in an Organized Health Care Education/Training Program
DX: T87.43 Infection of amputation stump, right lower extremity (principal); L03.115 Cellulitis of right lower limb; L97.819 Non-pressure chronic ulcer of other part of right lower leg with unspecified severity; E11.65 Type 2 diabetes mellitus with hyperglycemia; I11.0 Hypertensive heart disease with heart failure; I50.30 Unspecified diastolic (congestive) heart failure; I25.10 Atherosclerotic heart disease of native coronary artery without angina pectoris; Z86.711 Personal history of pulmonary embolism; Z95.1 Presence of aortocoronary bypass graft; Z79.4 Long term (current) use of insulin; Z79.899 Other long term (current) drug therapy; Z88.5 Allergy status to narcotic agent; Z88.8 Allergy status to other drugs, medicaments and biological substances; W05.0XXA Fall from non-moving wheelchair, initial encounter
CPT/HCPCS: 80053; 82803; 82947; 83605; 83930; 85025; 93005; 93010; 99284-25; J1815

== ENCOUNTER → 2022-02-15 | Outpatient (CLI) | payer OTHER ==
[~2022-02-15] MED LIST changes: +DOXY100 PO
== END | disposition home or self-care (01) ==
LOC: LAB SHORT 10:45 → LAB 10:45
DX: T87.81 Dehiscence of amputation stump (principal)
CPT/HCPCS: 87070; 87075; 87147; 87205

== ENCOUNTER 2022-04-19 06:05 | Inpatient (IN) | payer OTHER ==
[~2022-04-19] VITALS: Ht 175.3 cm; Wt 93.0 kg
[2022-04-19 06:51] LABS: BASOPHILS ABSOLUTE AUTO 0.06 K/mm3 (0.00-0.23); BASOPHILS PERCENT AUTO 0 % (0-2); EOSINOPHILS ABSOLUTE AUTO 0.05 K/mm3 (0.00-0.68); EOSINOPHILS PERCENT AUTO 0 % (0-6); Hematocrit 38.9 % (37.0-53.0); Hemoglobin 12.8 g/dL (13.5-17.5); IMMATURE GRAN ABSOLUTE AUTO 0.06 K/mm3 (0.00-0.10); IMMATURE GRAN PERCENT AUTO 0 % (0-1); LYMPHOCYTES ABSOLUTE AUTO 0.91 K/mm3 (0.84-5.20); LYMPHOCYTES PERCENT AUTO 6 % (21-46); MONOCYTES ABSOLUTE AUTO 0.63 K/mm3 (0.16-1.47); MONOCYTES PERCENT AUTO 4 % (4-13); Mean Corpuscular HGB 23.5 pg (26.0-34.0); Mean Corpuscular HGB Conc 32.9 g/dL (31.5-36.5); Mean Corpuscular Volume 71 fL (80-100); Mean Platelet Volume 9.5 fL (9.1-12.4); NEUTROPHILS ABSOLUTE AUTO 14.27 K/mm3 (1.96-9.15); NEUTROPHILS PERCENT AUTO 89 % (41-73); Platelet Count 180 K/mm3 (150-400); RDW Coefficient Variation 20.1 % (11.7-14.2); RDW Standard Deviation 49.2 fL (35.1-46.3); Red Blood Cell Count 5.45 M/mm3 (4.30-5.90); White Blood Cell Count 15.98 K/mm3 (4.00-11.30)
[2022-04-19 07:09] LABS: Base Excess Venous 3.9 mmol/L; Bicarbonate Venous 26.4 mmol/L (24.0-30.0); PCO2 Venous 51.6 mmHg (38-42); pH Blood Venous 7.36 (7.34-7.37)
[2022-04-19 07:22] LABS: Albumin/Globulin Ratio 0.6 (0.8-1.8); Bilirubin, Total 0.9 mg/dL (0.1-1.0); Calcium, Blood 9.8 mg/dL (8.5-10.1); Creatinine, Blood 0.71 mg/dL (0.60-1.20); Globulin, Blood 4.9 g/dL (2.2-4.0); Magnesium, Blood 2.1 mg/dL (1.6-2.4); Potassium, Blood 4.5 mmol/L (3.5-5.5); Total Protein, Blood 7.9 g/dL (6.4-8.2)
[2022-04-19 07:49] LABS: Source, Urine Clean Catch
[2022-04-19 07:56] LABS: Appearance, Urine Clear (Clear); Bilirubin, Urine Neg (Neg); Blood, Urine 3+ (Neg); Color, Urine Yellow (P-Yellow); Glucose Qualitative, Urine 4+ (Neg); Ketones, Urine 2+ (Neg); Leukocyte Esterase, Urine Neg (Neg); Nitrite, Urine Neg (Neg); Protein, Urine 4+ (Neg); Specific Gravity, Urine 1.015 (1.003-1.022); Urobilinogen, Urine NORM (Normal)
[2022-04-19 08:04] LABS: Bacteria Not Seen /hpf; Squamous Epithelial Cells Rare /hpf (Few); White Blood Cells, Urine 0-2 /hpf (0-5)
[2022-04-19 08:11] LABS: U Amphetamine Screen Not Detected; U Barbituate Screen Not Detected; U Benzodiazapine Screen Not Detected; U Buprenorphine Screen Not Detected; U Cannabinoids Screen DETECTED; U Cocaine Screen Not Detected; U Methadone Screen Not Detected; U Methamphetamine Screen Not Detected; U Opiates Screen Not Detected; U Oxycodone Screen Not Detected; U Phencyclidine Screen Not Detected; U Propoxyphene Screen Not Detected
--- NOTE | 2022-04-19 17:57 | NUR ---
END OF SHIFT SUMMARY: PATIENT ARRIVED VIA STRETCHER TO THE UNIT. PATIENT YELLS "WHAT" WHEN YOU SAY HIS NAME LOUDLY. PATIENT GRABBING AT THE AIR WITH HIS HANDS. PATIENT COOPERATIVE WITH SOME CARE, SUCH "RAISE YOUR LEGS". PATIENT COMBATIVE WITH OTHER CARE, SUCH LAB DRAWS. DR. SKINNER IN TO ROUND ON THE PATIENT. DRESSING APPLIED. DRESSING STAYED C/D/I FOR THE REST OF THE SHIFT. NO DRAINAGE NOTED PRIOR TO DRESSING CHANGE OR THROUGH THE DRESSING. PATIENT IS RESTLESS IN THE BED AND ATTEMPTING TO CLIMB OUT OF BED AND GRAB AT THE RESTRAINTS. PATIENT IS NOT RE-DIRECTABLE. CALM, QUIET ENVIRONMENT PROVIDED.
[2022-04-19 22:05] LABS: Glucose, Blood 288 mg/dL (70-99)
[2022-04-20] MEDS ORDERED: CONSTULOSE10 GM/15 M PO (02:09)
--- NOTE | 2022-04-20 04:53 | NUR ---
SHIFT SUMMARY; PT REMAINED AGITATED AND RESTLESS THROUGHOUT THE SHIFT, PT MEDICATED WITH PRN ATIVAN AND BENADRYL. THE PT WAS ABLE TO GET SMALL STRETCHES OF SLEEP. PT REMAINS IN JONO VEST FOR AGITATED BEHAVIORS, ATTEMPTING TO PULL IV LINE, ATTEMPTING TO GET OUT OF BED AND AN IMPOSED SAFETY RISK TO SELF AND CARE STAFF. PT REMAINS WITH INCOMPREHENSIBLE SPEECH. ERRYTHREMA ON L LEG IS MARKED, MEPILEX APPLIED TO BOTTOM OF R BKA INCISION SITE. PT CURRRENTLY IN BED RESTLESS WITH NS RUNNING AT 100ML/HR. THE BED IS IN THE LOWEST POSITION AND THE CALL LIGHT IS WITHIN REACH.
[2022-04-20 06:25] LABS: BASOPHILS PERCENT AUTO 1 % (0-2); EOSINOPHILS ABSOLUTE AUTO 0.11 K/mm3 (0.00-0.68); EOSINOPHILS PERCENT AUTO 1 % (0-6); Hematocrit 36.2 % (37.0-53.0); Hemoglobin 11.4 g/dL (13.5-17.5); IMMATURE GRAN ABSOLUTE AUTO 0.06 K/mm3 (0.00-0.10); IMMATURE GRAN PERCENT AUTO 0 % (0-1); LYMPHOCYTES ABSOLUTE AUTO 1.39 K/mm3 (0.84-5.20); LYMPHOCYTES PERCENT AUTO 10 % (21-46); MONOCYTES ABSOLUTE AUTO 0.89 K/mm3 (0.16-1.47); MONOCYTES PERCENT AUTO 6 % (4-13); Mean Corpuscular HGB 22.9 pg (26.0-34.0); Mean Corpuscular HGB Conc 31.5 g/dL (31.5-36.5); Mean Corpuscular Volume 73 fL (80-100); Mean Platelet Volume 9.3 fL (9.1-12.4); NEUTROPHILS ABSOLUTE AUTO 11.97 K/mm3 (1.96-9.15); NEUTROPHILS PERCENT AUTO 82 % (41-73); Platelet Count 191 K/mm3 (150-400); RDW Coefficient Variation 20.3 % (11.7-14.2); RDW Standard Deviation 51.4 fL (35.1-46.3); Red Blood Cell Count 4.97 M/mm3 (4.30-5.90); White Blood Cell Count 14.52 K/mm3 (4.00-11.30)
[2022-04-20 06:37] LABS: Albumin, Blood 2.6 g/dL (3.4-5.0); Albumin/Globulin Ratio 0.6 (0.8-1.8); Bilirubin, Total 0.6 mg/dL (0.1-1.0); Bun/Creatinine Ratio 22.2 (12.0-20.0); Calcium, Blood 9.3 mg/dL (8.5-10.1); Creatinine, Blood 0.72 mg/dL (0.60-1.20); Globulin, Blood 4.6 g/dL (2.2-4.0); Magnesium, Blood 1.9 mg/dL (1.6-2.4); Potassium, Blood 3.7 mmol/L (3.5-5.5); Total Protein, Blood 7.2 g/dL (6.4-8.2)
--- NOTE | 2022-04-20 17:54 | NUR ---
SHIFT SUMMARY PATIENT IS ALERT AND ORIENTED X2. PATIENT HAS HAD NO ACUTE EVENTS. PATIENT HAS NOT COMPLAINED OF PAIN, SOB, NAUSEA, OR VOMITTING THIS SHIFT. VITAL SIGNS REVIEWED. PATIENT IS BEING DISCHARGED HOME TO DRIVING.
== END 2022-04-20 17:08 | disposition home or self-care (01) | DRG 871 ==
LOC: ER 06:05 → ERHOLD 10:02 → MEDS 15:18
PROVIDERS: Nurse Practitioner Acute Care; Student in an Organized Health Care Education/Training Program; ADMIT Internal Medicine
DX: A41.9 Sepsis, unspecified organism (principal); G92.8 Other toxic encephalopathy; I50.32 Chronic diastolic (congestive) heart failure; L03.116 Cellulitis of left lower limb; E11.649 Type 2 diabetes mellitus with hypoglycemia without coma; I25.10 Atherosclerotic heart disease of native coronary artery without angina pectoris; E11.51 Type 2 diabetes mellitus with diabetic peripheral angiopathy without gangrene; E03.9 Hypothyroidism, unspecified; F32.A Depression, unspecified; G25.81 Restless legs syndrome; I10 Essential (primary) hypertension; J45.20 Mild intermittent asthma, uncomplicated; N40.0 Benign prostatic hyperplasia without lower urinary tract symptoms; F41.1 Generalized anxiety disorder; M79.7 Fibromyalgia; I48.91 Unspecified atrial fibrillation; D50.9 Iron deficiency anemia, unspecified; K74.60 Unspecified cirrhosis of liver; E11.65 Type 2 diabetes mellitus with hyperglycemia; E11.42 Type 2 diabetes mellitus with diabetic polyneuropathy; F03.90 Unspecified dementia, unspecified severity, without behavioral disturbance, psychotic disturbance, mood disturbance, and anxiety; Z95.1 Presence of aortocoronary bypass graft; Z88.6 Allergy status to analgesic agent; Z88.5 Allergy status to narcotic agent; Z89.511 Acquired absence of right leg below knee; Z91.199 Patient's noncompliance with other medical treatment and regimen due to unspecified reason; Z86.718 Personal history of other venous thrombosis and embolism; Z79.01 Long term (current) use of anticoagulants; Z79.4 Long term (current) use of insulin; Z79.899 Other long term (current) drug therapy; Z79.84 Long term (current) use of oral hypoglycemic drugs; Z86.711 Personal history of pulmonary embolism; Z88.8 Allergy status to other drugs, medicaments and biological substances
CPT/HCPCS: 36415; 71045; 80053; 81001; 82140; 82803; 82947; 83605; 83735; 84145; 84443; 85025; 85651; 86140; 93005; 93010; 94760; A9270; J0690; J1200; J1630; J1815; J2060; J2543; J7030

== ENCOUNTER → 2022-05-08 | Outpatient (CLI) | payer OTHER ==
[~2022-05-08] MED LIST changes: +CONSTULOSE10 GM/15 M PO
[2022-05-08 17:34] LABS: Source, Urine Clean Catch
[2022-05-08 18:14] LABS: Appearance, Urine Hazy (Clear); Bilirubin, Urine Neg (Neg); Blood, Urine 5+ (Neg); Color, Urine Yellow (P-Yellow); Glucose Qualitative, Urine 4+ (Neg); Ketones, Urine Neg (Neg); Leukocyte Esterase, Urine 2+ (Neg); Nitrite, Urine Neg (Neg); Protein, Urine 4+ (Neg); Specific Gravity, Urine 1.015 (1.003-1.022); Urobilinogen, Urine NORM (Normal); pH, Urine 6.5 (5.0-8.0)
[2022-05-08 18:21] LABS: Bacteria Many /hpf; Red Blood Cells, Urine 25-50 /hpf (0-2); Squamous Epithelial Cells Mod /hpf (Few); Transitional Epithelial Cells Few /hpf (0-Rare); White Blood Cells, Urine 25-50 /hpf (0-5)
[2022-05-08 18:22] LABS: Hyaline Casts 0-2 /lpf (0-2)
== END ==
LOC: LAB SHORT 17:31 → LAB 17:31
PROVIDERS: Anesthesiology Addiction Medicine
DX: E11.43 Type 2 diabetes mellitus with diabetic autonomic (poly)neuropathy (principal); N40.0 Benign prostatic hyperplasia without lower urinary tract symptoms; N39.0 Urinary tract infection, site not specified
CPT/HCPCS: 81001; 87086

== ENCOUNTER 2022-06-22 16:45 | Inpatient (IN) | payer OTHER ==
[~2022-06-22] VITALS: Ht 188 cm; Wt 99.5 kg
--- NOTE | 2022-06-22 11:30 | NUR ---
NEW ADMIT PATIENT TO THE FLOOR VIA WHEEL CHAIR, AOX4, TRANSFERS SELF FROM CHAIR TO BED. VSS. R STUMP IS RED WITH EDEMA, FOUL ODOR. NO DRAINAGE NOTED AT THIS TIME. STUMP SKIN IS NOT OPEN, HOWEVER THERE IS AN AREA OF WEAK TISSUE. IV FLUIDS STARTED AND ABX ON PIGGYBACK. TELE MOPNITOR PLACED PER MAGNETIC TAPE TYPEWRITER OPERATOR A-FIB 89. VSS, REPORTS NO CP, SOB. PATIENT IS ORIENTED TO CALL LIGHT AND HAS IT IN REACH.
[~2022-06-22 16:45] MED LIST changes: -HUMALOG KW100 UNIT/1 SC; +NOVOLOG FL100 UNIT/3 SC
[2022-06-22 17:13] LABS: BASOPHILS ABSOLUTE AUTO 0.06 K/mm3 (0.00-0.23); BASOPHILS PERCENT AUTO 1 % (0-2); EOSINOPHILS ABSOLUTE AUTO 0.28 K/mm3 (0.00-0.68); EOSINOPHILS PERCENT AUTO 3 % (0-6); Hematocrit 40.2 % (37.0-53.0); Hemoglobin 12.7 g/dL (13.5-17.5); IMMATURE GRAN ABSOLUTE AUTO 0.03 K/mm3 (0.00-0.10); IMMATURE GRAN PERCENT AUTO 0 % (0-1); LYMPHOCYTES ABSOLUTE AUTO 1.02 K/mm3 (0.84-5.20); LYMPHOCYTES PERCENT AUTO 12 % (21-46); MONOCYTES ABSOLUTE AUTO 0.48 K/mm3 (0.16-1.47); MONOCYTES PERCENT AUTO 6 % (4-13); Mean Corpuscular HGB 24.7 pg (26.0-34.0); Mean Corpuscular HGB Conc 31.6 g/dL (31.5-36.5); Mean Corpuscular Volume 78 fL (80-100); Mean Platelet Volume 9.8 fL (9.1-12.4); NEUTROPHILS ABSOLUTE AUTO 6.38 K/mm3 (1.96-9.15); NEUTROPHILS PERCENT AUTO 77 % (41-73); Platelet Count 180 K/mm3 (150-400); RDW Coefficient Variation 18.2 % (11.7-14.2); RDW Standard Deviation 51.6 fL (35.1-46.3); Red Blood Cell Count 5.14 M/mm3 (4.30-5.90); White Blood Cell Count 8.25 K/mm3 (4.00-11.30)
[2022-06-22 17:41] LABS: Alanine Aminotransfer (ALT/SGP 23 U/L (12-78); Albumin, Blood 2.9 g/dL (3.4-5.0); Albumin/Globulin Ratio 0.7 (0.8-1.8); Alk Phos 165 U/L (50-136); Anion Gap Unable to Calculate mmol/L (6-16); Aspartate Aminotrans (AST/SGOT 27 U/L (12-37); Bilirubin, Total 0.5 mg/dL (0.1-1.0); Blood Urea Nitrogen 19 mg/dL (8-24); Bun/Creatinine Ratio 24.7 (12.0-20.0); CO2, Blood 29 mmol/L (21-32); Calcium, Blood 9.5 mg/dL (8.5-10.1); Chloride, Blood 103 mmol/L (98-108); Creatinine, Blood 0.77 mg/dL (0.60-1.20); Globulin, Blood 4.3 g/dL (2.2-4.0); Glomerular Filtration Rate 99 (60-); Glucose, Blood 227 mg/dL (70-99); Potassium, Blood 4.8 mmol/L (3.5-5.5); Sodium, Blood 131 mmol/L (136-145); Total Protein, Blood 7.2 g/dL (6.4-8.2)
[2022-06-23 06:23] LABS: BASOPHILS ABSOLUTE AUTO 0.08 K/mm3 (0.00-0.23); BASOPHILS PERCENT AUTO 1 % (0-2); EOSINOPHILS PERCENT AUTO 3 % (0-6); Hematocrit 36.2 % (37.0-53.0); Hemoglobin 11.5 g/dL (13.5-17.5); IMMATURE GRAN ABSOLUTE AUTO 0.06 K/mm3 (0.00-0.10); IMMATURE GRAN PERCENT AUTO 1 % (0-1); LYMPHOCYTES ABSOLUTE AUTO 0.93 K/mm3 (0.84-5.20); LYMPHOCYTES PERCENT AUTO 11 % (21-46); MONOCYTES ABSOLUTE AUTO 0.56 K/mm3 (0.16-1.47); MONOCYTES PERCENT AUTO 6 % (4-13); Mean Corpuscular HGB 24.6 pg (26.0-34.0); Mean Corpuscular HGB Conc 31.8 g/dL (31.5-36.5); Mean Corpuscular Volume 78 fL (80-100); Mean Platelet Volume 10.5 fL (9.1-12.4); NEUTROPHILS ABSOLUTE AUTO 6.79 K/mm3 (1.96-9.15); NEUTROPHILS PERCENT AUTO 78 % (41-73); Platelet Count 182 K/mm3 (150-400); RDW Coefficient Variation 18.2 % (11.7-14.2); RDW Standard Deviation 50.6 fL (35.1-46.3); Red Blood Cell Count 4.67 M/mm3 (4.30-5.90); White Blood Cell Count 8.72 K/mm3 (4.00-11.30)
[2022-06-23 06:50] LABS: Albumin, Blood 2.5 g/dL (3.4-5.0); Albumin/Globulin Ratio 0.6 (0.8-1.8); Bilirubin, Total 0.5 mg/dL (0.1-1.0); Bun/Creatinine Ratio 21.9 (12.0-20.0); Calcium, Blood 9.4 mg/dL (8.5-10.1); Creatinine, Blood 0.96 mg/dL (0.60-1.20); Globulin, Blood 4.1 g/dL (2.2-4.0); Potassium, Blood 4.5 mmol/L (3.5-5.5); Total Protein, Blood 6.6 g/dL (6.4-8.2)
--- NOTE | 2022-06-23 17:30 | NUR ---
PT CHEERFUL, COOPERATIVE WITH CARE. RIGHT STUMP RED, TENDER WITH NO DRAIANGE. PT ANTICIPATES SURGERY IN AM ON RIGHT LEG STUMP AND IS IN AGREEMENT WITH THIS PLAN.. PT AWARE OF PLAN FOR NPO AFTER MIDNIGHT. VOIDING CLEAR YELLOW URINE. PT INSTRUCTED ON USE OF IS
--- NOTE | 2022-06-24 05:18 | NUR ---
PT C/O LLE BEING RED AND PAINFUL.PT INITIALLY STATED LLE HAS BEEN RED,PAINFUL AND SAME INTERMITTENTLY FOR 2-3 YRS. AT THIS TIME, PT CALLED NURSE AND C/O LLE BEING RED AND PAINFUL.NOW STATES THIS IS NOT HIS NORM.I NOTIFIED DR KEYS AND DOPPLER STUDY ORDERED.
--- NOTE | 2022-06-24 09:06 | NUR ---
SUMMARY DOPPLER COMPLETED THIS AM WITH REPORT OF NEGATIVE FOR DVT LLE.
--- NOTE | 2022-06-24 09:37 | NUR ---
DR VAUGHN IN TO SEE PT.
--- NOTE | 2022-06-24 14:41 | NUR ---
DR CARRILLO IN TO SEE PT PLAN TO DC ON PO ABX AND FOLLOW UP SUNDAY IN CLINIC. ORDERED LUNCH TRAY FOR PT. SPOUSE BEDSIDE.
[2022-06-24] MEDS ORDERED: ALBU90OI INH (14:43)
[2022-06-24] MEDS ORDERED: C-500500 M1 PO (14:44)
[2022-06-24] MEDS ORDERED: VITAMIN D5000 UNIT PO (14:47)
[2022-06-24] MEDS ORDERED: MAGNESIUM OXID500 MG PO (14:53)
[2022-06-24] MEDS ORDERED: METF500 PO (14:54)
[2022-06-24] MEDS ORDERED: MONT10T PO (14:55)
[2022-06-24] MEDS ORDERED: OMEP20ER PO (14:55)
[2022-06-24] MEDS ORDERED: PREG300 PO (14:57)
[2022-06-24] MEDS ORDERED: ALDACTONE25 MG PO (14:58)
[2022-06-24] MEDS ORDERED: ROPINIROLE HCL3 M3 PO (14:58)
[2022-06-24] MEDS ORDERED: Acetaminophen650 M1 PO (16:15)
[2022-06-24] MEDS ORDERED: VISBIOME 112.51 EACH PO (16:19)
[2022-06-24] MEDS ORDERED: AMOCLA875 PO (16:19)
--- NOTE | 2022-06-24 16:36 | NUR ---
DISCHARGING IV DC'D, CATHETER INTACT. PRESCRIPTIONS FAXED TO [facility]. REVIEWED DC INSTRUCTIONS W/PT; VERBALIZED UNDERSTANDING. DC'D AND SENT BACK TELE. PT AWAITING RIDE.
--- NOTE | 2022-06-24 18:34 | NUR ---
discharged left unit at approximately 1700 in to meet spouse/ride waiting outside. had possessions and dc paperwork in hand.
== END 2022-06-24 17:00 | disposition home or self-care (01) | DRG 565 ==
LOC: ER 16:45 → SURS 22:37
PROVIDERS: Physician Assistant; ADMIT Internal Medicine
DX: T87.43 Infection of amputation stump, right lower extremity (principal); I50.32 Chronic diastolic (congestive) heart failure; L03.115 Cellulitis of right lower limb; M86.8X6 Other osteomyelitis, lower leg; E03.9 Hypothyroidism, unspecified; I25.10 Atherosclerotic heart disease of native coronary artery without angina pectoris; G25.81 Restless legs syndrome; N40.0 Benign prostatic hyperplasia without lower urinary tract symptoms; F32.A Depression, unspecified; E11.42 Type 2 diabetes mellitus with diabetic polyneuropathy; E11.65 Type 2 diabetes mellitus with hyperglycemia; B95.1 Streptococcus, group B, as the cause of diseases classified elsewhere; E78.5 Hyperlipidemia, unspecified; I11.0 Hypertensive heart disease with heart failure; Z95.5 Presence of coronary angioplasty implant and graft; Z86.718 Personal history of other venous thrombosis and embolism; Z86.711 Personal history of pulmonary embolism; Z86.14 Personal history of Methicillin resistant Staphylococcus aureus infection; Z88.5 Allergy status to narcotic agent; Z79.899 Other long term (current) drug therapy; Z79.01 Long term (current) use of anticoagulants; Z79.4 Long term (current) use of insulin; Z79.51 Long term (current) use of inhaled steroids; Z79.84 Long term (current) use of oral hypoglycemic drugs
CPT/HCPCS: 36415; 73701; 80053; 80202; 82947; 83880; 85025; 85651; 86140; 87070; 87075; 87077; 87147; 87205; 93971; 96365-59; 99285-25; A9270; J0692; J1815; J2543; J3010; J3370; J7030; J7050; Q9967

== ENCOUNTER 2022-08-29 00:58 | Day surgery (SDC) | payer OTHER ==
[~2022-08-29 00:58] MED LIST changes: +ALBU90OI INH; +ALDACTONE25 MG PO; +Acetaminophen650 M1 PO; +C-500500 M1 PO; +MAGNESIUM OXID500 MG PO
== END 2022-08-29 22:46 | disposition home or self-care (01) ==
LOC: WOUND 00:58
DX: E11.621 Type 2 diabetes mellitus with foot ulcer (principal); L97.522 Non-pressure chronic ulcer of other part of left foot with fat layer exposed; E11.622 Type 2 diabetes mellitus with other skin ulcer; L97.812 Non-pressure chronic ulcer of other part of right lower leg with fat layer exposed; E11.59 Type 2 diabetes mellitus with other circulatory complications; I87.2 Venous insufficiency (chronic) (peripheral); I70.202 Unspecified atherosclerosis of native arteries of extremities, left leg; E11.43 Type 2 diabetes mellitus with diabetic autonomic (poly)neuropathy; D50.9 Iron deficiency anemia, unspecified; J45.909 Unspecified asthma, uncomplicated; G47.33 Obstructive sleep apnea (adult) (pediatric); I25.10 Atherosclerotic heart disease of native coronary artery without angina pectoris; I10 Essential (primary) hypertension; Z95.1 Presence of aortocoronary bypass graft; Z89.511 Acquired absence of right leg below knee; Z88.5 Allergy status to narcotic agent; Z88.8 Allergy status to other drugs, medicaments and biological substances; Z87.891 Personal history of nicotine dependence
CPT/HCPCS: G0463

== ENCOUNTER 2022-09-08 01:46 | Day surgery (SDC) | payer OTHER | END 2022-09-08 23:00 | disposition home or self-care (01) | LOC: WOUND 01:46 | DX: E11.622 Type 2 diabetes mellitus with other skin ulcer (principal); L98.492 Non-pressure chronic ulcer of skin of other sites with fat layer exposed; E11.59 Type 2 diabetes mellitus with other circulatory complications; I87.2 Venous insufficiency (chronic) (peripheral); R77.0 Abnormality of albumin; D50.9 Iron deficiency anemia, unspecified; E11.51 Type 2 diabetes mellitus with diabetic peripheral angiopathy without gangrene; I70.202 Unspecified atherosclerosis of native arteries of extremities, left leg; E11.43 Type 2 diabetes mellitus with diabetic autonomic (poly)neuropathy; I25.10 Atherosclerotic heart disease of native coronary artery without angina pectoris; I10 Essential (primary) hypertension; J45.909 Unspecified asthma, uncomplicated; E78.5 Hyperlipidemia, unspecified; E03.9 Hypothyroidism, unspecified; Z89.511 Acquired absence of right leg below knee; Z48.89 Encounter for other specified surgical aftercare | CPT/HCPCS: A9270; G0463 ==

== ENCOUNTER 2022-09-14 01:50 | Day surgery (SDC) | payer OTHER | END 2022-09-14 22:35 | disposition home or self-care (01) | LOC: WOUND 01:50 | DX: E11.621 Type 2 diabetes mellitus with foot ulcer (principal); E11.51 Type 2 diabetes mellitus with diabetic peripheral angiopathy without gangrene; E11.43 Type 2 diabetes mellitus with diabetic autonomic (poly)neuropathy; I87.2 Venous insufficiency (chronic) (peripheral); Z89.511 Acquired absence of right leg below knee; D50.9 Iron deficiency anemia, unspecified; I70.202 Unspecified atherosclerosis of native arteries of extremities, left leg; R77.0 Abnormality of albumin | CPT/HCPCS: G0463 ==

== ENCOUNTER 2022-09-21 02:05 | Day surgery (SDC) | payer OTHER | END 2022-09-21 22:53 | disposition home or self-care (01) | LOC: WOUND 02:05 | DX: E11.622 Type 2 diabetes mellitus with other skin ulcer (principal); E78.5 Hyperlipidemia, unspecified; I10 Essential (primary) hypertension; J45.909 Unspecified asthma, uncomplicated; E11.40 Type 2 diabetes mellitus with diabetic neuropathy, unspecified; E03.9 Hypothyroidism, unspecified; I70.202 Unspecified atherosclerosis of native arteries of extremities, left leg; I87.2 Venous insufficiency (chronic) (peripheral); D50.9 Iron deficiency anemia, unspecified; E11.51 Type 2 diabetes mellitus with diabetic peripheral angiopathy without gangrene; E11.43 Type 2 diabetes mellitus with diabetic autonomic (poly)neuropathy; Z89.511 Acquired absence of right leg below knee | CPT/HCPCS: G0463 ==

== ENCOUNTER 2022-09-29 00:17 | Day surgery (SDC) | payer OTHER | END 2022-09-29 23:00 | disposition home or self-care (01) | LOC: WOUND 00:17 | DX: E11.621 Type 2 diabetes mellitus with foot ulcer (principal); I70.202 Unspecified atherosclerosis of native arteries of extremities, left leg; E11.59 Type 2 diabetes mellitus with other circulatory complications; E11.8 Type 2 diabetes mellitus with unspecified complications; I87.2 Venous insufficiency (chronic) (peripheral); R77.0 Abnormality of albumin; D50.9 Iron deficiency anemia, unspecified; E11.43 Type 2 diabetes mellitus with diabetic autonomic (poly)neuropathy; Z89.511 Acquired absence of right leg below knee; Z48.89 Encounter for other specified surgical aftercare | CPT/HCPCS: G0463 ==

== ENCOUNTER 2022-10-06 00:50 | Day surgery (SDC) | payer OTHER | END 2022-10-06 23:01 | disposition home or self-care (01) | LOC: WOUND 00:50 | DX: E11.621 Type 2 diabetes mellitus with foot ulcer (principal); E11.59 Type 2 diabetes mellitus with other circulatory complications; I87.2 Venous insufficiency (chronic) (peripheral); Z89.511 Acquired absence of right leg below knee; Z48.89 Encounter for other specified surgical aftercare; R77.0 Abnormality of albumin; D50.9 Iron deficiency anemia, unspecified; E11.51 Type 2 diabetes mellitus with diabetic peripheral angiopathy without gangrene; I70.212 Atherosclerosis of native arteries of extremities with intermittent claudication, left leg; E11.43 Type 2 diabetes mellitus with diabetic autonomic (poly)neuropathy; I25.10 Atherosclerotic heart disease of native coronary artery without angina pectoris; E78.5 Hyperlipidemia, unspecified; I10 Essential (primary) hypertension; E03.9 Hypothyroidism, unspecified | CPT/HCPCS: G0463 ==

== ENCOUNTER → 2022-11-30 | Outpatient (CLI) | payer OTHER ==
[~2022-11-30] MED LIST changes: +ATROVENT HFA12.9 GM; +LEVSOD75
== END | disposition home or self-care (01) ==
LOC: LAB 09:30 → LAB SHORT 09:30
PROVIDERS: Internal Medicine Nephrology
DX: N18.30 Chronic kidney disease, stage 3 unspecified (principal); D63.1 Anemia in chronic kidney disease; N25.81 Secondary hyperparathyroidism of renal origin; E55.9 Vitamin D deficiency, unspecified; E78.00 Pure hypercholesterolemia, unspecified; R73.09 Other abnormal glucose; G60.9 Hereditary and idiopathic neuropathy, unspecified; R76.9 Abnormal immunological finding in serum, unspecified; R94.5 Abnormal results of liver function studies
CPT/HCPCS: 81050; 82043; 82570; 84156

== ENCOUNTER 2022-12-01 08:27 | Day surgery (SDC) | payer OTHER ==
[~2022-12-01] VITALS: Ht 188 cm; Wt 101.8 kg
[~2022-12-01 08:27] MED LIST changes: -ATROVENT HFA12.9 GM; -LEVSOD75
[2022-12-01] MEDS ORDERED: TAMS.4ER (09:04)
[2022-12-01] MEDS ORDERED: LEVSOD75 (09:05)
[2022-12-01] MEDS ORDERED: ATROVENT HFA12.9 GM (09:05)
[2022-12-01 11:25] VITALS: BP 118/93
== END 2022-12-01 10:50 | disposition home or self-care (01) ==
LOC: ORSCSDS 08:27
PROVIDERS: Internal Medicine Gastroenterology
PROC: 0DB68ZX Excision of Stomach, Via Natural or Artificial Opening Endoscopic, Diagnostic (ICD-10-PCS; principal; 2022-12-01 09:45)
PROC: 0DB58ZX Excision of Esophagus, Via Natural or Artificial Opening Endoscopic, Diagnostic (ICD-10-PCS; principal; 2022-12-01 09:45)
DX: R13.10 Dysphagia, unspecified (principal); K75.81 Nonalcoholic steatohepatitis (NASH); E11.42 Type 2 diabetes mellitus with diabetic polyneuropathy; I10 Essential (primary) hypertension; I48.91 Unspecified atrial fibrillation; Z86.718 Personal history of other venous thrombosis and embolism; Z86.711 Personal history of pulmonary embolism; E78.5 Hyperlipidemia, unspecified; G47.33 Obstructive sleep apnea (adult) (pediatric); D64.9 Anemia, unspecified; Z87.891 Personal history of nicotine dependence; B19.10 Unspecified viral hepatitis B without hepatic coma; K21.9 Gastro-esophageal reflux disease without esophagitis; F32.A Depression, unspecified; E03.9 Hypothyroidism, unspecified; K20.90 Esophagitis, unspecified without bleeding; K76.6 Portal hypertension; K31.89 Other diseases of stomach and duodenum; I25.10 Atherosclerotic heart disease of native coronary artery without angina pectoris; J45.909 Unspecified asthma, uncomplicated; Z79.84 Long term (current) use of oral hypoglycemic drugs; Z79.4 Long term (current) use of insulin; Z79.899 Other long term (current) drug therapy
CPT/HCPCS: 82947; 88305; 88342; J2001; J2704; J7120

== ENCOUNTER → 2022-12-26 | Outpatient (CLI) | payer OTHER ==
[~2022-12-26] MED LIST changes: +ATROVENT HFA12.9 GM; +LEVSOD75
[2022-12-26 20:31] LABS: Percent Saturation 11.7 % (20.0-50.0)
== END | disposition home or self-care (01) ==
LOC: LAB 12:18 → LAB SHORT 12:18
PROVIDERS: Internal Medicine Hematology & Oncology
DX: D50.9 Iron deficiency anemia, unspecified (principal); D51.9 Vitamin B12 deficiency anemia, unspecified; R16.2 Hepatomegaly with splenomegaly, not elsewhere classified
CPT/HCPCS: 82607; 82728; 82746; 83540; 83550

== ENCOUNTER → 2023-04-24 | Outpatient (CLI) | payer OTHER | END | disposition home or self-care (01) | LOC: LAB SHORT 11:50 → LAB 11:50 | PROVIDERS: Internal Medicine Hematology & Oncology | DX: D50.9 Iron deficiency anemia, unspecified (principal) | CPT/HCPCS: 82728; 83540; 83550 ==

== ENCOUNTER → 2023-05-22 | Outpatient (CLI) | payer OTHER ==
[2023-05-22 19:24] LABS: BASOPHILS PERCENT AUTO 1 % (0-2); EOSINOPHILS ABSOLUTE AUTO 0.23 K/mm3 (0.00-0.68); EOSINOPHILS PERCENT AUTO 3 % (0-6); Hematocrit 35.3 % (37.0-53.0); Hemoglobin 11.1 g/dL (13.5-17.5); IMMATURE GRAN ABSOLUTE AUTO 0.04 K/mm3 (0.00-0.10); IMMATURE GRAN PERCENT AUTO 1 % (0-1); LYMPHOCYTES ABSOLUTE AUTO 1.08 K/mm3 (0.84-5.20); LYMPHOCYTES PERCENT AUTO 15 % (21-46); MONOCYTES ABSOLUTE AUTO 0.66 K/mm3 (0.16-1.47); MONOCYTES PERCENT AUTO 9 % (4-13); Mean Corpuscular HGB 26.6 pg (26.0-34.0); Mean Corpuscular HGB Conc 31.4 g/dL (31.5-36.5); Mean Corpuscular Volume 84 fL (80-100); Mean Platelet Volume 10.7 fL (9.1-12.4); NEUTROPHILS ABSOLUTE AUTO 4.97 K/mm3 (1.96-9.15); NEUTROPHILS PERCENT AUTO 70 % (41-73); Platelet Count 158 K/mm3 (150-400); RDW Coefficient Variation 14.2 % (11.7-14.2); RDW Standard Deviation 43.6 fL (35.1-46.3); Red Blood Cell Count 4.18 M/mm3 (4.30-5.90); White Blood Cell Count 7.08 K/mm3 (4.00-11.30)
[2023-05-22 21:19] LABS: Albumin/Globulin Ratio 0.9 (0.8-1.8); Bilirubin, Total 0.4 mg/dL (0.1-1.0); Bun/Creatinine Ratio 39.4 (12.0-20.0); Calcium, Blood 8.7 mg/dL (8.5-10.1); Creatinine, Blood 0.94 mg/dL (0.60-1.20); Globulin, Blood 3.2 g/dL (2.2-4.0); Percent Saturation 16.5 % (20.0-50.0); Phosphorus, Blood 4.6 mg/dL (2.5-4.9); Potassium, Blood 5.1 mmol/L (3.5-5.5); Total Protein, Blood 6.2 g/dL (6.4-8.2)
== END | disposition home or self-care (01) ==
LOC: LAB SHORT 18:04 → LAB 18:04
PROVIDERS: Internal Medicine Hematology & Oncology
DX: D50.9 Iron deficiency anemia, unspecified (principal)
CPT/HCPCS: 80053; 82728; 83540; 83550; 84100; 85025

== ENCOUNTER 2023-10-12 01:32 | Day surgery (SDC) | payer OTHER ==
[~2023-10-12 01:32] MED LIST changes: +ASPIR 8181 M1
[2023-10-12] MEDS ORDERED: Triamcinolone Acet 0.1% Cream 15 gm ONE (09:43)
== END 2023-10-13 23:09 | disposition home or self-care (01) ==
LOC: WOUND 01:32
DX: E11.621 Type 2 diabetes mellitus with foot ulcer (principal); E11.59 Type 2 diabetes mellitus with other circulatory complications; I87.2 Venous insufficiency (chronic) (peripheral); A49.02 Methicillin resistant Staphylococcus aureus infection, unspecified site; Z89.511 Acquired absence of right leg below knee
CPT/HCPCS: A6213; A9270; G0463

== ENCOUNTER → 2023-10-16 | Outpatient (CLI) | payer OTHER ==
[2023-10-16 19:49] LABS: Creatinine, Urine Random 81.1 mg/dL (27.00-270.00)
[2023-10-16 19:50] LABS: Protein, Urine Quantitative 200.8 mg/dL (0.0-11.9)
[2023-10-16 20:27] LABS: Microalb/Creat Ratio UR, Rand 3686.81 mg/g (0.000-30.000)
== END | disposition home or self-care (01) ==
LOC: LAB SHORT 07:55 → LAB 07:55 → EDSTATUS 10-08 10:10 → LAB FUT 10-08 10:10
PROVIDERS: Internal Medicine Endocrinology, Diabetes & Metabolism; Internal Medicine Nephrology
DX: E11.22 Type 2 diabetes mellitus with diabetic chronic kidney disease (principal); N18.30 Chronic kidney disease, stage 3 unspecified; D63.1 Anemia in chronic kidney disease; N25.81 Secondary hyperparathyroidism of renal origin; E11.65 Type 2 diabetes mellitus with hyperglycemia; E55.9 Vitamin D deficiency, unspecified; E78.00 Pure hypercholesterolemia, unspecified; R76.9 Abnormal immunological finding in serum, unspecified; R94.5 Abnormal results of liver function studies; R94.6 Abnormal results of thyroid function studies
CPT/HCPCS: 82043; 82570; 84156

== ENCOUNTER 2023-10-19 04:02 | Day surgery (SDC) | payer OTHER | END 2023-10-19 23:04 | disposition home or self-care (01) | LOC: WOUND 04:02 | DX: E11.621 Type 2 diabetes mellitus with foot ulcer (principal); L97.422 Non-pressure chronic ulcer of left heel and midfoot with fat layer exposed; I25.10 Atherosclerotic heart disease of native coronary artery without angina pectoris; E78.5 Hyperlipidemia, unspecified; E03.9 Hypothyroidism, unspecified; E11.40 Type 2 diabetes mellitus with diabetic neuropathy, unspecified; E11.69 Type 2 diabetes mellitus with other specified complication; M86.651 Other chronic osteomyelitis, right thigh; J45.909 Unspecified asthma, uncomplicated; I10 Essential (primary) hypertension; T81.31XS Disruption of external operation (surgical) wound, not elsewhere classified, sequela; Y83.8 Other surgical procedures as the cause of abnormal reaction of the patient, or of later complication, without mention of misadventure at the time of the procedure; Z89.511 Acquired absence of right leg below knee; A49.02 Methicillin resistant Staphylococcus aureus infection, unspecified site | CPT/HCPCS: A6213; G0463 ==

== ENCOUNTER 2023-10-26 05:21 | Day surgery (SDC) | payer OTHER | END 2023-10-26 22:44 | disposition home or self-care (01) | LOC: WOUND 05:21 | DX: T81.31XD Disruption of external operation (surgical) wound, not elsewhere classified, subsequent encounter (principal); I25.10 Atherosclerotic heart disease of native coronary artery without angina pectoris; E78.5 Hyperlipidemia, unspecified; I10 Essential (primary) hypertension; J45.909 Unspecified asthma, uncomplicated; E11.40 Type 2 diabetes mellitus with diabetic neuropathy, unspecified; E03.9 Hypothyroidism, unspecified; E11.621 Type 2 diabetes mellitus with foot ulcer; A49.02 Methicillin resistant Staphylococcus aureus infection, unspecified site; E11.59 Type 2 diabetes mellitus with other circulatory complications; M86.651 Other chronic osteomyelitis, right thigh; I87.2 Venous insufficiency (chronic) (peripheral); Z89.511 Acquired absence of right leg below knee; Y83.8 Other surgical procedures as the cause of abnormal reaction of the patient, or of later complication, without mention of misadventure at the time of the procedure ==

== ENCOUNTER 2023-12-14 03:19 | Day surgery (SDC) | payer OTHER ==
[~2023-12-14 03:19] MED LIST changes: +Aspir 8181 MG PO; +BASAGLAR K100 UNIT/1 SC; +DULERA 100 MCG/13 GM INH; +FERSU300 PO; +FLUT1DIS5 INH; +JUVEN PACKET1 EA10 PO; -LEVSOD75; +MULVITB PO; +NOVOLIN N100 UNIT/2 SC; +PREG75 PO
== END 2023-12-14 23:28 | disposition home or self-care (01) ==
LOC: WOUND 03:19
DX: T81.31XD Disruption of external operation (surgical) wound, not elsewhere classified, subsequent encounter (principal); I25.10 Atherosclerotic heart disease of native coronary artery without angina pectoris; E78.5 Hyperlipidemia, unspecified; E11.40 Type 2 diabetes mellitus with diabetic neuropathy, unspecified; E03.9 Hypothyroidism, unspecified; J45.909 Unspecified asthma, uncomplicated; E11.621 Type 2 diabetes mellitus with foot ulcer; E11.59 Type 2 diabetes mellitus with other circulatory complications; I87.2 Venous insufficiency (chronic) (peripheral); M86.651 Other chronic osteomyelitis, right thigh; Y83.8 Other surgical procedures as the cause of abnormal reaction of the patient, or of later complication, without mention of misadventure at the time of the procedure; Z89.511 Acquired absence of right leg below knee
CPT/HCPCS: A6213; G0463

== ENCOUNTER → 2023-12-27 | Outpatient (CLI) | payer OTHER ==
[2023-12-28 20:25] LABS: Protein, Urine Quantitative 138.4 mg/dL (0.0-11.9)
== END ==
LOC: LAB 09:30 → LAB SHORT 09:30
PROVIDERS: Internal Medicine Nephrology
DX: E78.00 Pure hypercholesterolemia, unspecified (principal); N18.30 Chronic kidney disease, stage 3 unspecified; D63.1 Anemia in chronic kidney disease; N25.81 Secondary hyperparathyroidism of renal origin; E55.9 Vitamin D deficiency, unspecified; R76.9 Abnormal immunological finding in serum, unspecified; R94.5 Abnormal results of liver function studies; R94.6 Abnormal results of thyroid function studies
CPT/HCPCS: 82043; 84156; 84300

== ENCOUNTER 2023-12-28 01:42 | Day surgery (SDC) | payer OTHER ==
[2023-12-28] MEDS ORDERED: Lidocaine HCl 4% Cream 5 GM ONE (14:46)
== END 2023-12-28 22:44 | disposition home or self-care (01) ==
LOC: WOUND 01:42
DX: E11.622 Type 2 diabetes mellitus with other skin ulcer (principal); L97.812 Non-pressure chronic ulcer of other part of right lower leg with fat layer exposed; E11.40 Type 2 diabetes mellitus with diabetic neuropathy, unspecified; A49.02 Methicillin resistant Staphylococcus aureus infection, unspecified site; Z89.511 Acquired absence of right leg below knee; I10 Essential (primary) hypertension; I25.10 Atherosclerotic heart disease of native coronary artery without angina pectoris; E78.5 Hyperlipidemia, unspecified; E03.9 Hypothyroidism, unspecified; J45.909 Unspecified asthma, uncomplicated; N18.30 Chronic kidney disease, stage 3 unspecified; E11.621 Type 2 diabetes mellitus with foot ulcer; L97.519 Non-pressure chronic ulcer of other part of right foot with unspecified severity; E11.69 Type 2 diabetes mellitus with other specified complication; M86.651 Other chronic osteomyelitis, right thigh; E11.22 Type 2 diabetes mellitus with diabetic chronic kidney disease; E11.59 Type 2 diabetes mellitus with other circulatory complications; E55.9 Vitamin D deficiency, unspecified; I87.2 Venous insufficiency (chronic) (peripheral); M89.8X8 Other specified disorders of bone, other site; D63.1 Anemia in chronic kidney disease; N25.81 Secondary hyperparathyroidism of renal origin; R76.9 Abnormal immunological finding in serum, unspecified; R94.5 Abnormal results of liver function studies; R94.6 Abnormal results of thyroid function studies; Z95.1 Presence of aortocoronary bypass graft
CPT/HCPCS: 73701; 82043; 84156; 84300; A6213; A9270; Q9967

== ENCOUNTER 2024-01-03 02:36 | Day surgery (SDC) | payer OTHER | END 2024-01-03 22:48 | disposition home or self-care (01) | LOC: WOUND 02:36 | DX: E11.622 Type 2 diabetes mellitus with other skin ulcer (principal); L97.812 Non-pressure chronic ulcer of other part of right lower leg with fat layer exposed; I25.10 Atherosclerotic heart disease of native coronary artery without angina pectoris; E78.5 Hyperlipidemia, unspecified; E11.40 Type 2 diabetes mellitus with diabetic neuropathy, unspecified; E03.9 Hypothyroidism, unspecified; J45.909 Unspecified asthma, uncomplicated; T81.31XD Disruption of external operation (surgical) wound, not elsewhere classified, subsequent encounter; E11.621 Type 2 diabetes mellitus with foot ulcer; E11.59 Type 2 diabetes mellitus with other circulatory complications; M86.651 Other chronic osteomyelitis, right thigh; I87.2 Venous insufficiency (chronic) (peripheral); Z89.511 Acquired absence of right leg below knee; Y83.8 Other surgical procedures as the cause of abnormal reaction of the patient, or of later complication, without mention of misadventure at the time of the procedure | CPT/HCPCS: A6213; G0463 ==

== ENCOUNTER 2024-01-15 01:59 | Day surgery (SDC) | payer OTHER | END 2024-01-15 23:20 | disposition home or self-care (01) | LOC: WOUND 01:59 | DX: E11.622 Type 2 diabetes mellitus with other skin ulcer (principal); L97.812 Non-pressure chronic ulcer of other part of right lower leg with fat layer exposed; E11.59 Type 2 diabetes mellitus with other circulatory complications; M86.651 Other chronic osteomyelitis, right thigh; E11.621 Type 2 diabetes mellitus with foot ulcer; A49.02 Methicillin resistant Staphylococcus aureus infection, unspecified site; I87.2 Venous insufficiency (chronic) (peripheral); I25.10 Atherosclerotic heart disease of native coronary artery without angina pectoris; E78.5 Hyperlipidemia, unspecified; I10 Essential (primary) hypertension; E11.40 Type 2 diabetes mellitus with diabetic neuropathy, unspecified; E03.9 Hypothyroidism, unspecified; J45.909 Unspecified asthma, uncomplicated; T81.31XD Disruption of external operation (surgical) wound, not elsewhere classified, subsequent encounter; T24.202A Burn of second degree of unspecified site of left lower limb, except ankle and foot, initial encounter; X08.8XXA Exposure to other specified smoke, fire and flames, initial encounter; Y83.8 Other surgical procedures as the cause of abnormal reaction of the patient, or of later complication, without mention of misadventure at the time of the procedure; Z89.511 Acquired absence of right leg below knee | CPT/HCPCS: A6213 ==

== ENCOUNTER 2024-01-25 01:39 | Day surgery (SDC) | payer OTHER | END 2024-01-25 22:58 | disposition home or self-care (01) | LOC: HBO 01:39 | DX: E11.622 Type 2 diabetes mellitus with other skin ulcer (principal); L97.114 Non-pressure chronic ulcer of right thigh with necrosis of bone; E11.621 Type 2 diabetes mellitus with foot ulcer; E11.69 Type 2 diabetes mellitus with other specified complication; M86.651 Other chronic osteomyelitis, right thigh; I87.2 Venous insufficiency (chronic) (peripheral); A49.02 Methicillin resistant Staphylococcus aureus infection, unspecified site; Z89.511 Acquired absence of right leg below knee | CPT/HCPCS: 82947; A6213; G0277; G0463 ==

== ENCOUNTER 2024-02-05 03:58 | Day surgery (SDC) | payer OTHER | END 2024-02-05 23:36 | disposition home or self-care (01) | LOC: HBO 03:58 | DX: E11.622 Type 2 diabetes mellitus with other skin ulcer (principal); L97.114 Non-pressure chronic ulcer of right thigh with necrosis of bone; E11.59 Type 2 diabetes mellitus with other circulatory complications; M86.651 Other chronic osteomyelitis, right thigh; E11.621 Type 2 diabetes mellitus with foot ulcer; A49.02 Methicillin resistant Staphylococcus aureus infection, unspecified site; I87.2 Venous insufficiency (chronic) (peripheral); Z89.511 Acquired absence of right leg below knee | CPT/HCPCS: 82947; G0277 ==

== ENCOUNTER 2024-02-06 05:38 | Day surgery (SDC) | payer OTHER | END 2024-02-06 23:15 | disposition home or self-care (01) | LOC: HBO 05:38 | DX: E11.622 Type 2 diabetes mellitus with other skin ulcer (principal); L97.114 Non-pressure chronic ulcer of right thigh with necrosis of bone; E11.69 Type 2 diabetes mellitus with other specified complication; M86.651 Other chronic osteomyelitis, right thigh; E11.621 Type 2 diabetes mellitus with foot ulcer; Z89.511 Acquired absence of right leg below knee; A49.02 Methicillin resistant Staphylococcus aureus infection, unspecified site; E11.59 Type 2 diabetes mellitus with other circulatory complications; I87.2 Venous insufficiency (chronic) (peripheral) | CPT/HCPCS: 82947; G0277 ==

== ENCOUNTER 2024-02-07 03:07 | Day surgery (SDC) | payer OTHER | END 2024-02-07 22:46 | disposition home or self-care (01) | LOC: HBO 03:07 | DX: E11.622 Type 2 diabetes mellitus with other skin ulcer (principal); L97.114 Non-pressure chronic ulcer of right thigh with necrosis of bone; E11.621 Type 2 diabetes mellitus with foot ulcer; E11.69 Type 2 diabetes mellitus with other specified complication; M86.651 Other chronic osteomyelitis, right thigh; Z89.511 Acquired absence of right leg below knee; A49.02 Methicillin resistant Staphylococcus aureus infection, unspecified site; E11.59 Type 2 diabetes mellitus with other circulatory complications; I87.2 Venous insufficiency (chronic) (peripheral) | CPT/HCPCS: 82947; G0277 ==

== ENCOUNTER 2024-02-08 03:28 | Day surgery (SDC) | payer OTHER | END 2024-02-08 23:52 | disposition home or self-care (01) | LOC: HBO 03:28 | DX: E11.622 Type 2 diabetes mellitus with other skin ulcer (principal); L97.114 Non-pressure chronic ulcer of right thigh with necrosis of bone; E11.69 Type 2 diabetes mellitus with other specified complication; M86.651 Other chronic osteomyelitis, right thigh; E11.59 Type 2 diabetes mellitus with other circulatory complications; A49.02 Methicillin resistant Staphylococcus aureus infection, unspecified site; Z89.511 Acquired absence of right leg below knee; I87.2 Venous insufficiency (chronic) (peripheral) | CPT/HCPCS: 82947; G0277 ==

== ENCOUNTER 2024-02-15 01:38 | Day surgery (SDC) | payer OTHER | END 2024-02-15 23:14 | disposition home or self-care (01) | LOC: WOUND | DX: E11.622 Type 2 diabetes mellitus with other skin ulcer (principal); L97.114 Non-pressure chronic ulcer of right thigh with necrosis of bone; E11.69 Type 2 diabetes mellitus with other specified complication; M86.651 Other chronic osteomyelitis, right thigh; E11.59 Type 2 diabetes mellitus with other circulatory complications; A49.02 Methicillin resistant Staphylococcus aureus infection, unspecified site; I87.2 Venous insufficiency (chronic) (peripheral); Z89.511 Acquired absence of right leg below knee | CPT/HCPCS: A6213; G0463 ==

== ENCOUNTER 2024-02-20 04:19 | Day surgery (SDC) | payer OTHER | END 2024-02-20 22:51 | disposition home or self-care (01) | LOC: HBO 04:19 | DX: E11.622 Type 2 diabetes mellitus with other skin ulcer (principal); L97.114 Non-pressure chronic ulcer of right thigh with necrosis of bone; E11.69 Type 2 diabetes mellitus with other specified complication; M86.651 Other chronic osteomyelitis, right thigh; E11.621 Type 2 diabetes mellitus with foot ulcer; Z89.511 Acquired absence of right leg below knee; A49.02 Methicillin resistant Staphylococcus aureus infection, unspecified site; E11.59 Type 2 diabetes mellitus with other circulatory complications; I87.2 Venous insufficiency (chronic) (peripheral) | CPT/HCPCS: 82947; G0277 ==

== ENCOUNTER 2024-02-21 01:11 | Day surgery (SDC) | payer OTHER | END 2024-02-21 22:51 | disposition home or self-care (01) | LOC: HBO 01:11 | DX: E11.622 Type 2 diabetes mellitus with other skin ulcer (principal); L97.114 Non-pressure chronic ulcer of right thigh with necrosis of bone; E11.69 Type 2 diabetes mellitus with other specified complication; M86.651 Other chronic osteomyelitis, right thigh; E11.621 Type 2 diabetes mellitus with foot ulcer; Z89.511 Acquired absence of right leg below knee; A49.02 Methicillin resistant Staphylococcus aureus infection, unspecified site; E11.59 Type 2 diabetes mellitus with other circulatory complications; I87.2 Venous insufficiency (chronic) (peripheral) | CPT/HCPCS: 82947; G0277 ==

== ENCOUNTER 2024-02-22 01:52 | Day surgery (SDC) | payer OTHER | END 2024-02-22 23:34 | disposition home or self-care (01) | LOC: HBO 01:52 | DX: E11.622 Type 2 diabetes mellitus with other skin ulcer (principal); L97.114 Non-pressure chronic ulcer of right thigh with necrosis of bone; E11.69 Type 2 diabetes mellitus with other specified complication; M86.651 Other chronic osteomyelitis, right thigh; E11.621 Type 2 diabetes mellitus with foot ulcer; E11.59 Type 2 diabetes mellitus with other circulatory complications; A49.02 Methicillin resistant Staphylococcus aureus infection, unspecified site; I87.2 Venous insufficiency (chronic) (peripheral); Z89.511 Acquired absence of right leg below knee | CPT/HCPCS: 82947; G0277 ==

== ENCOUNTER 2024-02-22 01:54 | Day surgery (SDC) | payer OTHER ==
[2024-02-22] MEDS ORDERED: Lidocaine HCl 4% Cream 5 GM ONE (14:30)
== END 2024-02-22 23:35 | disposition home or self-care (01) ==
LOC: WOUND 01:54
DX: E11.622 Type 2 diabetes mellitus with other skin ulcer (principal); L97.812 Non-pressure chronic ulcer of other part of right lower leg with fat layer exposed; E11.69 Type 2 diabetes mellitus with other specified complication; M86.651 Other chronic osteomyelitis, right thigh; E11.621 Type 2 diabetes mellitus with foot ulcer; Z89.511 Acquired absence of right leg below knee; A49.02 Methicillin resistant Staphylococcus aureus infection, unspecified site; E11.59 Type 2 diabetes mellitus with other circulatory complications; I87.2 Venous insufficiency (chronic) (peripheral); I10 Essential (primary) hypertension; E78.5 Hyperlipidemia, unspecified; J45.909 Unspecified asthma, uncomplicated; E03.9 Hypothyroidism, unspecified; E11.40 Type 2 diabetes mellitus with diabetic neuropathy, unspecified
CPT/HCPCS: A6213; A9270

== ENCOUNTER 2024-02-25 02:12 | Day surgery (SDC) | payer OTHER | END 2024-02-25 23:00 | disposition home or self-care (01) | LOC: HBO 02:12 | DX: E11.622 Type 2 diabetes mellitus with other skin ulcer (principal); L97.114 Non-pressure chronic ulcer of right thigh with necrosis of bone; E11.69 Type 2 diabetes mellitus with other specified complication; M86.651 Other chronic osteomyelitis, right thigh; E11.621 Type 2 diabetes mellitus with foot ulcer; A49.02 Methicillin resistant Staphylococcus aureus infection, unspecified site; E11.59 Type 2 diabetes mellitus with other circulatory complications; I87.2 Venous insufficiency (chronic) (peripheral) | CPT/HCPCS: 82947; G0277 ==

== ENCOUNTER 2024-02-29 02:25 | Day surgery (SDC) | payer OTHER | END 2024-02-29 23:07 | disposition home or self-care (01) | LOC: WOUND 02:25 | DX: E11.622 Type 2 diabetes mellitus with other skin ulcer (principal); L97.114 Non-pressure chronic ulcer of right thigh with necrosis of bone; E11.69 Type 2 diabetes mellitus with other specified complication; M86.651 Other chronic osteomyelitis, right thigh; I25.10 Atherosclerotic heart disease of native coronary artery without angina pectoris; E78.5 Hyperlipidemia, unspecified; I10 Essential (primary) hypertension; J45.909 Unspecified asthma, uncomplicated; E11.40 Type 2 diabetes mellitus with diabetic neuropathy, unspecified; E03.9 Hypothyroidism, unspecified; T81.31XD Disruption of external operation (surgical) wound, not elsewhere classified, subsequent encounter; E11.621 Type 2 diabetes mellitus with foot ulcer; I87.2 Venous insufficiency (chronic) (peripheral); Y83.8 Other surgical procedures as the cause of abnormal reaction of the patient, or of later complication, without mention of misadventure at the time of the procedure; Z89.511 Acquired absence of right leg below knee | CPT/HCPCS: A6213; G0463 ==

== ENCOUNTER 2024-03-06 03:09 | Day surgery (SDC) | payer OTHER | END 2024-03-06 23:11 | disposition home or self-care (01) | LOC: HBO 03:09 | DX: E11.622 Type 2 diabetes mellitus with other skin ulcer (principal); L97.114 Non-pressure chronic ulcer of right thigh with necrosis of bone; E11.69 Type 2 diabetes mellitus with other specified complication; M86.651 Other chronic osteomyelitis, right thigh; E11.621 Type 2 diabetes mellitus with foot ulcer; A49.02 Methicillin resistant Staphylococcus aureus infection, unspecified site; E11.59 Type 2 diabetes mellitus with other circulatory complications; I87.2 Venous insufficiency (chronic) (peripheral) | CPT/HCPCS: 82947; G0277 ==

== ENCOUNTER 2024-03-07 04:41 | Day surgery (SDC) | payer OTHER | END 2024-03-08 01:48 | disposition home or self-care (01) | LOC: WOUND 04:41 | DX: E11.622 Type 2 diabetes mellitus with other skin ulcer (principal); L97.114 Non-pressure chronic ulcer of right thigh with necrosis of bone; E11.59 Type 2 diabetes mellitus with other circulatory complications; M86.651 Other chronic osteomyelitis, right thigh; E11.621 Type 2 diabetes mellitus with foot ulcer; I87.2 Venous insufficiency (chronic) (peripheral); Z89.511 Acquired absence of right leg below knee | CPT/HCPCS: A6213; G0463 ==

== ENCOUNTER 2024-03-07 04:46 | Day surgery (SDC) | payer OTHER | END 2024-03-08 01:48 | disposition home or self-care (01) | LOC: HBO 04:46 | DX: E11.622 Type 2 diabetes mellitus with other skin ulcer (principal); L97.114 Non-pressure chronic ulcer of right thigh with necrosis of bone; E11.59 Type 2 diabetes mellitus with other circulatory complications; M86.651 Other chronic osteomyelitis, right thigh; E11.621 Type 2 diabetes mellitus with foot ulcer; I87.2 Venous insufficiency (chronic) (peripheral); Z89.511 Acquired absence of right leg below knee | CPT/HCPCS: 82947 ==

== ENCOUNTER 2024-03-11 03:17 | Day surgery (SDC) | payer OTHER | END 2024-03-11 23:00 | disposition home or self-care (01) | LOC: HBO 03:17 | DX: E11.622 Type 2 diabetes mellitus with other skin ulcer (principal); L97.812 Non-pressure chronic ulcer of other part of right lower leg with fat layer exposed; E11.69 Type 2 diabetes mellitus with other specified complication; M86.651 Other chronic osteomyelitis, right thigh; Z21 Asymptomatic human immunodeficiency virus [HIV] infection status; Z89.511 Acquired absence of right leg below knee | CPT/HCPCS: 82947; G0277 ==

== ENCOUNTER 2024-03-13 02:56 | Day surgery (SDC) | payer OTHER | END 2024-03-13 23:00 | disposition home or self-care (01) | LOC: HBO 02:56 | DX: E11.622 Type 2 diabetes mellitus with other skin ulcer (principal); L97.114 Non-pressure chronic ulcer of right thigh with necrosis of bone; E11.69 Type 2 diabetes mellitus with other specified complication; M86.651 Other chronic osteomyelitis, right thigh; E11.621 Type 2 diabetes mellitus with foot ulcer; Z89.511 Acquired absence of right leg below knee; E11.59 Type 2 diabetes mellitus with other circulatory complications; I87.2 Venous insufficiency (chronic) (peripheral); A49.02 Methicillin resistant Staphylococcus aureus infection, unspecified site | CPT/HCPCS: 82947; G0277 ==

== ENCOUNTER 2024-03-14 01:38 | Day surgery (SDC) | payer OTHER | END 2024-03-14 22:56 | disposition home or self-care (01) | LOC: HBO 01:38 | DX: E11.622 Type 2 diabetes mellitus with other skin ulcer (principal); L97.114 Non-pressure chronic ulcer of right thigh with necrosis of bone; E11.69 Type 2 diabetes mellitus with other specified complication; M86.651 Other chronic osteomyelitis, right thigh; Z21 Asymptomatic human immunodeficiency virus [HIV] infection status; Z89.511 Acquired absence of right leg below knee; L97.812 Non-pressure chronic ulcer of other part of right lower leg with fat layer exposed; I25.10 Atherosclerotic heart disease of native coronary artery without angina pectoris; E78.5 Hyperlipidemia, unspecified; J45.909 Unspecified asthma, uncomplicated; E11.40 Type 2 diabetes mellitus with diabetic neuropathy, unspecified; E03.9 Hypothyroidism, unspecified; I10 Essential (primary) hypertension; T81.89XA Other complications of procedures, not elsewhere classified, initial encounter; E11.59 Type 2 diabetes mellitus with other circulatory complications; E11.621 Type 2 diabetes mellitus with foot ulcer; I87.2 Venous insufficiency (chronic) (peripheral); Y83.8 Other surgical procedures as the cause of abnormal reaction of the patient, or of later complication, without mention of misadventure at the time of the procedure | CPT/HCPCS: 82947; A6213; A9270; G0277 ==

== ENCOUNTER 2024-03-14 01:40 | Day surgery (SDC) | payer OTHER ==
[2024-03-14] MEDS ORDERED: Lidocaine HCl 4% Cream 5 GM ONE (13:49)
== END 2024-03-14 22:56 | disposition home or self-care (01) ==
LOC: WOUND 01:40
DX: E11.622 Type 2 diabetes mellitus with other skin ulcer (principal); L97.812 Non-pressure chronic ulcer of other part of right lower leg with fat layer exposed; I25.10 Atherosclerotic heart disease of native coronary artery without angina pectoris; E78.5 Hyperlipidemia, unspecified; J45.909 Unspecified asthma, uncomplicated; E11.40 Type 2 diabetes mellitus with diabetic neuropathy, unspecified; E03.9 Hypothyroidism, unspecified; I10 Essential (primary) hypertension; T81.89XA Other complications of procedures, not elsewhere classified, initial encounter; L97.114 Non-pressure chronic ulcer of right thigh with necrosis of bone; E11.59 Type 2 diabetes mellitus with other circulatory complications; M86.651 Other chronic osteomyelitis, right thigh; E11.621 Type 2 diabetes mellitus with foot ulcer; I87.2 Venous insufficiency (chronic) (peripheral); Z89.511 Acquired absence of right leg below knee; Y83.8 Other surgical procedures as the cause of abnormal reaction of the patient, or of later complication, without mention of misadventure at the time of the procedure
CPT/HCPCS: A6213; A9270

== ENCOUNTER 2024-03-17 04:45 | Day surgery (SDC) | payer OTHER | END 2024-03-18 23:13 | disposition home or self-care (01) | LOC: HBO 04:45 | DX: E11.622 Type 2 diabetes mellitus with other skin ulcer (principal); L97.114 Non-pressure chronic ulcer of right thigh with necrosis of bone; E11.69 Type 2 diabetes mellitus with other specified complication; M86.651 Other chronic osteomyelitis, right thigh; E11.621 Type 2 diabetes mellitus with foot ulcer; I87.2 Venous insufficiency (chronic) (peripheral); Z89.511 Acquired absence of right leg below knee | CPT/HCPCS: 82947; G0277 ==

== ENCOUNTER 2024-03-18 02:09 | Day surgery (SDC) | payer OTHER | END 2024-03-18 23:13 | disposition home or self-care (01) | LOC: HBO 02:09 | DX: E11.622 Type 2 diabetes mellitus with other skin ulcer (principal); L97.114 Non-pressure chronic ulcer of right thigh with necrosis of bone; E11.69 Type 2 diabetes mellitus with other specified complication; M86.651 Other chronic osteomyelitis, right thigh; E11.621 Type 2 diabetes mellitus with foot ulcer; E11.8 Type 2 diabetes mellitus with unspecified complications; Z89.511 Acquired absence of right leg below knee; A49.02 Methicillin resistant Staphylococcus aureus infection, unspecified site; E11.59 Type 2 diabetes mellitus with other circulatory complications; I87.2 Venous insufficiency (chronic) (peripheral) | CPT/HCPCS: 82947; G0277 ==

== ENCOUNTER 2024-03-19 02:24 | Day surgery (SDC) | payer OTHER | END 2024-03-19 23:22 | disposition home or self-care (01) | LOC: HBO 02:24 | DX: E11.622 Type 2 diabetes mellitus with other skin ulcer (principal); L97.114 Non-pressure chronic ulcer of right thigh with necrosis of bone; E11.69 Type 2 diabetes mellitus with other specified complication; E11.621 Type 2 diabetes mellitus with foot ulcer; E11.59 Type 2 diabetes mellitus with other circulatory complications; A49.02 Methicillin resistant Staphylococcus aureus infection, unspecified site; I87.2 Venous insufficiency (chronic) (peripheral); Z89.511 Acquired absence of right leg below knee | CPT/HCPCS: 82947; G0277 ==

== ENCOUNTER 2024-03-20 02:18 | Day surgery (SDC) | payer OTHER | END 2024-03-20 23:00 | disposition home or self-care (01) | LOC: HBO 02:18 | DX: E11.622 Type 2 diabetes mellitus with other skin ulcer (principal); L97.114 Non-pressure chronic ulcer of right thigh with necrosis of bone; E11.69 Type 2 diabetes mellitus with other specified complication; M86.651 Other chronic osteomyelitis, right thigh; E11.621 Type 2 diabetes mellitus with foot ulcer; Z49.02 Encounter for fitting and adjustment of peritoneal dialysis catheter; E11.59 Type 2 diabetes mellitus with other circulatory complications; I87.2 Venous insufficiency (chronic) (peripheral); Z89.511 Acquired absence of right leg below knee | CPT/HCPCS: 82947; G0277 ==

== ENCOUNTER 2024-03-21 01:08 | Day surgery (SDC) | payer OTHER | END 2024-03-22 03:09 | disposition home or self-care (01) | LOC: WOUND 01:08 | DX: E11.69 Type 2 diabetes mellitus with other specified complication (principal); M86.651 Other chronic osteomyelitis, right thigh; I25.10 Atherosclerotic heart disease of native coronary artery without angina pectoris; I10 Essential (primary) hypertension; E11.51 Type 2 diabetes mellitus with diabetic peripheral angiopathy without gangrene; E03.9 Hypothyroidism, unspecified; E78.5 Hyperlipidemia, unspecified; Z21 Asymptomatic human immunodeficiency virus [HIV] infection status; Z89.511 Acquired absence of right leg below knee | CPT/HCPCS: A6213; G0463 ==

== ENCOUNTER 2024-03-21 03:39 | Day surgery (SDC) | payer OTHER | END 2024-03-22 03:10 | disposition home or self-care (01) | LOC: HBO 03:39 | DX: E11.622 Type 2 diabetes mellitus with other skin ulcer (principal); L97.114 Non-pressure chronic ulcer of right thigh with necrosis of bone; M86.651 Other chronic osteomyelitis, right thigh; E11.69 Type 2 diabetes mellitus with other specified complication; E11.621 Type 2 diabetes mellitus with foot ulcer; I87.2 Venous insufficiency (chronic) (peripheral); Z89.511 Acquired absence of right leg below knee | CPT/HCPCS: 82947; G0277 ==

== ENCOUNTER 2024-03-24 01:50 | Day surgery (SDC) | payer OTHER | END 2024-03-24 23:00 | disposition home or self-care (01) | LOC: HBO 01:50 | DX: E11.622 Type 2 diabetes mellitus with other skin ulcer (principal); L97.114 Non-pressure chronic ulcer of right thigh with necrosis of bone; E11.69 Type 2 diabetes mellitus with other specified complication; M86.651 Other chronic osteomyelitis, right thigh; E11.621 Type 2 diabetes mellitus with foot ulcer; A49.02 Methicillin resistant Staphylococcus aureus infection, unspecified site; E11.59 Type 2 diabetes mellitus with other circulatory complications; I87.2 Venous insufficiency (chronic) (peripheral); Z89.511 Acquired absence of right leg below knee | CPT/HCPCS: 82947; G0277 ==

== ENCOUNTER 2024-03-25 03:25 | Day surgery (SDC) | payer OTHER | END 2024-03-25 23:00 | LOC: HBO 03:25 | DX: E11.622 Type 2 diabetes mellitus with other skin ulcer (principal); L97.112 Non-pressure chronic ulcer of right thigh with fat layer exposed; E11.69 Type 2 diabetes mellitus with other specified complication; M86.651 Other chronic osteomyelitis, right thigh; I87.2 Venous insufficiency (chronic) (peripheral); Z89.511 Acquired absence of right leg below knee | CPT/HCPCS: 82947; G0277 ==

== ENCOUNTER 2024-03-26 04:49 | Day surgery (SDC) | payer OTHER | END 2024-03-26 23:00 | disposition home or self-care (01) | LOC: HBO 04:49 | DX: E11.622 Type 2 diabetes mellitus with other skin ulcer (principal); L97.114 Non-pressure chronic ulcer of right thigh with necrosis of bone; E11.69 Type 2 diabetes mellitus with other specified complication; M86.651 Other chronic osteomyelitis, right thigh; E11.621 Type 2 diabetes mellitus with foot ulcer; I87.2 Venous insufficiency (chronic) (peripheral); Z89.511 Acquired absence of right leg below knee | CPT/HCPCS: 82947; G0277 ==

== ENCOUNTER 2024-03-27 02:11 | Day surgery (SDC) | payer OTHER | END 2024-03-28 02:51 | disposition home or self-care (01) | LOC: HBO 02:11 | DX: E11.69 Type 2 diabetes mellitus with other specified complication (principal); M86.651 Other chronic osteomyelitis, right thigh; E11.622 Type 2 diabetes mellitus with other skin ulcer; L97.114 Non-pressure chronic ulcer of right thigh with necrosis of bone; Z89.511 Acquired absence of right leg below knee | CPT/HCPCS: 82947; G0463 ==

== ENCOUNTER 2024-03-28 03:49 | Day surgery (SDC) | payer OTHER | END 2024-03-29 01:29 | disposition home or self-care (01) | LOC: HBO 03:49 | DX: E11.622 Type 2 diabetes mellitus with other skin ulcer (principal); L97.112 Non-pressure chronic ulcer of right thigh with fat layer exposed; E11.69 Type 2 diabetes mellitus with other specified complication; M86.651 Other chronic osteomyelitis, right thigh; Z89.511 Acquired absence of right leg below knee | CPT/HCPCS: 82947; G0277 ==

== ENCOUNTER 2024-03-28 03:58 | Day surgery (SDC) | payer OTHER ==
[2024-03-28] MEDS ORDERED: Lidocaine HCl 4% Cream 5 GM ONE (10:40)
== END 2024-03-29 01:30 | disposition home or self-care (01) ==
LOC: WOUND 03:58
DX: E11.622 Type 2 diabetes mellitus with other skin ulcer (principal); L97.812 Non-pressure chronic ulcer of other part of right lower leg with fat layer exposed; T81.31XD Disruption of external operation (surgical) wound, not elsewhere classified, subsequent encounter; L97.114 Non-pressure chronic ulcer of right thigh with necrosis of bone; E11.69 Type 2 diabetes mellitus with other specified complication; M86.651 Other chronic osteomyelitis, right thigh; E11.621 Type 2 diabetes mellitus with foot ulcer; I87.2 Venous insufficiency (chronic) (peripheral); Z89.511 Acquired absence of right leg below knee; Y83.8 Other surgical procedures as the cause of abnormal reaction of the patient, or of later complication, without mention of misadventure at the time of the procedure
CPT/HCPCS: A6213; A9270

== ENCOUNTER 2024-03-31 10:55 | Day surgery (SDC) | payer OTHER | END 2024-03-31 23:00 | LOC: HBO 10:55 | DX: E11.622 Type 2 diabetes mellitus with other skin ulcer (principal); L97.112 Non-pressure chronic ulcer of right thigh with fat layer exposed; E11.69 Type 2 diabetes mellitus with other specified complication; M86.651 Other chronic osteomyelitis, right thigh; Z89.511 Acquired absence of right leg below knee | CPT/HCPCS: 82947; G0277 ==

== ENCOUNTER 2024-04-01 02:49 | Day surgery (SDC) | payer OTHER | END 2024-04-01 23:00 | disposition home or self-care (01) | LOC: HBO 02:49 | DX: E11.622 Type 2 diabetes mellitus with other skin ulcer (principal); L97.116 Non-pressure chronic ulcer of right thigh with bone involvement without evidence of necrosis; E11.69 Type 2 diabetes mellitus with other specified complication; M86.651 Other chronic osteomyelitis, right thigh; Z89.511 Acquired absence of right leg below knee | CPT/HCPCS: 82947; G0277 ==

== ENCOUNTER 2024-04-03 01:50 | Day surgery (SDC) | payer OTHER | END 2024-04-03 23:08 | disposition home or self-care (01) | LOC: HBO 01:50 | DX: E11.622 Type 2 diabetes mellitus with other skin ulcer (principal); L97.114 Non-pressure chronic ulcer of right thigh with necrosis of bone; E11.69 Type 2 diabetes mellitus with other specified complication; M86.651 Other chronic osteomyelitis, right thigh; Z89.511 Acquired absence of right leg below knee | CPT/HCPCS: 82947; G0277 ==

== ENCOUNTER 2024-04-04 02:33 | Day surgery (SDC) | payer OTHER | END 2024-04-05 00:14 | disposition home or self-care (01) | LOC: HBO 02:33 | DX: E11.622 Type 2 diabetes mellitus with other skin ulcer (principal); L97.114 Non-pressure chronic ulcer of right thigh with necrosis of bone; E11.69 Type 2 diabetes mellitus with other specified complication; M86.651 Other chronic osteomyelitis, right thigh; E11.621 Type 2 diabetes mellitus with foot ulcer; I87.2 Venous insufficiency (chronic) (peripheral); Z89.511 Acquired absence of right leg below knee | CPT/HCPCS: 82947; G0277 ==

== ENCOUNTER 2024-04-04 02:47 | Day surgery (SDC) | payer OTHER ==
[2024-04-04] MEDS ORDERED: Lidocaine HCl 4% Cream 5 GM ONE (13:53)
== END 2024-04-05 00:14 | disposition home or self-care (01) ==
LOC: WOUND 02:47
DX: E11.622 Type 2 diabetes mellitus with other skin ulcer (principal); L97.812 Non-pressure chronic ulcer of other part of right lower leg with fat layer exposed; E11.69 Type 2 diabetes mellitus with other specified complication; M86.651 Other chronic osteomyelitis, right thigh; I10 Essential (primary) hypertension; I25.10 Atherosclerotic heart disease of native coronary artery without angina pectoris; E78.5 Hyperlipidemia, unspecified; E11.40 Type 2 diabetes mellitus with diabetic neuropathy, unspecified; E03.9 Hypothyroidism, unspecified; Z21 Asymptomatic human immunodeficiency virus [HIV] infection status; Z89.511 Acquired absence of right leg below knee
CPT/HCPCS: A6213; A9270

== ENCOUNTER 2024-04-07 02:57 | Day surgery (SDC) | payer OTHER | END 2024-04-07 23:00 | disposition home or self-care (01) | LOC: HBO 02:57 | DX: E11.622 Type 2 diabetes mellitus with other skin ulcer (principal); L97.112 Non-pressure chronic ulcer of right thigh with fat layer exposed; E11.69 Type 2 diabetes mellitus with other specified complication; M86.651 Other chronic osteomyelitis, right thigh; Z89.511 Acquired absence of right leg below knee | CPT/HCPCS: 82947; G0277 ==

== ENCOUNTER 2024-04-10 02:57 | Day surgery (SDC) | payer OTHER | END 2024-04-10 23:32 | disposition home or self-care (01) | LOC: HBO | DX: E11.622 Type 2 diabetes mellitus with other skin ulcer (principal); L97.114 Non-pressure chronic ulcer of right thigh with necrosis of bone; E11.69 Type 2 diabetes mellitus with other specified complication; M86.651 Other chronic osteomyelitis, right thigh; E11.621 Type 2 diabetes mellitus with foot ulcer; I87.2 Venous insufficiency (chronic) (peripheral); Z89.511 Acquired absence of right leg below knee | CPT/HCPCS: 82947; G0277 ==

== ENCOUNTER 2024-04-11 03:29 | Day surgery (SDC) | payer OTHER | END 2024-04-11 23:51 | disposition home or self-care (01) | LOC: HBO | DX: E11.622 Type 2 diabetes mellitus with other skin ulcer (principal); L97.114 Non-pressure chronic ulcer of right thigh with necrosis of bone; E11.69 Type 2 diabetes mellitus with other specified complication; M86.651 Other chronic osteomyelitis, right thigh; E11.621 Type 2 diabetes mellitus with foot ulcer; I87.2 Venous insufficiency (chronic) (peripheral); L97.812 Non-pressure chronic ulcer of other part of right lower leg with fat layer exposed; I25.10 Atherosclerotic heart disease of native coronary artery without angina pectoris; E78.5 Hyperlipidemia, unspecified; I10 Essential (primary) hypertension; E11.40 Type 2 diabetes mellitus with diabetic neuropathy, unspecified; E03.9 Hypothyroidism, unspecified; J45.909 Unspecified asthma, uncomplicated; Z89.511 Acquired absence of right leg below knee | CPT/HCPCS: 82947; A6213; A9270; G0277 ==

== ENCOUNTER 2024-04-11 03:34 | Day surgery (SDC) | payer OTHER ==
[2024-04-11] MEDS ORDERED: Lidocaine HCl 4% Cream 5 GM ONE (13:55)
== END 2024-04-11 23:51 | disposition home or self-care (01) ==
LOC: WOUND
DX: E11.622 Type 2 diabetes mellitus with other skin ulcer (principal); L97.812 Non-pressure chronic ulcer of other part of right lower leg with fat layer exposed; I25.10 Atherosclerotic heart disease of native coronary artery without angina pectoris; E78.5 Hyperlipidemia, unspecified; I10 Essential (primary) hypertension; E11.40 Type 2 diabetes mellitus with diabetic neuropathy, unspecified; E03.9 Hypothyroidism, unspecified; J45.909 Unspecified asthma, uncomplicated; L97.114 Non-pressure chronic ulcer of right thigh with necrosis of bone; E11.69 Type 2 diabetes mellitus with other specified complication; M86.651 Other chronic osteomyelitis, right thigh; E11.621 Type 2 diabetes mellitus with foot ulcer; I87.2 Venous insufficiency (chronic) (peripheral); Z89.511 Acquired absence of right leg below knee
CPT/HCPCS: A6213; A9270

== ENCOUNTER 2024-04-14 02:54 | Day surgery (SDC) | payer OTHER | END 2024-04-14 23:51 | disposition home or self-care (01) | LOC: HBO | DX: E11.622 Type 2 diabetes mellitus with other skin ulcer (principal); L97.114 Non-pressure chronic ulcer of right thigh with necrosis of bone; E11.69 Type 2 diabetes mellitus with other specified complication; M86.651 Other chronic osteomyelitis, right thigh; E11.621 Type 2 diabetes mellitus with foot ulcer; I87.2 Venous insufficiency (chronic) (peripheral); Z89.511 Acquired absence of right leg below knee | CPT/HCPCS: 82947; G0277 ==

== ENCOUNTER 2024-04-15 01:34 | Day surgery (SDC) | payer OTHER | END 2024-04-15 23:00 | disposition home or self-care (01) | LOC: HBO 01:34 | DX: E11.622 Type 2 diabetes mellitus with other skin ulcer (principal); L97.812 Non-pressure chronic ulcer of other part of right lower leg with fat layer exposed; E11.69 Type 2 diabetes mellitus with other specified complication; M86.651 Other chronic osteomyelitis, right thigh; I87.2 Venous insufficiency (chronic) (peripheral); Z89.511 Acquired absence of right leg below knee | CPT/HCPCS: 82947; G0277 ==

== ENCOUNTER 2024-04-16 03:45 | Day surgery (SDC) | payer OTHER | END 2024-04-16 23:59 | disposition home or self-care (01) | LOC: HBO 03:45 | DX: E11.622 Type 2 diabetes mellitus with other skin ulcer (principal); L97.114 Non-pressure chronic ulcer of right thigh with necrosis of bone; E11.69 Type 2 diabetes mellitus with other specified complication; M86.651 Other chronic osteomyelitis, right thigh; E11.621 Type 2 diabetes mellitus with foot ulcer; Z89.511 Acquired absence of right leg below knee; A49.02 Methicillin resistant Staphylococcus aureus infection, unspecified site; E11.59 Type 2 diabetes mellitus with other circulatory complications; I87.2 Venous insufficiency (chronic) (peripheral) | CPT/HCPCS: 82947; G0277 ==

== ENCOUNTER 2024-04-17 03:17 | Day surgery (SDC) | payer OTHER | END 2024-04-17 23:00 | disposition home or self-care (01) | LOC: HBO | DX: E11.622 Type 2 diabetes mellitus with other skin ulcer (principal); L97.114 Non-pressure chronic ulcer of right thigh with necrosis of bone; E11.69 Type 2 diabetes mellitus with other specified complication; M86.651 Other chronic osteomyelitis, right thigh; E11.621 Type 2 diabetes mellitus with foot ulcer; I87.2 Venous insufficiency (chronic) (peripheral); Z89.511 Acquired absence of right leg below knee | CPT/HCPCS: 82947; G0277 ==

== ENCOUNTER 2024-04-21 02:02 | Day surgery (SDC) | payer OTHER | END 2024-04-22 00:19 | disposition home or self-care (01) | LOC: HBO 02:02 | DX: E11.622 Type 2 diabetes mellitus with other skin ulcer (principal); L97.811 Non-pressure chronic ulcer of other part of right lower leg limited to breakdown of skin; E11.69 Type 2 diabetes mellitus with other specified complication; M86.651 Other chronic osteomyelitis, right thigh; Z89.511 Acquired absence of right leg below knee | CPT/HCPCS: 82947; G0277 ==

== ENCOUNTER 2024-04-22 02:12 | Day surgery (SDC) | payer OTHER | END 2024-04-22 23:00 | disposition home or self-care (01) | LOC: HBO 02:12 | DX: E11.622 Type 2 diabetes mellitus with other skin ulcer (principal); L97.801 Non-pressure chronic ulcer of other part of unspecified lower leg limited to breakdown of skin; E11.69 Type 2 diabetes mellitus with other specified complication; M86.651 Other chronic osteomyelitis, right thigh; I87.2 Venous insufficiency (chronic) (peripheral); Z89.511 Acquired absence of right leg below knee | CPT/HCPCS: 82947; G0277 ==

== ENCOUNTER 2024-04-23 03:13 | Day surgery (SDC) | payer OTHER | END 2024-04-23 23:00 | disposition home or self-care (01) | LOC: HBO 03:13 | DX: E11.622 Type 2 diabetes mellitus with other skin ulcer (principal); L97.812 Non-pressure chronic ulcer of other part of right lower leg with fat layer exposed; I87.2 Venous insufficiency (chronic) (peripheral); E11.69 Type 2 diabetes mellitus with other specified complication; M86.651 Other chronic osteomyelitis, right thigh; Z89.511 Acquired absence of right leg below knee | CPT/HCPCS: 82947; G0277 ==

== ENCOUNTER 2024-04-24 03:03 | Day surgery (SDC) | payer OTHER | END 2024-04-24 23:00 | disposition home or self-care (01) | LOC: HBO 03:03 | DX: E11.622 Type 2 diabetes mellitus with other skin ulcer (principal); L97.114 Non-pressure chronic ulcer of right thigh with necrosis of bone; E11.69 Type 2 diabetes mellitus with other specified complication; M86.651 Other chronic osteomyelitis, right thigh; E11.621 Type 2 diabetes mellitus with foot ulcer; I87.2 Venous insufficiency (chronic) (peripheral); Z89.511 Acquired absence of right leg below knee | CPT/HCPCS: 82947; G0277 ==

== ENCOUNTER 2024-04-25 04:01 | Day surgery (SDC) | payer OTHER | END 2024-04-26 03:14 | disposition home or self-care (01) | LOC: HBO 04:01 | PROC: 5A05121 Extracorporeal Hyperbaric Oxygenation, Intermittent (ICD-10-PCS; principal; 2024-04-25) | DX: E11.622 Type 2 diabetes mellitus with other skin ulcer (principal); L97.114 Non-pressure chronic ulcer of right thigh with necrosis of bone; E11.69 Type 2 diabetes mellitus with other specified complication; M86.68 Other chronic osteomyelitis, other site; E11.621 Type 2 diabetes mellitus with foot ulcer; A49.02 Methicillin resistant Staphylococcus aureus infection, unspecified site; Z89.511 Acquired absence of right leg below knee; L97.815 Non-pressure chronic ulcer of other part of right lower leg with muscle involvement without evidence of necrosis; M86.651 Other chronic osteomyelitis, right thigh; E11.59 Type 2 diabetes mellitus with other circulatory complications; Z49.02 Encounter for fitting and adjustment of peritoneal dialysis catheter; I87.2 Venous insufficiency (chronic) (peripheral); I10 Essential (primary) hypertension; E78.5 Hyperlipidemia, unspecified; E11.40 Type 2 diabetes mellitus with diabetic neuropathy, unspecified; E03.9 Hypothyroidism, unspecified; I25.10 Atherosclerotic heart disease of native coronary artery without angina pectoris | CPT/HCPCS: 82947; A6213; G0277 ==

== ENCOUNTER 2024-04-25 04:25 | Day surgery (SDC) | payer OTHER | END 2024-04-26 03:14 | disposition home or self-care (01) | LOC: WOUND 04:25 | DX: E11.622 Type 2 diabetes mellitus with other skin ulcer (principal); L97.815 Non-pressure chronic ulcer of other part of right lower leg with muscle involvement without evidence of necrosis; E11.69 Type 2 diabetes mellitus with other specified complication; M86.651 Other chronic osteomyelitis, right thigh; E11.621 Type 2 diabetes mellitus with foot ulcer; Z89.511 Acquired absence of right leg below knee; E11.59 Type 2 diabetes mellitus with other circulatory complications; Z49.02 Encounter for fitting and adjustment of peritoneal dialysis catheter; I87.2 Venous insufficiency (chronic) (peripheral); I10 Essential (primary) hypertension; E78.5 Hyperlipidemia, unspecified; E11.40 Type 2 diabetes mellitus with diabetic neuropathy, unspecified; E03.9 Hypothyroidism, unspecified; I25.10 Atherosclerotic heart disease of native coronary artery without angina pectoris | CPT/HCPCS: A6213 ==

== ENCOUNTER 2024-04-28 03:56 | Day surgery (SDC) | payer OTHER | END 2024-04-28 23:00 | disposition home or self-care (01) | LOC: HBO 03:56 | DX: E11.622 Type 2 diabetes mellitus with other skin ulcer (principal); L97.114 Non-pressure chronic ulcer of right thigh with necrosis of bone; E11.69 Type 2 diabetes mellitus with other specified complication; M86.651 Other chronic osteomyelitis, right thigh; E11.621 Type 2 diabetes mellitus with foot ulcer; I87.2 Venous insufficiency (chronic) (peripheral); Z89.511 Acquired absence of right leg below knee | CPT/HCPCS: 82947; G0277 ==

== ENCOUNTER 2024-04-30 04:55 | Day surgery (SDC) | payer OTHER | END 2024-04-30 23:00 | disposition home or self-care (01) | LOC: HBO 04:55 | DX: E11.622 Type 2 diabetes mellitus with other skin ulcer (principal); L97.112 Non-pressure chronic ulcer of right thigh with fat layer exposed; E11.69 Type 2 diabetes mellitus with other specified complication; M86.651 Other chronic osteomyelitis, right thigh; Z89.511 Acquired absence of right leg below knee | CPT/HCPCS: 82947; G0463 ==

== ENCOUNTER 2024-05-23 04:54 | Day surgery (SDC) | payer OTHER | END 2024-05-23 23:00 | disposition home or self-care (01) | LOC: WOUND 04:54 | DX: E11.622 Type 2 diabetes mellitus with other skin ulcer (principal); L97.812 Non-pressure chronic ulcer of other part of right lower leg with fat layer exposed; T81.31XD Disruption of external operation (surgical) wound, not elsewhere classified, subsequent encounter; L97.114 Non-pressure chronic ulcer of right thigh with necrosis of bone; E11.69 Type 2 diabetes mellitus with other specified complication; I87.2 Venous insufficiency (chronic) (peripheral); J15.9 Unspecified bacterial pneumonia; M86.651 Other chronic osteomyelitis, right thigh; I25.10 Atherosclerotic heart disease of native coronary artery without angina pectoris; E78.5 Hyperlipidemia, unspecified; J45.909 Unspecified asthma, uncomplicated; E11.40 Type 2 diabetes mellitus with diabetic neuropathy, unspecified; E03.9 Hypothyroidism, unspecified; Y83.8 Other surgical procedures as the cause of abnormal reaction of the patient, or of later complication, without mention of misadventure at the time of the procedure | CPT/HCPCS: A6196; A6213; G0463 ==

== ENCOUNTER 2024-05-30 03:59 | Day surgery (SDC) | payer OTHER | END 2024-05-30 23:00 | disposition home or self-care (01) | LOC: WOUND 03:59 | DX: E11.622 Type 2 diabetes mellitus with other skin ulcer (principal); L97.114 Non-pressure chronic ulcer of right thigh with necrosis of bone; L97.812 Non-pressure chronic ulcer of other part of right lower leg with fat layer exposed; T81.31XD Disruption of external operation (surgical) wound, not elsewhere classified, subsequent encounter; E11.69 Type 2 diabetes mellitus with other specified complication; M86.651 Other chronic osteomyelitis, right thigh; I25.10 Atherosclerotic heart disease of native coronary artery without angina pectoris; E78.5 Hyperlipidemia, unspecified; I10 Essential (primary) hypertension; J45.909 Unspecified asthma, uncomplicated; E11.40 Type 2 diabetes mellitus with diabetic neuropathy, unspecified; E03.9 Hypothyroidism, unspecified; E11.621 Type 2 diabetes mellitus with foot ulcer; I87.2 Venous insufficiency (chronic) (peripheral); J15.9 Unspecified bacterial pneumonia; Y83.8 Other surgical procedures as the cause of abnormal reaction of the patient, or of later complication, without mention of misadventure at the time of the procedure | CPT/HCPCS: A6196; A6213; G0463 ==

== ENCOUNTER 2024-06-04 12:44 | Emergency (ER) | payer OTHER ==
[~2024-06-04] VITALS: Ht 188 cm; Wt 99.8 kg
[2024-06-04 14:21] LABS: BASOPHILS PERCENT AUTO 1 % (0-2); EOSINOPHILS ABSOLUTE AUTO 0.19 K/mm3 (0.00-0.68); EOSINOPHILS PERCENT AUTO 2 % (0-6); Hematocrit 38.1 % (37.0-53.0); IMMATURE GRAN ABSOLUTE AUTO 0.04 K/mm3 (0.00-0.10); IMMATURE GRAN PERCENT AUTO 1 % (0-1); LYMPHOCYTES ABSOLUTE AUTO 0.92 K/mm3 (0.84-5.20); LYMPHOCYTES PERCENT AUTO 11 % (21-46); MONOCYTES ABSOLUTE AUTO 0.64 K/mm3 (0.16-1.47); MONOCYTES PERCENT AUTO 8 % (4-13); Mean Corpuscular HGB Conc 31.5 g/dL (31.5-36.5); Mean Corpuscular Volume 86 fL (80-100); Mean Platelet Volume 10.8 fL (9.1-12.4); NEUTROPHILS ABSOLUTE AUTO 6.58 K/mm3 (1.96-9.15); NEUTROPHILS PERCENT AUTO 78 % (41-73); Platelet Count 118 K/mm3 (150-400); RDW Coefficient Variation 14.3 % (11.7-14.2); RDW Standard Deviation 44.9 fL (35.1-46.3); Red Blood Cell Count 4.44 M/mm3 (4.30-5.90); White Blood Cell Count 8.47 K/mm3 (4.00-11.30)
[2024-06-04 14:33] LABS: Albumin, Blood 3.1 g/dL (3.4-5.0); Albumin/Globulin Ratio 0.7 (0.8-1.8); Bilirubin, Total 0.7 mg/dL (0.1-1.0); Bun/Creatinine Ratio 35.6 (12.0-20.0); Calcium, Blood 9.5 mg/dL (8.5-10.1); Creatinine, Blood 1.04 mg/dL (0.60-1.20); Globulin, Blood 4.4 g/dL (2.2-4.0); Potassium, Blood 4.5 mmol/L (3.5-5.5); Total Protein, Blood 7.5 g/dL (6.4-8.2)
[2024-06-04] MEDS ORDERED: Bumetanide2 MG PO (14:51)
[2024-06-04] MEDS ORDERED: INSULANPEN SC (14:53)
[2024-06-04 16:51] LABS: Source, Urine Clean Catch
[2024-06-04 17:02] LABS: Appearance, Urine Clear (Clear); Bilirubin, Urine Neg (Neg); Blood, Urine 4+ (Neg); Color, Urine Yellow (P-Yellow); Glucose Qualitative, Urine Neg (Neg); Ketones, Urine Neg (Neg); Leukocyte Esterase, Urine 2+ (Neg); Nitrite, Urine Pos (Neg); Protein, Urine 4+ (Neg); Urobilinogen, Urine NORM (Normal)
[2024-06-04 17:15] LABS: Bacteria Many /hpf; Squamous Epithelial Cells Few /hpf (Few)
[2024-06-04] MEDS ORDERED: Cephalexin Monohydrate 500 MG Cap PO ONE (17:25)
[2024-06-04 17:30] VITALS: BP 165/80
[2024-06-04] MEDS ORDERED: CEPH500 PO (17:37)
== END 2024-06-04 17:53 | disposition home or self-care (01) ==
LOC: ER 12:44
PROVIDERS: Emergency Medicine
DX: R55 Syncope and collapse (principal); S09.90XA Unspecified injury of head, initial encounter; X58.XXXA Exposure to other specified factors, initial encounter; I11.0 Hypertensive heart disease with heart failure; I50.30 Unspecified diastolic (congestive) heart failure; E11.42 Type 2 diabetes mellitus with diabetic polyneuropathy; I25.10 Atherosclerotic heart disease of native coronary artery without angina pectoris; J45.50 Severe persistent asthma, uncomplicated; E03.9 Hypothyroidism, unspecified; Z88.5 Allergy status to narcotic agent; Z88.8 Allergy status to other drugs, medicaments and biological substances; Z79.4 Long term (current) use of insulin; Z79.01 Long term (current) use of anticoagulants; Z79.84 Long term (current) use of oral hypoglycemic drugs; Z79.890 Hormone replacement therapy; Z79.899 Other long term (current) drug therapy
CPT/HCPCS: 70450; 71045; 80053; 81001; 82140; 84484; 85025; 87077; 87086; 87186; 93005; 93010; 94060; 94729; 99285-25; A9270

== ENCOUNTER 2024-06-20 04:51 | Day surgery (SDC) | payer OTHER ==
[~2024-06-20 04:51] MED LIST changes: +Bumetanide2 MG PO; +INSULANPEN SC
[2024-06-20] MEDS ORDERED: Lidocaine HCl 4% Cream 5 GM ONE (14:48)
== END 2024-06-20 23:00 | disposition home or self-care (01) ==
LOC: WOUND
DX: E11.622 Type 2 diabetes mellitus with other skin ulcer (principal); L97.812 Non-pressure chronic ulcer of other part of right lower leg with fat layer exposed; T81.31XA Disruption of external operation (surgical) wound, not elsewhere classified, initial encounter; I25.10 Atherosclerotic heart disease of native coronary artery without angina pectoris; I87.2 Venous insufficiency (chronic) (peripheral); I10 Essential (primary) hypertension; E78.5 Hyperlipidemia, unspecified; E11.40 Type 2 diabetes mellitus with diabetic neuropathy, unspecified; E11.69 Type 2 diabetes mellitus with other specified complication; M86.651 Other chronic osteomyelitis, right thigh; E03.9 Hypothyroidism, unspecified; J15.9 Unspecified bacterial pneumonia; Y83.8 Other surgical procedures as the cause of abnormal reaction of the patient, or of later complication, without mention of misadventure at the time of the procedure
CPT/HCPCS: A6213; A9270

== ENCOUNTER 2024-06-27 06:43 | Day surgery (SDC) | payer OTHER ==
[2024-06-27] MEDS ORDERED: Lidocaine HCl 4% Cream 5 GM ONE (14:44)
== END 2024-06-27 23:00 | disposition home or self-care (01) ==
LOC: WOUND 06:43
DX: E11.622 Type 2 diabetes mellitus with other skin ulcer (principal); L97.812 Non-pressure chronic ulcer of other part of right lower leg with fat layer exposed; T81.31XD Disruption of external operation (surgical) wound, not elsewhere classified, subsequent encounter; I25.10 Atherosclerotic heart disease of native coronary artery without angina pectoris; E78.5 Hyperlipidemia, unspecified; I10 Essential (primary) hypertension; E11.40 Type 2 diabetes mellitus with diabetic neuropathy, unspecified; E03.9 Hypothyroidism, unspecified; E11.69 Type 2 diabetes mellitus with other specified complication; I87.2 Venous insufficiency (chronic) (peripheral); J15.9 Unspecified bacterial pneumonia; Y83.8 Other surgical procedures as the cause of abnormal reaction of the patient, or of later complication, without mention of misadventure at the time of the procedure; K70.31 Alcoholic cirrhosis of liver with ascites; F10.27 Alcohol dependence with alcohol-induced persisting dementia; N40.0 Benign prostatic hyperplasia without lower urinary tract symptoms
CPT/HCPCS: 36415; 80076; 82140; 84153; A6213; A9270

== ENCOUNTER 2024-07-04 03:04 | Day surgery (SDC) | payer OTHER | END 2024-07-04 23:00 | disposition home or self-care (01) | LOC: WOUND 03:04 | DX: E11.622 Type 2 diabetes mellitus with other skin ulcer (principal); L97.812 Non-pressure chronic ulcer of other part of right lower leg with fat layer exposed; I25.10 Atherosclerotic heart disease of native coronary artery without angina pectoris; E78.5 Hyperlipidemia, unspecified; I10 Essential (primary) hypertension; J45.909 Unspecified asthma, uncomplicated; E03.9 Hypothyroidism, unspecified; E11.40 Type 2 diabetes mellitus with diabetic neuropathy, unspecified; E11.69 Type 2 diabetes mellitus with other specified complication; M86.651 Other chronic osteomyelitis, right thigh; I87.2 Venous insufficiency (chronic) (peripheral); J15.9 Unspecified bacterial pneumonia | CPT/HCPCS: A6213; G0463 ==

== ENCOUNTER 2024-07-07 04:20 | Day surgery (SDC) | payer OTHER | END 2024-07-07 23:00 | disposition home or self-care (01) | LOC: HBO 04:20 | DX: E11.622 Type 2 diabetes mellitus with other skin ulcer (principal); L97.114 Non-pressure chronic ulcer of right thigh with necrosis of bone; E11.69 Type 2 diabetes mellitus with other specified complication; M86.651 Other chronic osteomyelitis, right thigh; I87.2 Venous insufficiency (chronic) (peripheral); J15.9 Unspecified bacterial pneumonia; K74.60 Unspecified cirrhosis of liver; I13.0 Hypertensive heart and chronic kidney disease with heart failure and stage 1 through stage 4 chronic kidney disease, or unspecified chronic kidney disease; I50.30 Unspecified diastolic (congestive) heart failure; N18.9 Chronic kidney disease, unspecified; E78.5 Hyperlipidemia, unspecified; E03.9 Hypothyroidism, unspecified; G47.33 Obstructive sleep apnea (adult) (pediatric); Z79.899 Other long term (current) drug therapy; Z79.4 Long term (current) use of insulin; Z79.84 Long term (current) use of oral hypoglycemic drugs; Z88.5 Allergy status to narcotic agent; Z88.8 Allergy status to other drugs, medicaments and biological substances | CPT/HCPCS: 51702; 51798; 71046; 71260; 74177; 76705; 80053; 81001; 82947; 83880; 84484; 85025; 87077; 87086; 87186; 93005; 93010; 93971; 99285-25; Q9967 ==

== ENCOUNTER 2024-07-18 06:20 | Day surgery (SDC) | payer OTHER ==
[2024-07-18] MEDS ORDERED: Lidocaine HCl 4% Cream 5 GM ONE (11:05)
== END 2024-07-18 23:00 | disposition home or self-care (01) ==
LOC: WOUND 06:20
DX: E11.622 Type 2 diabetes mellitus with other skin ulcer (principal); L98.492 Non-pressure chronic ulcer of skin of other sites with fat layer exposed; T87.81 Dehiscence of amputation stump; I87.2 Venous insufficiency (chronic) (peripheral); E11.40 Type 2 diabetes mellitus with diabetic neuropathy, unspecified; I25.10 Atherosclerotic heart disease of native coronary artery without angina pectoris; E78.5 Hyperlipidemia, unspecified; I10 Essential (primary) hypertension; E03.9 Hypothyroidism, unspecified; Z89.511 Acquired absence of right leg below knee
CPT/HCPCS: 82947; A6213; A9270

== ENCOUNTER → 2024-07-28 | Outpatient (CLI) | payer OTHER ==
[2024-07-28 19:43] LABS: Protein, Urine Quantitative 146.9 mg/dL (0.0-11.9)
== END ==
LOC: LAB SHORT 06:38 → LAB 06:38
PROVIDERS: Internal Medicine Nephrology
DX: N18.30 Chronic kidney disease, stage 3 unspecified (principal); D63.1 Anemia in chronic kidney disease; N25.81 Secondary hyperparathyroidism of renal origin; E55.9 Vitamin D deficiency, unspecified; E29.1 Testicular hypofunction; R76.9 Abnormal immunological finding in serum, unspecified; R94.5 Abnormal results of liver function studies; R94.6 Abnormal results of thyroid function studies
CPT/HCPCS: 81050; 82043; 82570; 84156

== ENCOUNTER 2024-08-01 00:51 | Day surgery (SDC) | payer OTHER ==
[2024-08-01] MEDS ORDERED: Lidocaine HCl 4% Cream 5 GM ONE (13:19)
== END 2024-08-01 23:00 | disposition home or self-care (01) ==
LOC: WOUND 00:51
DX: E11.622 Type 2 diabetes mellitus with other skin ulcer (principal); L97.812 Non-pressure chronic ulcer of other part of right lower leg with fat layer exposed; T81.31XA Disruption of external operation (surgical) wound, not elsewhere classified, initial encounter; I25.10 Atherosclerotic heart disease of native coronary artery without angina pectoris; I10 Essential (primary) hypertension; E78.5 Hyperlipidemia, unspecified; E11.40 Type 2 diabetes mellitus with diabetic neuropathy, unspecified; E03.9 Hypothyroidism, unspecified; E11.69 Type 2 diabetes mellitus with other specified complication; M86.651 Other chronic osteomyelitis, right thigh; I87.2 Venous insufficiency (chronic) (peripheral); E11.22 Type 2 diabetes mellitus with diabetic chronic kidney disease; N18.30 Chronic kidney disease, stage 3 unspecified; D63.1 Anemia in chronic kidney disease; N25.81 Secondary hyperparathyroidism of renal origin; E55.9 Vitamin D deficiency, unspecified; E78.00 Pure hypercholesterolemia, unspecified; R76.9 Abnormal immunological finding in serum, unspecified; R94.6 Abnormal results of thyroid function studies; R94.5 Abnormal results of liver function studies; Y83.8 Other surgical procedures as the cause of abnormal reaction of the patient, or of later complication, without mention of misadventure at the time of the procedure
CPT/HCPCS: 36415; 80069; 85018; A6213; A9270

== ENCOUNTER 2024-08-05 13:48 | Emergency (ER) | payer OTHER ==
[~2024-08-05] VITALS: Ht 188 cm; Wt 122.5 kg
[2024-08-05 14:06] LABS: BASOPHILS PERCENT AUTO 1 % (0-2); EOSINOPHILS ABSOLUTE AUTO 0.21 K/mm3 (0.00-0.68); EOSINOPHILS PERCENT AUTO 3 % (0-6); Hematocrit 33.9 % (37.0-53.0); Hemoglobin 10.6 g/dL (13.5-17.5); IMMATURE GRAN ABSOLUTE AUTO 0.03 K/mm3 (0.00-0.10); IMMATURE GRAN PERCENT AUTO 0 % (0-1); LYMPHOCYTES ABSOLUTE AUTO 0.77 K/mm3 (0.84-5.20); LYMPHOCYTES PERCENT AUTO 11 % (21-46); MONOCYTES ABSOLUTE AUTO 0.71 K/mm3 (0.16-1.47); MONOCYTES PERCENT AUTO 10 % (4-13); Mean Corpuscular HGB 26.7 pg (26.0-34.0); Mean Corpuscular HGB Conc 31.3 g/dL (31.5-36.5); Mean Corpuscular Volume 85 fL (80-100); Mean Platelet Volume 10.7 fL (9.1-12.4); NEUTROPHILS ABSOLUTE AUTO 5.18 K/mm3 (1.96-9.15); NEUTROPHILS PERCENT AUTO 74 % (41-73); Platelet Count 170 K/mm3 (150-400); RDW Coefficient Variation 17.9 % (11.7-14.2); RDW Standard Deviation 55.5 fL (35.1-46.3); Red Blood Cell Count 3.97 M/mm3 (4.30-5.90)
[2024-08-05 14:25] LABS: Albumin, Blood 2.9 g/dL (3.4-5.0); Albumin/Globulin Ratio 0.7 (0.8-1.8); Bilirubin, Total 0.6 mg/dL (0.1-1.0); Bun/Creatinine Ratio 26.5 (12.0-20.0); Calcium, Blood 9.4 mg/dL (8.5-10.1); Creatinine, Blood 1.81 mg/dL (0.60-1.20); Globulin, Blood 4.2 g/dL (2.2-4.0); Potassium, Blood 5.9 mmol/L (3.5-5.5); Total Protein, Blood 7.1 g/dL (6.4-8.2)
[2024-08-05] MEDS ORDERED: METO5 PO (15:20)
[2024-08-05] MEDS ORDERED: SPIRONOLACTONE25 MG PO (15:20)
[2024-08-05] MEDS ORDERED: METO50ER PO (15:20)
[2024-08-05] MEDS ORDERED: INSULIN AS100 UNIT/8 SC (15:21)
[2024-08-05] MEDS ORDERED: FLUTICASONE-SAL12 G1 INH (15:22)
[2024-08-05] MEDS ORDERED: KLOR-CON 1010 ME9 PO (15:26)
[2024-08-05] MEDS ORDERED: FUROSEMIDE40 MG PO (15:26)
[2024-08-05] MEDS ORDERED: GLUCOPHAGE1000 M2 PO (15:27)
[2024-08-05] MEDS ORDERED: SYNTHROID125 MC1 PO (15:28)
[2024-08-05] MEDS ORDERED: LOSARTAN POTASS25 M2 PO (15:30)
[2024-08-05 17:00] VITALS: BP 110/67
== END 2024-08-05 17:25 | disposition home or self-care (01) ==
LOC: ER 13:48
PROVIDERS: Emergency Medicine
DX: R60.9 Edema, unspecified (principal); J98.11 Atelectasis; I11.0 Hypertensive heart disease with heart failure; I50.9 Heart failure, unspecified; E11.9 Type 2 diabetes mellitus without complications; Z89.511 Acquired absence of right leg below knee; Z79.4 Long term (current) use of insulin; Z79.84 Long term (current) use of oral hypoglycemic drugs; Z79.51 Long term (current) use of inhaled steroids; Z79.890 Hormone replacement therapy; Z79.01 Long term (current) use of anticoagulants; Z79.899 Other long term (current) drug therapy
CPT/HCPCS: 71045; 80053; 83880; 84484; 85025; 93005; 93010; 99285-25

== ENCOUNTER 2024-08-11 12:03 | Inpatient (IN) | payer OTHER ==
[~2024-08-11] VITALS: Ht 188 cm; Wt 108.4 kg
[~2024-08-11 12:03] MED LIST changes: +FLUTICASONE-SAL12 G1 INH; +FUROSEMIDE40 MG PO; +GLUCOPHAGE1000 M2 PO; +INSULIN AS100 UNIT/8 SC; +KLOR-CON 1010 ME9 PO; +LOSARTAN POTASS25 M2 PO; +METO5 PO; +METO50ER PO; +SPIRONOLACTONE25 MG PO; +SYNTHROID125 MC1 PO
[2024-08-11 13:04] LABS: BASOPHILS ABSOLUTE AUTO 0.04 K/mm3 (0.00-0.23); BASOPHILS PERCENT AUTO 1 % (0-2); EOSINOPHILS PERCENT AUTO 0 % (0-6); Hematocrit 38.6 % (37.0-53.0); Hemoglobin 11.9 g/dL (13.5-17.5); IMMATURE GRAN ABSOLUTE AUTO 0.05 K/mm3 (0.00-0.10); IMMATURE GRAN PERCENT AUTO 1 % (0-1); LYMPHOCYTES ABSOLUTE AUTO 0.29 K/mm3 (0.84-5.20); LYMPHOCYTES PERCENT AUTO 4 % (21-46); MONOCYTES ABSOLUTE AUTO 0.82 K/mm3 (0.16-1.47); MONOCYTES PERCENT AUTO 12 % (4-13); Mean Corpuscular HGB 26.2 pg (26.0-34.0); Mean Corpuscular HGB Conc 30.8 g/dL (31.5-36.5); Mean Corpuscular Volume 85 fL (80-100); Mean Platelet Volume 10.2 fL (9.1-12.4); NEUTROPHILS ABSOLUTE AUTO 5.74 K/mm3 (1.96-9.15); NEUTROPHILS PERCENT AUTO 83 % (41-73); Platelet Count 166 K/mm3 (150-400); RDW Coefficient Variation 17.3 % (11.7-14.2); RDW Standard Deviation 54.3 fL (35.1-46.3); Red Blood Cell Count 4.54 M/mm3 (4.30-5.90); White Blood Cell Count 6.94 K/mm3 (4.00-11.30)
[2024-08-11] MEDS ORDERED: FentaNYL Citrate 50 MCG/ML 2 ML Injection IV ONE (13:30)
[2024-08-11 13:38] LABS: Albumin, Blood 2.9 g/dL (3.4-5.0); Albumin/Globulin Ratio 0.7 (0.8-1.8); Bilirubin, Total 0.6 mg/dL (0.1-1.0); Bun/Creatinine Ratio 32.9 (12.0-20.0); Calcium, Blood 9.1 mg/dL (8.5-10.1); Creatinine, Blood 1.64 mg/dL (0.60-1.20); Globulin, Blood 4.2 g/dL (2.2-4.0); Potassium, Blood 4.9 mmol/L (3.5-5.5); Thyroid Stimulating Hormone 7.46 uIU/mL (0.360-4.800); Total Protein, Blood 7.1 g/dL (6.4-8.2)
[2024-08-11] MEDS ORDERED: ATOR40TA PO (14:36)
[2024-08-11 14:39] LABS: International Normalized Ratio 1.47; Prothrombin Time Results 15.3 Sec (9.7-11.5)
[2024-08-11] MEDS ORDERED: BUDESONIDE-FO10.2 G2 INH (14:44)
[2024-08-11] MEDS ORDERED: FLU VACC TS2024-25(6MOS UP)/PF 45 MCG/0.5 ML SYRINGE IM SCH (16:15)
[2024-08-11] MEDS ORDERED: Furosemide 10 MG/ML 4ML Vial IV ONE (16:30)
[2024-08-11] MEDS ORDERED: Benzonatate 100 MG Cap PO PRN (16:30)
[2024-08-11 17:30] LABS: Automated BF RBC Count 0.003 M/mm3 (0-0); Automated BF WBC Count 0.057 K/mm3 (0-999)
[2024-08-11 17:32] LABS: Body Fluid WBC Count 57 /mm3 (0-999); RBC Count, Body Fluid 3000 /mm3 (0-0)
[2024-08-11 17:38] LABS: Appearance, Body Fluid Clear (Clear); Color, Body Fluid L Yellow (None-Yellow)
[2024-08-11 18:04] LABS: Protein, Body Fluid 3.4 g/dL
[2024-08-11 18:42] LABS: Total Cell Count, Body Fluid 100
[2024-08-11] MEDS ORDERED: Albumin (Human) 25gm/100ml 100 ML IV ONE (19:40)
[2024-08-11] MEDS ORDERED: Furosemide 10 MG/ML 4ML Vial ONE (20:05)
[2024-08-11 22:42] VITALS: BP 111/81
[2024-08-11] MEDS ORDERED: Metoprolol Tartrate 1 MG/ML 5 ML VIAL IV PRN (23:55)
[2024-08-12] MEDS ORDERED: FURO80 PO (02:12)
[2024-08-12 02:52] VITALS: BP 159/89
[2024-08-12] MEDS ORDERED: Mometasone/Formoterol MDI 200/5 mcg 13 GM INH SCH (03:00)
--- NOTE | 2024-08-12 04:57 | NUR ---
[place] [address]11 ADMITTED FOR ANASARCA. PT ARRIVED TO UNIT ALERT AND ORIENTED TO SELF, PERSON AND PLACE. DIFFICULTIES TELLING ME THE SITUATION HE IS IN. PT HAS DEMENTIA AND HAS TROUBLE SOMETIMES ANSWERING CERTAIN QUESTIONS. PT STATES HIS HANDLES HIS MEDICATIONS AND HE DOESNT KNOW HOW TO USE HIS DEXCOM WHEN ASKED. PT ON 3L NC 97%. HAS FREQUENT COUGHING ATTACKS THAT CAUSE HIM TO BECOME SOB. OTHERWISE VSS. ON TELE PT IS IN AFLUTTER. HR 118 UPON ARRIVAL. MD NOTIFIED AND METOPROLOL SUCCINATE ORDERED AND GIVEN WITH GOOD RESULTS. PT C/O PHANTOM LIMB PAIN ALONG WITH R HIP PAIN, UPON ASSESSMENT PTS HIP WAS MOTTLED AND APPEARED TO HAVE A MUSCLE CRAMP. MD NOTIFIED AND PTS HOME MEDS PLACED IN EMAR. PT HAS R BKA THAT APPEARS TO NOT BE COMPLETELY HEALED. CLEANED AND COVERED WITH BANDAGE. PTs PARACENTESIS SITE REMAINS CDI. NO FURTHER QUESTIONS OR CONCERNS AT THIS TIME. WILL CONTINUE WITH PLAN OF CARE AND REPORT TO ONCOMING NURSE.
[2024-08-12 05:48] LABS: Hemoglobin 10.8 g/dL (13.5-17.5); Mean Corpuscular HGB 26.6 pg (26.0-34.0); Mean Corpuscular HGB Conc 31.8 g/dL (31.5-36.5); Mean Corpuscular Volume 84 fL (80-100); Mean Platelet Volume 10.7 fL (9.1-12.4); Platelet Count 142 K/mm3 (150-400); RDW Coefficient Variation 17.2 % (11.7-14.2); Red Blood Cell Count 4.06 M/mm3 (4.30-5.90); White Blood Cell Count 5.73 K/mm3 (4.00-11.30)
[2024-08-12 06:22] LABS: Albumin, Blood 2.7 g/dL (3.4-5.0); Anion Gap 9 mmol/L (3-11); Blood Urea Nitrogen 53 mg/dL (8-24); Bun/Creatinine Ratio 39.6 (12.0-20.0); CO2, Blood 32 mmol/L (21-32); Calcium, Blood 8.7 mg/dL (8.5-10.1); Chloride, Blood 105 mmol/L (98-108); Creatinine, Blood 1.34 mg/dL (0.60-1.20); Glomerular Filtration Rate 58 (60-); Glucose, Blood 84 mg/dL (70-99); Phosphorus, Blood 3.3 mg/dL (2.5-4.9); Potassium, Blood 4.6 mmol/L (3.5-5.5); Sodium, Blood 141 mmol/L (136-145)
[2024-08-12] MEDS ORDERED: Omeprazole 20 MG CapCR PO SCH (07:30)
[2024-08-12 07:44] VITALS: BP 132/67
[2024-08-12] MEDS ORDERED: Bumetanide 1 MG Tab PO SCH (09:00)
[2024-08-12] MEDS ORDERED: Enoxaparin 40 MG/0.4 ML SYR SC SCH (09:00)
[2024-08-12] MEDS ORDERED: Apixaban 5 MG Tab PO SCH (09:00)
[2024-08-12] MEDS ORDERED: Pregabalin 75 MG Cap PO SCH (09:00)
[2024-08-12] MEDS ORDERED: Tamsulosin HCl 0.4 MG Cap PO SCH (09:00)
[2024-08-12] MEDS ORDERED: rOPINIRole HCl 0.25 MG Tab PO SCH ×2 (09:00→21:00)
[2024-08-12] MEDS ORDERED: Levothyroxine Sodium 0.125 MG Tab PO SCH (09:00)
[2024-08-12] MEDS ORDERED: Metoprolol Succinate 50 MG TABCR PO SCH ×2 (09:00)
[2024-08-12 12:13] VITALS: BP 118/73
[2024-08-12] MEDS ORDERED: GuaiFENesin 100 MG/5 ML 5ML UDC PO PRN (12:25)
[2024-08-12] MEDS ORDERED: Benzonatate 100 MG Cap PO PRN (12:30)
[2024-08-12] MEDS ORDERED: Guaifenesin/Dextromethorphan Syrup 5 ML UDC PO PRN (12:35)
[2024-08-12 15:01] VITALS: BP 106/66
[2024-08-12 16:13] VITALS: BP 108/70
--- NOTE | 2024-08-12 17:40 | NUR ---
SHIFT SUMMARY PATIENT AOX3 HE DOES HAVE A HISTORY OF DEMENTIA AND AT TIME WILL NOT ANSWER QUESTIONS AND CONTINUES TO JOKE AROUND. HIS STOMACH IS DISTENDED AND HIS PARA SITE IS CDI. HE IS VOIDING IN THE MALE PUREWICK AND WE ARE COLLECTING A 224 HOUR URINE. HIS VITALS ARE STABLE AND 02 SATS IN THE UPPER 90'S ON 3L WHICH IS WHAT HE STATES HE TAKES AT HOME. THE HOSPITALIST CHANGED IS STATUS TO MEDICAL. HE COMPLAINS OF PAIN IN HIS RIGHT STUMP AND HE DOES HAVE AN OPEN WOUND AT THE DISTAL END OF THE STUMP.
--- NOTE | 2024-08-12 20:27 | NUR ---
ASSUMPTION AND TRANSFER OF CARE ASSUMED CARE OF PT @1900. PT AXO2-3. IN BED, TRANSFERRED TO RECLINER. DENIES NEEDS OUTSIDE OF NEEDING A COMB. 24HR URINE IN PROCESS, COLLECTION BIN ON ICE. PT WITH MALE PUREWICK ON. WOUNDS BILL TO R STUMP AND L LEG, BASELINE CURRENTLY. ON 3L WHICH IS REPORTED BASELINE. OTHERWISE, PT STATES BEING " COMFORTABLE IT GETS BEING HERE". 2023 - REPORT GIVEN TO CORAZON Humphrey RN ON MEDICAL FLOOR. PT TRANSFERRED TO [facility] WITH ALL BELONGINGS AND 24 HR URINE BIN ON ICE.
[2024-08-12 20:29] VITALS: BP 112/70
--- NOTE | 2024-08-12 21:21 | NUR ---
PCU 05 TRANSFER. REPORT TAKEN FROM MARCEL ALVAREZ. PATIENT ARRIVED VIA W/C AND SBA STAND PIVOT TO BED. RIGHT BKA. ON 3L O2 N/C. AXO X 3. 24 HOUR URINE IN PROGRESS. PUREWICK IN PLACE. DENIES CHEST PAIN, SOB, AND N/V. PERSONAL BELONGINGS WITH PATIENT. [facility].
[2024-08-13 03:30] VITALS: BP 114/66
--- NOTE | 2024-08-13 04:06 | NUR ---
SHIFT SUMMARY PATIENT HAD NO ACUTE CHANGES. AXOX 3 AND STAND PIVOT TO BSC WITH ASSIST. RIGHT BKA. ON 3L O2 NC, BASELINE. CBG 243. TELE MONITOR AFLUTTER 78. 24 HOUR URINE COLLECTION IN PROGRESS. PUREWWICK IN PLACE. NON PRODUCTIVE COUGH AND TESSALON 200 MG GIVEN AND GAUIFENESIN 10 mL ALTERNATED. DENIES CHEST PAIN, SOB, AND N/V. VSS/AFEBRILE. REPORTED RESTLESS LEGS AND SCHEDULE REQUIP 0.75 MG GIVEN PER EMAR. HAD ANOTHER EVENT LATER IN SHIFT AND WORKED THROUGH SITTING ON SIDE OF BED. CALL LIGHT IN REACH. BED IN LOWEST POSITION. WILL CONTINUE TO MONITOR UNTIL DAY SHIFT NURSE ASSUMES CARE.
[2024-08-13 06:15] LABS: Hematocrit 32.4 % (37.0-53.0); Hemoglobin 10.2 g/dL (13.5-17.5)
[2024-08-13 07:02] LABS: Albumin, Blood 2.6 g/dL (3.4-5.0); Anion Gap 7 mmol/L (3-11); Blood Urea Nitrogen 65 mg/dL (8-24); Bun/Creatinine Ratio 41.7 (12.0-20.0); CO2, Blood 34 mmol/L (21-32); Calcium, Blood 8.8 mg/dL (8.5-10.1); Chloride, Blood 100 mmol/L (98-108); Creatinine, Blood 1.56 mg/dL (0.60-1.20); Glomerular Filtration Rate 48 (60-); Glucose, Blood 316 mg/dL (70-99); Magnesium, Blood 2.3 mg/dL (1.6-2.4); Phosphorus, Blood 3.7 mg/dL (2.5-4.9); Potassium, Blood 4.5 mmol/L (3.5-5.5); Sodium, Blood 136 mmol/L (136-145)
[2024-08-13 07:27] LABS: Protein, Urine Quantitative 162.3 mg/dL (0.0-11.9)
[2024-08-13 07:38] VITALS: BP 121/67
[2024-08-13] MEDS ORDERED: Bumetanide 0.25 MG/ML 4ML ViaL IV SCH (09:00)
--- NOTE | 2024-08-13 09:30 | NUR ---
MD NOTIFIED OF BLOOD SUGAR >250. STATES WILL REVIEW ORDERS. WILL CONTINUE TO MONITOR.
--- NOTE | 2024-08-13 12:07 | NUR ---
NOTIFIED OF BLOOD GLUCOSE OF 318. MD LEYVA WILL PLACE INSULIN ORDERS. WILL CONTINUE TO MONITOR.
[2024-08-13] MEDS ORDERED: Insulin Human Lispro 100 Units/ML 3ML Syringe SC SCH ×2 (12:20→16:30)
[2024-08-13] MEDS ORDERED: BUME2 PO (14:50)
[2024-08-13] MEDS ORDERED: Tessalon200 MG PO (14:51)
--- NOTE | 2024-08-13 16:34 | NUR ---
DISCHARGE NOTE PATIENT A/OX4, ABLE TO MAKE NEEDS KNOWN. COOPERATIVE WITH STAFF. PATIENT HAVING DELUSIONS THIS AFTERNNON, STATING "THE PATIENT ACROSS THE FONSECA HAS BEEN FOR A WHILE". CONCRETE THOUGHT PROCESS. MD AWARE. NEW MEDICATIONS DISCUSSED WITH PATIENT AND FAXED TO [facility] PER PATIENT REQUEST. IV AND TELEMETRY REMOVED PRIOR TO DISCHARGE. OXYGEN DELIVERED TO BEDSIDE PRIOR TO DISCHARGE, PATIENT NEEDING 2 LPM SUPPLEMENTAL OXYGEN VIA NASAL CANNULA. DISCHARGE INSTRUCTIONS DISCUSSED WITH PATIENT AND AGREEABLE TO PLAN, PATIENT ASSISTED TO FAMILY VEHICLE BY [facility] STAFF, NO OTHER CONCERNS.
== END 2024-08-13 16:30 | disposition home health service (06) | DRG 683 ==
LOC: ER 12:03 → ERHOLD 16:12 → PCU 16:12 → MEDS 08-12 20:22
PROVIDERS: Emergency Medicine; Family Medicine; Internal Medicine Nephrology; ADMIT Internal Medicine
PROC: 0W9G3ZZ Drainage of Peritoneal Cavity, Percutaneous Approach (ICD-10-PCS; principal; 2024-08-11)
DX: N17.9 Acute kidney failure, unspecified (principal); I13.0 Hypertensive heart and chronic kidney disease with heart failure and stage 1 through stage 4 chronic kidney disease, or unspecified chronic kidney disease; I50.32 Chronic diastolic (congestive) heart failure; R18.8 Other ascites; M86.68 Other chronic osteomyelitis, other site; I48.11 Longstanding persistent atrial fibrillation; N18.30 Chronic kidney disease, stage 3 unspecified; E11.22 Type 2 diabetes mellitus with diabetic chronic kidney disease; R79.89 Other specified abnormal findings of blood chemistry; E11.69 Type 2 diabetes mellitus with other specified complication; T50.1X6A Underdosing of loop [high-ceiling] diuretics, initial encounter; I25.10 Atherosclerotic heart disease of native coronary artery without angina pectoris; E03.9 Hypothyroidism, unspecified; G47.33 Obstructive sleep apnea (adult) (pediatric); E11.51 Type 2 diabetes mellitus with diabetic peripheral angiopathy without gangrene; F03.90 Unspecified dementia, unspecified severity, without behavioral disturbance, psychotic disturbance, mood disturbance, and anxiety; K74.60 Unspecified cirrhosis of liver; E87.5 Hyperkalemia; D63.1 Anemia in chronic kidney disease; N40.0 Benign prostatic hyperplasia without lower urinary tract symptoms; E11.42 Type 2 diabetes mellitus with diabetic polyneuropathy; G25.81 Restless legs syndrome; F32.A Depression, unspecified; Z91.138 Patient's unintentional underdosing of medication regimen for other reason; Z89.511 Acquired absence of right leg below knee; Z88.8 Allergy status to other drugs, medicaments and biological substances; Z88.5 Allergy status to narcotic agent; Z79.01 Long term (current) use of anticoagulants; Z79.51 Long term (current) use of inhaled steroids; Z79.4 Long term (current) use of insulin; Z79.890 Hormone replacement therapy; Z95.1 Presence of aortocoronary bypass graft; Z86.718 Personal history of other venous thrombosis and embolism; Z86.711 Personal history of pulmonary embolism; Z87.891 Personal history of nicotine dependence; Z79.84 Long term (current) use of oral hypoglycemic drugs
CPT/HCPCS: 36415; 49083; 71045; 76770; 80053; 80069; 80320; 82140; 82947; 83605; 83735; 83880; 84145; 84156; 84157; 84443; 84484; 85014; 85018; 85025; 85027; 85610; 87040; 87070; 87077; 87186; 87205; 89051; 93005; 93010; 94640; 94664; 94760; 94761; 96374-59; 99285-25; A9270; J1940; J3010; P9047

== ENCOUNTER 2024-08-15 02:17 | Day surgery (SDC) | payer OTHER ==
[~2024-08-15 02:17] MED LIST changes: +BUDESONIDE-FO10.2 G2 INH; +BUME2 PO; +FURO80 PO; +Tessalon200 MG PO
[2024-08-15] MEDS ORDERED: Lidocaine HCl 4% Cream 5 GM ONE (14:03)
== END 2024-08-15 23:00 | disposition home or self-care (01) ==
LOC: WOUND 02:17
DX: E11.622 Type 2 diabetes mellitus with other skin ulcer (principal); L97.815 Non-pressure chronic ulcer of other part of right lower leg with muscle involvement without evidence of necrosis; L89.893 Pressure ulcer of other site, stage 3; E11.69 Type 2 diabetes mellitus with other specified complication; M86.651 Other chronic osteomyelitis, right thigh; E11.59 Type 2 diabetes mellitus with other circulatory complications; I87.2 Venous insufficiency (chronic) (peripheral); I10 Essential (primary) hypertension; E78.5 Hyperlipidemia, unspecified; E11.40 Type 2 diabetes mellitus with diabetic neuropathy, unspecified; J45.909 Unspecified asthma, uncomplicated; E03.9 Hypothyroidism, unspecified
CPT/HCPCS: A6213; A9270

== ENCOUNTER 2024-08-29 04:27 | Day surgery (SDC) | payer OTHER ==
[2024-08-29] MEDS ORDERED: Lidocaine HCl 4% Cream 5 GM ONE (14:04)
[2024-08-29] MEDS ORDERED: Silver Nitr/Potassium Nitrate 1 EA APPL ONE (14:24)
== END 2024-08-29 23:00 | disposition home or self-care (01) ==
LOC: WOUND 04:27
DX: E11.622 Type 2 diabetes mellitus with other skin ulcer (principal); L97.812 Non-pressure chronic ulcer of other part of right lower leg with fat layer exposed; T81.31XA Disruption of external operation (surgical) wound, not elsewhere classified, initial encounter; L97.829 Non-pressure chronic ulcer of other part of left lower leg with unspecified severity; L89.893 Pressure ulcer of other site, stage 3; I87.2 Venous insufficiency (chronic) (peripheral); E11.69 Type 2 diabetes mellitus with other specified complication; M86.651 Other chronic osteomyelitis, right thigh; I25.10 Atherosclerotic heart disease of native coronary artery without angina pectoris; E11.40 Type 2 diabetes mellitus with diabetic neuropathy, unspecified; E03.9 Hypothyroidism, unspecified; I10 Essential (primary) hypertension; E78.5 Hyperlipidemia, unspecified; J45.909 Unspecified asthma, uncomplicated; Z89.511 Acquired absence of right leg below knee
CPT/HCPCS: A6213; A9270

== ENCOUNTER 2024-09-05 08:45 | Day surgery (SDC) | payer OTHER ==
[~2024-09-05] VITALS: Ht 188 cm; Wt 111.0 kg
[~2024-09-05 08:45] MED LIST changes: +C COMPLEX1000 M1 PO; +FISH OIL 1,0001 EA10 PO; +LOSA25 PO
[2024-09-05 09:30] VITALS: BP 151/96
[2024-09-05] MEDS ORDERED: Heparin Sodium 1000 Units/ML 10ML MDV ONE (09:59)
[2024-09-05] MEDS ORDERED: NS 250 ML IV ONE (09:59)
[2024-09-05] MEDS ORDERED: NS 1,000 ML IV ONE ×2 (09:59→10:09)
[2024-09-05] MEDS ORDERED: Midazolam HCl 1MG / ML 2ML Vial ONE (10:09)
[2024-09-05] MEDS ORDERED: FentaNYL Citrate 50 MCG/ML 2 ML Injection ONE (10:09)
[2024-09-05 11:15] VITALS: BP 144/92
--- NOTE | 2024-09-05 11:44 | NUR ---
groin site soft w/ no sign of bleeding/hematoma.
--- NOTE | 2024-09-05 11:55 | NUR ---
pt readjusted in bed
[2024-09-05 12:00] VITALS: BP 136/88
[2024-09-05 12:30] VITALS: BP 130/73
--- NOTE | 2024-09-05 14:00 | NUR ---
PT UP TO BATHROOM /C 1 PERSON ASSIST. TOLERATED WELL. NEG BLEEDING OR SWELLING L GROIN AREA.
--- NOTE | 2024-09-05 14:40 | NUR ---
PT AND VERBALIZED UNDERSTANDING OF WRITTEN AND VERBAL D/C INST. IV REMOVED. PT TAKEN OUT OF THE HRT CENTER VIA W/C.
== END 2024-09-05 14:30 | disposition home or self-care (01) ==
LOC: MHTC 08:45 → EDSTATUS 09:00 → MHTC 14:30
DX: E11.51 Type 2 diabetes mellitus with diabetic peripheral angiopathy without gangrene (principal); I70.221 Atherosclerosis of native arteries of extremities with rest pain, right leg; L97.919 Non-pressure chronic ulcer of unspecified part of right lower leg with unspecified severity; E11.69 Type 2 diabetes mellitus with other specified complication; M86.68 Other chronic osteomyelitis, other site; I87.2 Venous insufficiency (chronic) (peripheral); I25.10 Atherosclerotic heart disease of native coronary artery without angina pectoris; I10 Essential (primary) hypertension; E78.5 Hyperlipidemia, unspecified; E03.9 Hypothyroidism, unspecified; G25.81 Restless legs syndrome; Z87.891 Personal history of nicotine dependence; Z79.01 Long term (current) use of anticoagulants; Z79.4 Long term (current) use of insulin; Z79.84 Long term (current) use of oral hypoglycemic drugs; Z79.890 Hormone replacement therapy; Z79.899 Other long term (current) drug therapy; Z88.5 Allergy status to narcotic agent; Z88.8 Allergy status to other drugs, medicaments and biological substances; Z95.1 Presence of aortocoronary bypass graft; Z89.511 Acquired absence of right leg below knee
CPT/HCPCS: 37224; 75625; 75716; 75774; 76937; 99152; 99153; C1725; C1760; C1769; C1887; C1894; J1644; J2250; J3010; J7030; J7050; Q9967

== ENCOUNTER 2024-09-12 04:13 | Day surgery (SDC) | payer OTHER ==
[2024-09-12] MEDS ORDERED: Lidocaine HCl 4% Cream 5 GM ONE (13:56)
== END 2024-09-12 23:00 | disposition home or self-care (01) ==
LOC: WOUND 04:13
DX: E11.622 Type 2 diabetes mellitus with other skin ulcer (principal); L97.815 Non-pressure chronic ulcer of other part of right lower leg with muscle involvement without evidence of necrosis; L89.893 Pressure ulcer of other site, stage 3; L97.114 Non-pressure chronic ulcer of right thigh with necrosis of bone; L97.222 Non-pressure chronic ulcer of left calf with fat layer exposed; E11.69 Type 2 diabetes mellitus with other specified complication; M86.651 Other chronic osteomyelitis, right thigh; E11.59 Type 2 diabetes mellitus with other circulatory complications; I87.2 Venous insufficiency (chronic) (peripheral); I10 Essential (primary) hypertension; E78.5 Hyperlipidemia, unspecified; I25.10 Atherosclerotic heart disease of native coronary artery without angina pectoris; J45.909 Unspecified asthma, uncomplicated; E11.40 Type 2 diabetes mellitus with diabetic neuropathy, unspecified; E03.9 Hypothyroidism, unspecified
CPT/HCPCS: A6213; A9270

== ENCOUNTER → 2024-09-13 | Outpatient (CLI) | payer OTHER ==
[2024-09-13 16:56] LABS: BASOPHILS ABSOLUTE AUTO 0.07 K/mm3 (0.00-0.23); BASOPHILS PERCENT AUTO 1 % (0-2); EOSINOPHILS ABSOLUTE AUTO 0.13 K/mm3 (0.00-0.68); EOSINOPHILS PERCENT AUTO 2 % (0-6); Hematocrit 34.4 % (37.0-53.0); Hemoglobin 10.6 g/dL (13.5-17.5); IMMATURE GRAN ABSOLUTE AUTO 0.06 K/mm3 (0.00-0.10); IMMATURE GRAN PERCENT AUTO 1 % (0-1); LYMPHOCYTES ABSOLUTE AUTO 0.68 K/mm3 (0.84-5.20); LYMPHOCYTES PERCENT AUTO 9 % (21-46); MONOCYTES ABSOLUTE AUTO 0.59 K/mm3 (0.16-1.47); MONOCYTES PERCENT AUTO 8 % (4-13); Mean Corpuscular HGB 25.7 pg (26.0-34.0); Mean Corpuscular HGB Conc 30.8 g/dL (31.5-36.5); Mean Corpuscular Volume 84 fL (80-100); Mean Platelet Volume 10.6 fL (9.1-12.4); NEUTROPHILS ABSOLUTE AUTO 6.26 K/mm3 (1.96-9.15); NEUTROPHILS PERCENT AUTO 80 % (41-73); Platelet Count 142 K/mm3 (150-400); RDW Coefficient Variation 17.6 % (11.7-14.2); RDW Standard Deviation 53.5 fL (35.1-46.3); Red Blood Cell Count 4.12 M/mm3 (4.30-5.90); White Blood Cell Count 7.79 K/mm3 (4.00-11.30)
[2024-09-13 17:06] LABS: Albumin, Blood 2.6 g/dL (3.4-5.0); Albumin/Globulin Ratio 0.5 (0.8-1.8); Bilirubin, Total 0.6 mg/dL (0.1-1.0); Calcium, Blood 9.6 mg/dL (8.5-10.1); Creatinine, Blood 1.42 mg/dL (0.60-1.20); Globulin, Blood 4.9 g/dL (2.2-4.0); Potassium, Blood 5.2 mmol/L (3.5-5.5); Total Protein, Blood 7.5 g/dL (6.4-8.2)
== END ==
LOC: LAB 16:52 → LAB SHORT 16:52
PROVIDERS: Emergency Medicine
DX: R22.31 Localized swelling, mass and lump, right upper limb (principal)
CPT/HCPCS: 80053; 85025

== ENCOUNTER 2024-09-19 00:36 | Day surgery (SDC) | payer OTHER ==
[2024-09-19] MEDS ORDERED: Lidocaine HCl 4% Cream 5 GM ONE (13:44)
== END 2024-09-19 23:00 | disposition home or self-care (01) ==
LOC: WOUND 00:36
DX: E11.622 Type 2 diabetes mellitus with other skin ulcer (principal); L97.812 Non-pressure chronic ulcer of other part of right lower leg with fat layer exposed; T81.31XA Disruption of external operation (surgical) wound, not elsewhere classified, initial encounter; L89.893 Pressure ulcer of other site, stage 3; L97.822 Non-pressure chronic ulcer of other part of left lower leg with fat layer exposed; I87.2 Venous insufficiency (chronic) (peripheral); E11.69 Type 2 diabetes mellitus with other specified complication; M86.651 Other chronic osteomyelitis, right thigh; I25.10 Atherosclerotic heart disease of native coronary artery without angina pectoris; I10 Essential (primary) hypertension; E78.5 Hyperlipidemia, unspecified; E03.9 Hypothyroidism, unspecified; E11.40 Type 2 diabetes mellitus with diabetic neuropathy, unspecified; J45.909 Unspecified asthma, uncomplicated; Z89.511 Acquired absence of right leg below knee; Z21 Asymptomatic human immunodeficiency virus [HIV] infection status
CPT/HCPCS: A6213; A9270

== ENCOUNTER 2024-10-03 02:45 | Day surgery (SDC) | payer OTHER ==
[2024-10-03] MEDS ORDERED: Lidocaine HCl 4% Cream 5 GM ONE (13:24)
== END 2024-10-03 23:00 | disposition home or self-care (01) ==
LOC: WOUND 02:45
DX: E11.622 Type 2 diabetes mellitus with other skin ulcer (principal); L97.812 Non-pressure chronic ulcer of other part of right lower leg with fat layer exposed; M86.651 Other chronic osteomyelitis, right thigh; I87.2 Venous insufficiency (chronic) (peripheral); I25.10 Atherosclerotic heart disease of native coronary artery without angina pectoris; E78.5 Hyperlipidemia, unspecified; I10 Essential (primary) hypertension; J45.909 Unspecified asthma, uncomplicated; E11.40 Type 2 diabetes mellitus with diabetic neuropathy, unspecified; E03.9 Hypothyroidism, unspecified; Z86.14 Personal history of Methicillin resistant Staphylococcus aureus infection; Z86.718 Personal history of other venous thrombosis and embolism; Z89.511 Acquired absence of right leg below knee; Z95.1 Presence of aortocoronary bypass graft
CPT/HCPCS: A6196; A6213; A9270

== ENCOUNTER 2024-10-24 05:10 | Day surgery (SDC) | payer OTHER ==
[~2024-10-24 05:10] MED LIST changes: -ALBU90OI INH; +GLUCOPHAGE1000 M1 PO; -METO50ER PO; +PREG200 PO; -PREG75 PO
[2024-10-24] MEDS ORDERED: Lidocaine HCl 4% Cream 5 GM ONE (13:50)
== END 2024-10-24 23:00 | disposition home or self-care (01) ==
LOC: WOUND 05:10
DX: E11.622 Type 2 diabetes mellitus with other skin ulcer (principal); L97.812 Non-pressure chronic ulcer of other part of right lower leg with fat layer exposed; L97.114 Non-pressure chronic ulcer of right thigh with necrosis of bone; E11.69 Type 2 diabetes mellitus with other specified complication; M86.651 Other chronic osteomyelitis, right thigh; I87.2 Venous insufficiency (chronic) (peripheral); T81.31XA Disruption of external operation (surgical) wound, not elsewhere classified, initial encounter; Y83.8 Other surgical procedures as the cause of abnormal reaction of the patient, or of later complication, without mention of misadventure at the time of the procedure
CPT/HCPCS: A6196; A6213; A9270; G0463

== ENCOUNTER 2024-11-03 13:38 | Inpatient (IN) | payer OTHER ==
[~2024-11-03] VITALS: Ht 188 cm; Wt 106.8 kg
[2024-11-03 14:19] LABS: BASOPHILS ABSOLUTE AUTO 0.04 K/mm3 (0.00-0.23); BASOPHILS PERCENT AUTO 0 % (0-2); EOSINOPHILS PERCENT AUTO 0 % (0-6); Hematocrit 35.7 % (37.0-53.0); Hemoglobin 11.6 g/dL (13.5-17.5); IMMATURE GRAN ABSOLUTE AUTO 0.05 K/mm3 (0.00-0.10); IMMATURE GRAN PERCENT AUTO 0 % (0-1); LYMPHOCYTES ABSOLUTE AUTO 0.24 K/mm3 (0.84-5.20); LYMPHOCYTES PERCENT AUTO 2 % (21-46); MONOCYTES ABSOLUTE AUTO 0.47 K/mm3 (0.16-1.47); MONOCYTES PERCENT AUTO 4 % (4-13); Mean Corpuscular HGB 27.2 pg (26.0-34.0); Mean Corpuscular HGB Conc 32.5 g/dL (31.5-36.5); Mean Corpuscular Volume 84 fL (80-100); Mean Platelet Volume 10.5 fL (9.1-12.4); NEUTROPHILS ABSOLUTE AUTO 12.24 K/mm3 (1.96-9.15); NEUTROPHILS PERCENT AUTO 94 % (41-73); Platelet Count 134 K/mm3 (150-400); RDW Coefficient Variation 18.4 % (11.7-14.2); Red Blood Cell Count 4.27 M/mm3 (4.30-5.90); White Blood Cell Count 13.04 K/mm3 (4.00-11.30)
[2024-11-03 14:26] LABS: Base Excess Venous 1.9 mmol/L; Bicarbonate Venous 25.4 mmol/L (24.0-30.0); PCO2 Venous 52.7 mmHg (38-42); pH Blood Venous 7.33 (7.34-7.37)
[2024-11-03 14:51] LABS: Ethanol (Alcohol), Blood, Med <3 mg/dL
[2024-11-03 14:52] LABS: Alanine Aminotransfer (ALT/SGP 29 U/L (12-78); Albumin, Blood 2.7 g/dL (3.4-5.0); Albumin/Globulin Ratio 0.7 (0.8-1.8); Alk Phos 110 U/L (50-136); Anion Gap 12 mmol/L (3-11); Aspartate Aminotrans (AST/SGOT 41 U/L (12-37); Bilirubin, Total 1.1 mg/dL (0.1-1.0); Blood Urea Nitrogen 58 mg/dL (8-24); Bun/Creatinine Ratio 39.5 (12.0-20.0); CO2, Blood 25 mmol/L (21-32); Calcium, Blood 8.8 mg/dL (8.5-10.1); Chloride, Blood 103 mmol/L (98-108); Creatinine, Blood 1.47 mg/dL (0.60-1.20); Globulin, Blood 3.9 g/dL (2.2-4.0); Glomerular Filtration Rate 52 (60-); Glucose, Blood 301 mg/dL (70-99); Potassium, Blood 5.6 mmol/L (3.5-5.5); Sodium, Blood 134 mmol/L (136-145); Total Protein, Blood 6.6 g/dL (6.4-8.2)
[2024-11-03] MEDS ORDERED: Lactated Ringer's 1,000 ML IV SCH ×2 (15:10→17:55)
[2024-11-03] MEDS ORDERED: Cefepime HCl 1,000 MG in NS 100 ML IV ONE (15:15)
[2024-11-03] MEDS ORDERED: Vancomycin HCL 2,000 MG in NS 520 ML IV ONE (15:15)
[2024-11-03 15:43] LABS: Source, Urine Clean Catch
[2024-11-03 16:04] LABS: Appearance, Urine Clear (Clear); Bilirubin, Urine Neg (Neg); Blood, Urine 3+ (Neg); Color, Urine Yellow (P-Yellow); Glucose Qualitative, Urine 1+ (Neg); Ketones, Urine Neg (Neg); Leukocyte Esterase, Urine Neg (Neg); Nitrite, Urine Neg (Neg); Protein, Urine 3+ (Neg); Urobilinogen, Urine NORM (Normal)
[2024-11-03 16:16] LABS: Hyaline Casts 0-2 /lpf (0-2)
[2024-11-03 16:17] LABS: Bacteria Few /hpf; Squamous Epithelial Cells Rare /hpf (Few); White Blood Cells, Urine 0-2 /hpf (0-5)
[2024-11-03] MEDS ORDERED: Ondansetron HCl 2 MG / ML 2ML Vial IV PRN (17:50)
[2024-11-03] MEDS ORDERED: Albuterol 2.5 MG/3 ML VIAL INH PRN (17:55)
[2024-11-03] MEDS ORDERED: Insulin Human Lispro 100 Units/ML 3ML Syringe SC SCH (18:00)
[2024-11-03] MEDS ORDERED: Lactulose 20 GM/30 ML UDC PO SCH (18:00)
[2024-11-03] MEDS ORDERED: NS 1,000 ML IV SCH (18:00)
[2024-11-03 18:39] LABS: Base Excess Venous 1.5 mmol/L; Bicarbonate Venous 25.2 mmol/L (24.0-30.0); PCO2 Venous 45.3 mmHg (38-42); pH Blood Venous 7.38 (7.34-7.37)
[2024-11-03] MEDS ORDERED: Meropenem 2,000 MG in NS 250 ML IV SCH (19:00)
[2024-11-03] MEDS ORDERED: Azithromycin 500 MG in NS 250 ML IV SCH (19:00)
--- NOTE | 2024-11-03 20:10 | NUR ---
NEW ADMIT. PATIENT ADMITTED TO [facility] FROM THE ER. PATIENT ARRIVED TO ROOM IN ATTENDS. PATIENT ARRIVED TO ROOM WITH VANYCO RUNNING AND FINISHED UPON ARRIVAL. PATIENT TRANSFERED FROM [facility] TO HOSPITAL BED VIA SLIDE SHEET AND 3P ASSIST. PATIENT HAS R BKA AND AMS AND IS UNABLE TO HELP TRANSFER AT THIS TIME. PATIENT ARRIVED ON 2LPM VIA NASAL CANNULA. PATIENT TRANSFERED TO MONITOR IN ROOM AND TELEMETRY STARTED. THIS RN TO ASSUME PATIENT CARE.
[2024-11-03 20:45] VITALS: BP 155/96
[2024-11-03] MEDS ORDERED: Metoprolol Tartrate 25 MG Tab PO SCH (21:00)
[2024-11-03] MEDS ORDERED: Lactobacil 2-S.Thermo-Bifido 1 1 Cap PO SCH (21:00)
[2024-11-03] MEDS ORDERED: Apixaban 5 MG Tab PO SCH (21:00)
[2024-11-03 21:10] LABS: U Amphetamine Screen Not Detected; U Barbituate Screen Not Detected; U Benzodiazapine Screen Not Detected; U Buprenorphine Screen Not Detected; U Cannabinoids Screen DETECTED; U Cocaine Screen Not Detected; U Methadone Screen Not Detected; U Methamphetamine Screen Not Detected; U Opiates Screen Not Detected; U Oxycodone Screen Not Detected; U Phencyclidine Screen Not Detected
[2024-11-03 23:04] VITALS: BP 112/75
[2024-11-04 04:02] VITALS: BP 121/73
--- NOTE | 2024-11-04 05:41 | NUR ---
SHIFT SUMMARY. PATIENT IS A&O TO SELF AND CONFUSED-PULLING AT TELEMETRY, OXYGEN LINE, AND WICKING SYSTEM. SECOND IV PLACED THIS SHIFT BY ANA RN-PATIENT TOLERATED WELL. PATIENT IS IMPULSIVE AND MOVES AROUND IN BED FREQUENTLY-BED EXIT ENGAGED FOR PATIENT SAFETY. PATIENT HAS IV FLUIDS INFUSING PER ORDERS. PATIENT IS ABLE TO TAKES MED WHOLE WITH WATER WITH OUT ISSUES. PATIENT ANSWERS "NO" TO MOST QUESTIONS BUT IS COOPERATIVE WITH CARE WITH FREQUENT ORIENTATION. PATIENT IS A Q6H CBG WITH BLOOD GLUCOSE IN THE 200'S T/O NIGHT. PATIENT STAND PIVOTS TO WHEELCHAIR AT BASELINE PER REPORT. UPON ARRIVAL TO FLOOR AND AT THIS TIME PATIENT IS UNABLE TO FOLLOW COMMANDS. PATIENT HAS A RIGHT BKA WITH WOUND TO STUMP-PICTURES IN THE CHART. PATIENT HAS A STAGE 2 PRESSURE INJURY TO THE LEFT SHOULDER- TIGRE PIE MAKER MACHINE NOTIFIED THIS SHIFT-NO CHANGES IN CARE ORDERED. PATIENT DOES NOT USE CALL LIGHT. PATIENT CALLS OUT AND YELLS, WHEN ASKED WHAT PATIENT NEEDS, PATIENT RESPONDS WITH "NOTHING". MED REC NEEDS TO BE COMPLETED WILL RELAY TO DAY SHIFT RN. FREQUENT CHECKS DONE. BED IS LOCKED IN THE LOWEST POSTION WITH CALL LIGHT IN REACH. CARE IS ONGOING.
[2024-11-04 05:43] LABS: BASOPHILS ABSOLUTE AUTO 0.04 K/mm3 (0.00-0.23); BASOPHILS PERCENT AUTO 1 % (0-2); EOSINOPHILS ABSOLUTE AUTO 0.16 K/mm3 (0.00-0.68); EOSINOPHILS PERCENT AUTO 2 % (0-6); Hematocrit 37.6 % (37.0-53.0); Hemoglobin 11.8 g/dL (13.5-17.5); IMMATURE GRAN ABSOLUTE AUTO 0.03 K/mm3 (0.00-0.10); IMMATURE GRAN PERCENT AUTO 0 % (0-1); LYMPHOCYTES ABSOLUTE AUTO 0.29 K/mm3 (0.84-5.20); LYMPHOCYTES PERCENT AUTO 4 % (21-46); MONOCYTES ABSOLUTE AUTO 0.43 K/mm3 (0.16-1.47); MONOCYTES PERCENT AUTO 6 % (4-13); Mean Corpuscular HGB 26.5 pg (26.0-34.0); Mean Corpuscular HGB Conc 31.4 g/dL (31.5-36.5); Mean Corpuscular Volume 84 fL (80-100); Mean Platelet Volume 10.2 fL (9.1-12.4); NEUTROPHILS ABSOLUTE AUTO 5.94 K/mm3 (1.96-9.15); NEUTROPHILS PERCENT AUTO 86 % (41-73); Platelet Count 120 K/mm3 (150-400); RDW Coefficient Variation 18.1 % (11.7-14.2); RDW Standard Deviation 55.8 fL (35.1-46.3); Red Blood Cell Count 4.46 M/mm3 (4.30-5.90); White Blood Cell Count 6.89 K/mm3 (4.00-11.30)
[2024-11-04] MEDS ORDERED: Omeprazole 20 MG CapCR PO SCH (06:00)
[2024-11-04] MEDS ORDERED: Levothyroxine Sodium 0.125 MG Tab PO SCH (06:00)
[2024-11-04 06:13] LABS: Albumin, Blood 2.6 g/dL (3.4-5.0); Albumin/Globulin Ratio 0.7 (0.8-1.8); Bilirubin, Total 0.9 mg/dL (0.1-1.0); Bun/Creatinine Ratio 42.1 (12.0-20.0); Calcium, Blood 8.6 mg/dL (8.5-10.1); Creatinine, Blood 1.33 mg/dL (0.60-1.20); Globulin, Blood 3.9 g/dL (2.2-4.0); Potassium, Blood 4.7 mmol/L (3.5-5.5); Total Protein, Blood 6.5 g/dL (6.4-8.2)
[2024-11-04 08:03] VITALS: BP 138/72
[2024-11-04 09:00] LABS: International Normalized Ratio 1.53; Prothrombin Time Results 15.9 Sec (9.7-11.5)
[2024-11-04] MEDS ORDERED: Tamsulosin HCl 0.4 MG Cap PO SCH (09:00)
[2024-11-04] MEDS ORDERED: SPIR25 PO (10:26)
[2024-11-04 11:46] LABS: Albumin, Blood 2.9 g/dL (3.4-5.0)
[2024-11-04 11:58] VITALS: BP 155/91
[2024-11-04] MEDS ORDERED: Insulin Glargine-Yfgn 100 Unit/mL 3 ML SYR SC SCH (14:00)
--- NOTE | 2024-11-04 15:05 | NUR ---
LEFT MESSAGE ON MACHINE FOR PT'S RE: POSSIBLE GOALS OF CARE CONVERSATION. WILL ATTEMPT TO REACH SPOUSE AGAIN TOMORROW 11/05/24.
[2024-11-04 15:15] VITALS: BP 168/104
--- NOTE | 2024-11-04 17:25 | NUR ---
SHIFT SUMMARY: PT ORIENTED TO SELF AND DIFFICULT TO AROUSE. REPONDS TO VERBAL AND PAINFUL STIMULI WITH BRIEF EYE OPENING AND MUMBLING. DOES NOT FOLLOW COMMANDS AND IRRITABLE. ELEVATED BP AND HR 100S. MAINTAINING >92% ON 2L NC. MEPIPLEX CHANGED ON RLE. PT NPO AND PO MEDS HELD D/T ALTERED MENTAL STATUS. WICKING SYSTEM IN PLACE. TWO EPISODES OF BOWEL INCONTINENCE AND ONE EPISODE OF URINE INCONTINENCE. PERICARE COMPLETED AND LINEN CHANGE COMPLETE. HOURLY CHECKS COMPLETED. AT BEDSIDE. CALL LIGHT WITHIN REACH AND BED LOCKED AND LOW. WILL CONTINUE PLAN OF CARE TILL REPORT GIVEN TO [facility] NURSE.
[2024-11-04] MEDS ORDERED: Spironolactone 50 MG Tab PO SCH (18:00)
[2024-11-04] MEDS ORDERED: Vancomycin HCL 1,500 MG in NS 250 ML IV SCH (18:00)
[2024-11-04 19:42] VITALS: BP 153/83
--- NOTE | 2024-11-04 20:43 | NUR ---
ASSUMPTION OF CARE. THIS RN ASSUMED PATIENT CARE AT 1900 HOURS. PATIENT IS IN BED, ON 1LPM VIA NASAL CANNULA SATTING >90%. PATIENTS ABDOMIN IS DISTENDED AND FIRM. PATIENT RESPONDS TO VERBAL STIMULI AND IS ABLE TO ANSWER SOME QUESTIONS WITH SMALL SENTENCES AT TIMES. PATIENT CURRENTLY HAS A PUREWICK IN PLACE THAT IS COLLECTING KAT COLORED URINE. PATIENT FREQUENTLY MOVES IN BED. TELEMETRY PATCHES CHANGED. BANDAGE TO WOUND ON R STUMP CHANGED WOUND IS CLEAN AND NON ODOROUS. PATIENTS LEFT SHOULDER PRESSURE INJURY OPEN TO AIR. PATIENT HAD A BM THIS SHIFT AT THIS TIME. PATIENT CONTINUES TO MOVE HIMSELF IN BED. PLAN IS FOR PATIENT TO HAVE PARACENTESIS 11/06/24.
[2024-11-04] MEDS ORDERED: DULoxetine HCL 60 MG Capsule DR PO SCH (21:00)
[2024-11-04] MEDS ORDERED: Azithromycin 500 MG in NS 250 ML IV SCH (21:00)
[2024-11-04 22:58] VITALS: BP 138/95
[2024-11-05] MEDS ORDERED: Diltiazem HCl 5 MG / ML 5ML Vial ONE (02:24)
[2024-11-05 02:25] VITALS: BP 137/80
[2024-11-05 03:59] LABS: Albumin, Blood 2.5 g/dL (3.4-5.0); Albumin/Globulin Ratio 0.6 (0.8-1.8); Bilirubin, Total 1.1 mg/dL (0.1-1.0); Bun/Creatinine Ratio 42.3 (12.0-20.0); Calcium, Blood 8.5 mg/dL (8.5-10.1); Creatinine, Blood 1.3 mg/dL (0.60-1.20); Globulin, Blood 4.1 g/dL (2.2-4.0); Potassium, Blood 4.6 mmol/L (3.5-5.5); Total Protein, Blood 6.6 g/dL (6.4-8.2)
--- NOTE | 2024-11-05 04:54 | NUR ---
SHIFT SUMMARY. PATIENT VERY VOCAL TONIGHT YELLING OUT AT TIMES AND MAKING NOISES T/O THE NIGHT. PATIENTS HEART RATE INCREASING T/O SHIFT- NOTIFIED AND ORDERED FOR A ONE TIME DOSE OF CARDIZEM-SEE ORDERS FOR RATE CONTROL-PATIENTS HEART RATE IMPROVED FROM 130-140'S TO 110-120'S-DR. JOHNSTON OKAY WITH PATIENTS HEART RATE IN THE 110-120'S. PATIENT HAD MULTIPLE LOOSE BM'S TONIGHT. PLAN IS FOR PALLIATIVE TO MEET WITH FAMILY AND PATIENT TODAY 11/05/24 AND A PARACENTESIS ON Sunday11/06/24. BED IS LOCKED IN THE LOWEST POSITION, BED EXIT ALARM ON FOR PATIENT SAFETY, CALL LIGHT IN REACH, ROUNDING DONE T/O NIGHT. CARE IS ONGOING.
[2024-11-05 05:10] VITALS: BP 125/88
[2024-11-05] MEDS ORDERED: Diltiazem HCl 5 MG / ML 5ML Vial IV ONE (06:45)
[2024-11-05 07:11] LABS: Hematocrit 35.8 % (37.0-53.0); Hemoglobin 11.3 g/dL (13.5-17.5); Mean Corpuscular HGB 26.4 pg (26.0-34.0); Mean Corpuscular HGB Conc 31.6 g/dL (31.5-36.5); Mean Corpuscular Volume 84 fL (80-100); Mean Platelet Volume 10.4 fL (9.1-12.4); Platelet Count 111 K/mm3 (150-400); RDW Coefficient Variation 18.3 % (11.7-14.2); RDW Standard Deviation 55.5 fL (35.1-46.3); Red Blood Cell Count 4.28 M/mm3 (4.30-5.90); White Blood Cell Count 5.68 K/mm3 (4.00-11.30)
[2024-11-05 07:44] VITALS: BP 147/93
[2024-11-05] MEDS ORDERED: dilTIAZem HCL 120 MG CAP.CD PO SCH (09:00)
[2024-11-05] MEDS ORDERED: Lactulose 20 GM/30 ML UDC PO SCH (09:00)
[2024-11-05 12:16] VITALS: BP 152/86
--- NOTE | 2024-11-05 13:40 | NUR ---
PHONE CALL TO PT'S SPOUSE, SOL FOR GOC CONVERSATION. SOL REPORTS SHE WILL BE COMING IN TO THE HOSPITAL THIS AFTERNOON (APX [phone]). PLAN: MEET WITH SPOUSE AND PROVIDER IN PT'S ROOM WHEN ARRIVES. PRIMARY RN UPDATED.
[2024-11-05] MEDS ORDERED: Pregabalin 75 MG Cap PO SCH ×2 (14:55→21:00)
[2024-11-05 15:49] VITALS: BP 128/76
--- NOTE | 2024-11-05 15:51 | NUR ---
SHIFT SUMMARY: PT A&OX1 ORIENTED TO SELF ONLY. SPEECH IS SLOW AND MUMBLED WITH OCCASIONAL WORD FINDING. MOVES SELF IN BED FREQUENTLY. VSS ON RA. DOES NOT FOLLOW COMMANDS OCCASIONALLY. PT WAS ALERT ENOUGH TO TAKE MEDS WHOLE WITH SMALL SIPS OF FLUIDS. 1:1 FEEDING FOR LUNCH. PT TOLERATED CC DIET WELL. PUREWICK IN PLACE BUT PT FREQUENTLY TRYING TO TAKE IT OFF. EDUCATED PT TO KEEP IT ON AND VERBALIZED UNDERSTANDING BUT HAVING TO REINFORCE. MEPIPLEX ON RLE REPLACED. DID HOURLY ROUNDS AND SAT RIGHT OUTSIDE ROOM FOR SAFETY. PALLIATIVE CONSULTED WITH AND PATIENT AT BEDSIDE. PLAN TO CONTINUE TO TREAT AND HOSPICE AT DISCHARGE. PARACENTESIS PLANNED FOR TOMORROW. REPORT GIVEN TO MEDICAL FLOOR NURSE AND PT TRANSFERRED AT 1500.
--- NOTE | 2024-11-05 16:00 | NUR ---
GOALS OF CARE CONVERSATION WITH PT AND . PT IS ALERT, ORIENTED TO SELF, SPOUSE AND LOCATION. ANSWERS SOME APPROPRIATLY AND HAS WORD FINDING DIFFICULTY AT TIMES. CONTINUE WITH TX WHILE IN THE HOSPITAL. MENTATION HAS IMPROVED SINCE YESTERDAY WHEN HE WAS ONLY MUTTERING. PLAN IS FOR PARACENTESIS TOMORROW. , "JACOBY" FEELS PT WOULD BENEFIT FROM THE SUPPORTS OF HOSPICE SERVICES. PT WOULD LIKE TO STAY HOME AND NOT RETURN TO THE HOSPITAL ANY MORE. OBTAINED ORDER FROM PROVIDER TO D/C CONTINIOUS IV FLUIDS HE IS NOW EATING AND DRINKING. CODE STATUS CHANGE TO DNR AND PLACED HOSPICE REFERRAL. PC TO REMAIN AVAILABLE NEEDED.
--- NOTE | 2024-11-05 16:54 | NUR ---
PT TRANSFERED FROM PCU. PLAN FOR PARACENTESIS TOMORROW AND WILL DISCHARGE ON HOSPICE. ALERT AND ORIENTED X2. BED ALARM ON . IV ANTIBIOTICS CONTINUED DURING HOSPITAL STAY. SPOUSE AT BEDSIDE
[2024-11-05] MEDS ORDERED: rOPINIRole HCl 1 MG Tab PO SCH (18:00)
[2024-11-05 18:04] LABS: Vancomycin, Trough 13.6 ug/mL (5.0-10.0)
[2024-11-05 19:22] VITALS: BP 159/88
[2024-11-05] MEDS ORDERED: Insulin Human Lispro 100 Units/ML 3ML Syringe SC SCH (21:00)
[2024-11-06 04:04] VITALS: BP 126/67
--- NOTE | 2024-11-06 04:58 | NUR ---
SHIFT SUMMARY T SLEPT INTERMITTENTLY DURING THE NIGHT. ORIENTED TO SELF, CONFUSED AND FORGETFUL. PUREWICK DRAINING KAT COLORED URINE. PT INCONT OF LOOSE STOOL X2 AFTER LACTULOSE GIVEN. PT DROWSY AT START OF SHIFT- O2 SATS 83% ON ROOM AIR. 3LNC PLACED WITH SATS IN THE 90'S. PER H&P, PT ON 2LNC AT BASELINE. PT WEANED TO 2LNC. MEPELEX DRESSING CHANGED TO RIGHT STUMP PER PT REQUEST- OPEN WOUND TO R STUMP WITH RODRIGUEZ/BROWN DRAINAGE. BED ALARM ON, BED IN LOWEST POSITION, CALL LIGHT WITHIN REACH, SIDERAILS UP X3.
[2024-11-06 05:51] LABS: Bun/Creatinine Ratio 43.3 (12.0-20.0); Calcium, Blood 8.4 mg/dL (8.5-10.1); Creatinine, Blood 1.34 mg/dL (0.60-1.20); Potassium, Blood 4.2 mmol/L (3.5-5.5)
[2024-11-06 07:19] VITALS: BP 139/68
[2024-11-06] MEDS ORDERED: rOPINIRole HCl 1 MG Tab PO SCH (09:00)
[2024-11-06 09:18] LABS: Albumin, Blood 2.4 g/dL (3.4-5.0)
[2024-11-06] MEDS ORDERED: Albumin (Human) 25gm/100ml 100 ML IV ONE (12:00)
[2024-11-06 12:15] LABS: Automated BF RBC Count 0.003 M/mm3 (0-0)
[2024-11-06 12:18] LABS: Body Fluid WBC Count 120 /mm3 (0-999); RBC Count, Body Fluid 3000 /mm3 (0-0)
[2024-11-06 12:36] LABS: Albumin, Body Fluid 1.4 g/dL
[2024-11-06 12:45] LABS: Lactate Dehydrogenase, Body Fl 131 U/L
[2024-11-06 12:58] LABS: Appearance, Body Fluid Hazy (Clear); Color, Body Fluid Yellow (None-Yellow); Total Cell Count, Body Fluid 100
[2024-11-06] MEDS ORDERED: TAMS.4ER PO (13:40)
[2024-11-06] MEDS ORDERED: ROPINIROLE HCL3 M2 PO (13:42)
[2024-11-06] MEDS ORDERED: FLUTICASONE-SAL12 G1 INH (13:48)
[2024-11-06] MEDS ORDERED: ALBU90OI INH (13:50)
[2024-11-06] MEDS ORDERED: DILT120 PO (14:18)
[2024-11-06] MEDS ORDERED: LACT10SY PO (14:19)
[2024-11-06] MEDS ORDERED: AMOCLA875 PO (14:21)
[2024-11-06] MEDS ORDERED: PANT20 PO (14:22)
--- NOTE | 2024-11-06 14:29 | NUR ---
SUPPORTIVE VISIT FOR PT'S SPOUSE "JACOBY". THERAPUTIC LISTENING PROVIDED. JACOBY REPOPRTS BEING GRATEFUL FOR THE INFORMATION RE: HOSPICE AND WHAT SERVICES HOSPICE PROVIDES. JACOBY EXPRESSED BEING HOPEFULL FOR THE FIRST TIME IN A LONG TIME AND IS LOOK FORWARD TO CHRISTINE GOING HOME. THIS PC RN REVIEWED WITH PT AND , THE IMPORTANCE OF PT CONTINUING WITH ROUTINE MEDICATIONS LONG IT IS SAFE TO DO SO. HE ALSO NEEDS TO COMPLETE THE FULL COURSE OF ABX UPON DISCHARGE. SHOULD PT'S CONDITION STABILIZE AND HE GRADUATE OFF OF HOSPICE, PT WOULD BENEFIT FROM BEING ABLE TO CONTINUE ROUTINE MEDICATIONS.
[2024-11-06 15:44] VITALS: BP 149/88
[2024-11-06 19:49] VITALS: BP 136/86
[2024-11-06] MEDS ORDERED: Amoxicillin/Clavulanate K 875 MG Tab PO SCH (21:00)
[2024-11-06] MEDS ORDERED: Guaifenesin/Dextromethorphan Syrup 5 ML UDC PO PRN (23:25)
[2024-11-07 03:37] VITALS: BP 142/82
--- NOTE | 2024-11-07 05:59 | NUR ---
SHIFT SUMMARY PT SLEPT SHORT INTERVALS THROUGH THE NIGHT. C/O INCREASED COUGH AND SOME NASAL CONGESTION. COUGH MEDICINE ORDEREDA AND GIVEN PER EMAR. PT INCONT SMALL LOOSE STOOL AFTER LACTULOSE GIVEN. PT ON ROOM AIR THROUGH NIGHT WITH O2 SATS WNL. PT ABLE TO REPOSITION SELF IN BED. DRESSING INTACT TO RIGHT STUMP- CHANGED ON PRIOR SHIFT. BED IN LOWEST POSITION, CALL LIGHT WITHIN REACH, SIDERAILS UP X2.
[2024-11-07 07:28] VITALS: BP 134/70
--- NOTE | 2024-11-07 13:10 | NUR ---
[id number] DISCHARGED HOME VIA WHEELCHAIR
== END 2024-11-07 13:12 | disposition hospice, home (50) | DRG 871 ==
LOC: ER 13:38 → ERHOLD 17:48 → MEDS 17:48 → PCU 17:48 → MEDS 11-05 15:38
PROVIDERS: Emergency Medicine; Internal Medicine; Nurse Practitioner Acute Care; Student in an Organized Health Care Education/Training Program; ADMIT Internal Medicine
PROC: 3E03329 Introduction of Other Anti-infective into Peripheral Vein, Percutaneous Approach (ICD-10-PCS; principal; 2024-11-03)
PROC: 30233J1 Transfusion of Nonautologous Serum Albumin into Peripheral Vein, Percutaneous Approach (ICD-10-PCS; 2024-11-06)
PROC: 0W9G3ZZ Drainage of Peritoneal Cavity, Percutaneous Approach (ICD-10-PCS; 2024-11-07)
DX: A41.81 Sepsis due to Enterococcus (principal); G92.8 Other toxic encephalopathy; J18.9 Pneumonia, unspecified organism; J96.21 Acute and chronic respiratory failure with hypoxia; I50.32 Chronic diastolic (congestive) heart failure; R18.8 Other ascites; I13.0 Hypertensive heart and chronic kidney disease with heart failure and stage 1 through stage 4 chronic kidney disease, or unspecified chronic kidney disease; E87.20 Acidosis, unspecified; E72.4 Disorders of ornithine metabolism; R65.20 Severe sepsis without septic shock; G25.81 Restless legs syndrome; N40.0 Benign prostatic hyperplasia without lower urinary tract symptoms; F32.A Depression, unspecified; E11.42 Type 2 diabetes mellitus with diabetic polyneuropathy; Z96.612 Presence of left artificial shoulder joint; A41.59 Other Gram-negative sepsis; B96.1 Klebsiella pneumoniae [K. pneumoniae] as the cause of diseases classified elsewhere; K74.60 Unspecified cirrhosis of liver; E87.5 Hyperkalemia; N18.30 Chronic kidney disease, stage 3 unspecified; K76.82 Hepatic encephalopathy; E11.22 Type 2 diabetes mellitus with diabetic chronic kidney disease; J98.4 Other disorders of lung; I25.10 Atherosclerotic heart disease of native coronary artery without angina pectoris; Z88.8 Allergy status to other drugs, medicaments and biological substances; Z79.890 Hormone replacement therapy; Z79.01 Long term (current) use of anticoagulants; Z79.4 Long term (current) use of insulin; Z88.5 Allergy status to narcotic agent; Z79.51 Long term (current) use of inhaled steroids; Z79.85 Long-term (current) use of injectable non-insulin antidiabetic drugs; Z79.84 Long term (current) use of oral hypoglycemic drugs; Z87.19 Personal history of other diseases of the digestive system; Z86.711 Personal history of pulmonary embolism; Z98.890 Other specified postprocedural states; Z87.891 Personal history of nicotine dependence; Z95.5 Presence of coronary angioplasty implant and graft; Z89.431 Acquired absence of right foot; Z89.511 Acquired absence of right leg below knee; Z89.012 Acquired absence of left thumb; Z99.81 Dependence on supplemental oxygen
CPT/HCPCS: 36415; 49083; 71045; 73590; 80048; 80053; 80202; 80320; 81001; 82040; 82042; 82140; 82803; 82947; 83605; 83615; 83735; 83880; 84132; 84145; 84157; 85025; 85027; 85610; 87040; 87070; 87075; 87205; 87449; 88108; 88305; 89051; 92610; 93005; 93010; 94640; 94664; 94760; 94762; 96360; 99285-25; A9270; J0456; J0692; J1815; J2185; J3370; J7030; J7040; J7050; J7120; P9047